=== PATIENT | male | born 1960 | race Caucasian/White ===

== ENCOUNTER → 2020-11-06 14:36 | Outpatient (BNVA) | payer MEDICARE, MEDICAID, SELFPAY | PROVIDERS: PCP Internal Medicine; Visit Provider Internal Medicine | DX: G47.33 Obstructive sleep apnea (adult) (pediatric) (principal); J44.9 Chronic obstructive pulmonary disease, unspecified; E66.9 Obesity, unspecified; I25.10 Atherosclerotic heart disease of native coronary artery without angina pectoris; I21.9 Acute myocardial infarction, unspecified; Z79.899 Other long term (current) drug therapy; Z95.5 Presence of coronary angioplasty implant and graft; Z99.81 Dependence on supplemental oxygen; Z99.89 Dependence on other enabling machines and devices | CPT/HCPCS: 99212 ==

== ENCOUNTER 2020-11-22 10:03 | Outpatient (REF) | payer MEDICARE, MEDICAID, SELFPAY ==
[2020-11-22 10:28] LABS: MANUAL DIFF FLAG NO
[2020-11-22 10:29] LABS: Basophils Percent Auto 0.5 % (0-2); Eosinophils Absolute Auto 0.2 X10*3/uL (0.0-0.4); Eosinophils Percent Auto 3.1 % (0-4); Hematocrit 41.2 % (42-52); Hemoglobin 13.7 g/dl (14.0-18.0); Imm Gran Abs Auto 0.03 X10*3/uL (0.00-0.03); Imm Gran Pct Auto 0.5 % (0.0-0.4); Lymphocytes Absolute Auto 1.6 X10*3/uL (1.2-4.9); Lymphocytes Percent Auto 24.6 % (20-40); Mean Corpuscular HGB Conc 33.3 g/dl (31.0-36.0); Mean Corpuscular Hemoglobin 30.2 pg (27.0-33.0); Mean Corpuscular Volume 90.7 fL (80-98); Monocytes Absolute Auto 0.6 X10*3/uL (0.1-1.2); Monocytes Percent Auto 9.4 % (2-11); Neutrophils Percent Auto 61.9 % (45-73); Platelet Count 181 X10*3/uL (160-400); Red Blood Count 4.54 X10*6/uL (4.60-5.80); Red Cell Distribution Width 12.9 % (11.0-16.0); White Blood Count 6.4 X10*3/uL (4.8-10.8)
[2020-11-22 10:44] LABS: Estimated Average Glucose 114 mg/dL; Hemoglobin A1c % 5.6 %
[2020-11-22 10:51] LABS: Alanine Aminotransferase 30 U/L (0-40); Albumin Level 4.4 g/dL (3.5-5.0); Alkaline Phosphatase 74 U/L (39-117); Anion Gap 11 (12-20); Aspartate Amino Transferase 19 U/L (5-37); Blood Urea Nitrogen 21 mg/dL (9-16); Calcium 9.1 mg/dL (8.4-10.2); Carbon Dioxide 31 mmol/L (22-29); Chloride 100 mmol/L (96-108); Cholesterol 119 mg/dL; Estimated Glomerular Filt Rate 47; Glucose Fasting 117 mg/dL (60-99); HDL Cholesterol 36 mg/dL; LDL Cholesterol Calculated 54 mg/dl; Potassium 4.9 mmol/l (3.3-5.1); Sodium 137 mmol/L (135-145); Total Protein 7.3 g/dL (6.5-8.0); Triglycerides 148 mg/dL
== END 2020-11-22 10:04 | disposition home or self-care (01) ==
LOC: HO.LAB 10:03
PROVIDERS: PCP Internal Medicine; Visit Provider Physician Assistant
DX: I21.4 Non-ST elevation (NSTEMI) myocardial infarction (principal); Z13.1 Encounter for screening for diabetes mellitus
CPT/HCPCS: 36415; 80048; 80053; 80061; 83036; 85025

== ENCOUNTER → 2020-12-05 14:50 | Outpatient (BNVA) | payer MEDICARE, MEDICAID, SELFPAY | PROVIDERS: PCP Internal Medicine; Visit Provider Internal Medicine | DX: E66.01 Morbid (severe) obesity due to excess calories (principal); G47.33 Obstructive sleep apnea (adult) (pediatric); J45.909 Unspecified asthma, uncomplicated; J98.4 Other disorders of lung | CPT/HCPCS: 99212 ==

== ENCOUNTER → 2021-02-06 09:45 | Outpatient (BNVA) | payer MEDICARE, MEDICAID, SELFPAY | PROVIDERS: PCP Internal Medicine; Visit Provider Internal Medicine | DX: J45.909 Unspecified asthma, uncomplicated (principal); G47.33 Obstructive sleep apnea (adult) (pediatric); E66.01 Morbid (severe) obesity due to excess calories; Z68.42 Body mass index [BMI] 45.0-49.9, adult; Z99.89 Dependence on other enabling machines and devices; Z87.891 Personal history of nicotine dependence; Z79.51 Long term (current) use of inhaled steroids | CPT/HCPCS: 99212 ==

== ENCOUNTER 2021-04-25 08:32 | Outpatient (REF) | payer MEDICARE, MEDICAID, SELFPAY ==
--- NOTE | ~2021-04-25 | XR_ITS ---
EXAMINATION: XR KNEE, BILATERAL XR KNEE, AP STANDING, BILATERAL CLINICAL INFORMATION: Bilateral knee pain. COMPARISON: Left knee 06/03/2019. Bilateral knee 12/24/2017. TECHNIQUE: AP bilateral knee standing 1 view. 2 views each knee. FINDINGS: Bilateral AP knee standing: There is severe loss of medial compartment joint space both knees with periarticular spurring. The lateral compartment joint space is preserved. There is no visible acute fracture, dislocation or lytic process seen. There is a moderate enthesophyte in medial supracondylar region likely old avulsion injury of right knee. Right knee: There is moderate loss of patellofemoral compartment joint space with moderate periarticular spurring. There is no abnormal joint effusion seen. There are no loose bodies. Left knee: There is moderate loss of patellofemoral compartment joint space with moderate periarticular spurring. No suprapatellar joint effusion seen. No loose bodies or bony erosive changes. XR/XR knee standing BI IMPRESSION: Severe loss of bilateral tricompartment joint space both knees with periarticular spurring but no bony erosive changes or joint effusion. There is no visible acute fracture or dislocation seen.
--- NOTE | ~2021-04-25 | XR_ITS ---
EXAMINATION: XR KNEE, BILATERAL XR KNEE, AP STANDING, BILATERAL CLINICAL INFORMATION: Bilateral knee pain. COMPARISON: Left knee 06/03/2019. Bilateral knee 12/24/2017. TECHNIQUE: AP bilateral knee standing 1 view. 2 views each knee. FINDINGS: Bilateral AP knee standing: There is severe loss of medial compartment joint space both knees with periarticular spurring. The lateral compartment joint space is preserved. There is no visible acute fracture, dislocation or lytic process seen. There is a moderate enthesophyte in medial supracondylar region likely old avulsion injury of right knee. Right knee: There is moderate loss of patellofemoral compartment joint space with moderate periarticular spurring. There is no abnormal joint effusion seen. There are no loose bodies. Left knee: There is moderate loss of patellofemoral compartment joint space with moderate periarticular spurring. No suprapatellar joint effusion seen. No loose bodies or bony erosive changes. XR/XR knee LT 2V IMPRESSION: Severe loss of bilateral tricompartment joint space both knees with periarticular spurring but no bony erosive changes or joint effusion. There is no visible acute fracture or dislocation seen.
--- NOTE | ~2021-04-25 | XR_ITS ---
EXAMINATION: XR KNEE, BILATERAL XR KNEE, AP STANDING, BILATERAL CLINICAL INFORMATION: Bilateral knee pain. COMPARISON: Left knee 06/03/2019. Bilateral knee 12/24/2017. TECHNIQUE: AP bilateral knee standing 1 view. 2 views each knee. FINDINGS: Bilateral AP knee standing: There is severe loss of medial compartment joint space both knees with periarticular spurring. The lateral compartment joint space is preserved. There is no visible acute fracture, dislocation or lytic process seen. There is a moderate enthesophyte in medial supracondylar region likely old avulsion injury of right knee. Right knee: There is moderate loss of patellofemoral compartment joint space with moderate periarticular spurring. There is no abnormal joint effusion seen. There are no loose bodies. Left knee: There is moderate loss of patellofemoral compartment joint space with moderate periarticular spurring. No suprapatellar joint effusion seen. No loose bodies or bony erosive changes. XR/XR knee RT 2V IMPRESSION: Severe loss of bilateral tricompartment joint space both knees with periarticular spurring but no bony erosive changes or joint effusion. There is no visible acute fracture or dislocation seen.
== END 2021-04-25 08:33 | disposition home or self-care (01) ==
LOC: HO.HOSX 08:32
PROVIDERS: Visit Provider Orthopaedic Surgery
DX: M17.0 Bilateral primary osteoarthritis of knee (principal); E66.01 Morbid (severe) obesity due to excess calories; Z68.42 Body mass index [BMI] 45.0-49.9, adult; I21.4 Non-ST elevation (NSTEMI) myocardial infarction
CPT/HCPCS: 20610; 73560; 73565; 99212; J1100

== ENCOUNTER → 2021-06-24 13:36 | Outpatient (BNVA) | payer MEDICARE, MEDICAID, SELFPAY | PROVIDERS: PCP Internal Medicine; Referring Provider Internal Medicine; Visit Provider Internal Medicine Cardiovascular Disease | DX: I25.110 Atherosclerotic heart disease of native coronary artery with unstable angina pectoris (principal); R07.89 Other chest pain | CPT/HCPCS: 93005; 99202 ==

== ENCOUNTER → 2021-06-26 09:14 | Outpatient (REF) | payer MEDICARE, MEDICAID, SELFPAY ==
--- NOTE | ~2021-06-26 | NM_ITS ---
Lexiscan Myocardial perfusion study Indication: Chest pain, assess for coronary artery disease and ischemia Technique: The patient was brought in for a Lexiscan perfusion study on 06/26/2021 and was injected 0.4 mg of Lexiscan intravenously. Within a minute of this injection 45 mCi of sestamibi was given intravenously. Images were obtained using the SPECT gamma camera interlaced with the gating device. Images were obtained in supine position. Resting perfusion study was performed on 06/27/2021. Patient was administered 45 mCi of sestamibi intravenously at rest. Images were then obtained in supine position. Total DLP 216mGy-cm. Images were processed with the software and compared side to side in short axis, horizontal long axis and vertical long axis views. Findings: Raw acquisition was reviewed. The stress perfusion study showed diminished tracer uptake along the inferior wall. There is improvement with CT attenuation correction and hence suggesting diaphragmatic attenuation artifact. The gated study shows normal LV systolic function with calculated LVEF of 52%. LV cavity is normal in size. The gated study shows normal wall thickening and contraction of segments. Resting study shows no significant perfusion abnormality. Gating at rest reveals normal wall motion with ejection fraction at 61%. The findings are consistent with reversible basal inferior defect suspected to be from diaphragmatic attenuation artifact. NM/NM evelio perf SPECT rest & str Impression: 1. Myocardial perfusion imaging study shows no definitive evidence of any ischemia or infarction. Reversible inferior defect suspected to be from diaphragmatic attenuation artifact. 2. Gated LVEF is 52% during stress and 61% during rest. 3. Transient ischemic dilatation not present. EKG component of the test reported separately
--- NOTE | 2021-06-26 09:19 | CA_ITS ---
Acquisition Time: 2021-06-26 09:26:14 Total Exercise Time: 00:02:00 Test Indications: Chest Pain Medications: ASA ATORVASTATIN CLOPIDOGREL BREO ELLIPTA IRBASARTAN METOPROLOL Protocol: LEXISCAN Max HR: 082 BPM 51% of Pred: 158 BPM Max BP: 136/066 mmHG Max Work Load: 1.0 METS Pharmacological stress test with Lexiscan injection, while sitting and kicking his legs, without anginal symptoms, without arrythmia, with normotensive response to injection, with nondiagnostic EKG for ischemia. In recovery he reported feeling weird and with stomach upset which was treated with Aminophylline 75mg IVP with resolution of symptoms. Nuclear images pending. Test reviewed with Dr Reagan. Referred By: El Reagan Overread By: EL DOBBS
[2021-06-26 11:09] LABS: MANUAL DIFF FLAG NO
[2021-06-26 11:20] LABS: Basophils Percent Auto 0.5 % (0-2); Eosinophils Absolute Auto 0.2 X10*3/uL (0.0-0.4); Eosinophils Percent Auto 4.1 % (0-4); Hematocrit 40.7 % (42-52); Hemoglobin 13.6 g/dl (14.0-18.0); Imm Gran Abs Auto 0.01 X10*3/uL (0.00-0.03); Imm Gran Pct Auto 0.3 % (0.0-0.4); Lymphocytes Absolute Auto 1.2 X10*3/uL (1.2-4.9); Lymphocytes Percent Auto 29.3 % (20-40); Mean Corpuscular HGB Conc 33.4 g/dl (31.0-36.0); Mean Corpuscular Volume 89.8 fL (80-98); Mean Platelet Volume 11.4 fL (9.4-12.4); Monocytes Absolute Auto 0.4 X10*3/uL (0.1-1.2); Monocytes Percent Auto 10.2 % (2-11); Neutrophils Absolute Auto 2.2 X10*3/uL (2.0-8.3); Neutrophils Percent Auto 55.6 % (45-73); Platelet Count 168 X10*3/uL (160-400); Red Blood Count 4.53 X10*6/uL (4.60-5.80); Red Cell Distribution Width 12.8 % (11.0-16.0); White Blood Count 3.9 X10*3/uL (4.8-10.8)
[2021-06-26 12:26] LABS: B Type Natriuretic Peptide 33 pg/mL (<100)
[2021-06-26 12:41] LABS: Estimated Average Glucose 114 mg/dL; Hemoglobin A1C 133.4415 umol/L; Hemoglobin A1c % 5.6 %
[2021-06-26 12:43] LABS: Alanine Aminotransferase 36 U/L (0-40); Albumin Level 4.4 g/dL (3.5-5.0); Alkaline Phosphatase 73 U/L (39-117); Anion Gap 11 (12-20); Aspartate Amino Transferase 24 U/L (5-37); Bilirubin Total 1.2 mg/dL (0.0-1.0); Blood Urea Nitrogen 24 mg/dL (9-16); Calcium 9.6 mg/dL (8.4-10.2); Carbon Dioxide 30 mmol/L (22-29); Chloride 102 mmol/L (96-108); Cholesterol 116 mg/dL; Estimated Glomerular Filt Rate 46; Glucose Random 114 mg/dL (60-115); HDL Cholesterol 36 mg/dL; LDL Cholesterol Calculated 58 mg/dl; Potassium 4.6 mmol/L (3.3-5.1); Sodium 138 mmol/L (135-145); Total Protein 7.3 g/dL (6.5-8.0); Triglycerides 110 mg/dL
[2021-06-26 12:49] LABS: Thyroid Stimulating Hormone 2.54 uIU/mL (0.32-4.0)
[2021-06-29 12:42] LABS: Folate 5.9 ng/mL (> or = 4.0); Vitamin B12 236 pg/mL (200-900)
== END ==
LOC: HO.CARD 09:14
PROVIDERS: PCP Internal Medicine; Visit Provider Internal Medicine Cardiovascular Disease
DX: R07.89 Other chest pain (principal); I25.110 Atherosclerotic heart disease of native coronary artery with unstable angina pectoris; E78.00 Pure hypercholesterolemia, unspecified
CPT/HCPCS: 36415; 78452; 80053; 80061; 82607; 82746; 83036; 83880; 84439; 84443; 85025; 93017; A9500; J0280; J2785

== ENCOUNTER 2021-06-28 09:06 | Outpatient (REF) | payer MEDICARE, MEDICAID, SELFPAY ==
--- NOTE | ~2021-06-28 | XR_ITS ---
EXAMINATION: XR CHEST CLINICAL INFORMATION: Hemoptysis. COMPARISON: Most recent chest radiograph dated 10/07/2019. TECHNIQUE: 2 views of the chest were obtained. FINDINGS: Minimal right basilar atelectasis. No pleural effusion or pneumothorax. Stable cardiomediastinal silhouette. XR/XR chest 2V IMPRESSION: Minimal right basilar atelectasis.
--- NOTE | ~2021-06-28 | FL_ITS ---
EXAMINATION: FL AIR-CONTRAST UPPER GI EXAMINATION CLINICAL INFORMATION: Dysphasia. COMPARISON: None TECHNIQUE: Esophagram with air-contrast upper GI examination. FINDINGS: There is normal apposition of the vocal cords while saying E. There is normal elevation of the soft palate while saying candy. Patient swallowed thin and thick barium without difficulty. There is no evidence of nasopharyngeal reflux or tracheal aspiration. No Zenker's diverticulum is seen. No significant cricopharyngeal hypertrophy is appreciated. The esophagus demonstrated normal distensibility. No mucosal abnormality is appreciated. A half-inch diameter barium tablet passed without difficulty. No hiatal hernia. There was gastroesophageal reflux seen to the level of the thoracic inlet which cleared slowly. The stomach demonstrated normal distensibility without evidence of ulceration or abnormal mass. There was no delay in gastric emptying. The duodenal bulb and sweep appeared unremarkable. FL/FL upper GI w air w Ba Swallow IMPRESSION: Gastroesophageal reflux to the level of the thoracic inlet which cleared slowly.
== END 2021-06-28 09:07 | disposition home or self-care (01) ==
LOC: HO.XRAY 09:06
PROVIDERS: PCP Internal Medicine; Visit Provider Internal Medicine
DX: R13.10 Dysphagia, unspecified (principal); R04.2 Hemoptysis
CPT/HCPCS: 71046; 74246

== ENCOUNTER 2021-07-09 14:14 | Outpatient (REF) | payer MEDICARE, MEDICAID, SELFPAY ==
[2021-07-09 15:42] LABS: COVID-19 Test Positive (Negative)
== END 2021-07-09 14:15 | disposition home or self-care (01) ==
LOC: HO.LAB 14:14
PROVIDERS: PCP Internal Medicine; Visit Provider Internal Medicine
DX: Z20.822 Contact with and (suspected) exposure to COVID-19 (principal)
CPT/HCPCS: 36415; 87635; C9803

== ENCOUNTER → 2021-07-26 10:33 | Outpatient (BNVA) | payer MEDICARE, MEDICAID, SELFPAY | PROVIDERS: PCP Internal Medicine; Visit Provider Orthopaedic Surgery | DX: M17.0 Bilateral primary osteoarthritis of knee (principal); I25.110 Atherosclerotic heart disease of native coronary artery with unstable angina pectoris; E66.09 Other obesity due to excess calories; Z68.37 Body mass index [BMI] 37.0-37.9, adult | CPT/HCPCS: 99212 ==

== ENCOUNTER → 2021-08-13 10:37 | Outpatient (BNVA) | payer MEDICARE, MEDICAID, SELFPAY | PROVIDERS: PCP Internal Medicine; Visit Provider Internal Medicine | DX: G47.33 Obstructive sleep apnea (adult) (pediatric) (principal); E66.09 Other obesity due to excess calories; J98.4 Other disorders of lung; Z68.37 Body mass index [BMI] 37.0-37.9, adult | CPT/HCPCS: 99212 ==

== ENCOUNTER → 2021-08-14 12:55 | Outpatient (BNVA) | payer MEDICARE, MEDICAID, SELFPAY | PROVIDERS: Visit Provider Anesthesiology | DX: M17.0 Bilateral primary osteoarthritis of knee (principal); E66.01 Morbid (severe) obesity due to excess calories | CPT/HCPCS: 99202 ==

== ENCOUNTER 2021-08-30 18:45 | Emergency (ER) | payer MEDICARE, MEDICAID, SELFPAY ==
[2021-08-30 20:53] VITALS: BP 121/54; PULSE 62; RESP 18; TEMP 36.8; O2SAT 94; BMI 48.2
--- NOTE | 2021-08-30 22:33 | ED_ITS ---
HPI - Ear Problem General Chief complaint: Ear Problems Stated complaint: ?FB in ear Time Seen by Provider: 08/30/21 22:33 Source: patient Mode of arrival: ambulatory History of Present Illness HPI Narrative: 61-year-old male who presents with ear pain and bleeding since last night after he was attempting to ?dig out ear wax and poked his year too far and hard?. He states he had some ear bleeding and says that there is a clot inside. Patient is on aspirin and Plavix. Related Data Home Medications Medication Instructions Recorded Confirmed aspirin 81 mg tablet,delayed 81 mg PO DAILY 11/06/20 08/13/21 release atorvastatin 80 mg tablet 80 mg PO DAILY 11/06/20 08/13/21 clopidogrel 75 mg tablet 75 mg PO DAILY 11/06/20 08/13/21 fluticasone propionate 50 INTRANASAL 11/06/20 08/13/21 mcg/actuation nasal spray,suspension hydrochlorothiazide 25 mg tablet 25 mg PO DAILY 11/06/20 08/13/21 metoprolol succinate 50 mg 50 mg PO DAILY 11/06/20 08/13/21 tablet,extended release 24 hr irbesartan 300 mg tablet 300 mg PO QAM 12/05/20 08/13/21 Previous Rx's Medication Instructions Recorded fluticasone furoate 100 1 inh INHALATION DAILY 30 Days #60 11/06/20 mcg-vilanterol 25 mcg/dose ea inhalation powder (Breo Ellipta) Ventolin HFA 90 mcg/actuation 2 puff INHALATION Q4-6H PRN #18 g 11/21/20 aerosol inhaler (albuterol sulfate) NS loratadine 10 mg tablet 10 mg PO DAILY #90 tab 12/11/20 ciprofloxacin HCl 0.2 % ear drops 5 drp OTIC (EARS) Q12H 7 Days #14 08/30/21 in a dropperette (Cetraxal) ea Allergies Allergy/AdvReac Type Severity Reaction Status Date / Time No Known Allergies Allergy Verified 08/30/21 20:53 Review of Systems Review of Systems: Pertinent positives and negatives as stated in HPI 10 point review of systems otherwise negative. PMFSH Past Medical History Source: nursing notes reviewed Medical History Asthma Ferrer's palsy Carpal tunnel syndrome Congestive heart failure Coronary artery disease COVID-19 Degenerative disc disease, cervical Diverticular disease Fatty liver History of Ferrer's palsy History of CVA (cerebrovascular accident) History of substance abuse Hypercholesterolemia Hypertension Lumbar degenerative disc disease Morbid (severe) obesity due to excess calories Nocturnal hypoxemia NSTEMI (non-ST elevated myocardial infarction) Obesity Obstructive sleep apnea Osteoarthritis of knees, bilateral Osteoarthritis, knee Restrictive lung disease Spinal stenosis Surgical History Back pain with history of spinal surgery History of arthroscopy of right knee History of left knee surgery History of umbilical hernia repair Stented coronary artery Family History Family History Father Myocardial infarction Mother Diabetes Hypertension Sister Past heart attack Cancer Brother Afib S/P triple vessel bypass Cancer Social History Social History Alcohol intake: current Patient Tobacco Use Status: Former Tobacco user Tobacco use type: Cigarette Years Smoked: 1989 Advance Directives: No Advance Directives Information Provided: Yes Current occupational status: retired and disabled 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 GENERAL: Well developed, well nourished, in no acute distress. HEAD: Normocephalic/atraumatic, EYES: PERRLA, EOMI intact without pain, no nystagmus/pallor/icterus noted EARS: RIGHT-Ext canals without abnormality, TMs non-bulging and non- erythematous; LEFT-external canal is without abnormality, after clearing clot v isualization of the TM demonstrates perforation NOSE: Nares patent bilateral OROPHARYNX: no oral lesions noted, posterior pharynx clear LUNGS: Normal breath sounds. No adventitious sounds or accessory muscle use. SpO2<94> CARDIOVASCULAR: Regular rate and rhythm without noted murmurs ABDOMEN: Soft, non-tender, non-distended with bowel sounds. NEUROLOGIC: Alert and oriented x 4. Strength and sensation to light touch were grossly intact x 4. Course Course Course Narrative: 61-year-old male with history and clinical presentation consistent with accidental rupture of left TM, there is no active bleeding at this time and patient will be provided with a prescription for otic antibiotics and instructed to follow-up with his primary care provider on Thursday morning. Discharge Plan Discharge Clinical Impression: Ruptured tympanic membrane Patient Disposition: Home, Self-Care Instructions: Ruptured Eardrum (ED) Additional Instructions: 1. Resume all home medications as prescribed. 2. Limit exposure to water in the left ear. 3. Complete the entire course antibiotics for your here. 4. Follow-up with your primary care provider on Thursday morning To the ER for acute worsening of symptoms. Prescriptions: New ciprofloxacin HCl [Cetraxal] 0.2 % dropperette 5 drp otic (ears) Q12H 7 Days Qty: 14 RF: 0 No Action albuterol sulfate [Ventolin HFA] 90 mcg/actuation HFA aerosol inhaler 2 puff inhalation Q4-6H PRN (Reason: shortness of breath or wheezing) Qty: 18 RF: 2 loratadine 10 mg tablet 10 mg PO DAILY Qty: 90 RF: 2 aspirin 81 mg tablet,delayed release (DR/EC) 81 mg PO DAILY RF: 0 metoprolol succinate 50 mg tablet extended release 24 hr 50 mg PO DAILY RF: 0 atorvastatin 80 mg tablet 80 mg PO DAILY RF: 0 hydrochlorothiazide 25 mg tablet 25 mg PO DAILY RF: 0 clopidogrel 75 mg tablet 75 mg PO DAILY RF: 0 fluticasone propionate 50 mcg/actuation spray,suspension intranasal RF: 0 Breo Ellipta 100-25 mcg/dose blister with device 1 inh inhalation DAILY 30 Days Qty: 60 RF: 2 irbesartan 300 mg tablet 300 mg PO QAM RF: 0 Referrals: Po,Catherine Rodriguez MD [Primary Care Provider] - 2 days
--- NOTE | 2021-08-30 23:00 | PC.NURSE ---
EAR CLEANED AND FLUSHED BY DR. SY.
== END 2021-08-30 23:00 | disposition home or self-care (01) ==
PROVIDERS: Emergency Provider Student in an Organized Health Care Education/Training Program; PCP Internal Medicine
DX: H72.92 Unspecified perforation of tympanic membrane, left ear (principal); H92.03 Otalgia, bilateral; F17.210 Nicotine dependence, cigarettes, uncomplicated; Z71.6 Tobacco abuse counseling; Z79.899 Other long term (current) drug therapy; Z79.82 Long term (current) use of aspirin
CPT/HCPCS: 99283

== ENCOUNTER 2021-09-24 06:13 | Outpatient (REF) | payer MEDICARE, MEDICAID, SELFPAY ==
--- NOTE | ~2021-09-24 | FL_ITS ---
EXAMINATION: XR FLUOROSCOPY WITH IMAGES CLINICAL INFORMATION: History of bilateral primary osteoarthritis of knees COMPARISON: Prior radiographs of the knees from 04/25/2021 TECHNIQUE: Fluoroscopy performed by Dr. Cordova. Fluoroscopy time: 0.2 minutes DAP: 2.28 Gycm2 Images: 1 (single lateral view of left knee) FL/FL guidance in treatment room FINDINGS AND IMPRESSION: The patient has known tricompartmental osteoarthritis of the left knee. This lateral view shows a thin metallic, needlelike structures projecting over the region of the distal femur and proximal tibia. Please refer to the procedure report.
== END 2021-09-24 06:14 | disposition home or self-care (01) ==
LOC: HO.RADIR 06:13
PROVIDERS: Visit Provider Anesthesiology
DX: M17.0 Bilateral primary osteoarthritis of knee (principal); E66.01 Morbid (severe) obesity due to excess calories
CPT/HCPCS: 64454; J3300

== ENCOUNTER → 2021-10-21 16:04 | Outpatient (BNVA) | payer MEDICARE, MEDICAID, SELFPAY | PROVIDERS: PCP Internal Medicine; Visit Provider Anesthesiology | DX: M17.0 Bilateral primary osteoarthritis of knee (principal); E66.01 Morbid (severe) obesity due to excess calories; Z68.42 Body mass index [BMI] 45.0-49.9, adult | CPT/HCPCS: 99212 ==

== ENCOUNTER 2021-11-26 05:41 | Outpatient (REF) | payer MEDICARE, MEDICAID, SELFPAY ==
--- NOTE | ~2021-11-26 | FL_ITS ---
EXAMINATION: XR FLUOROSCOPY WITH IMAGES CLINICAL INFORMATION: Bilateral primary osteoarthritis of the knee. COMPARISON: Knee radiographs dated 04/25/2021. TECHNIQUE: Fluoroscopy performed by Dr. Cordova. Fluoroscopy time: 0.6 minutes DAP: 3.75 Gycm2 Images: 3 FL/FL guidance in treatment room FINDINGS/IMPRESSION: 2 intraoperative views of the left knee were obtained with markers overlying the distal femur and proximal tibia. Please refer to the procedure report for more detailed findings.
== END 2021-11-26 05:42 | disposition home or self-care (01) ==
LOC: HO.RADIR 05:41
PROVIDERS: Visit Provider Anesthesiology
DX: M17.0 Bilateral primary osteoarthritis of knee (principal); R20.8 Other disturbances of skin sensation; T40.2X5A Adverse effect of other opioids, initial encounter; E66.01 Morbid (severe) obesity due to excess calories
CPT/HCPCS: 64624; J3300

== ENCOUNTER → 2021-12-25 08:16 | Outpatient (BNVA) | payer MEDICARE, MEDICAID, SELFPAY | PROVIDERS: PCP Internal Medicine; Visit Provider Anesthesiology | DX: M17.0 Bilateral primary osteoarthritis of knee (principal); E66.01 Morbid (severe) obesity due to excess calories; Z68.42 Body mass index [BMI] 45.0-49.9, adult | CPT/HCPCS: 99212 ==

== ENCOUNTER → 2021-12-31 12:32 | Outpatient (BNVA) | payer MEDICARE, MEDICAID, SELFPAY | PROVIDERS: PCP Internal Medicine; Referring Provider Internal Medicine; Visit Provider Internal Medicine Cardiovascular Disease | DX: I25.110 Atherosclerotic heart disease of native coronary artery with unstable angina pectoris (principal); I10 Essential (primary) hypertension | CPT/HCPCS: 99212 ==

== ENCOUNTER → 2022-01-21 09:25 | Outpatient (BNVA) | payer MEDICARE, MEDICAID, SELFPAY | PROVIDERS: PCP Internal Medicine; Visit Provider Physician Assistant | DX: M17.0 Bilateral primary osteoarthritis of knee (principal); R91.1 Solitary pulmonary nodule; I13.0 Hypertensive heart and chronic kidney disease with heart failure and stage 1 through stage 4 chronic kidney disease, or unspecified chronic kidney disease; N18.30 Chronic kidney disease, stage 3 unspecified; I50.9 Heart failure, unspecified; J98.4 Other disorders of lung; E66.01 Morbid (severe) obesity due to excess calories; E78.00 Pure hypercholesterolemia, unspecified; E66.09 Other obesity due to excess calories; I25.110 Atherosclerotic heart disease of native coronary artery with unstable angina pectoris; G47.33 Obstructive sleep apnea (adult) (pediatric); K76.0 Fatty (change of) liver, not elsewhere classified; Z68.42 Body mass index [BMI] 45.0-49.9, adult | CPT/HCPCS: 99212 ==

== ENCOUNTER → 2022-02-10 09:53 | Outpatient (BNVA) | payer MEDICARE, MEDICAID, SELFPAY | PROVIDERS: PCP Internal Medicine; Visit Provider Internal Medicine | DX: J98.4 Other disorders of lung (principal); J45.909 Unspecified asthma, uncomplicated; G47.33 Obstructive sleep apnea (adult) (pediatric); G47.34 Idiopathic sleep related nonobstructive alveolar hypoventilation; E66.01 Morbid (severe) obesity due to excess calories; Z68.42 Body mass index [BMI] 45.0-49.9, adult | CPT/HCPCS: 99212 ==

== ENCOUNTER 2022-03-11 17:22 | Emergency (ER) | payer MEDICARE, MEDICAID, SELFPAY ==
--- NOTE | ~2022-03-11 | XR_ITS ---
EXAMINATION: XR CHEST CLINICAL INFORMATION: Cough, shortness of breath COMPARISON: 06/28/2021 TECHNIQUE: Frontal view of the chest was obtained. FINDINGS: Low lung volumes. Cardiomediastinal silhouette is stable given technique. No dense consolidation, pleural effusion or pneumothorax. XR/XR chest 1V IMPRESSION: Low lung volumes. No acute cardiopulmonary process.
[2022-03-11 17:28] VITALS: BP 170/77; PULSE 82; RESP 17; TEMP 36.8; O2SAT 95; BMI 48.8
--- NOTE | 2022-03-11 19:00 | ECG_ITS ---
Test Reason : general medical Blood Pressure : / mmHG Vent. Rate : 079 BPM Atrial Rate : 079 BPM P-R Int : 156 ms QRS Dur : 140 ms QT Int : 404 ms P-R-T Axes : 019 -05 034 degrees QTc Int : 463 ms Normal sinus rhythm Left ventricular hypertrophy with QRS widening ( R in aVL , Adan product ) Abnormal ECG When compared with ECG of 07-OCT-2019 14:19, QT has lengthened Referred By: Siddhartha Augustin Electronically Signed By:COLLIN JARQUIN
[2022-03-11 19:01] VITALS: BP 140/70; PULSE 77; RESP 16; TEMP 36.9; O2SAT 93
[2022-03-11 19:22] LABS: MANUAL DIFF FLAG NO
[2022-03-11 19:24] LABS: Basophils Percent Auto 0.7 % (0-2); Eosinophils Absolute Auto 0.2 X10*3/uL (0.0-0.4); Eosinophils Percent Auto 3.7 % (0-4); Hematocrit 43.7 % (42.0-52.0); Hemoglobin 14.4 g/dl (14.0-18.0); Imm Gran Abs Auto 0.02 X10*3/uL (0.00-0.03); Imm Gran Pct Auto 0.3 % (0.0-0.4); Lymphocytes Absolute Auto 1.3 X10*3/uL (1.2-4.9); Lymphocytes Percent Auto 21.7 % (20-40); Mean Corpuscular Hemoglobin 29.6 pg (27.0-33.0); Mean Corpuscular Volume 89.9 fL (80.0-98.0); Mean Platelet Volume 10.2 fL (9.4-12.4); Monocytes Absolute Auto 0.6 X10*3/uL (0.1-1.2); Monocytes Percent Auto 9.6 % (2-11); Neutrophils Absolute Auto 3.8 x10*3/uL (2.0-8.3); Platelet Count 199 X10*3/uL (160-400); Red Blood Count 4.86 X10*6/uL (4.60-5.80); Red Cell Distribution Width 12.7 % (11.0-16.0)
[2022-03-11 19:31] LABS: INTERNATIONAL NORM RATIO 1.1 (0.9-1.1); Prothrombin Time 12.1 SEC (9.9-13.0)
[2022-03-11] MEDS: Cyclobenzaprine HCl 10 MG TABLET PO (19:34)
[2022-03-11] MEDS: predniSONE 20 MG TABLET 60 MG PO (19:34)
[2022-03-11] MEDS: oxyCODONE HCl Immed Release 5 MG TABLET PO (19:35)
--- NOTE | 2022-03-11 19:36 | ED_ITS ---
HPI - General Adult General Chief complaint: Back Pain/Injury Stated complaint: difficulty breathing/severe back pain Time Seen by Provider: 03/11/22 18:30 Source: patient Mode of arrival: ambulatory Limitations: no limitations History of Present Illness HPI narrative: 61-year-old male with history of chronic kidney disease, restrictive lung disease, coronary artery disease, hypertension, and stent, presents to the ED for back pain that began since yesterday. Patient states for the past week he has been coughing very hard and yesterday he coughs so hard all the sudden he had back pain from the coughing. Patient states for the past week coughing with chills, subjective fever, and body aches. Patient then states 3 days ago 1 episode of a spec of blood in his mucus after coughing hard. Patient denies any leg swelling, calf pain, recent long travel, recent surgery, or any history of any blood clots in the lung. Patient states he cannot stop coughing. Patient states coughing multiple times per hour. Patient states every time he coughs the back pain is worse. She states due to this back pain his pain is worse on movement and inspiration. Patient denies any urinary/bowel incontinence. Related Data Home Medications Medication Instructions Recorded Confirmed aspirin 81 mg tablet,delayed 81 mg PO DAILY 11/06/20 12/31/21 release atorvastatin 80 mg tablet 80 mg PO DAILY 11/06/20 12/31/21 fluticasone propionate 50 INTRANASAL 11/06/20 12/31/21 mcg/actuation nasal spray,suspension irbesartan 300 mg tablet 300 mg PO QAM 12/05/20 12/31/21 Previous Rx's Medication Instructions Recorded Ventolin HFA 90 mcg/actuation 2 puff INHALATION Q4-6H PRN #18 g 11/21/20 aerosol inhaler (albuterol sulfate) NS loratadine 10 mg tablet 10 mg PO DAILY #90 tab 09/26/21 Breo Ellipta 100 mcg-25 mcg/dose 1 ea PO DAILY #60 ea NS 02/24/22 powder for inhalation (fluticasone furoate-vilanterol) hydrochlorothiazide 25 mg tablet 25 mg PO DAILY 90 Days #90 tab 03/03/22 azithromycin 250 mg tablet See Rx Instructions .ROUTE 03/11/22 .COMPLEX #6 tab hydrocodone-homatropine 5 mg-1.5 5 ml PO Q4-6H PRN 3 Days #473 ml 03/11/22 mg/5 mL oral syrup (Hycodan (with homatropine)) prednisone 20 mg tablet 40 mg PO DAILY 5 Days #10 tab 03/11/22 Allergies Allergy/AdvReac Type Severity Reaction Status Date / Time No Known Allergies Allergy Verified 03/11/22 17:32 Review of Systems Review of Systems: Back pain, coughing, chills, subjective fever, body aches, back pain worse on movement. Yes all other systems are reviewed and are negative [facility] Past Medical History Medical History (Updated 03/11/22 @ 21:59 by MARYJO Tellez) Asthma Ferrer's palsy Carpal tunnel syndrome Congestive heart failure Coronary artery disease COVID-19 Degenerative disc disease, cervical Diverticular disease Fatty liver History of Ferrer's palsy History of CVA (cerebrovascular accident) History of substance abuse Hypercholesterolemia Hypertension Lumbar degenerative disc disease Morbid (severe) obesity due to excess calories Nocturnal hypoxemia Nocturnal hypoxemia NSTEMI (non-ST elevated myocardial infarction) Obesity Obstructive sleep apnea Opioid-induced hyperalgesia Osteoarthritis of knees, bilateral Osteoarthritis of left knee Osteoarthritis, knee Restrictive lung disease Spinal stenosis Surgical History Back pain with history of spinal surgery History of arthroscopy of right knee History of left knee surgery History of umbilical hernia repair Stented coronary artery Family History Family History Father Myocardial infarction Mother Diabetes Hypertension Sister Past heart attack Cancer Brother Afib S/P triple vessel bypass Cancer Social History Social History Housing: Apartment Alcohol intake: current Patient Tobacco Use Status: Former Tobacco user Tobacco use type: Cigarette Years Smoked: 1989 e-Cigarette/Vaping Use: Never Used Second Hand Smoke Exposure: No Advance Directives: No Advance Directives Information Provided: No Current occupational status: retired and disabled 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 Cognitive needs: No Hearing needs: No Vision needs: No Physical Exam ED Vital Signs: Vital Signs - 24 hr 03/11/22 17:28 03/11/22 19:01 03/11/22 19:44 Temperature 98.2 F 98.4 F Pulse Rate 82 77 77 Respiratory Rate 17 16 16 Blood Pressure 170/77 H 140/70 H Pulse Oximetry 95 93 03/11/22 20:30 03/11/22 22:38 Temperature Pulse Rate Respiratory Rate 17 17 Blood Pressure Pulse Oximetry BMI result Body Mass Index 48.8 Const General: cooperative, healthy appearing, comfortable, no acute distress, well developed, alert, awake and Physically active Orientation/consciousness: patient oriented x3 [facility] Head: Yes normal to inspection, Yes No palpable skull fracture present, Yes normocephalic, Yes atraumatic and No abrasion Ears: hearing grossly normal bilaterally, external ears normal and TM's normal bilaterally Mouth: Normal oral and palatal mucosa present, lip normal and tongue normal Throat: Yes posterior oropharynx normal, Yes tonsils normal and Yes uvula midline Eyes General: appearance normal, both eyes and all related structures Neck Neck: Yes normal visual inspection, Yes full ROM, Yes no lymphadenopathy, Yes no meningeal signs, Yes trachea midline, Yes supple, No anterior neck swelling and No tender Chest Chest palpation & inspection: normal inspection of the chest and normal palpation of entire chest wall Resp Effort & Inspection: normal respiratory effort and able to speak in complete sentences Auscultation: wheezes expiratory wheezes (Mild) and throughout Cardio Jugular venous distension: no JVD Heart sounds: S1 normal heart sound present and S2 normal heart sound present GI Inspection: Yes normal to inspection and No abdominal wall ecchymosis Palpation (GI): Soft to palpation, not firm, nontender, no guarding and not rigid General: No CVA tenderness and Yes no CVA tenderness Back/Spine/Pelvis Back: no CVA tenderness, No CVA tenderness and No back tenderness Skin General skin exam: no rashes or lesions noted and elasticity normal Neuro General: patient oriented x3, gait normal, no meningeal signs and CN's II-XI intact bilaterally Cranial nerves: Yes CN's II-XII intact bilaterally Extrem Other: Lower extremities negative for swelling, pittinh edema, or calf tenderness. General: Yes normal to inspection and Yes full ROM Psych Appearance: grossly normal, well kempt and not disheveled Course Course Course Narrative: Patient may have a bad case of URI and bronchitis but due to patient's past medical history with EKG and lab work. Will order albuterol inhaler and steroids. Was sent D-dimer due to 1 episode 3 days ago of speck of blood in mucus when cough. Patient vital signs are stable. Oxycodone and muscle relaxer ordered for back pain worse on movement. Not order NSAIDs due to patient history of CKD Reevaluation(s) Reevaluation #1: EKG negative STEMI. Troponin negative after having symptoms for 3 days. D- dimer negative. Wells score 1. BNP negative. Chest x-ray negative for pneumonia. Patient feeling better after being given albuterol nebulizer treatment. Patient will be discharged with coughing medication, and steroids. Patient already has albuterol inhaler at home. Not suspect any cardiac or PE. Time: 21:58 Medical Decision Making MDM Narrative Medical decision making narrative: Bronchitis Lab Data Result diagrams: 03/11/22 19:16 03/11/22 19:16 Labs: Lab Results 03/11/22 03/11/22 03/11/22 Range/Units 19:16 19:16 19:16 WBC 6.0 (4.8-10.8) X10*3/uL RBC 4.86 (4.60-5.80) X10*6/uL Hgb 14.4 (14.0-18.0) g/dl Hct 43.7 (42.0-52.0) % MCV 89.9 (80.0-98.0) fL MCH 29.6 (27.0-33.0) pg MCHC 33.0 (31.0-36.0) g/dl RDW 12.7 (11.0-16.0) % Plt Count 199 (160-400) X10*3/uL MPV 10.2 (9.4-12.4) fL Immature Gran % (Auto) 0.3 (0.0-0.4) % Neut % (Auto) 64.0 (45-73) % Lymph % (Auto) 21.7 (20-40) % Phillips % (Auto) 9.6 (2-11) % Eos % (Auto) 3.7 (0-4) % Baso % (Auto) 0.7 (0-2) % Lymph # (Auto) 1.3 (1.2-4.9) X10*3/uL Phillips # (Auto) 0.6 (0.1-1.2) X10*3/uL Eos # (Auto) 0.2 (0.0-0.4) X10*3/uL Baso # (Auto) 0.0 (0.0-0.2) X10*3/uL Abs Immat Gran (auto) 0.02 (0.00-0.03) X10*3/uL Absolute Neuts (auto) 3.8 (2.0-8.3) x10*3/uL Absolute Nucleated RBC 0.000 (0.0-0.012) X10*3/uL Nucleated RBC % (auto) 0.0 (0.0-0.2) /100WBC PT (9.9-13.0) SEC INR (0.9-1.1) APTT (24.1-38.0) SEC D-Dimer High Sensitivty NG/ML Sodium (135-145) mmol/L Potassium (3.3-5.1) mmol/L Chloride (96-108) mmol/L Carbon Dioxide (22-29) mmol/L Anion Gap (12-20) BUN (9-16) mg/dL Creatinine (0.5-1.4) mg/dL Estim Creat Clear Calc Estimated GFR Random Glucose (60-115) mg/dL Calcium (8.4-10.2) mg/dL Magnesium (1.6-2.6) mg/dL Total Bilirubin (0.0-1.0) mg/dL AST (5-37) U/L ALT (0-40) U/L Alkaline Phosphatase (39-117) U/L Troponin I High Sens (<3.5-35.0) ng/L B-Natriuretic Peptide (<100) pg/mL Total Protein (6.5-8.0) g/dL Albumin (3.5-5.0) g/dL COVID-19 (LOC) Negative (Negative) COVID-19 Clin Com See Note Influenza Type A (KAYLA) Negative (Negative) Influenza Type B (KAYLA) Negative (Negative) Influenza A & B Note See Note 03/11/22 03/11/22 03/11/22 Range/Units 19:16 19:16 19:16 WBC (4.8-10.8) X10*3/uL RBC (4.60-5.80) X10*6/uL Hgb (14.0-18.0) g/dl Hct (42.0-52.0) % MCV (80.0-98.0) fL MCH (27.0-33.0) pg MCHC (31.0-36.0) g/dl RDW (11.0-16.0) % Plt Count (160-400) X10*3/uL MPV (9.4-12.4) fL Immature Gran % (Auto) (0.0-0.4) % Neut % (Auto) (45-73) % Lymph % (Auto) (20-40) % Phillips % (Auto) (2-11) % Eos % (Auto) (0-4) % Baso % (Auto) (0-2) % Lymph # (Auto) (1.2-4.9) X10*3/uL Phillips # (Auto) (0.1-1.2) X10*3/uL Eos # (Auto) (0.0-0.4) X10*3/uL Baso # (Auto) (0.0-0.2) X10*3/uL Abs Immat Gran (auto) (0.00-0.03) X10*3/uL Absolute Neuts (auto) (2.0-8.3) x10*3/uL Absolute Nucleated RBC (0.0-0.012) X10*3/uL Nucleated RBC % (auto) (0.0-0.2) /100WBC PT 12.1 (9.9-13.0) SEC INR 1.1 (0.9-1.1) APTT 31.0 (24.1-38.0) SEC D-Dimer High Sensitivty < 150 NG/ML Sodium 141 (135-145) mmol/L Potassium 4.2 (3.3-5.1) mmol/L Chloride 99 (96-108) mmol/L Carbon Dioxide 34 H (22-29) mmol/L Anion Gap 12 (12-20) BUN 19 H (9-16) mg/dL Creatinine 1.41 H (0.5-1.4) mg/dL Estim Creat Clear Calc 82.4 Estimated GFR 51 Random Glucose 133 H (60-115) mg/dL Calcium 9.6 (8.4-10.2) mg/dL Magnesium 2.1 (1.6-2.6) mg/dL Total Bilirubin 0.8 (0.0-1.0) mg/dL AST 27 (5-37) U/L ALT 47 H (0-40) U/L Alkaline Phosphatase 85 (39-117) U/L Troponin I High Sens 4.7 (<3.5-35.0) ng/L B-Natriuretic Peptide 16 (<100) pg/mL Total Protein 7.4 (6.5-8.0) g/dL Albumin 4.3 (3.5-5.0) g/dL COVID-19 (LOC) (Negative) COVID-19 Clin Com Influenza Type A (KAYLA) (Negative) Influenza Type B (KAYLA) (Negative) Influenza A & B Note ECG Data Interpretation: Normal sinus rhythm. LVH. Ventricular rate 79. Pr interval 159. QRS 140. QTC 463. Negative STEMI Discharge Plan Discharge Clinical Impression: Bronchitis Patient Disposition: Home, Self-Care Instructions: Acute Bronchitis (ED) Additional Instructions: Your EKG and blood work came back negative for heart attack. Your labs came back negative for risk of pulmonary embolism. X-ray and blood work came back negative for signs of heart failure. Return to the ED for any leg swelling, calf pain, coughing up blood clots, shortness of breath on inspiration, worsening chest pain, weakness, dizziness, intractable fever, or any other concerning symptoms. Continue using albuterol inhaler at home. Prescriptions: New hydrocodone-homatropine [Hycodan (with homatropine)] 5-1.5 mg/5 mL syrup 5 ml PO Q4-6H PRN (Reason: cough) 3 Days Qty: 473 0RF Rx Instructions: side effect is drowsiness. Do not take at work or while driving. azithromycin 250 mg tablet See Rx Instructions .ROUTE .COMPLEX Qty: 6 0RF Rx Instructions: For 250 mg dose pack: take 500 mg today (day 1), then 250 mg for 4 days (days 2-5) prednisone 20 mg tablet 40 mg PO DAILY 5 Days Qty: 10 0RF No Action albuterol sulfate [Ventolin HFA] 90 mcg/actuation HFA aerosol inhaler 2 puff inhalation Q4-6H PRN (Reason: shortness of breath or wheezing) Qty: 18 2RF loratadine 10 mg tablet 10 mg PO DAILY Qty: 90 3RF Breo Ellipta 100-25 mcg/dose blister with device 1 ea PO DAILY Qty: 60 0RF hydrochlorothiazide 25 mg tablet 25 mg PO DAILY 90 Days Qty: 90 0RF aspirin 81 mg tablet,delayed release (DR/EC) 81 mg PO DAILY 0RF atorvastatin 80 mg tablet 80 mg PO DAILY 0RF fluticasone propionate 50 mcg/actuation spray,suspension intranasal 0RF irbesartan 300 mg tablet 300 mg PO QAM 0RF Interventions: ED Discharge Assessment Last Done: 03/11/22 22:38 Discharge Date/Time: 03/11/22 22:39 Print Language: Tajik
[2022-03-11 19:38] LABS: Alanine Aminotransferase 47 U/L (0-40); Albumin Level 4.3 g/dL (3.5-5.0); Alkaline Phosphatase 85 U/L (39-117); Anion Gap 12 (12-20); Aspartate Amino Transferase 27 U/L (5-37); Bilirubin Total 0.8 mg/dL (0.0-1.0); Blood Urea Nitrogen 19 mg/dL (9-16); Calcium 9.6 mg/dL (8.4-10.2); Carbon Dioxide 34 mmol/L (22-29); Chloride 99 mmol/L (96-108); Creatinine Clr Calc Pharmacy 82.4; Estimated Glomerular Filt Rate 51; Glucose Random 133 mg/dL (60-115); Potassium 4.2 mmol/L (3.3-5.1); Sodium 141 mmol/L (135-145); Total Protein 7.4 g/dL (6.5-8.0)
[2022-03-11 19:42] LABS: B Type Natriuretic Peptide 16 pg/mL (<100); Troponin-I High Sensitivity 4.7 ng/L (<3.5-35.0)
[2022-03-11 19:43] LABS: Influenza A Negative (Negative)
[2022-03-11] MEDS: Albuterol/Iprat 2.5/0.5MG 3 ML AMPUL.NEB INHALE (19:43)
[2022-03-11 19:44] VITALS: PULSE 77; RESP 16
[2022-03-11 19:44] LABS: COVID-19 Test Negative (Negative); IDNOW Serial# 16C4AD1C; Influenza B2 Negative (Negative)
[2022-03-11 19:53] LABS: D Dimer High Sensitivity < 150 NG/ML
[2022-03-11 20:30] VITALS: RESP 17
[2022-03-11 21:05] LABS: Magnesium 2.1 mg/dL (1.6-2.6)
[2022-03-11 22:38] VITALS: RESP 17
== END 2022-03-11 22:39 | disposition home or self-care (01) ==
PROVIDERS: Physician Assistant; Emergency Provider Emergency Medicine; PCP Internal Medicine
DX: J40 Bronchitis, not specified as acute or chronic (principal); I12.9 Hypertensive chronic kidney disease with stage 1 through stage 4 chronic kidney disease, or unspecified chronic kidney disease; N18.9 Chronic kidney disease, unspecified; I25.10 Atherosclerotic heart disease of native coronary artery without angina pectoris; J45.909 Unspecified asthma, uncomplicated; I25.2 Old myocardial infarction; Z86.73 Personal history of transient ischemic attack (TIA), and cerebral infarction without residual deficits; Z20.822 Contact with and (suspected) exposure to COVID-19
CPT/HCPCS: 36415; 71045; 80053; 83735; 83880; 84484; 85025; 85379; 85610; 85730; 87502; 87635; 93005; 94640; 99284

== ENCOUNTER 2022-03-13 07:40 | Outpatient (REF) | payer MEDICARE, MEDICAID, SELFPAY ==
--- NOTE | 2022-03-13 13:54 | PFT_ITS ---
INDICATION: COPD. SPIROMETRY: The FEV1 to FVC of 85% with an FEV1 of 1.92 L, which is 52% predicted and FVC of 2.26 L, which is 46% predicted. No significant response to bronchodilators noted. Maximum voluntary ventilation only 46% predicted. LUNG VOLUMES: Total lung capacity 58% predicted with an expiratory reserve volume of 5% predicted. DIFFUSION CAPACITY: DLCO 70% predicted, it does correct to 129% when corrected for the alveolar volume. COMPARISONS: None available. INTERPRETATION: No obstructive ventilatory defect. No significant response to bronchodilators noted. The patient does have a [id number] decrease in the maximum voluntary ventilation secondary to likely deconditioning, although cannot rule out neuromuscular conditions. The patient also has a restrictive ventilatory defect, consistent with moderate restrictive lung disease. Partly due to his elevated BMI, although cannot rule out occult interstitial lung conditions and/or neuromuscular conditions. His expiratory reserve volume was only 5% predicted. The patient also has a mild diffusion impairment, that does correct to normal when correcting for the alveolar volume suggesting some degree that diffusion impairment, is due to hypoexpansion of the lungs and it is unlikely to be related to intrinsic process of the lung parenchyma. Clinical correlation is warranted. MD SHARLENE Azevedo/MODL / [id number]
== END 2022-03-13 07:41 | disposition home or self-care (01) ==
LOC: HO.RESP 07:40
PROVIDERS: PCP Internal Medicine; Visit Provider Internal Medicine
DX: J98.4 Other disorders of lung (principal); J45.909 Unspecified asthma, uncomplicated; E66.01 Morbid (severe) obesity due to excess calories
CPT/HCPCS: 94060; 94727; 94729

== ENCOUNTER → 2022-04-07 09:32 | Outpatient (BNVA) | payer MEDICARE, MEDICAID, SELFPAY | PROVIDERS: PCP Internal Medicine; Visit Provider Internal Medicine | DX: J98.4 Other disorders of lung (principal); G47.33 Obstructive sleep apnea (adult) (pediatric); J45.909 Unspecified asthma, uncomplicated; E66.01 Morbid (severe) obesity due to excess calories; Z68.43 Body mass index [BMI] 50.0-59.9, adult | CPT/HCPCS: 99212 ==

== ENCOUNTER → 2022-04-11 10:42 | Outpatient (BNVA) | payer MEDICARE, MEDICAID, SELFPAY | PROVIDERS: PCP Internal Medicine; Visit Provider Anesthesiology | DX: Z13.89 Encounter for screening for other disorder (principal) | CPT/HCPCS: Q3014 ==

== ENCOUNTER 2022-05-20 05:55 | Outpatient (REF) | payer MEDICARE, MEDICAID, SELFPAY ==
--- NOTE | ~2022-05-20 | FL_ITS ---
EXAMINATION: XR FLUOROSCOPY WITH IMAGES CLINICAL INFORMATION: M17.0 - Bilateral primary osteoarthritis of knee COMPARISON: Radiographs bilateral knees 04/22/2021 TECHNIQUE: Fluoroscopy performed by Dr. Dima Cordova. Fluoroscopy time: 0.5 minutes. DAP: 2.11 Gycm2. Images: 2. FINDINGS: There are 2 spinal needles overlying the distal right femoral shaft mid depth. There is a spinal needle overlying the proximal tibia mid depth. FL/FL guidance in treatment room IMPRESSION: Fluoroscopy for pain management procedures.
== END 2022-05-20 05:56 | disposition home or self-care (01) ==
LOC: HO.RADIR 05:55
PROVIDERS: Visit Provider Anesthesiology
DX: M17.0 Bilateral primary osteoarthritis of knee (principal); E66.01 Morbid (severe) obesity due to excess calories
CPT/HCPCS: 64447; J2795

== ENCOUNTER → 2022-05-26 15:40 | Outpatient (BNVA) | payer MEDICARE, MEDICAID, SELFPAY | PROVIDERS: PCP Internal Medicine; Visit Provider Anesthesiology | DX: M17.0 Bilateral primary osteoarthritis of knee (principal); E66.01 Morbid (severe) obesity due to excess calories; Z98.890 Other specified postprocedural states | CPT/HCPCS: Q3014 ==

== ENCOUNTER 2022-06-04 10:19 | Outpatient (REF) | payer MEDICARE, MEDICAID, SELFPAY ==
--- NOTE | ~2022-06-04 | XR_ITS ---
EXAMINATION: XR lumbar spine 2-3V CLINICAL INFORMATION: Reason for Exam M51.36 - Other intervertebral disc degeneration, lumbar region COMPARISON: None TECHNIQUE: 3 views of the lumbar spine FINDINGS: 5 nonrib-bearing lumbar-type vertebral bodies. Interspinous process spacer is noted at L4-L5. No evidence of hardware fracture. Vertebral body heights are maintained. Grade 1 anterolisthesis of L4 on L5. Mild to moderate multilevel degenerative disc disease with loss of disc space height, facet arthropathy and disc osteophyte complexes. This is worst at L5-S1. Posterior subluxation of the coccyx. Paravertebral soft tissues are unremarkable. XR/XR lumbar spine 2-3V IMPRESSION: * Mild to moderate spondylosis of the lumbar spine, as above detailed. * Grade 1 anterolisthesis of L4 on L5. * Posterior subluxation of the coccyx which may reflect an age-indeterminate sacrococcygeal fracture-dislocation. * Interspinous process spacer is noted at L4-L5. No evidence of hardware fracture.
[2022-06-04 10:36] LABS: MANUAL DIFF FLAG NO
[2022-06-04 12:03] LABS: Basophils Percent Auto 0.7 % (0-2); Eosinophils Absolute Auto 0.1 X10*3/uL (0.0-0.4); Eosinophils Percent Auto 2.1 % (0-4); Hemoglobin 14.5 g/dl (14.0-18.0); Imm Gran Abs Auto 0.02 X10*3/uL (0.00-0.03); Imm Gran Pct Auto 0.4 % (0.0-0.4); Lymphocytes Absolute Auto 1.1 X10*3/uL (1.2-4.9); Lymphocytes Percent Auto 18.8 % (20-40); Mean Corpuscular HGB Conc 33.7 g/dl (31.0-36.0); Mean Corpuscular Hemoglobin 30.3 pg (27.0-33.0); Monocytes Absolute Auto 0.5 X10*3/uL (0.1-1.2); Monocytes Percent Auto 9.5 % (2-11); Neutrophils Absolute Auto 3.9 x10*3/uL (2.0-8.3); Neutrophils Percent Auto 68.5 % (45-73); Platelet Count 189 X10*3/uL (160-400); Red Blood Count 4.78 X10*6/uL (4.60-5.80); Red Cell Distribution Width 13.2 % (11.0-16.0); White Blood Count 5.7 X10*3/uL (4.8-10.8)
[2022-06-04 12:33] LABS: Alanine Aminotransferase 45 U/L (0-40); Albumin Level 4.3 g/dL (3.5-5.0); Alkaline Phosphatase 71 U/L (39-117); Anion Gap 11 (12-20); Aspartate Amino Transferase 25 U/L (5-37); Bilirubin Total 1.4 mg/dL (0.0-1.0); Blood Urea Nitrogen 20 mg/dL (9-16); Calcium 9.3 mg/dL (8.4-10.2); Carbon Dioxide 32 mmol/L (22-29); Chloride 100 mmol/L (96-108); Cholesterol 147 mg/dL; Estimated Glomerular Filt Rate 50; Glucose Random 126 mg/dL (60-115); HDL Cholesterol 46 mg/dL; LDL Cholesterol Calculated 81 mg/dl; Potassium 4.3 mmol/L (3.3-5.1); Sodium 139 mmol/L (135-145); Total Protein 7.3 g/dL (6.5-8.0); Triglycerides 100 mg/dL
[2022-06-04 12:41] LABS: B Type Natriuretic Peptide 11 pg/mL (<100)
[2022-06-04 12:56] LABS: Free T4 (Free Thyroxine) 0.93 ng/dL (0.71-1.85); Prostate Specific Antigen Scr 1.14 ng/mL (<0.05-4.0); Thyroid Stimulating Hormone 1.62 uIU/mL (0.32-4.0)
[2022-06-04 13:07] LABS: Folate 3.4 ng/mL (> or = 4.0); Vitamin B12 226 pg/mL (200-900)
== END 2022-06-04 10:20 | disposition home or self-care (01) ==
LOC: HO.XRAY 10:19
PROVIDERS: PCP Internal Medicine; Visit Provider Internal Medicine
DX: M51.36 Other intervertebral disc degeneration, lumbar region (principal); I50.9 Heart failure, unspecified; E78.00 Pure hypercholesterolemia, unspecified; Z12.5 Encounter for screening for malignant neoplasm of prostate
CPT/HCPCS: 36415; 72100; 80053; 80061; 82607; 82746; 83880; 84153; 84439; 84443; 85025

== ENCOUNTER 2022-07-18 10:24 | Day surgery (SDC) | payer MEDICARE, MEDICAID, SELFPAY ==
[2022-07-15 13:47] VITALS: BMI 50.2
--- NOTE | 2022-07-17 10:33 | P.CONAN_ITS ---
Documented by User: Vaishali Black NP 07/17/22 10:38 HPI - Anesthesia Eval Consult details Narrative: 62yo M for Right Genicular Nerve RFA Stable at 12/2021 cardiac visit with yearly f/u O2 QHS with CPAP PMFSH Active Problems Active Problems: All Active Problems (Updated 06/09/22 @ 20:12 by Catherine Diehl MD) Lumbar spondylosis (Acute) Asthma (Acute) Brittle asthma (Acute) Allergic rhinitis (Acute) Impacted cerumen of both ears (Acute) Generalized anxiety disorder (Acute) Nocturnal hypoxemia (Acute) Opioid-induced hyperalgesia (Acute) Perforation of tympanic membrane in adult (Acute) Pulmonary nodule 1 cm or greater in diameter (Acute) CKD (chronic kidney disease) stage 3, GFR 30-59 ml/min (Acute) Annual physical exam (Acute) Dysphagia (Acute) Hemoptysis (Acute) Osteoarthritis of knees, bilateral (Acute) Morbid (severe) obesity due to excess calories (Acute) Restrictive lung disease (Acute) Hypercholesterolemia (Acute) Obesity (Acute) Congestive heart failure (Acute) Coronary artery disease (Acute) Hypertension (Acute) Obstructive sleep apnea (Acute) Lumbar degenerative disc disease (Acute) Asthma (Acute) Osteoarthritis, knee (Acute) Fatty liver (Acute) Past Medical History Medical History (Updated 06/09/22 @ 20:12 by Catherine Diehl MD) Allergic rhinitis Asthma Asthma Ferrer's palsy Brittle asthma Carpal tunnel syndrome Congestive heart failure Coronary artery disease COVID-19 Degenerative disc disease, cervical Diverticular disease Fatty liver History of Ferrer's palsy History of CVA (cerebrovascular accident) History of substance abuse Hypercholesterolemia Hypertension Lumbar degenerative disc disease Lumbar spondylosis Morbid (severe) obesity due to excess calories Nocturnal hypoxemia NSTEMI (non-ST elevated myocardial infarction) Obesity Obstructive sleep apnea Opioid-induced hyperalgesia Osteoarthritis of knees, bilateral Osteoarthritis, knee Restrictive lung disease Spinal stenosis Family History Family History Father Myocardial infarction Mother Diabetes Hypertension Sister Past heart attack Cancer Brother Afib S/P triple vessel bypass Cancer Surgical History Surgical History Back pain with history of spinal surgery History of arthroscopy of right knee History of left knee surgery History of umbilical hernia repair Stented coronary artery Social History Social History Housing: Apartment Alcohol intake: current Patient Tobacco Use Status: Former Tobacco user Tobacco use type: Cigarette Years Smoked: 1989 e-Cigarette/Vaping Use: Never Used Second Hand Smoke Exposure: No Are you DNR?: No Advance Directives: No Advance Directives Information Provided: Yes Current occupational status: retired and disabled 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 Cognitive needs: No Hearing needs: No Vision needs: No Meds Allergies Allergy/AdvReac Type Severity Reaction Status Date / Time No Known Allergies Allergy Verified 05/30/22 08:38 Home Medications Medication Instructions Recorded Confirmed Last Taken Type fluticasone propionate 50 1 spray intranasal DAILY 11/06/20 07/15/22 Unknown History mcg/actuation nasal spray,suspension Exam Exam Date and Time: July 17, 2022 1033 Height,Weight and Vital Signs: Height 5 ft 11 in Weight 163.293 kg Pertinent Lab Results Pertinent Lab Results: Laboratory Tests 06/04/22 06/04/22 10:35 10:35 WBC 5.7 Hgb 14.5 Hct 43.0 Plt Count 189 Sodium 139 Potassium 4.3 Chloride 100 Carbon Dioxide 32 H BUN 20 H Creatinine 1.42 H Assessment and Plan Assessment Anesthesia Assessment: Chart Reviewed Documented by User: Carter Goldberg MD 07/18/22 11:11 [facility] Past Medical History Medical History (Updated 06/09/22 @ 20:12 by Catherine Diehl MD) Allergic rhinitis Asthma Asthma Ferrer's palsy Brittle asthma Carpal tunnel syndrome Congestive heart failure Coronary artery disease COVID-19 Degenerative disc disease, cervical Diverticular disease Fatty liver History of Ferrer's palsy History of CVA (cerebrovascular accident) History of substance abuse Hypercholesterolemia Hypertension Lumbar degenerative disc disease Lumbar spondylosis Morbid (severe) obesity due to excess calories Nocturnal hypoxemia NSTEMI (non-ST elevated myocardial infarction) Obesity Obstructive sleep apnea Opioid-induced hyperalgesia Osteoarthritis of knees, bilateral Osteoarthritis, knee Restrictive lung disease Spinal stenosis Family History Family History Father Myocardial infarction Mother Diabetes Hypertension Sister Past heart attack Cancer Brother Afib S/P triple vessel bypass Cancer Family history of problems with anesthesia: No Surgical History Surgical History Back pain with history of spinal surgery History of arthroscopy of right knee History of left knee surgery History of umbilical hernia repair Stented coronary artery History of Problems with Anesthesia: No Social History Social History Housing: Apartment Alcohol intake: current Patient Tobacco Use Status: Former Tobacco user Tobacco use type: Cigarette Years Smoked: 1989 e-Cigarette/Vaping Use: Never Used Second Hand Smoke Exposure: No Are you DNR?: No Advance Directives: No Advance Directives Information Provided: Yes Current occupational status: retired and disabled 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 Cognitive needs: No Hearing needs: No Vision needs: No Meds Allergies Allergy/AdvReac Type Severity Reaction Status Date / Time No Known Allergies Allergy Verified 05/30/22 08:38 Home Medications Medication Instructions Recorded Confirmed Last Taken Type fluticasone propionate 50 1 spray intranasal DAILY 11/06/20 07/15/22 Unknown History mcg/actuation nasal spray,suspension Exam Airway Mallampati Class: III TM Dist: >3cm Neck ROM: Full Denture: Upper Loose/Missing/Broken Teeth: Yes (lower missing all but 3 teeth poor dentition, denies any loose teeth) Heart: [id number] Lungs: cta b/l Assessment and Plan Assessment Anesthesia Assessment: Anesthesia Plan Discussed Final Anesthetic Review Family History of Problems with Anesthesia: No History of Problems with Anesthesia: No NPO: Yes ASA Class: III Final Preanesthetic Review: No Changes in Pt Med Stat, Meds/Allgs Chart Reviewed, Consent Obtained/Reviewed and Anes Risks/Benef Reviewed Patient Risk: Intermediate Procedure Risk: Intermediate Assessment/Block/Sedation in SS: Assess/Block/Sedation-SS Anesthetic Plan Anesthetic Plan: MAC: and Agree w/ Assess. and Plan Disposition: Standard PACU
--- NOTE | ~2022-07-18 | FL_ITS ---
EXAMINATION: XR FLUOROSCOPY WITH IMAGES CLINICAL INFORMATION: Right knee RFA. COMPARISON: Fluoroscopic spot views right knee 09/20/2022 TECHNIQUE: Fluoroscopy performed by Dr. Dima Cordova. Fluoroscopy time: 0.5 minutes. Cumulative Dose: 6.55 mGy. DAP: 1.78 Gy-cm2. Images: 3. FINDINGS: There are spinal needles/electrodes adjacent to the distal femoral shaft, medial and lateral sides, mid depth. There is a spinal needle/electrode adjacent to the proximal tibia on medial side mid depth. There are tricompartment osteoarthritic changes again seen, greatest medial knee joint compartment with joint narrowing and osteophytes and mild genu varus. FL/FL guidance in OR IMPRESSION: Fluoroscopy for pain management procedures.
[2022-07-18 10:48] VITALS: BP 187/87; PULSE 58; RESP 20; TEMP 36.1; O2SAT 96
[2022-07-18 10:57] VITALS: BP 168/92
[2022-07-18 11:03] LABS: Amphetamine Screen Urine Not Detected (Not Detect); Barbiturates, Urine Not Detected (Not Detect); Benzodiazepines Screen Urine Not Detected (Not Detect); Cannabinoid Screen Urine POSITIVE (Not Detect); Cocaine Screen Urine Not Detected (Not Detect); Fentanyl, urine Not Detected (Not Detect); Opiate Screen Urine Not Detected (Not Detect); Phencyclidine Screen Urine Not Detected (Not Detect)
[2022-07-18] MEDS: Lactated Ringers 1,000 ML 100 ML IVCONT (11:14)
--- NOTE | 2022-07-18 11:31 | HO.ANESPROP2 ---
[facility] Active Problems Active Problems: All Active Problems (Updated 06/09/22 @ 20:12 by Catherine Diehl MD) Lumbar spondylosis (Acute) Asthma (Acute) Brittle asthma (Acute) Allergic rhinitis (Acute) Impacted cerumen of both ears (Acute) Generalized anxiety disorder (Acute) Nocturnal hypoxemia (Acute) Opioid-induced hyperalgesia (Acute) Perforation of tympanic membrane in adult (Acute) Pulmonary nodule 1 cm or greater in diameter (Acute) CKD (chronic kidney disease) stage 3, GFR 30-59 ml/min (Acute) Annual physical exam (Acute) Dysphagia (Acute) Hemoptysis (Acute) Osteoarthritis of knees, bilateral (Acute) Morbid (severe) obesity due to excess calories (Acute) Restrictive lung disease (Acute) Hypercholesterolemia (Acute) Obesity (Acute) Congestive heart failure (Acute) Coronary artery disease (Acute) Hypertension (Acute) Obstructive sleep apnea (Acute) Lumbar degenerative disc disease (Acute) Asthma (Acute) Osteoarthritis, knee (Acute) Fatty liver (Acute) Past Medical History Medical History Allergic rhinitis Asthma Asthma Ferrer's palsy Brittle asthma Carpal tunnel syndrome Congestive heart failure Coronary artery disease COVID-19 Degenerative disc disease, cervical Diverticular disease Fatty liver History of Ferrer's palsy History of CVA (cerebrovascular accident) History of substance abuse Hypercholesterolemia Hypertension Lumbar degenerative disc disease Lumbar spondylosis Morbid (severe) obesity due to excess calories Nocturnal hypoxemia NSTEMI (non-ST elevated myocardial infarction) Obesity Obstructive sleep apnea Opioid-induced hyperalgesia Osteoarthritis of knees, bilateral Osteoarthritis, knee Restrictive lung disease Spinal stenosis Family History Family History Father Myocardial infarction Mother Diabetes Hypertension Sister Past heart attack Cancer Brother Afib S/P triple vessel bypass Cancer Family history of problems with anesthesia: No Surgical History Surgical History Back pain with history of spinal surgery History of arthroscopy of right knee History of left knee surgery History of umbilical hernia repair Stented coronary artery History of Problems with Anesthesia: No Social History Social History Housing: Apartment Alcohol intake: current Patient Tobacco Use Status: Former Tobacco user Tobacco use type: Cigarette Years Smoked: 1989 e-Cigarette/Vaping Use: Never Used Second Hand Smoke Exposure: No Are you DNR?: No Advance Directives: No Advance Directives Information Provided: Yes Current occupational status: retired and disabled 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 Cognitive needs: No Hearing needs: No Vision needs: No Meds Allergies Allergy/AdvReac Type Severity Reaction Status Date / Time No Known Allergies Allergy Verified 05/30/22 08:38 Active Medications: Current Medications Albuterol Sulfate (Albuterol Sulfate (0.083%) 2.5 Mg/3 Ml Vial.Neb) 2.5 mg INHALE ONCE PRN PRN Reason: Shortness of Breath/Wheezing Fentanyl (Fentanyl Citrate/Pf 100 Mcg/2 Ml Vial) 50 mcg IVPUSH Q5M PRN; Protocol PRN Reason: Pain, Moderate (Pain Scale 4-6 Lactated Ringer's (Lr) 1,000 mls @ 100 mls/hr IVCONT .Q10H HOWIE Last Admin: 07/18/22 11:14 Dose: 100 mls/hr Ondansetron HCl (Ondansetron Hcl 4 Mg/2 Ml Vial) 4 mg IVPUSH ONCE PRN PRN Reason: Nausea and Vomiting Ondansetron HCl (Ondansetron Hcl 4 Mg/2 Ml Vial) 4 mg IVPUSH ONCE PRN PRN Reason: Nausea and Vomiting Home Medications Medication Instructions Recorded Confirmed Last Taken Type fluticasone propionate 50 1 spray intranasal DAILY 11/06/20 07/15/22 Unknown History mcg/actuation nasal spray,suspension Exam Exam Date and Time: July 18, 2022 1131 Height,Weight and Vital Signs: Height 5 ft 11 in Weight 163.293 kg Last Vital Signs Temp 97 F 07/18/22 10:48 Pulse 58 07/18/22 10:48 Resp 20 07/18/22 10:48 BP 168/92 H 07/18/22 10:57 Pulse Ox 96 07/18/22 10:48 O2 Del Method 07/18/22 10:48 Pertinent Lab Results Pertinent Lab Results: Laboratory Tests 07/18/22 10:35 Urine Opiates Screen Not Detected Urine Fentanyl Screen Not Detected Ur Barbiturates Screen Not Detected Ur Phencyclidine Scrn Not Detected Ur Amphetamines Screen Not Detected U Benzodiazepines Scrn Not Detected Urine Cocaine Screen Not Detected U Marijuana (THC) Screen POSITIVE H Airway Mallampati Class: III TM Dist: >3cm Neck ROM: Full Denture: Upper Partial: Lower Heart: rrr Lungs: clear Assessment and Plan Final Anesthetic Review Family History of Problems with Anesthesia: No History of Problems with Anesthesia: No NPO: Yes ASA Class: IV Final Preanesthetic Review: No Changes in Pt Med Stat, Meds/Allgs Chart Reviewed, Consent Obtained/Reviewed and Anes Risks/Benef Reviewed Patient Risk: High Procedure Risk: Low Anesthetic Plan Anesthetic Plan: MAC: Disposition: Standard PACU
[2022-07-18 12:37] VITALS: BP 131/60; PULSE 62; RESP 18; TEMP 36.4; O2SAT 99
[2022-07-18 12:42] VITALS: BP 131/71; PULSE 56; RESP 16; O2SAT 97
--- NOTE | 2022-07-18 12:46 | P.BOP_ITS ---
Brief Operative Note Date of Service: 07/18/22 Pre-op diagnosis: right knee osteoarthritis Post-op diagnosis: same Procedure: Cooler RFA right genicular nerves Surgeon: Dima Cordova MD Was an Net Sql Developer used for this Procedure?: No Estimated blood loss (mL): 5 Pathology: none sent Condition: stable Disposition: PACU
--- NOTE | 2022-07-18 12:47 | W.PM.OPN ---
Operative Note Operative Note Date of Service: 07/18/22 Narrative: GENICULAR NERVES COOLED RADIOFREQUENSY ABLATION. ?Informed consent was explained to the patient. All questions were explained and answered. The patient was taken inside the operating room. The patient was positioned supine on operating table with her right leg elevated on a gel bin. ASA monitors were applied and the patieient was deeply sedated. Time-out was performed delineating correct site, side, the nature of the procedure, patient's allergy, preoperative antibiotic if needed. All operating room staff was participating in OR time-out procedure. C-arm was brought over the operating field and picture of the right knee was demonstrated on the screen. Anterolateral and anteromedial surfaces of the knee were prepped with chloroprep and draped with utility towels. The point of interest were delineated for: superior lateral genicular nerve as the confluence of the metaphysis of the femur with corresponding diaphysis on the lateral silhouette of the femur distal bone, For superior medial genicular nerve (suprapatelar saphenous nerve) the point of interest was delineated as the confluence of the silhouette of metaphysis of the femur with corresponding diaphysis on the medial silhouette on the femoral distal bone. For inferior medial genicular nerve (suprapatellar saphenous nerve) the point of interest was delineated as the confluence of metaphysis of the proximal tibia on the medial side with corresponding diaphysis of the same bone. The projections of the points of interest on anterior surface of the right knee was injected with small amount of lidocaine 2% 1-to 2 ml. After that 3 cooled radiofrequency canulas 75 mm long were driven to the point of interest in tunnel vision fashion. When needles gently contacted the bones the position of the C-arm was switched to the lateral view, care was taken to superimpose the the femoral condiles one over the other. The position of the canulas were adjusted to assure that the tip of the canulas are located at the mid shaft of each of the above described bones. After that small amount of mixture of lidocaine 0.5% mixed with ropivacaine 0.5% and a trace amount of kenalog was injected into each canula position. total amount of local anesthetics was 4.5 cc. The cooled RFA machine was connected to the canulas in usual fashion and energy applied with temperature of the canulas of 60 degrees C, for the 2.5 minutes. When energy application was completed the canulas were removed and sterile dressing was applied. Patient was awaken and went to PACU where recovered uneventfully.
[2022-07-18 12:52] VITALS: BP 139/61; PULSE 56; RESP 20; O2SAT 96
[2022-07-18 13:13] VITALS: BP 163/89; PULSE 57; RESP 21; TEMP 36.4; O2SAT 98
== END 2022-07-18 13:35 | disposition home or self-care (01) ==
PROVIDERS: Nurse Practitioner; PCP Internal Medicine; Visit Provider Anesthesiology
PROC: (CPT 64624; principal; 2022-07-18 11:30)
DX: M17.11 Unilateral primary osteoarthritis, right knee (principal); M25.561 Pain in right knee; J45.20 Mild intermittent asthma, uncomplicated; I25.10 Atherosclerotic heart disease of native coronary artery without angina pectoris; Z98.61 Coronary angioplasty status; I11.0 Hypertensive heart disease with heart failure; I50.9 Heart failure, unspecified; I25.2 Old myocardial infarction; E66.01 Morbid (severe) obesity due to excess calories; G47.33 Obstructive sleep apnea (adult) (pediatric); G51.0 Bell's palsy; Z86.73 Personal history of transient ischemic attack (TIA), and cerebral infarction without residual deficits; Z87.891 Personal history of nicotine dependence
CPT/HCPCS: 64624; 80307; J2250; J2795; J3300

== ENCOUNTER → 2022-08-01 11:58 | Day surgery (SDC) | payer MEDICARE, MEDICAID, SELFPAY ==
--- NOTE | 2022-07-31 12:12 | HO.ANESPROP2 ---
Documented by User: Vaishali Black NP 07/31/22 12:20 HPI - Anesthesia Eval Consult details Narrative: 62yo M for Left Genicular Nerve RFA s/p same (right side) 07/18/22 with MAC Stable at 12/2021 cardiac visit with yearly f/u O2 QHS with CPAP PMFSH Active Problems Active Problems: All Active Problems (Updated 06/09/22 @ 20:12 by Catherine Diehl MD) Lumbar spondylosis (Acute) Asthma (Acute) Brittle asthma (Acute) Allergic rhinitis (Acute) Impacted cerumen of both ears (Acute) Generalized anxiety disorder (Acute) Nocturnal hypoxemia (Acute) Opioid-induced hyperalgesia (Acute) Perforation of tympanic membrane in adult (Acute) Pulmonary nodule 1 cm or greater in diameter (Acute) CKD (chronic kidney disease) stage 3, GFR 30-59 ml/min (Acute) Annual physical exam (Acute) Dysphagia (Acute) Hemoptysis (Acute) Osteoarthritis of knees, bilateral (Acute) Morbid (severe) obesity due to excess calories (Acute) Restrictive lung disease (Acute) Hypercholesterolemia (Acute) Obesity (Acute) Congestive heart failure (Acute) Coronary artery disease (Acute) Hypertension (Acute) Obstructive sleep apnea (Acute) Lumbar degenerative disc disease (Acute) Asthma (Acute) Osteoarthritis, knee (Acute) Fatty liver (Acute) Past Medical History Medical History Allergic rhinitis Asthma Asthma Ferrer's palsy Brittle asthma Carpal tunnel syndrome Congestive heart failure Coronary artery disease COVID-19 Degenerative disc disease, cervical Diverticular disease Fatty liver History of Ferrer's palsy History of CVA (cerebrovascular accident) History of substance abuse Hypercholesterolemia Hypertension Lumbar degenerative disc disease Lumbar spondylosis Morbid (severe) obesity due to excess calories Nocturnal hypoxemia NSTEMI (non-ST elevated myocardial infarction) Obesity Obstructive sleep apnea Opioid-induced hyperalgesia Osteoarthritis of knees, bilateral Osteoarthritis, knee Restrictive lung disease Spinal stenosis Family History Family History Father Myocardial infarction Mother Diabetes Hypertension Sister Past heart attack Cancer Brother Afib S/P triple vessel bypass Cancer Family history of problems with anesthesia: No Surgical History Surgical History Back pain with history of spinal surgery History of arthroscopy of right knee History of left knee surgery History of umbilical hernia repair Stented coronary artery History of Problems with Anesthesia: No Social History Social History Housing: Apartment Alcohol intake: current Patient Tobacco Use Status: Former Tobacco user Quit Date: age 14 Tobacco use type: Cigarette Years Smoked: 1989 e-Cigarette/Vaping Use: Never Used Second Hand Smoke Exposure: No Use of substances other than those prescribed or required for medical reasons: Yes Substance Use Type Other:: vape thc oil Substance Use Frequency: Occasionally Are you DNR?: No Advance Directives: No Advance Directives Information Provided: Yes Current occupational status: retired and disabled 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 Cognitive needs: No Hearing needs: No Vision needs: No Meds Allergies Allergy/AdvReac Type Severity Reaction Status Date / Time No Known Allergies Allergy Verified 08/01/22 13:02 Home Medications Medication Instructions Recorded Confirmed Last Taken Type fluticasone propionate 50 1 spray intranasal DAILY 11/06/20 07/28/22 07/25/22 History mcg/actuation nasal spray,suspension Exam Exam Date and Time: July 31, 2022 1212 Height,Weight and Vital Signs: Height 5 ft 11 in Weight 163.293 kg Pertinent Lab Results Pertinent Lab Results: Laboratory Tests 06/04/22 06/04/22 10:35 10:35 WBC 5.7 Hgb 14.5 Hct 43.0 Plt Count 189 Sodium 139 Potassium 4.3 Chloride 100 Carbon Dioxide 32 H BUN 20 H Creatinine 1.42 H Narrative Narrative: EKG 02/2022 Vent. Rate : 079 BPM ? ? Atrial Rate : 079 BPM ?? P-R Int : 156 ms? QRS Dur : 140 ms ? ? QT Int : 404 ms ? ? ? P-R-T Axes : 019 -05 034 degrees ?? QTc Int : 463 ms ? Normal sinus rhythm Left ventricular hypertrophy with QRS widening ( R in aVL , Adan product ) Abnormal ECG When compared with ECG of 07-OCT-2019 14:19, QT has lengthened NM evelio perf SPECT rest & str 06/2021 Impression: ? 1.? Myocardial perfusion imaging study shows no definitive evidence of any ischemia or infarction. Reversible inferior defect suspected to be from diaphragmatic attenuation artifact. 2.? Gated LVEF is 52% during stress and 61% during rest. 3. Transient ischemic dilatation not present. ? EKG component of the test reported separately Assessment and Plan Assessment Anesthesia Assessment: Chart Reviewed Final Anesthetic Review Family History of Problems with Anesthesia: No History of Problems with Anesthesia: No Documented by User: Lizzy Gonzalez MD 08/01/22 14:24 [facility] Past Medical History Medical History Allergic rhinitis Asthma Asthma Ferrer's palsy Brittle asthma Carpal tunnel syndrome Congestive heart failure Coronary artery disease COVID-19 Degenerative disc disease, cervical Diverticular disease Fatty liver History of Ferrer's palsy History of CVA (cerebrovascular accident) History of substance abuse Hypercholesterolemia Hypertension Lumbar degenerative disc disease Lumbar spondylosis Morbid (severe) obesity due to excess calories Nocturnal hypoxemia NSTEMI (non-ST elevated myocardial infarction) Obesity Obstructive sleep apnea Opioid-induced hyperalgesia Osteoarthritis of knees, bilateral Osteoarthritis, knee Restrictive lung disease Spinal stenosis Family History Family History Father Myocardial infarction Mother Diabetes Hypertension Sister Past heart attack Cancer Brother Afib S/P triple vessel bypass Cancer Surgical History Surgical History Back pain with history of spinal surgery History of arthroscopy of right knee History of left knee surgery History of umbilical hernia repair Stented coronary artery Social History Social History Housing: Apartment Alcohol intake: current Patient Tobacco Use Status: Former Tobacco user Quit Date: age 14 Tobacco use type: Cigarette Years Smoked: 1989 e-Cigarette/Vaping Use: Never Used Second Hand Smoke Exposure: No Use of substances other than those prescribed or required for medical reasons: Yes Substance Use Type Other:: vape thc oil Substance Use Frequency: Occasionally Are you DNR?: No Advance Directives: No Advance Directives Information Provided: Yes Current occupational status: retired and disabled 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 Cognitive needs: No Hearing needs: No Vision needs: No Meds Allergies Allergy/AdvReac Type Severity Reaction Status Date / Time No Known Allergies Allergy Verified 08/01/22 13:02 Home Medications Medication Instructions Recorded Confirmed Last Taken Type fluticasone propionate 50 1 spray intranasal DAILY 11/06/20 07/28/22 07/25/22 History mcg/actuation nasal spray,suspension Exam Airway Mallampati Class: II TM Dist: >3cm Neck ROM: Full Denture: Upper Heart: rrr Lungs: cta Assessment and Plan Assessment Anesthesia Assessment: Anesthesia Plan Discussed and Chart Reviewed Final Anesthetic Review NPO: Yes ASA Class: III Final Preanesthetic Review: No Changes in Pt Med Stat, Meds/Allgs Chart Reviewed and Consent Obtained/Reviewed Patient Risk: Intermediate Procedure Risk: Intermediate Anesthetic Plan Anesthetic Plan: MAC: Disposition: Standard PACU
--- NOTE | ~2022-08-01 | FL_ITS ---
EXAMINATION: Intraoperative fluoroscopy CLINICAL INFORMATION: Genicular nerve RFA COMPARISON: Left knee x-rays April 25, 2021 TECHNIQUE: Intraoperative fluoroscopy was provided for use by Dr. Cordova. A total of 5 images were saved to PACS. A radiologist was not present during imaging. Today's dictation is only for administrative purposes to document intraoperative fluoroscopic usage. TOTAL FLUOROSCOPIC TIME: 0.4 minutes FL/FL guidance in OR FINDINGS~\^^ Intraoperative fluoroscopy provided for use by Dr. Cordova. Please see operative note for detailed findings.
--- NOTE | 2022-08-01 12:06 | MHC.SHP ---
Pre-Procedural Eval Section A Date of Service: 08/01/22 The patient is an INPATIENT: No Changes since office visit: Yes Patient answered all questions The History & Physical has been completed within 30 days and I have reviewed it.: No Section B Chief Complaint: osteoarthritis Details of Present Illness: knee osteoarthritis Relevant Family History (Specify if Yes): No Relevant Social History: None Present Medications: None Medical History: No relevant PMH History of Previous Operations: No relevant previous surgery Allergies: Allergies Allergy/AdvReac Type Severity Reaction Status Date / Time No Known Allergies Allergy Verified 07/28/22 15:16 Review of Systems Sugical H&P ROS: Negative: Cardiovascular, Respiratory, Neurological, Psychiatric, Hem-Onc, Allergic/Immunologic, Gastrointestinal, Genitourinary, Integumentary, Endocrine and Eyes/Ears/Nose/Throat and Yes, Specify: Constitution (morbid obesity) and Musculoskeletal (generalized osteoarthritis) Exam Surgical H&P Exam: Normal: HEENT, Normal: Heart, Normal: Lungs, Normal: Extremities, Normal: Skin and Normal: Neurological and Significant Findings: Abdomen (enlarged 2 to i/a and s/q fat) Plan Diagnosis/Plan: Unchanged I have reviewed the history and physical and performed a pertinent physical examination on my patient. No changes have occurred unless specified.
[2022-08-01 12:47] VITALS: BMI 47.8
[2022-08-01 13:06] VITALS: BP 169/67; PULSE 64; RESP 18; TEMP 36.9; O2SAT 95
[2022-08-01] MEDS: Lactated Ringers 1,000 ML 100 ML IVCONT (13:22)
[2022-08-01 15:24] VITALS: BP 127/66; PULSE 58; RESP 20; TEMP 36.8; O2SAT 93
--- NOTE | 2022-08-01 15:25 | P.BOP_ITS ---
Brief Operative Note Date of Service: 08/01/22 Pre-op diagnosis: Osteoarthritis left knee Post-op diagnosis: same Procedure: cooled radiofrequency ablation left knee Implants: none Surgeon: Dima Cordova MD Anesthesia: MAC Was an Ship'S Electronic Warfare Officer used for this Procedure?: No Estimated blood loss (mL): 2 Pathology: none sent Condition: stable Disposition: PACU
--- NOTE | 2022-08-01 15:26 | W.PM.OPN ---
Operative Note Operative Note Date of Service: 08/01/22 Narrative: Kraig is very pleasant 62 years old morbidly obese gentleman who came to the operating room for performance of left genicular nerves cooled radiofrequency ablation. He received the right knee procedure 1 week ago. After explaining informed consent and marking the patient's knee on the left he was taking inside of the operating room where he was positioned supine on the operating table. [employer] [employer] monitors were applied and patient was moderately sedated. Time-out was performed delineating correct site and side of the procedure. Anterior lateral and anterior medial surfaces of patient's lower thigh knee and upper portion of the lower leg were prepped with ChloraPrep and draped with sterile utility towels. C-arm was brought over the operating field and sq picture of the patient knee was obtained on the screen. The point of interest were in delineated as confluence of medial silhouette of the diaphysis of the left tibial bone with metaphysis of the tibial bone for infrapatellar saphenous nerve, confluence of medial silhouette of the diaphysis of the left femoral bone with metaphysis of the same femoral bone for suprapatellar saphenous nerve , as well as confluence of the lateral silhouette the diaphysis of the femoral bone with the metaphysis of the left femoral bone for the superior genicular lateral nerve. The point of interests projection to the skin were injected with lidocaine to% mixed with ropivacaine 0.5% 1-1, after that 3 cooled radiofrequency cannulas were driven under x-ray guidance to the point of interest. When the needles gently contacted the bone the the position of the C-arm was changed for the lateral and the tips of the needles were adjusted so the would be on sq projection of the lateral knee view with bilateral condyles superimposed to be in the projection of the mid shaft of the bones described. After that injection of the mixture of lidocaine 2% with lead ropivacaine 0.5% and trace amount of Kenalog was performed into each needle location. The energy application was performed for 2 minutes 45 seconds For 60 degree centigrade.. The patient was slightly restless during the procedure and his suprapatellar saphenous nerve needle was slightly dislodged during the procedure. The needle was repositioned. it was reinjected with lidocaine/ ropivacaine and steroids and energy application was performed again for 60 degree centigrade for the next 2 minutes 45 seconds. Upon completion of the energy application the needles were removed and sterile Band-Aids were applied. The patient tolerated procedure well he was transferred to PACU for the recovery.
[2022-08-01 15:40] VITALS: BP 128/68; PULSE 58; RESP 20; TEMP 36.8; O2SAT 96
== END | disposition home or self-care (01) ==
PROVIDERS: PCP Internal Medicine; Visit Provider Anesthesiology
PROC: (CPT 64624; principal; 2022-08-01 13:30)
DX: M17.12 Unilateral primary osteoarthritis, left knee (principal); I11.0 Hypertensive heart disease with heart failure; I50.9 Heart failure, unspecified; I25.10 Atherosclerotic heart disease of native coronary artery without angina pectoris; Z98.61 Coronary angioplasty status; I25.2 Old myocardial infarction; G47.33 Obstructive sleep apnea (adult) (pediatric); J45.909 Unspecified asthma, uncomplicated; G51.0 Bell's palsy; E66.01 Morbid (severe) obesity due to excess calories; Z87.891 Personal history of nicotine dependence; Z79.82 Long term (current) use of aspirin; Z79.51 Long term (current) use of inhaled steroids; Z79.899 Other long term (current) drug therapy; M25.562 Pain in left knee
CPT/HCPCS: 64624; J2250; J2795; J3010; J3300

== ENCOUNTER → 2022-08-28 10:23 | Outpatient (BNVA) | payer MEDICARE, MEDICAID, SELFPAY | PROVIDERS: PCP Internal Medicine; Visit Provider Anesthesiology | DX: M17.0 Bilateral primary osteoarthritis of knee (principal); E66.01 Morbid (severe) obesity due to excess calories; Z68.42 Body mass index [BMI] 45.0-49.9, adult | CPT/HCPCS: 99212 ==

== ENCOUNTER → 2022-09-22 09:55 | Outpatient (BNVA) | payer MEDICARE, MEDICAID, SELFPAY | PROVIDERS: PCP Internal Medicine; Visit Provider Internal Medicine | DX: J45.909 Unspecified asthma, uncomplicated (principal); R91.1 Solitary pulmonary nodule; J98.4 Other disorders of lung; J30.9 Allergic rhinitis, unspecified; E66.09 Other obesity due to excess calories; G47.33 Obstructive sleep apnea (adult) (pediatric); G47.36 Sleep related hypoventilation in conditions classified elsewhere; Z68.37 Body mass index [BMI] 37.0-37.9, adult; Z68.42 Body mass index [BMI] 45.0-49.9, adult | CPT/HCPCS: 99212 ==

== ENCOUNTER 2022-11-26 11:41 | Outpatient (REF) | payer MEDICARE, MEDICAID, SELFPAY ==
[2022-11-26 13:24] LABS: Alanine Aminotransferase 30 U/L (0-40); Albumin Level 4.2 g/dL (3.5-5.0); Alkaline Phosphatase 79 U/L (39-117); Anion Gap 12 (12-20); Aspartate Amino Transferase 19 U/L (5-37); Bilirubin Total 0.9 mg/dL (0.0-1.0); Blood Urea Nitrogen 23 mg/dL (9-16); Calcium 9.2 mg/dL (8.4-10.2); Carbon Dioxide 29 mmol/L (22-29); Chloride 102 mmol/L (96-108); Cholesterol 109 mg/dL; Estimated Glomerular Filt Rate 55; Glucose Random 112 mg/dL (60-115); HDL Cholesterol 40 mg/dL; LDL Cholesterol Calculated 54 mg/dl; Potassium 4.2 mmol/L (3.3-5.1); Sodium 139 mmol/L (135-145); Total Protein 7.2 g/dL (6.5-8.0); Triglycerides 75 mg/dL
[2022-11-26 13:58] LABS: Estimated Average Glucose 114 mg/dL; Hemoglobin A1c % 5.6 %
[2022-11-26 14:28] LABS: Folate 11.1 ng/mL (> or = 4.0); Vitamin B12 247 pg/mL (200-900)
== END 2022-11-26 11:42 | disposition home or self-care (01) ==
LOC: HO.LAB 11:41
PROVIDERS: PCP Internal Medicine; Visit Provider Internal Medicine
DX: R73.01 Impaired fasting glucose (principal); E78.00 Pure hypercholesterolemia, unspecified
CPT/HCPCS: 36415; 80053; 80061; 82607; 82746; 83036

== ENCOUNTER 2023-01-01 12:19 | Outpatient (REF) | payer MEDICARE, MEDICAID, SELFPAY ==
--- NOTE | ~2023-01-01 | XR_ITS ---
EXAMINATION: XR CHEST 2 VIEWS CLINICAL INFORMATION: Hemoptysis. COMPARISON: Radiographs dated 03/11/2022. TECHNIQUE: Frontal and lateral views of the chest were obtained. FINDINGS: The heart, great vessels, pulmonary vasculature and mediastinum are normal. The lungs show no focal infiltrate, effusion or pneumothorax. There is stable mild elevation of the right hemidiaphragm. There is no acute osseous abnormality. XR/XR chest 2V IMPRESSION: No active cardiopulmonary disease.
== END 2023-01-01 12:20 | disposition home or self-care (01) ==
LOC: HO.XRAY 12:19
PROVIDERS: PCP Internal Medicine; Referring Provider Internal Medicine; Visit Provider Internal Medicine Cardiovascular Disease
DX: R04.2 Hemoptysis (principal); I25.110 Atherosclerotic heart disease of native coronary artery with unstable angina pectoris; I10 Essential (primary) hypertension
CPT/HCPCS: 71046; 93005; 99212

== ENCOUNTER → 2023-01-14 07:42 | Outpatient (REF) | payer MEDICARE, MEDICAID, SELFPAY ==
--- NOTE | 2023-01-14 07:44 | CA_ITS ---
Transthoracic Echocardiogram Patient (Last, First, Middle): Kraig Myers R Gender: Male Date of : 1960 Age: 62 Procedure Date: 01/14/2023 Procedure Type: Transthoracic Echocardiogram Location: OP Height: 180.34 cm Weight: 154.68 kg BSA: 2.65 m2 Heart Rate: bpm BP: 20 / 60 mmHg Beauty Sales Advisor: TO Referring MD: El Reagan MD Manager Of Digital: El Reagan MD Symptoms: I10 - Essential (primary) hypertension Study Quality: Adequate ECG Rhythm: Sinus Conclusions: - 1. Technically limited study despite use of contrast agent 2. Normal LV systolic function with mild LVH with impaired relaxation filling pattern 3. Early mild aortic stenosis 4. Normal RV systolic pressure 5. No gross pericardial effusion Findings Left Ventricle Normal left ventricular size and systolic function. There is mildly increased left ventricular wall thickness. The visually estimated ejection fraction is between 60-65%. Spectral Doppler is indicative of an impaired relaxation filling pattern. E/E prime ratio is between 8 and 15 consistent with indeterminate filling pressures. Right Ventricle The right ventricle was not well visualized. Atria The left atrium is normal in size. Interatrial shunt cannot be excluded. The right atrium was not well visualized. Aortic Valve The aortic valve was not well visualized. There is mild calcification of the aortic valve. There is mild aortic valve stenosis. The mean gradient is 7 mmHg. The aortic valve area is 1.73 cm2. There is no aortic valve regurgitation. Mitral Valve Likely normal mitral valve structure and function. There is no mitral valve regurgitation. There is no mitral valve stenosis. Pulmonic Valve The pulmonic valve was not well visualized. Tricuspid Valve Likely normal tricuspid valve structure and function. There is trace tricuspid valve regurgitation. The right ventricular systolic pressure is normal. The right ventricular systolic pressure is 25 mmHg. Normal right atrial pressure. There is no evidence of pulmonary hypertension. Great Vessels All visible segments of the aorta are normal in size. The pulmonary artery was not well visualized. Venous The inferior vena cava is normal in size and collapses greater than 50% with inspiration. Pericardium/Pleural There is no evidence of pericardial effusion. Prior Study Comparison No prior study available for comparison. Measurements 2D Linear Measurements IVSd: 1.35 0.6-0.9/0.6-1.0 cm LVIDd: 4.93 3.9-5.3/4.2-5.9 cm LVIDd Index: 1.86 2.4-3.2/2.2-3.1 cm/m2 LVIDs: 3.26 2.0-3.6 cm LVPWd: 1.11 0.7-1.1 cm LA Diam: 3.20 2.7-3.8/3.0-4.0 cm LAIDs Index: 1.21 1.5-2.3 cm/m2 LV Mass: 295.11 67-162/88-224 g LV Mass Index: 111.36 43-95/49-115 g/m2 LVOT Diam: 2.00 3.0+(-)1.3 cm 2D Systolic Function EF 4C: 56.60 >55% Mitral Valve MV Pk E: 0.60 MV PK A: 0.65 MV Decel Time: 294.00 E/A: 0.90 E'Lateral: 9.36 E'Medial: 10.70 E/E' Med: 5.60 E/E' Lat: 6.40 PHT: 86.00 MVA PHT: 2.56 Decel Vilas: 2.02 Aortic Valve AoV Pk Casey: 1.72 AoV Mn Casey: 1.22 AoV VTI: 0.37 AoV Pk Grad: 12.00 Aov Mn Grad: 7.00 ASTER Cont.VTI: 1.73 LVOT LVOT Pk Casey: 0.98 LVOT Mn Casey: 0.66 LVOT VTI: 0.20 LVOT Pk Grad: 4.00 LVOT Mn Grad: 2.00 LVOT Diam: 2.00 LVOT Area: 3.14 Diastolic Function MV Pk E: 0.60 MV Pk A: 0.65 E/A: 0.90 E'Medial: 10.70 E/E' Med: 5.60 E' Laterial: 9.36 E/E' Lat: 6.40 Right Ventricle TAPSE (mm): 26.00 TVS' Casey: 14.00 Tricuspid Valve TR Pk Casey: 2.33 TR Pk Grad: 22.00 RA Press: 3.00 RVSP: 25.00 Great Vessels Aorta Ao Asc: 3.50 2.1-3.4 cm Updated in Other Vendor System with Status of Final El Reagan MD electronically signed on 01/15/2023 11:29:10 AM with status of Final
== END ==
LOC: HO.CARD 07:42
PROVIDERS: PCP Internal Medicine; Visit Provider Internal Medicine Cardiovascular Disease
DX: I10 Essential (primary) hypertension (principal)
CPT/HCPCS: 93306; Q9957

== ENCOUNTER → 2023-03-16 09:40 | Outpatient (BNVA) | payer MEDICARE, MEDICAID, SELFPAY | PROVIDERS: PCP Internal Medicine; Visit Provider Internal Medicine | DX: J45.909 Unspecified asthma, uncomplicated (principal); J98.4 Other disorders of lung; G47.33 Obstructive sleep apnea (adult) (pediatric); G47.34 Idiopathic sleep related nonobstructive alveolar hypoventilation; E66.01 Morbid (severe) obesity due to excess calories; Z68.42 Body mass index [BMI] 45.0-49.9, adult | CPT/HCPCS: 99212 ==

== ENCOUNTER 2023-07-21 08:35 | Outpatient (REF) | payer MEDICARE, MEDICAID, SELFPAY ==
[2023-07-21 08:58] LABS: MANUAL DIFF FLAG NO
[2023-07-21 10:00] LABS: Basophils Absolute Auto 0.1 X10*3/uL (0.0-0.2); Basophils Percent Auto 0.9 % (0-2); Eosinophils Absolute Auto 0.2 X10*3/uL (0.0-0.4); Eosinophils Percent Auto 3.6 % (0-4); Hematocrit 39.9 % (42.0-52.0); Hemoglobin 13.1 g/dl (14.0-18.0); Imm Gran Abs Auto 0.03 X10*3/uL (0.00-0.03); Imm Gran Pct Auto 0.5 % (0.0-0.4); Lymphocytes Absolute Auto 1.6 X10*3/uL (1.2-4.9); Lymphocytes Percent Auto 29.6 % (20-40); Mean Corpuscular HGB Conc 32.8 g/dl (31.0-36.0); Mean Corpuscular Hemoglobin 30.5 pg (27.0-33.0); Mean Corpuscular Volume 92.8 fL (80.0-98.0); Mean Platelet Volume 11.5 fL (9.4-12.4); Monocytes Absolute Auto 0.6 X10*3/uL (0.1-1.2); Monocytes Percent Auto 10.5 % (2-11); Neutrophils Percent Auto 54.9 % (45-73); Platelet Count 168 X10*3/uL (160-400); Red Cell Distribution Width 12.9 % (11.0-16.0); White Blood Count 5.5 X10*3/uL (4.8-10.8)
[2023-07-21 10:21] LABS: Estimated Average Glucose 117 mg/dL; Hemoglobin A1c % 5.7 % (<6.0)
[2023-07-21 11:47] LABS: Alanine Aminotransferase 35 U/L (0-40); Albumin Level 4.1 g/dL (3.5-5.0); Alkaline Phosphatase 74 U/L (39-117); Anion Gap 15 (12-20); Aspartate Amino Transferase 24 U/L (5-37); Bilirubin Total 0.8 mg/dL (0.0-1.0); Blood Urea Nitrogen 31 mg/dL (9-16); Calcium 9.5 mg/dL (8.4-10.2); Carbon Dioxide 29 mmol/L (22-29); Chloride 101 mmol/L (96-108); Cholesterol 120 mg/dL (<200); Estimated Glomerular Filt Rate 40; Glucose Random 129 mg/dL (60-115); HDL Cholesterol 43 mg/dL (>40); LDL Cholesterol Calculated 58 mg/dL (<100); Potassium 4.6 mmol/L (3.3-5.1); Sodium 140 mmol/L (135-145); Total Protein 7.1 g/dL (6.5-8.0); Triglycerides 98 mg/dL (<150)
[2023-07-21 12:11] LABS: Free T4 (Free Thyroxine) 0.77 ng/dL (0.71-1.85); Thyroid Stimulating Hormone 1.27 uIU/mL (0.32-4.0)
[2023-07-21 12:18] LABS: Folate 14.7 ng/mL (> or = 4.0); Prostate Specific Antigen Scr 1.11 ng/mL (<0.05-4.0); Vitamin B12 1339 pg/mL (200-900)
== END 2023-07-21 08:36 | disposition home or self-care (01) ==
LOC: HO.LAB 08:35
PROVIDERS: PCP Internal Medicine; Visit Provider Internal Medicine
DX: Z12.5 Encounter for screening for malignant neoplasm of prostate (principal); N18.30 Chronic kidney disease, stage 3 unspecified; E78.00 Pure hypercholesterolemia, unspecified; R73.02 Impaired glucose tolerance (oral)
CPT/HCPCS: 36415; 80053; 80061; 82607; 82746; 83036; 84153; 84439; 84443; 85025

== ENCOUNTER 2023-08-12 09:30 | Outpatient (AMB) | payer MEDICARE, SELFPAY ==
[2023-08-12 09:35] VITALS: BP 132/64; PULSE 62; O2SAT 97; BMI 49.1
--- NOTE | 2023-08-12 09:35 | MHC.PC.OV ---
Vital Signs 08/12/23 09:35 Height 5 ft 11 in Weight 352 lb BMI 49.1 BP 132/64 Blood Pressure Location Lt brachial Position Sitting Pulse 62 Pulse Source Pulse Oximeter Pulse Oximetry (%) 97 Oxygen Delivery Method Room Air Intake Visit Reasons: cad, CKD Pain Coordinator: Not Required per policy Accompanied by: Self / Same As Patient Allergies No Known Allergies Allergy (Verified 08/12/23 09:35) Tobacco use date assessed: 04/21/23 Fall risk assessment: No Falls in past year Last assessed Fall Risk: 08/12/23 Dental Screening Dental Screen Date: 08/12/23 Did you have a dental visit in the last 12 months?: No Did you have a dental problem in the last 6 months where you did not have access to dental care?: No Was dental information given to patient?: Patient has dentist HPI cad, CKD HPI Details 63-year-old obese male with asthma obstructive sleep apnea hypertension coronary artery disease hypercholesterolemia chronic kidney disease impaired glucose tolerance coming in for follow-up patient was last seen in April 2023. Colonoscopy is up-to-date. Blood work just done. Patient admits to eating indiscriminately due to problems at home is alleged forgetting stuff history of dementia in the family and patient is been drinking soda. . Discussed about the blood work having dehydration and advised to increase oral fluids as the renal function is increasing severity. Advised to repeat the blood work in 1 week. Meanwhile patient complains of bilateral knee pain and wants to see the Orthopedics for possible injection of the Hyalgan. As for the asthma stable right [facility] Medical History Vapes nicotine containing substance Nocturnal hypoxemia due to obesity Lumbar spondylosis Asthma Brittle asthma Allergic rhinitis Nocturnal hypoxemia Opioid-induced hyperalgesia COVID-19 Osteoarthritis of knees, bilateral Morbid (severe) obesity due to excess calories Spinal stenosis Ferrer's palsy Diverticular disease History of substance abuse Restrictive lung disease NSTEMI (non-ST elevated myocardial infarction) History of CVA (cerebrovascular accident) History of Ferrer's palsy Carpal tunnel syndrome Degenerative disc disease, cervical Hypercholesterolemia Obesity Congestive heart failure Coronary artery disease Hypertension Obstructive sleep apnea Lumbar degenerative disc disease Asthma Fatty liver Surgical History Stented coronary artery Back pain with history of spinal surgery History of umbilical hernia repair History of arthroscopy of right knee History of left knee surgery Family History Father Myocardial infarction Mother Diabetes Hypertension Sister Past heart attack Cancer Brother Afib S/P triple vessel bypass Social History Housing: Apartment Alcohol intake: current Patient Tobacco Use Status: Former Tobacco user Quit Date: quit 50 years Tobacco use type: Cigarette Years Smoked: 1989 e-Cigarette/Vaping Use: Currently Using Second Hand Smoke Exposure: No Current occupational status: retired and disabled 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 1. Little interest or pleasure in doing things: not at all 2. Feeling down, depressed, or hopeless: not at all 3. Trouble falling or staying asleep, or sleeping too much: not at all 4. Feeling tired or having little energy: not at all 5. Poor appetite or overeating: not at all 6. Feeling bad about yourself - or that you are a failure or have let yourself or your family down: not at all 7. Trouble concentrating on things, such as reading the newspaper or watching television: not at all 8. Moving or speaking so slowly that other people could have noticed. Or the opposite - being so fidgety or restless that you have been moving around a lot more than usual: not at all 9. Thoughts that you would be better off or of hurting yourself in some way: not at all Total score: 0 Depression Screening Interpretation: Negative 65391 - PHQ-9 Billing: Yes Source: Developed by Drs. Jacky Sosa, Andria Mandujano, Eric Corey and colleagues, with an educational riley from [employer]. Thrive Questionnaire Date Thrive assessed: 12/05/22 AUDIT C Alcohol Use Questionnaire (AUDIT-C) 1. How often do you have a drink containing alcohol?: Monthly or less 2. How many drinks containing alcohol do you have on a typical day when you are drinking?: 1 or 2 3. How often do you have six or more drinks on one occasion?: Never Total Score: 1 Score Reviewed/Action Taken: No JESSE-7 AMB Questionnaire JESSE-7 Date JESSE - 7 assessed: 12/05/22 Source: Developed by Drs. Jacky Sosa, Andria Mandujano, Eric Corey and colleagues, with an educational riley from [employer]. Physical exam (Primary Care) Vital Signs: Last Vital Signs Pulse 62 08/12/23 09:35 BP 132/64 08/12/23 09:35 Pulse Ox 97 08/12/23 09:35 Oxygen Delivery Method Room Air 08/12/23 09:35 BMI result Body Mass Index 49.1 Tobacco/Smoking Status: Tobacco use Status Tobacco use date assessed 04/21/23 08/12/23 09:41 Patient Tobacco Use Status Former Tobacco user 08/12/23 09:41 Tobacco use type Cigarette 08/12/23 09:41 e-Cigarette/Vaping Use Currently Using 08/12/23 09:41 PHQ-9: PHQ-9 Score PHQ-9: Total score 0 08/12/23 09:41 Depression Screening Interpretation: Negative Thrive Assessment: Date of Thrive Assessment Date Thrive assessed 12/05/22 08/12/23 09:41 Const General: alert; No acute distress Eyes Conjunctivae: conjunctivae normal Resp Auscultation: clear to auscultation bilaterally Cardio Rate: regular rate Rhythm: regular rhythm GI Inspection: Yes normal to inspection Extrem General: Yes normal to inspection and No edema Assessment and Plan Assessment & Plan (1) Impaired fasting blood sugar: Code(s): R73.01 - Impaired fasting glucose Plan: Decrease the amount of carbohydrate intake, pasta, bread, rice and potatoes are all sugar and that is aside from all the sweet stuff, remember that fruits are good but they are Sweet also. Hemoglobin A1c is 5.7 (2) Nocturnal hypoxemia due to obesity: Comment: Has nocturnal hypoxemia along with LISA, secondary to hypoventilation. He is advised to use O2 2 L/minute along with CPAP every night. Code(s): E66.9 - Obesity, unspecified; G47.36 - Sleep related hypoventilation in conditions classified elsewhere Plan: Continue with CPAP with O2 (3) Asthma: Comment: Has mild intermittent bronchial asthma, which is relatively well controlled at present. Tx: Breo 100-25 1 inhalation daily ProAir 2 puffs Q 4-6 hours p.r.n.. Code(s): J45.909 - Unspecified asthma, uncomplicated Plan: Continue with a inhaler (4) Generalized anxiety disorder: Code(s): F41.1 - Generalized anxiety disorder Plan: Stable (5) CKD (chronic kidney disease) stage 3, GFR 30-59 ml/min: Code(s): N18.30 - Chronic kidney disease, stage 3 unspecified Qualifiers: Chronic kidney disease stage 3 subtype: unspecified whether 3a or 3b Qualified Code(s): N18.30 - Chronic kidney disease, stage 3 unspecified Plan: Keep well hydrated avoid NSAIDs (6) Morbid (severe) obesity due to excess calories: Comment: Talked to him about his weight issue. He does not want to join any. weight management program He is well aware of the need to cut down calories and especially carbohydrates. He say is he is going to start walking in summer, and will lose some weight Code(s): E66.01 - Morbid (severe) obesity due to excess calories Plan: Diet and exercise (7) Hypercholesterolemia: Code(s): E78.00 - Pure hypercholesterolemia, unspecified Plan: Avoid fried foods, chicken skin, eggs, butter margarine, pastries and meat. Be it pork or beef they have a lot of cholesterol patient is taking atorvastatin 80 mg once a day (8) Congestive heart failure: Comment: Systolic Code(s): I50.9 - Heart failure, unspecified Plan: With daily and record (9) Coronary artery disease: Comment: NSTEMI October 2019 stent placement, September 2020 catheterization patent stent. Recent , admission for a mild heart attack, Ac NE ruled out . Code(s): I25.10 - Atherosclerotic heart disease of [place] coronary artery without angina pectoris Qualifiers: Coronary Disease-Associated Artery/Lesion type: [place] artery [place] vs. transplanted heart: [place] heart Associated angina: with unstable angina Qualified Code(s): I25.110 - Atherosclerotic heart disease of [place] coronary artery with unstable angina pectoris Plan: Control the cholesterol, weight, blood pressure (10) Hypertension: Code(s): I10 - Essential (primary) hypertension Plan: Continue with blood pressure medication. Decrease salt intake and exercise (11) Obstructive sleep apnea: Comment: He has confirmed diagnosis of obstructive sleep apnea,since June 2017 with hypoxemia. Has been using CPAP regularly. Compliance is good . Patient is encouraged to keep on using it every night. Use for at least 7 hrs per night Code(s): G47.33 - Obstructive sleep apnea (adult) (pediatric) Plan: Continue to use the CPAP regularly more than 4 hours a night and benefits from Orders: Orders Basic Metabolic Panel Today N18.30 - Chronic kidney disease, stage 3 unspecified XR knee standing BI Today M17.0 - Bilateral primary osteoarthritis of knee B Type Natriuretic Peptide Today I50.9 - Heart failure, unspecified Referrals Orthopedics Referral M17.0 - Bilateral primary osteoarthritis of knee Medications: New diclofenac sodium 1% (Voltaren Arthritis Pain) apply to single knee, ankle, foot; for foot includes sole/toes/top of foot 4 grams topical QID 100 grams 4RF M17.0 - Bilateral primary osteoarthritis of knee Coding Level of Care Code Est Pt Level 4 (71712) Diagnoses Impaired fasting blood sugar R73.01 Nocturnal hypoxemia due to obesity E66.9; G47.36 Asthma J45.909 Generalized anxiety disorder F41.1 Stage 3 chronic kidney disease, unspecified whether stage 3a or 3b CKD N18.30 Chronic kidney disease stage 3 subtype: unspecified whether 3a or 3b Morbid (severe) obesity due to excess calories E66.01 Hypercholesterolemia E78.00 Congestive heart failure I50.9 Coronary artery disease involving [place] coronary artery of [place] heart with unstable angina pectoris I25.110 Coronary Disease-Associated Artery/Lesion type: [place] artery [place] vs. transplanted heart: [place] heart Associated angina: with unstable angina Hypertension I10 Obstructive sleep apnea G47.33
== END 2023-08-12 10:32 | disposition home or self-care (01) ==
PROVIDERS: PCP Internal Medicine; Visit Provider Internal Medicine
DX: Z23 Encounter for immunization (principal)
CPT/HCPCS: 90471; 90677; 99214

== ENCOUNTER 2023-09-21 09:39 | Outpatient (AMB) | payer MEDICARE, SELFPAY ==
[2023-09-21 09:48] VITALS: BP 140/72; PULSE 62; O2SAT 95; BMI 48.4
--- NOTE | 2023-09-21 09:48 | MHC.OFFVIS ---
Intake Vital Signs 09/21/23 09:48 Height 5 ft 11 in Weight 347 lb BMI 48.4 BP 140/72 H Blood Pressure Location Lt brachial Position Sitting Pulse 62 Pulse Source Pulse Oximeter Pulse Oximetry (%) 95 Oxygen Delivery Method Room Air Intake Visit Reasons: COPD follow-up Intake Note: pt is here for follow up and states he getting short of breath with walking, he is fighting for air with any walking. Waitress Required: No Allergies No Known Allergies Allergy (Verified 09/21/23 10:12) Medication List - Last Reconciled 09/21/23 by Zaira Figueroa MD aspirin 81 mg PO DAILY atorvastatin 80 mg PO DAILY 90 days Breo Ellipta 100-25 mcg/dose (fluticasone furoate-vilanterol) 1 ea PO DAILY NS cyanocobalamin (vitamin B-12) 1,000 mcg PO DAILY diclofenac sodium 1% (Voltaren Arthritis Pain) 4 grams topical QID fluticasone propionate 50 mcg/actuation 1 spray intranasal DAILY folic acid 1 mg PO DAILY hydrochlorothiazide 25 mg PO DAILY 90 days irbesartan 300 mg PO QAM 90 days loratadine 10 mg PO DAILY PRN multivitamin 1 tab PO DAILY sildenafil (Viagra) 50 mg PO DAILY PRN Ventolin HFA 90 mcg/actuation (albuterol sulfate) 2 puffs inhalation Q4-6H PRN NS Do you need a note to return to daycare/school/sports/work: No HPI COPD follow-up HPI Details 63 years old gentleman with morbid obesity and obstructive sleep apnea, as well as chronic obstructive pulmonary disease is here for his routine follow-up. He has remains morbidly obese has lost only a few lb since last visit. Uses CPAP very regularly and sleeps good for at least 6 hours every night. He has no issues with the CPAP device. Breathing is okay as long as he is not exerting. He has very little cough or wheezing. However he is complaining of dyspnea on walking, After walking 1 or 2 blocks he gets short of breath and has to stop for a few minutes, then he starts again and a few minutes later has to stop again. Denies any chest pain. He denies some wheezing or cough. However he uses albuterol inhaler to alleviate his shortness of breath, and has been using it quite frequently. He has not seen his director of restaurant for more than a year. He does have history of coronary artery disease and has had angioplasty/stenting in the past . [facility] Medical History (Updated 09/21/23 @ 10:26 by Zaira Figueroa MD) Dyspnea on exertion Vapes nicotine containing substance Nocturnal hypoxemia due to obesity Lumbar spondylosis Asthma Brittle asthma Allergic rhinitis Nocturnal hypoxemia Opioid-induced hyperalgesia COVID-19 Osteoarthritis of knees, bilateral Morbid (severe) obesity due to excess calories Spinal stenosis Ferrer's palsy Diverticular disease History of substance abuse Restrictive lung disease NSTEMI (non-ST elevated myocardial infarction) History of CVA (cerebrovascular accident) History of Ferrer's palsy Carpal tunnel syndrome Degenerative disc disease, cervical Hypercholesterolemia Obesity Congestive heart failure Coronary artery disease Hypertension Obstructive sleep apnea Lumbar degenerative disc disease Asthma Fatty liver Surgical History Stented coronary artery Back pain with history of spinal surgery History of umbilical hernia repair History of arthroscopy of right knee History of left knee surgery Family History Father Myocardial infarction Mother Diabetes Hypertension Sister Past heart attack Cancer Brother Afib S/P triple vessel bypass Social History Housing: Apartment Alcohol intake: current Patient Tobacco Use Status: Former Tobacco user Quit Date: quit 50 years Tobacco use type: Cigarette Years Smoked: 1989 e-Cigarette/Vaping Use: Currently Using Second Hand Smoke Exposure: No Current occupational status: retired and disabled 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 Cognitive needs: No Hearing needs: No Vision needs: No Review of Systems Const All systems reviewed & are unremarkable except as noted in HPI and below Eyes Reports no additional complaints ENT Reports no additional complaints Card Denies irregular heart rhythm, Denies leg edema and Reports dyspnea on exertion Resp Reports as per HPI and Reports dyspnea on exertion GI Denies no additional complaints Reports no additional complaints Musc Reports back pain and Reports arthralgias (Knees) Skin/Breast Reports system reviewed and no additional complaints, except as documented Neuro Reports no additional complaints Psych Reports no additional complaints Physical Exam Vital Signs: Last Vital Signs Pulse 62 09/21/23 09:48 BP 140/72 H 09/21/23 09:48 Pulse Ox 95 09/21/23 09:48 Oxygen Delivery Method Room Air 09/21/23 09:48 BMI result Body Mass Index 48.4 Const Other: He is grossly obese. General: comfortable, no acute distress, alert and awake Orientation/consciousness: patient oriented x3 HEENT Head: Yes normal to inspection General nose exam: No nasal polyps present and No nasal discharge present Face and sinus: Yes sinuses nontender Mouth: oropharynx normal Throat: Yes posterior oropharynx normal Eyes General: appearance normal, both eyes and all related structures Neck Neck: Yes normal visual inspection, Yes no lymphadenopathy, Yes trachea midline and Yes no JVD Thyroid: Thyroid normal Chest Chest palpation & inspection: normal inspection of the chest, normal palpation of entire chest wall and no tenderness Resp Other: Breath sounds are diminished over the lower lobe areas. He has no audible wheezes rhonchi or crepitations. Cardio Palpation: PMI not normal (Not palpable) Rate: regular rate Rhythm: regular rhythm Heart sounds: no gallops and no murmurs Peripheral pulses: Peripheral pulses 2+ throughout GI Palpation (GI): Soft to palpation, nontender, No hepatosplenomegaly present, no masses and Other GI palpation findings present (Abdomen is obese and protuberant) Auscultation: normal bowel sounds Back/Spine/Pelvis Thoracic/Lumbar Spine: thoracic and lumbar spine normal to inspection and thoraco-lumbar ROM limited Skin General skin exam: no rashes or lesions noted Neuro General: patient oriented x3 and no focal motor deficits Cranial nerves: Yes CN's II-XII intact bilaterally Extrem General: Yes normal to inspection, Yes no clubbing, cyanosis or edema and Yes no calf tenderness Psych Appearance: grossly normal and well kempt Speech and movement: Normal speech and movement present Results Reviewed Results Reviewed: Compliance report for the last. 30 nights is reviewed He has used 30/30 nights, 100%. Average use per night 5 hours 52 minute. Pressure used mostly 15-16 cm. There is a slight air leak, Residual AHI only 0.8 Assessment & Plan Assessment & Plan (1) Morbid (severe) obesity due to excess calories: Comment: Talked to him about his weight issue. He does not want to join any weight management program He is well aware of the need to cut down calories and especially carbohydrates. Code(s): E66.01 - Morbid (severe) obesity due to excess calories (2) Restrictive lung disease: Comment: Restriction is mainly because of his gross obesity. He is made fully aware of this Has to loose weight ,, and do deep Breathing exercises daily Code(s): J98.4 - Other disorders of lung (3) Obstructive sleep apnea: Comment: He has confirmed diagnosis of obstructive sleep apnea, since June 2017 . with hypoxemia. Has been using CPAP regularly. Compliance is good . Patient is encouraged to keep on using it every night. Use for at least 7 hrs per night Code(s): G47.33 - Obstructive sleep apnea (adult) (pediatric) (4) Asthma: Comment: Patient has mild obstructive airway disorder with good response to bronchodilators. Breathing status remains stable but he claims to get short of breath on minimal exertion. Advised to continue using Breo-100 1 inhalation daily, and use ventolin inh 2 puffs Q 4-6 hours only p.r.n. . Code(s): J45.909 - Unspecified asthma, uncomplicated (5) Dyspnea on exertion: Comment: I THINK DYSPNEA ON EXERTION IS DUE TO COMBINATION OF OBESITY, RESTRICTIVE LUNG DISORDER. AND CORONARY ARTERY DISEASE. HE IS INSTRUCTED TO LOSE SOME WEIGHT. DO DEEP BREATHING EXERCISES. 2 OR 3 TIMES A DAY DO NOT OVER USE ALBUTEROL JUST FOR DYSPNEA ON EXERTION. I.E. STRESS THAT HE MUST MAKE APPOINTMENT FOR CARDIOLOGY FOLLOW-UP. Code(s): R06.09 - Other forms of dyspnea Orders: Orders PFT pulmonary function test Today E66.01 - Morbid (severe) obesity due to excess calories, J45.909 - Unspecified asthma, uncomplicated, J98.4 - Other disorders of lung, R06.09 - Other forms of dyspnea Coding Level of Care Code Est Pt Level 3 (96722) Diagnoses Morbid (severe) obesity due to excess calories E66.01 Restrictive lung disease J98.4 Obstructive sleep apnea G47.33 Asthma J45.909 Dyspnea on exertion R06.09
== END 2023-09-21 10:12 | disposition home or self-care (01) ==
PROVIDERS: PCP Internal Medicine; Visit Provider Internal Medicine
DX: E66.01 Morbid (severe) obesity due to excess calories (principal); J98.4 Other disorders of lung; G47.33 Obstructive sleep apnea (adult) (pediatric); J45.909 Unspecified asthma, uncomplicated; R06.09 Other forms of dyspnea
CPT/HCPCS: 99213

== ENCOUNTER 2023-09-21 09:39 | Outpatient (REF) | payer MEDICARE, SELFPAY ==
--- NOTE | ~2023-09-21 | XR_ITS ---
EXAMINATION: XR KNEE AP STANDING CLINICAL INFORMATION: Primary osteoarthritis of the knee COMPARISON: 04/25/2021 TECHNIQUE: AP bilateral standing view of the knees was obtained. FINDINGS: Interval progression of advanced degenerative changes in the bilateral knees with marked medial cartilage space loss, left greater than right. Moderate medial and lateral marginal osteophytes. The bilateral lateral compartments are preserved. XR/XR knee standing BI IMPRESSION: Progression of degenerative changes, left greater than right.
[2023-09-21 11:24] LABS: Anion Gap 11 (12-20); Blood Urea Nitrogen 18 mg/dL (9-16); Calcium 9.3 mg/dL (8.4-10.2); Carbon Dioxide 31 mmol/L (22-29); Chloride 100 mmol/L (96-108); Estimated Glomerular Filt Rate 53; Glucose Random 125 mg/dL (60-115); Potassium 4.3 mmol/L (3.3-5.1); Sodium 138 mmol/L (135-145)
[2023-09-21 13:20] LABS: B Type Natriuretic Peptide < 10 pg/mL (<100)
== END 2023-09-21 09:40 | disposition home or self-care (01) ==
LOC: HO.XRAY 09:39
PROVIDERS: PCP Internal Medicine; Visit Provider Internal Medicine
DX: M17.0 Bilateral primary osteoarthritis of knee (principal); J45.909 Unspecified asthma, uncomplicated; R06.09 Other forms of dyspnea; E66.01 Morbid (severe) obesity due to excess calories; J98.4 Other disorders of lung; G47.33 Obstructive sleep apnea (adult) (pediatric); I50.9 Heart failure, unspecified; N18.30 Chronic kidney disease, stage 3 unspecified
CPT/HCPCS: 36415; 73565; 80048; 83880; 99212

== ENCOUNTER 2023-12-04 08:42 | Outpatient (REF) | payer MEDICARE, SELFPAY ==
--- NOTE | 2023-12-04 11:30 | PFT_ITS ---
Flows: FEV1: 64 % of predicted at 2.25 L FVC: 59 % of predicted at 2.72 L FEV1/FVC: 83 % Bronchodilator response: Absent Volumes: Total lung capacity: 57 % of predicted at 4.25 L Residual volume: 64 % of predicted at 1.57 L Slow vital capacity: 54 % of predicted at 2.68 L Expiratory reserve volume: 27 % of predicted at 0.37 L Diffusion capacity: Normal Impression: Moderate restrictive ventilatory defect with no bronchodilator response. Decreased expiratory reserve volume suggests extrathoracic restriction likely secondary to abdominal obesity. MTDD
== END 2023-12-04 08:43 | disposition home or self-care (01) ==
LOC: HO.RESP 08:42
PROVIDERS: PCP Internal Medicine; Visit Provider Internal Medicine
DX: J98.4 Other disorders of lung (principal); J45.909 Unspecified asthma, uncomplicated; R06.09 Other forms of dyspnea; E66.01 Morbid (severe) obesity due to excess calories
CPT/HCPCS: 94010; 94727; 94729

== ENCOUNTER → 2023-12-04 11:30 | Outpatient (BNV) | payer MEDICARE, SELFPAY | PROVIDERS: PCP Internal Medicine; Visit Provider Internal Medicine Pulmonary Disease | DX: J45.909 Unspecified asthma, uncomplicated (principal) | CPT/HCPCS: 94060; 94727; 94729 ==

== ENCOUNTER 2023-12-14 10:11 | Outpatient (AMB) | payer MEDICARE, SELFPAY ==
[2023-12-14 10:35] VITALS: BP 130/74; PULSE 69; O2SAT 97; BMI 49.4
--- NOTE | 2023-12-14 10:35 | MHC.OFFVIS ---
Intake Vital Signs 12/14/23 10:35 Height 5 ft 11 in Weight 354 lb BMI 49.4 BP 130/74 Blood Pressure Location Lt brachial Position Sitting Pulse 69 Pulse Source Pulse Oximeter Pulse Oximetry (%) 97 Oxygen Delivery Method Room Air Intake Visit Reasons: copd : 2 month f/u Intake Note: pt is here for follow up of pft and using cpap and oxygen at 2 liters. Please send note to ruben to have concentrator swapped out and he does get short of breath with long distances, stairs are difficult. 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: No Allergies No Known Allergies Allergy (Verified 12/14/23 11:04) Medication List - Last Reconciled 12/14/23 by Zaira Figueroa MD aspirin 81 mg PO DAILY atorvastatin 80 mg PO DAILY 90 days Breo Ellipta 100-25 mcg/dose (fluticasone furoate-vilanterol) 1 ea PO DAILY NS cyanocobalamin (vitamin B-12) 1,000 mcg PO DAILY folic acid 1 mg PO DAILY hydrochlorothiazide 25 mg PO DAILY 90 days irbesartan 300 mg PO QAM 90 days loratadine 10 mg PO DAILY PRN multivitamin 1 tab PO DAILY sildenafil (Viagra) 50 mg PO DAILY PRN Ventolin HFA 90 mcg/actuation (albuterol sulfate) 2 puffs inhalation Q4-6H PRN NS Do you need a note to return to daycare/school/sports/work: No HPI copd : 2 month f/u HPI Details 63 YEARS OLD GENTLEMAN, A CASE OF MORBID OBESITY, OBSTRUCTIVE SLEEP APNEA/NOCTURNAL HYPOXEMIA, COMES FOR HIS ROUTINE FOLLOW-UP. COMPLAINS OF GETTING SHORT OF BREATH ON WALKING ABOUT 2 BLOCKS, DENIES COUGH OR WHEEZING. HE DOES USE BREO-100-25 1 INHALATION DAILY AND HARDLY NEEDS TO USE THE RESCUE INHALER. HE IS USING CPAP VERY REGULARLY AT NIGHT AND O2 2 L/MINUTE AT NIGHT. HAS HAD PULMONARY FUNCTION TEST WHICH SHOWED MODERATELY SEVERE RESTRICTIVE PULMONARY DISORDER, HE NEEDS TO BE TESTED FOR POSSIBLE PORTABLE OXYGEN. HE DRIVES LIMOUSINE. [facility] Medical History Dyspnea on exertion Vapes nicotine containing substance Nocturnal hypoxemia due to obesity Lumbar spondylosis Asthma Brittle asthma Allergic rhinitis Nocturnal hypoxemia Opioid-induced hyperalgesia COVID-19 Osteoarthritis of knees, bilateral Morbid (severe) obesity due to excess calories Spinal stenosis Ferrer's palsy Diverticular disease History of substance abuse Restrictive lung disease NSTEMI (non-ST elevated myocardial infarction) History of CVA (cerebrovascular accident) History of Ferrer's palsy Carpal tunnel syndrome Degenerative disc disease, cervical Hypercholesterolemia Obesity Congestive heart failure Coronary artery disease Hypertension Obstructive sleep apnea Lumbar degenerative disc disease Asthma Fatty liver Surgical History Stented coronary artery Back pain with history of spinal surgery History of umbilical hernia repair History of arthroscopy of right knee History of left knee surgery Family History Father Myocardial infarction Mother Diabetes Hypertension Sister Past heart attack Cancer Brother Afib S/P triple vessel bypass Social History Housing: Apartment Alcohol intake: current Patient Tobacco Use Status: Former Tobacco user Quit Date: quit 50 years Tobacco use type: Cigarette Years Smoked: 1989 e-Cigarette/Vaping Use: Currently Using Second Hand Smoke Exposure: No Current occupational status: retired and disabled 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 Cognitive needs: No Hearing needs: No Vision needs: No Review of Systems Const All systems reviewed & are unremarkable except as noted in HPI and below Eyes Reports no additional complaints ENT Reports no additional complaints Card Denies irregular heart rhythm, Denies leg edema and Reports dyspnea on exertion Resp Reports as per HPI and Reports dyspnea on exertion GI Denies no additional complaints Reports no additional complaints Musc Reports back pain and Reports arthralgias (Knees) Skin/Breast Reports system reviewed and no additional complaints, except as documented Neuro Reports no additional complaints Psych Reports no additional complaints Physical Exam Vital Signs: Last Vital Signs Pulse 69 12/14/23 10:35 BP 130/74 12/14/23 10:35 Pulse Ox 97 12/14/23 10:35 Oxygen Delivery Method Room Air 12/14/23 10:35 BMI result Body Mass Index 49.4 Const Other: He is grossly obese. General: comfortable, no acute distress, alert and awake Orientation/consciousness: patient oriented x3 HEENT Head: Yes normal to inspection General nose exam: No nasal polyps present and No nasal discharge present Face and sinus: Yes sinuses nontender Mouth: oropharynx normal Throat: Yes posterior oropharynx normal Eyes General: appearance normal, both eyes and all related structures Neck Neck: Yes normal visual inspection, Yes no lymphadenopathy, Yes trachea midline and Yes no JVD Thyroid: Thyroid normal Chest Chest palpation & inspection: normal inspection of the chest, normal palpation of entire chest wall and no tenderness Resp Other: Breath sounds are diminished over the lower lobe areas. He has no audible wheezes rhonchi or crepitations. Cardio Palpation: PMI not normal (Not palpable) Rate: regular rate Rhythm: regular rhythm Heart sounds: no gallops and no murmurs Peripheral pulses: Peripheral pulses 2+ throughout GI Palpation (GI): Soft to palpation, nontender, No hepatosplenomegaly present, no masses and Other GI palpation findings present (Abdomen is obese and protuberant) Auscultation: normal bowel sounds Back/Spine/Pelvis Thoracic/Lumbar Spine: thoracic and lumbar spine normal to inspection and thoraco-lumbar ROM limited Skin General skin exam: no rashes or lesions noted Neuro General: patient oriented x3 and no focal motor deficits Cranial nerves: Yes CN's II-XII intact bilaterally Extrem General: Yes normal to inspection, Yes no clubbing, cyanosis or edema and Yes no calf tenderness Psych Appearance: grossly normal and well kempt Speech and movement: Normal speech and movement present Office Procedures 6 Minute Walk Time:: 11:00 SPO2 % at rest: 93 Pulse at rest: 69 SPO2 % during excercise: 91 Pulse during excercise: 112 SPO2 % after excercise: 95 Pulse after excercise: 102 Distance in yards walked: 180 Patrica Score: 3 Performance Observations:: Kraig walked on level ground without assistance, he walked the entire walk on room air. He maintained his SPO2 91-93%, no supplemental O2 needed. 92444 - 6 Minute Walk Results Reviewed Results Reviewed: PULMONARY FUNCTION TEST ON 12/04/2023. MODERATELY SEVERE RESTRICTIVE PULMONARY DISORDER, NO SIGNIFICANT OBSTRUCTIVE DISORDER. COMPLIANCE REPORT FOR THE LAST 30 NIGHTS. USED CPAP 30/30 NIGHTS WITH 100% COMPLIANCE. AVERAGE USE PER NIGHT 6 HOURS 0 MINUTE. THERE IS MILD AIR LEAK, RESIDUAL AHI ONLY 0.7 Assessment & Plan Assessment & Plan (1) Morbid (severe) obesity due to excess calories: Comment: Talked to him about his weight issue. He does not want to join any weight management program He is well aware of the need to cut down calories and especially carbohydrates. Code(s): E66.01 - Morbid (severe) obesity due to excess calories Plan: ABOVE (2) Restrictive lung disease: Comment: Restriction is mainly because of his gross obesity. He is made fully aware of this Has to loose weight ,, and do deep Breathing exercises daily Code(s): J98.4 - Other disorders of lung Plan: ABOVE (3) Obstructive sleep apnea: Comment: He has confirmed diagnosis of obstructive sleep apnea, since June 2017 . with hypoxemia. Has been using CPAP regularly. Compliance is good . Patient is encouraged to keep on using it every night. Use for at least 7 hrs per night Code(s): G47.33 - Obstructive sleep apnea (adult) (pediatric) Plan: as above (4) Asthma: Comment: Patient has mild obstructive airway disorder with good response to bronchodilators. Breathing status remains stable but he claims to get short of breath on minimal exertion. Code(s): J45.909 - Unspecified asthma, uncomplicated Plan: Advised to continue using Breo-100 1 inhalation daily, and use ventolin inh 2 puffs Q 4-6 hours only p.r.n. . (5) Nocturnal hypoxemia: Comment: It is related to his obstructive sleep apnea/hypoventilation syndrome. He is instructed to use O2 2 L/minute along with CPAP every night. Code(s): G47.34 - Idiopathic sleep related nonobstructive alveolar hypoventilation Plan: Use O2 2 L/minute along with the CPAP at night (6) Allergic rhinitis: Comment: Mild chronic mostly seasonal, Code(s): J30.9 - Allergic rhinitis, unspecified Plan: [place] : Use Flonase-52 sprays each nostril daily (7) Dyspnea on exertion: Comment: I THINK DYSPNEA ON EXERTION IS DUE TO COMBINATION OF OBESITY, RESTRICTIVE LUNG DISORDER. AND CORONARY ARTERY DISEASE. 6 MINUTES WALK TEST TODAY, DID NOT SHOW ANY SIGNIFICANT DROP OF O2 SAT. ON WALKING. THE LOWEST O2 SAT WAS 91%. THAT HE MUST MAKE APPOINTMENT FOR CARDIOLOGY FOLLOW-UP. Code(s): R06.09 - Other forms of dyspnea Plan: HE IS INSTRUCTED TO LOSE SOME WEIGHT, WHICH HAS BEEN DIFFICULT FOR HIM. DO DEEP BREATHING EXERCISES. 2 OR 3 TIMES A DAY DO NOT OVER USE ALBUTEROL JUST FOR DYSPNEA ON EXERTION. Orders: Orders AMB 6 minute walk Today R06.09 - Other forms of dyspnea Coding Level of Care Code Est Pt Level 3 (32863) Diagnoses Morbid (severe) obesity due to excess calories E66.01 Restrictive lung disease J98.4 Obstructive sleep apnea G47.33 Asthma J45.909 Nocturnal hypoxemia G47.34 Allergic rhinitis J30.9 Dyspnea on exertion R06.09 CPT Codes Coding ([id number])
[2023-12-14 11:19] VITALS: PULSE 69; O2SAT 93
== END 2023-12-14 11:16 | disposition home or self-care (01) ==
PROVIDERS: PCP Internal Medicine; Visit Provider Internal Medicine
DX: E66.01 Morbid (severe) obesity due to excess calories (principal); J98.4 Other disorders of lung; G47.33 Obstructive sleep apnea (adult) (pediatric); J45.909 Unspecified asthma, uncomplicated; G47.34 Idiopathic sleep related nonobstructive alveolar hypoventilation; J30.9 Allergic rhinitis, unspecified; R06.09 Other forms of dyspnea
CPT/HCPCS: 94618; 99213

== ENCOUNTER → 2023-12-14 10:11 | Outpatient (BNVA) | payer MEDICARE, SELFPAY | PROVIDERS: PCP Internal Medicine; Visit Provider Internal Medicine | DX: G47.33 Obstructive sleep apnea (adult) (pediatric) (principal); G47.34 Idiopathic sleep related nonobstructive alveolar hypoventilation; J45.909 Unspecified asthma, uncomplicated; J98.4 Other disorders of lung; R06.09 Other forms of dyspnea; E66.01 Morbid (severe) obesity due to excess calories; Z68.42 Body mass index [BMI] 45.0-49.9, adult | CPT/HCPCS: 94618; 99212 ==

== ENCOUNTER 2023-12-30 09:35 | Outpatient (AMB) | payer MEDICARE, SELFPAY ==
--- NOTE | 2023-12-30 09:36 | MHC.PC.OV ---
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: No Allergies No Known Allergies Allergy (Verified 12/30/23 09:36) Tobacco use date assessed: 12/30/23 Fall risk assessment: No Falls in past year Last assessed Fall Risk: 12/30/23 Dental Screening Dental Screen Date: 12/30/23 Did you have a dental visit in the last 12 months?: No Did you have a dental problem in the last 6 months where you did not have access to dental care?: No HPI 3 month follow up HPI Details 63-year-old morbidly obese male with impaired glucose tolerance nocturnal hypoxemia due to obesity asthma generalized anxiety disorder chronic kidney disease hypercholesterolemia congestive heart failure coronary artery disease hypertension obstructive sleep apnea coming in for follow-up. Last seen in July 2023. Patient's colonoscopy is up-to-date April 2018 review of the notes Jazmin follows up with Pulmonary good compliance of the CPAP continue to have oxygen at night 6 minute walk test did not show any drop of O2 sat [facility] Medical History Dyspnea on exertion Vapes nicotine containing substance Nocturnal hypoxemia due to obesity Lumbar spondylosis Asthma Brittle asthma Allergic rhinitis Nocturnal hypoxemia Opioid-induced hyperalgesia COVID-19 Osteoarthritis of knees, bilateral Morbid (severe) obesity due to excess calories Spinal stenosis Ferrer's palsy Diverticular disease History of substance abuse Restrictive lung disease NSTEMI (non-ST elevated myocardial infarction) History of CVA (cerebrovascular accident) History of Ferrer's palsy Carpal tunnel syndrome Degenerative disc disease, cervical Hypercholesterolemia Obesity Congestive heart failure Coronary artery disease Hypertension Obstructive sleep apnea Lumbar degenerative disc disease Asthma Fatty liver Surgical History Stented coronary artery Back pain with history of spinal surgery History of umbilical hernia repair History of arthroscopy of right knee History of left knee surgery Family History Father Myocardial infarction Mother Diabetes Hypertension Sister Past heart attack Cancer Brother Afib S/P triple vessel bypass Social History Housing: Apartment Alcohol intake: current Patient Tobacco Use Status: Former Tobacco user Quit Date: quit 50 years Tobacco use type: Cigarette Years Smoked: 1989 e-Cigarette/Vaping Use: Currently Using Second Hand Smoke Exposure: No Current occupational status: retired and disabled 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 Cognitive needs: No Hearing needs: No Vision needs: No Questionnaire Thrive Questionnaire Date Thrive assessed: 12/30/23 I am a: Patient What is your living situation today?: I have a steady place to live Within the past 12 months, did the food you bought not last and you didn't have the money to get more?: Never true Within the past 12 months, did you worry whether your food would run out before you got money to buy more?: Never true Do you have trouble paying for medicines?: No Do you have trouble getting transportation to medical appointments?: No Do you have trouble paying your heating and electricity bill?: No Do you have trouble taking care of your child, family member or friend?: No Do you have trouble with day-to-day activities such as bathing, preparing meals, shopping, managing finances, etc.?: No Are you currently unemployed and looking for a job?: No Are you interested in more education?: No Please select the resources that you would like help with: None THRIVE Score: 0 AUDIT C Alcohol Use Questionnaire (AUDIT-C) 1. How often do you have a drink containing alcohol?: Monthly or less 2. How many drinks containing alcohol do you have on a typical day when you are drinking?: 1 or 2 3. How often do you have six or more drinks on one occasion?: Never Total Score: 1 Score Reviewed/Action Taken: No JESSE-7 AMB Questionnaire JESSE-7 Date JESSE - 7 assessed: 12/30/23 Source: Developed by Drs. Jacky Sosa, Andria Mandujano, Eric Corey and colleagues, with an educational riley from [employer] Physical exam (Primary Care) Vital Signs: Last Vital Signs Pulse 62 12/30/23 09:37 BP 158/74 H 12/30/23 09:37 Pulse Ox 93 12/30/23 09:37 Oxygen Delivery Method Room Air 12/30/23 09:37 BMI result Body Mass Index 49.6 Tobacco/Smoking Status: Tobacco use Status Tobacco use date assessed 12/30/23 12/30/23 09:37 Patient Tobacco Use Status Former Tobacco user 12/30/23 09:37 Tobacco use type Cigarette 12/30/23 09:37 e-Cigarette/Vaping Use Currently Using 12/30/23 09:37 Thrive Assessment: Date of Thrive Assessment Date Thrive assessed 12/30/23 12/30/23 09:37 Const General: alert; No acute distress Eyes Conjunctivae: conjunctivae normal Resp Auscultation: clear to auscultation bilaterally Cardio Rate: regular rate Rhythm: regular rhythm GI Inspection: Yes normal to inspection Extrem General: Yes normal to inspection and No edema Assessment and Plan Assessment & Plan (1) Nocturnal hypoxemia due to obesity: Comment: Has nocturnal hypoxemia along with LISA, secondary to hypoventilation. He is advised to use O2 2 L/minute along with CPAP every night. Code(s): E66.9 - Obesity, unspecified; G47.36 - Sleep related hypoventilation in conditions classified elsewhere Plan: Continue to use the oxygen at night with CPAP (2) Obstructive sleep apnea: Comment: He has confirmed diagnosis of obstructive sleep apnea, since June 2017 . with hypoxemia. Has been using CPAP regularly. Compliance is good . Patient is encouraged to keep on using it every night. Use for at least 7 hrs per night Code(s): G47.33 - Obstructive sleep apnea (adult) (pediatric) Plan: Continue to use the CPAP more than 4 hours a night and benefits from this. (3) Coronary artery disease: Comment: NSTEMI October 2019 stent placement, September 2020 catheterization patent stent. Recent , admission for a mild heart attack, Ac IA ruled out . Code(s): I25.10 - Atherosclerotic heart disease of standing [place] coronary artery without angina pectoris Qualifiers: Coronary Disease-Associated Artery/Lesion type: standing [place] artery [place] vs. transplanted heart: standing [place] heart Associated angina: with unstable angina Qualified Code(s): I25.110 - Atherosclerotic heart disease of [place] coronary artery with unstable angina pectoris Plan: Control the cholesterol, weight, blood pressure continue with baby aspirin once a day (4) Hypertension: Code(s): I10 - Essential (primary) hypertension Plan: Continue with blood pressure medication. Decrease salt intake and exercise patient takes hydrochlorothiazide 25 mg once a day with irbesartan 300 mg once a day (5) Impaired fasting blood sugar: Code(s): R73.01 - Impaired fasting glucose Plan: Decrease the amount of carbohydrate intake, pasta, bread, rice and potatoes are all sugar and that is aside from all the sweet stuff, remember that fruits are good but they are Sweet also. (6) Asthma: Comment: Patient has mild obstructive airway disorder with good response to bronchodilators. Breathing status remains stable but he claims to get short of breath on minimal exertion. Code(s): J45.909 - Unspecified asthma, uncomplicated Plan: Continue with the inhalers (7) Morbid (severe) obesity due to excess calories: Comment: Talked to him about his weight issue. He does not want to join any weight management program He is well aware of the need to cut down calories and especially carbohydrates. Code(s): E66.01 - Morbid (severe) obesity due to excess calories Plan: Diet and exercise (8) Prediabetes: Code(s): R73.03 - Prediabetes (9) Osteoarthritis, knee: Code(s): M17.10 - Unilateral primary osteoarthritis, unspecified knee Plan: NSAID topical prescribed Orders: Referrals Medical Weight Management Referral E66.01 - Morbid (severe) obesity due to excess calories Medications: New tirzepatide (weight loss) (Zepbound) 2.5 mg (0.5 mL) subcut QWEEK 2 mL 0RF 4 weeks E66.01 - Morbid (severe) obesity due to excess calories diclofenac sodium 1% (Voltaren Arthritis Pain) apply to single knee, ankle, foot; for foot includes sole/toes/top of foot 4 grams topical QID 100 grams 3RF M17.0 - Bilateral primary osteoarthritis of knee Coding Level of Care Code Est Pt Level 4 (59306) Diagnoses Nocturnal hypoxemia due to obesity E66.9; G47.36 Obstructive sleep apnea G47.33 Coronary artery disease involving standing [place] coronary artery of [place] heart with unstable angina pectoris I25.110 Coronary Disease-Associated Artery/Lesion type: [place] artery [place] vs. transplanted heart: standing [place] heart Associated angina: with unstable angina Hypertension I10 Impaired fasting blood sugar R73.01 Asthma J45.909 Morbid (severe) obesity due to excess calories E66.01 Prediabetes R73.03 Osteoarthritis, knee M17.10
[2023-12-30 09:37] VITALS: BP 158/74; PULSE 62; O2SAT 93; BMI 49.6
== END 2023-12-30 10:22 | disposition home or self-care (01) ==
PROVIDERS: PCP Internal Medicine; Visit Provider Internal Medicine
DX: I25.110 Atherosclerotic heart disease of native coronary artery with unstable angina pectoris (principal); E66.01 Morbid (severe) obesity due to excess calories; Z68.42 Body mass index [BMI] 45.0-49.9, adult; G47.36 Sleep related hypoventilation in conditions classified elsewhere; G47.33 Obstructive sleep apnea (adult) (pediatric); I10 Essential (primary) hypertension; R73.01 Impaired fasting glucose; J45.909 Unspecified asthma, uncomplicated; R73.03 Prediabetes; M17.10 Unilateral primary osteoarthritis, unspecified knee
CPT/HCPCS: 99214

== ENCOUNTER 2023-12-31 09:31 | Outpatient (AMB) | payer MEDICARE, SELFPAY ==
[2023-12-31 09:32] VITALS: BP 140/76; PULSE 64; BMI 49.8
--- NOTE | 2023-12-31 09:32 | A.OFFVIS_ITS ---
Intake Vital Signs 12/31/23 09:32 Height 5 ft 11 in Weight 357 lb 2.382 oz BMI 49.8 BP 140/76 H Blood Pressure Location Lt brachial Position Sitting Pulse 64 Intake Visit Reasons: 1 yr f/u after echo Intake Note: 1 year follow-up with ekg after echo feeling ok Color Artist Required: No Allergies No Known Allergies Allergy (Verified 12/30/23 09:36) Medication List - Last Reconciled 12/31/23 by El Reagan MD aspirin 81 mg PO DAILY atorvastatin 80 mg PO DAILY 90 days Breo Ellipta 100-25 mcg/dose (fluticasone furoate-vilanterol) 1 ea PO DAILY NS cyanocobalamin (vitamin B-12) 1,000 mcg PO DAILY diclofenac sodium 1% (Voltaren Arthritis Pain) 4 grams topical QID folic acid 1 mg PO DAILY hydrochlorothiazide 25 mg PO DAILY 90 days irbesartan 300 mg PO QAM 90 days loratadine 10 mg PO DAILY PRN multivitamin 1 tab PO DAILY sildenafil (Viagra) 50 mg PO DAILY PRN tirzepatide (weight loss) (Zepbound) 2.5 mg (0.5 mL) subcut QWEEK 4 weeks Ventolin HFA 90 mcg/actuation (albuterol sulfate) 2 puffs inhalation Q4-6H PRN NS HPI HPI Comments History of Present Illness Details Kraig comes for follow-up for 1 year. He is concerned because he has been getting more and more short of breath recently including during performing sexually. He gets concerned and this is affecting his personal life. He denies any associated chest pain with it. Takes all his medications. He has been told that he has underlying pulmonary parenchymal disease as well as problems related to his weight. He is trying to lose weight. He has been referred to bariatric surgery for the same. He denies any other heart failure symptoms of orthopnea, PND, leg edema. No prolonged palpitations, lightheadedness, syncope. [facility] Medical History Dyspnea on exertion Vapes nicotine containing substance Nocturnal hypoxemia due to obesity Lumbar spondylosis Asthma Brittle asthma Allergic rhinitis Nocturnal hypoxemia Opioid-induced hyperalgesia COVID-19 Osteoarthritis of knees, bilateral Morbid (severe) obesity due to excess calories Spinal stenosis Ferrer's palsy Diverticular disease History of substance abuse Restrictive lung disease NSTEMI (non-ST elevated myocardial infarction) History of CVA (cerebrovascular accident) History of Ferrer's palsy Carpal tunnel syndrome Degenerative disc disease, cervical Hypercholesterolemia Obesity Congestive heart failure Coronary artery disease Hypertension Obstructive sleep apnea Lumbar degenerative disc disease Asthma Fatty liver Surgical History Stented coronary artery Back pain with history of spinal surgery History of umbilical hernia repair History of arthroscopy of right knee History of left knee surgery Family History Father Myocardial infarction Mother Diabetes Hypertension Sister Past heart attack Cancer Brother Afib S/P triple vessel bypass Social History Housing: Apartment Alcohol intake: current Patient Tobacco Use Status: Former Tobacco user Quit Date: quit 50 years Tobacco use type: Cigarette Years Smoked: 1989 e-Cigarette/Vaping Use: Currently Using Second Hand Smoke Exposure: No Current occupational status: retired and disabled 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 [employer] Cognitive needs: No Hearing needs: No Vision needs: No Review of Systems Const Denies chills, Denies fatigue, Denies fever(s), Denies frequent falls, Denies weakness, Denies weight gain and Denies weight loss ENT Denies dizziness Card Denies chest pain, Denies leg edema, Denies lightheadedness, Denies palpitations, Denies dyspnea, Denies dyspnea on exertion, Denies orthopnea and Denies other (loss of consciousness) Resp Denies cough, Denies dyspnea and Denies dyspnea on exertion GI Denies hematochezia and Denies change in stool character Musc Denies abnormal gait, Denies muscle weakness, Denies numbness, Denies radiating pain into limb and Denies tingling Neuro Denies Abnormal speech present, Denies abnormal gait, Denies dizziness, Denies frequent falls, Denies numbness, Denies tingling and Denies weakness Endo Denies fatigue and Denies palpitations Physical Exam Vital Signs: Last Vital Signs Pulse 64 12/31/23 09:32 BP 140/76 H 12/31/23 09:32 BMI result Body Mass Index 49.8 Const General: cooperative, comfortable, no acute distress, alert and awake Nutritional Appearance: obese morbidly obese Orientation/consciousness: patient oriented x3 Limitations: no limitations HEENT Head: Yes normocephalic and Yes atraumatic Neck Neck: Yes trachea midline, Yes supple and Yes no JVD Carotids: no bruits Resp Effort & Inspection: normal respiratory effort Auscultation: clear to auscultation bilaterally and diminished lung sounds Cardio Jugular venous distension: no JVD Palpation: normal PMI Rate: regular rate Rhythm: regular rhythm Heart sounds: S1 normal heart sound present, S2 normal heart sound present, no click, no gallops, no murmurs and no rubs GI Inspection: Yes obesity Auscultation: normal bowel sounds Skin General skin exam: no rashes or lesions noted Neuro General: patient oriented x3 and no focal motor deficits Speech: No Abnormal speech present Extrem General: Yes no clubbing, cyanosis or edema Psych Appearance: grossly normal Office Procedures EKG Details: EKG shows normal sinus rhythm with incomplete right bundle-branch block, u nchanged from before [id number], Complete Assessment & Plan Assessment & Plan (1) Coronary artery disease: Comment: NSTEMI October 2019 stent placement, September 2020 catheterization patent stent. Recent , admission for a mild heart attack, Ac [place] ruled out . Code(s): I25.10 - Atherosclerotic heart disease of [place] coronary artery without angina pectoris Qualifiers: Coronary Disease-Associated Artery/Lesion type: [place] artery [place] vs. transplanted heart: [place] heart Associated angina: with unstable angina Qualified Code(s): I25.110 - Atherosclerotic heart disease of [place] coronary artery with unstable angina pectoris Plan: Coronary artery disease with prior LAD stent for acute coronary syndrome. No recurrent chest pain although his worsening shortness of breath need to rule out myocardial ischemia. Will schedule him for vasodilating myocardial perfusion imaging in near future. Continue aggressive risk factor modification. Continue low-dose aspirin therapy for life. Continue high-intensity statin therapy. Advised lipid panel near future with target goal LDL closer to 60 mg/dL. Continue aggressive control blood pressure. Likely shortness of breath related to restrictive ventilatory defect related to obesity as well as underlying COPD. Discussed about aggressive weight loss program. Will suggest an echocardiogram to rule out any other cause of his shortness of breath including pulmonary hypertension, LV systolic and diastolic function. (2) Hypertension: Code(s): I10 - Essential (primary) hypertension Plan: Hypertension which is currently well optimized advised to monitor blood pressure at home maintain a log. Goal blood pressure less than 130/84. We discussed about importance of medical therapy and compliance with it. Low-salt diet was discussed. Continue participate in heart healthy lifestyle with regular physical activity and weight loss program. Will follow up in the clinic in 1 year's time, sooner p.r.n.. Thank you for allowing me to partake in her care Coding Level of Care Code Est Pt Level 4 (76109) Diagnoses Coronary artery disease involving [place] coronary artery of [place] heart with unstable angina pectoris I25.110 Coronary Disease-Associated Artery/Lesion type: [place] artery [place] vs. transplanted heart: [place] heart Associated angina: with unstable angina Hypertension I10 CPT Codes EKG - CPT: [id number]-[id number], Complete ([id number])
== END 2023-12-31 10:04 | disposition home or self-care (01) ==
PROVIDERS: Visit Provider Internal Medicine Cardiovascular Disease
DX: I25.110 Atherosclerotic heart disease of native coronary artery with unstable angina pectoris (principal); I10 Essential (primary) hypertension
CPT/HCPCS: 93010; 99214

== ENCOUNTER → 2023-12-31 09:31 | Outpatient (BNVA) | payer MEDICARE, MEDICAID, SELFPAY | PROVIDERS: Visit Provider Internal Medicine Cardiovascular Disease | DX: I25.110 Atherosclerotic heart disease of native coronary artery with unstable angina pectoris (principal); I10 Essential (primary) hypertension | CPT/HCPCS: 93005; 99212 ==

== ENCOUNTER → 2024-01-06 13:22 | Outpatient (BNVA) | payer MEDICARE, SELFPAY | PROVIDERS: PCP Internal Medicine; Visit Provider Physician Assistant ==

== ENCOUNTER 2024-01-28 08:11 | Outpatient (AMB) | payer MEDICARE, SELFPAY ==
--- NOTE | 2024-01-28 08:18 | MHC.OFFVISWM ---
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 Pt was in our [facility] program before and now chooses [facility] only for weight loss goal of 100 - [address] Diehl ordered an anti obesity injectable medication for him but he is not able to afford the medication. He lives with his , 2 daughters and their male partners. . 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 Pt was in our program in 2019 - never started our meal or exercise program and gained 20 lbs over 4 months. Has gained another 30 lbs since then. He says he knows he is an emtoional eater and He wakes at: 8am - 10:30, bed at 12 MN - 4 am. Averages 5-7 hours per night with CPAP machine. Breakfast: Coke - now 3 per day (was 12 pack per day). May eat at noon or may not until dinner time. Yesterday - 11:30 am - 2 handfuls of pepperoni 4pm - double hamburger with a soda Dinner 6-8 pm - 3 slices pizza and water Full sleeve of Ritz crackers before going to bed. Liquids: soda daily, no fruit juice, no coffee drinks Coke Alcohol intake: tobacco: His smokes in their bedroom, he states he does't use tobacco himself. marijuana: vapes 1-2 times per week for knee pain and relaxation. Exercise: none, no membership or equipment at home. MEENAKSHI: 2 ESS:9 GERD3: QOL:79 PFSH Medical History Dyspnea on exertion Vapes nicotine containing substance Nocturnal hypoxemia due to obesity Lumbar spondylosis Asthma Brittle asthma Allergic rhinitis Nocturnal hypoxemia Opioid-induced hyperalgesia COVID-19 Osteoarthritis of knees, bilateral Morbid (severe) obesity due to excess calories Spinal stenosis Ferrer's palsy Diverticular disease History of substance abuse Restrictive lung disease NSTEMI (non-ST elevated myocardial infarction) History of CVA (cerebrovascular accident) History of Ferrer's palsy Carpal tunnel syndrome Degenerative disc disease, cervical Hypercholesterolemia Obesity Congestive heart failure Coronary artery disease Hypertension Obstructive sleep apnea Lumbar degenerative disc disease Asthma Fatty liver Surgical History (Reviewed 01/28/24 @ 08:27 by Billie Morrissey [facility]) Stented coronary artery Back pain with history of spinal surgery History of umbilical hernia repair History of arthroscopy of right knee History of left knee surgery Family History Father Myocardial infarction Mother Diabetes Hypertension Sister Past heart attack Cancer Brother Afib S/P triple vessel bypass Social History Housing: Apartment Alcohol intake: current Patient Tobacco Use Status: Former Tobacco user Quit Date: quit 50 years Tobacco use type: Cigarette Years Smoked: 1989 e-Cigarette/Vaping Use: Currently Using Second Hand Smoke Exposure: No Current occupational status: retired and disabled 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 He understands that he needs to lose significant amount of weight and he must change all of his eating behaviors and start exercising. He states he is unable to afford anti obesity meds prescribed by Dr Diehl. He will watch HFL classes and have follow up wtih PA in our office. Patient was in our program in 2019 and gained weight over 4 months as he did not start our meal or exercise plans. He has many challenges to overcome for his weight loss. This was discussed with him today along with increased risk for sudden if he does not change his habits. Blood work was done in Jul 2023, not reordered today. Presently vapes marijuana then coughs until he has emesis. Encouraged him to stop any vaping - due to lung restriction - and can use edible marijuana for joint pain. 1. Adequate sleep of 7-8 hours per night discussed, use of nightly CPAP 2. Healthy meal plan - stop skipping meals and stop all sweetened drinks All meals/MR's need to take 20 minutes to complete Coke 0 in am 2 hours later -- 30 gram protein shake with water or UAM 4 hours later - protein shake with water or UAM 4 hours later - dinner meal of 14 forks lean protein and 14 forks vegetable, 1 serving of fruit after dinner - protein bar Exercise - he has significant pulmonary and cardiac disease. States he can not walk outside. Start with LS 1 mile videos - sit or stand to complete daily. Goal for now is to walk in place or sit walking for 15 minutes in morning. . Evening - Sit to be Fit sitting exercise videos for 15 minutes daily. Patient has a reliable digital scale at home and will record his weights weekly. Next appt with PA in 4 weeks. Patient is morbidly obese and is not considered stable at this time.?I spent a total of 60 minutes reviewing/updating records, examining the patient and counseling the patient on weight management as detailed above. (2) Dyspnea on exertion: Code(s): R06.09 - Other forms of dyspnea (3) Brittle asthma: Code(s): J45.998 - Other asthma (4) CKD (chronic kidney disease) stage 3, GFR 30-59 ml/min: Code(s): N18.30 - Chronic kidney disease, stage 3 unspecified Qualifiers: Chronic kidney disease stage 3 subtype: unspecified whether 3a or 3b Qualified Code(s): N18.30 - Chronic kidney disease, stage 3 unspecified Plan: 2022 - BUN/CREA - 18/1.35 and EGFR - 53 (5) Hypercholesterolemia: Code(s): E78.00 - Pure hypercholesterolemia, unspecified (6) Congestive heart failure: Comment: Systolic Code(s): I50.9 - Heart failure, unspecified (7) Coronary artery disease: Comment: NSTEMI October 2019 stent placement, September 2020 catheterization patent stent. Recent , admission for a mild heart attack, Ac [place] ruled out . Code(s): I25.10 - Atherosclerotic heart disease of [place] coronary artery without angina pectoris Qualifiers: Coronary Disease-Associated Artery/Lesion type: [place] artery [place] vs. transplanted heart: [place] heart Associated angina: with unstable angina Qualified Code(s): I25.110 - Atherosclerotic heart disease of [place] coronary artery with unstable angina pectoris Plan see above Coding Level of Care Code New Pt Level 5 (20396) Diagnoses Morbid obesity E66.01 Dyspnea on exertion R06.09 Brittle asthma J45.998 Stage 3 chronic kidney disease, unspecified whether stage 3a or 3b CKD N18.30 Chronic kidney disease stage 3 subtype: unspecified whether 3a or 3b Hypercholesterolemia E78.00 Congestive heart failure I50.9 Coronary artery disease involving [place] coronary artery of [place] heart with unstable angina pectoris I25.110 Coronary Disease-Associated Artery/Lesion type: [place] artery [place] vs. transplanted heart: [place] heart Associated angina: with unstable angina
[2024-01-28 08:30] VITALS: BP 139/65; PULSE 60; TEMP 36.2; O2SAT 93; BMI 53.7
== END 2024-01-28 09:35 | disposition home or self-care (01) ==
PROVIDERS: PCP Internal Medicine; Visit Provider Physician Assistant
DX: E66.01 Morbid (severe) obesity due to excess calories (principal); Z68.43 Body mass index [BMI] 50.0-59.9, adult; J45.998 Other asthma; N18.30 Chronic kidney disease, stage 3 unspecified; E78.00 Pure hypercholesterolemia, unspecified; I50.9 Heart failure, unspecified; I25.110 Atherosclerotic heart disease of native coronary artery with unstable angina pectoris
CPT/HCPCS: 99205; 99215

== ENCOUNTER → 2024-01-28 08:11 | Outpatient (BNVA) | payer MEDICARE, SELFPAY | PROVIDERS: PCP Internal Medicine; Visit Provider Physician Assistant | DX: E66.01 Morbid (severe) obesity due to excess calories (principal); G47.36 Sleep related hypoventilation in conditions classified elsewhere; R06.09 Other forms of dyspnea; J45.998 Other asthma; I50.9 Heart failure, unspecified; I25.110 Atherosclerotic heart disease of native coronary artery with unstable angina pectoris; E78.00 Pure hypercholesterolemia, unspecified; N18.30 Chronic kidney disease, stage 3 unspecified; Z68.43 Body mass index [BMI] 50.0-59.9, adult; Z99.89 Dependence on other enabling machines and devices | CPT/HCPCS: 99202 ==

== ENCOUNTER 2024-02-08 14:49 | Outpatient (AMB) | payer MEDICARE, SELFPAY ==
[2024-02-08 14:53] VITALS: BP 140/66; PULSE 81; O2SAT 94; BMI 52.2
--- NOTE | 2024-02-08 14:53 | A.OFFPC_ITS ---
Vital Signs 02/08/24 14:53 Height 5 ft 8 in Weight 343 lb 0.4 oz BMI 52.2 BP 140/66 H Blood Pressure Location Lt brachial Position Sitting Pulse 81 Pulse Source Pulse Oximeter Pulse Oximetry (%) 94 Oxygen Delivery Method Room Air Intake Visit Reasons: PE Intake Note: Patient is here today for a physical. Grip Required: No Allergies No Known Allergies Allergy (Verified 02/08/24 14:53) Medication List - Last Reconciled 02/08/24 by Catherine Diehl MD aspirin 81 mg PO DAILY atorvastatin 80 mg PO DAILY 90 days azithromycin (Zithromax) For 250 mg dose pack: take 500 mg today (day 1), then 250 mg for 4 days (days 2-5) PO Breo Ellipta 100-25 mcg/dose (fluticasone furoate-vilanterol) 1 ea PO DAILY NS cyanocobalamin (vitamin B-12) 1,000 mcg PO DAILY diclofenac sodium 1% (Voltaren Arthritis Pain) 4 grams topical QID folic acid 1 mg PO DAILY hydrochlorothiazide 25 mg PO DAILY 90 days irbesartan 300 mg PO QAM 90 days loratadine 10 mg PO DAILY PRN multivitamin 1 tab PO DAILY prednisone 4 tabs QD x 2 days then 3 tabs QD x 2 days then 2 tabs Qd x 2 days then 1 tab QD x 2 days PO daily; sildenafil (Viagra) 50 mg PO DAILY PRN Ventolin HFA 90 mcg/actuation (albuterol sulfate) 2 puffs inhalation Q4-6H PRN NS Tobacco use date assessed: 02/08/24 Fall risk assessment: No Falls in past year Last assessed Fall Risk: 02/08/24 Dental Screening Dental Screen Date: 02/08/24 Did you have a dental visit in the last 12 months?: No Did you have a dental problem in the last 6 months where you did not have access to dental care?: No HPI PE HPI Details 63-year-old morbidly obese male with mul tiple medical problems impaired glucose tolerance obstructive sleep apnea nocturnal hypoxemia and oxygen coronary artery disease hypertension asthma coming in for follow-up. Last seen in December 2023. Patient is up-to-date with colonoscopy April 2018. Because of his weight referred to weight management. Review of the notes in December was seen by Cardiology. Patient was advised to get a vasodilating myocardial per fusion imaging. 1 week wheezing - cold, fevers, sob more [facility] Medical History Dyspnea on exertion Vapes nicotine containing substance Nocturnal hypoxemia due to obesity Lumbar spondylosis Asthma Brittle asthma Allergic rhinitis Nocturnal hypoxemia Opioid-induced hyperalgesia COVID-19 Osteoarthritis of knees, bilateral Morbid (severe) obesity due to excess calories Spinal stenosis Ferrer's palsy Diverticular disease History of substance abuse Restrictive lung disease NSTEMI (non-ST elevated myocardial infarction) History of CVA (cerebrovascular accident) History of Ferrer's palsy Carpal tunnel syndrome Degenerative disc disease, cervical Hypercholesterolemia Obesity Congestive heart failure Coronary artery disease Hypertension Obstructive sleep apnea Lumbar degenerative disc disease Asthma Fatty liver Surgical History Stented coronary artery Back pain with history of spinal surgery History of umbilical hernia repair History of arthroscopy of right knee History of left knee surgery Family History Father Myocardial infarction Mother Diabetes Hypertension Sister Past heart attack Cancer Brother Afib S/P triple vessel bypass Social History Housing: Apartment Alcohol intake: current Patient Tobacco Use Status: Former Tobacco user Quit Date: quit 50 years Tobacco use type: Cigarette Years Smoked: 1989 e-Cigarette/Vaping Use: Currently Using Second Hand Smoke Exposure: No Current occupational status: retired and disabled 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 1. Little interest or pleasure in doing things: not at all 2. Feeling down, depressed, or hopeless: not at all 3. Trouble falling or staying asleep, or sleeping too much: not at all 4. Feeling tired or having little energy: not at all 5. Poor appetite or overeating: not at all 6. Feeling bad about yourself - or that you are a failure or have let yourself or your family down: not at all 7. Trouble concentrating on things, such as reading the newspaper or watching television: not at all 8. Moving or speaking so slowly that other people could have noticed. Or the opposite - being so fidgety or restless that you have been moving around a lot more than usual: not at all 9. Thoughts that you would be better off or of hurting yourself in some way: not at all Total score: 0 Source: Developed by Drs. Jacky Sosa, Andria Mandujano, Eric Corey and colleagues, with an educational riley from [employer]. Thrive Questionnaire Date Thrive assessed: 12/30/23 AUDIT C Alcohol Use Questionnaire (AUDIT-C) 1. How often do you have a drink containing alcohol?: Monthly or less 2. How many drinks containing alcohol do you have on a typical day when you are drinking?: 1 or 2 3. How often do you have six or more drinks on one occasion?: Never Total Score: 1 Score Reviewed/Action Taken: No JESSE-7 AMB Questionnaire JESSE-7 Date JESSE - 7 assessed: 12/30/23 Feeling nervous, anxious, or on edge: 2 = More than half the days Not being able to stop or control worryin = More than half the days Worrying too much about different things: 2 = More than half the days Trouble relaxin = More than half the days Being so restless that it is hard to sit still: 2 = More than half the days Becoming easily annoyed or irritable: 2 = More than half the days Feeling afraid as if something awful might happen: 0 = Not at all Total JESSE-7 score (0-4 normal; 5-9 mild; 10-14 moderate; 15-21 severe): 12 Source: Developed by Drs. Jacky Sosa, Andria Mandujano, Eric Corey and colleagues, with an educational riley from [employer]. Physical exam (Primary Care) Vital Signs: Last Vital Signs Pulse 81 02/08/24 14:53 BP 140/66 H 02/08/24 14:53 Pulse Ox 94 02/08/24 14:53 Oxygen Delivery Method Room Air 02/08/24 14:53 BMI result Body Mass Index 52.2 Tobacco/Smoking Status: Tobacco use Status Tobacco use date assessed 02/08/24 02/08/24 14:54 Patient Tobacco Use Status Former Tobacco user 02/08/24 14:54 Tobacco use type Cigarette 02/08/24 14:54 e-Cigarette/Vaping Use Currently Using 02/08/24 14:54 PHQ-9: PHQ-9 Score PHQ-9: Total score 0 02/08/24 15:11 Thrive Assessment: Date of Thrive Assessment Date Thrive assessed 12/30/23 02/08/24 14:54 Const General: alert; No acute distress Eyes Conjunctivae: conjunctivae normal Resp Auscultation: clear to auscultation bilaterally Cardio Rate: regular rate Rhythm: regular rhythm GI Inspection: Yes normal to inspection Extrem General: Yes normal to inspection and No edema Assessment and Plan Assessment & Plan (1) Hypertension: Code(s): I10 - Essential (primary) hypertension Plan: Continue with blood pressure medication. Decrease salt intake and exercise presently on hydrochlorothiazide 25 mg once a day irbesartan 300 mg once a day (2) Morbid (severe) obesity due to excess calories: Comment: Talked to him about his weight issue. He does not want to join any weight management program He is well aware of the need to cut down calories and especially carbohydrates. Code(s): E66.01 - Morbid (severe) obesity due to excess calories Plan: Continue with diet and exercise. Patient has gone to the weight management and has discussed with him that his life depends on him losing the weight. Hopefully patient continues to lose the weight. (3) Coronary artery disease: Comment: NSTEMI October 2019 stent placement, September 2020 catheterization patent stent. Recent , admission for a mild heart attack, Ac CA ruled out . Code(s): I25.10 - Atherosclerotic heart disease of [place] coronary artery without angina pectoris Qualifiers: Coronary Disease-Associated Artery/Lesion type: [place] artery [place] vs. transplanted heart: [place] heart Associated angina: with unstable angina Qualified Code(s): I25.110 - Atherosclerotic heart disease of [place] coronary artery with unstable angina pectoris Plan: Control the cholesterol, weight, blood pressure, diabetes continue with aspirin and aggressive risk reduction. (4) Obstructive sleep apnea: Comment: He has confirmed diagnosis of obstructive sleep apnea, since June 2017 . with hypoxemia. Has been using CPAP regularly. Compliance is good . Patient is encouraged to keep on using it every night. Use for at least 7 hrs per night Code(s): G47.33 - Obstructive sleep apnea (adult) (pediatric) Plan: Continue to use the CPAP more than 4 hours a night and benefits from this. (5) Lumbar degenerative disc disease: Comment: Spinal stenosis Disc herniation with L4 impingement left knee geniculate nerve block Dr. Guerrero January 2018, June 2019 Code(s): M51.36 - Other intervertebral disc degeneration, lumbar region Plan: Keep active continue losing weight (6) Asthma exacerbation: Code(s): J45.901 - Unspecified asthma with (acute) exacerbation Plan: Antibiotic and steroid sent. Medications: New azithromycin (Zithromax) For 250 mg dose pack: take 500 mg today (day 1), then 250 mg for 4 days (days 2-5) PO 6 tabs 0RF J45.901 - Unspecified asthma with (acute) exacerbation prednisone 4 tabs QD x 2 days then 3 tabs QD x 2 days then 2 tabs Qd x 2 days then 1 tab QD x 2 days PO daily; 20 tabs 0RF J45.901 - Unspecified asthma with (acute) exacerbation, J45.909 - Unspecified asthma, uncomplicated Refilled loratadine 10 mg PO DAILY PRN 90 tabs 3RF allergy symptoms Coding Level of Care Code Est Pt Level 4 (65110) Diagnoses Hypertension I10 Morbid (severe) obesity due to excess calories E66.01 Coronary artery disease involving [place] coronary artery of [place] heart with unstable angina pectoris I25.110 Coronary Disease-Associated Artery/Lesion type: [place] artery [place] vs. transplanted heart: [place] heart Associated angina: with unstable angina Obstructive sleep apnea G47.33 Lumbar degenerative disc disease M51.36 Asthma exacerbation J45.901
== END 2024-02-08 15:51 | disposition home or self-care (01) ==
PROVIDERS: PCP Internal Medicine; Visit Provider Internal Medicine
DX: I10 Essential (primary) hypertension (principal); E66.01 Morbid (severe) obesity due to excess calories; I25.110 Atherosclerotic heart disease of native coronary artery with unstable angina pectoris; Z68.43 Body mass index [BMI] 50.0-59.9, adult; G47.33 Obstructive sleep apnea (adult) (pediatric); M51.36 Other intervertebral disc degeneration, lumbar region; J45.901 Unspecified asthma with (acute) exacerbation
CPT/HCPCS: 99214

== ENCOUNTER 2024-02-24 09:09 | Outpatient (AMB) | payer MEDICARE, SELFPAY ==
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
[2024-02-24 09:25] VITALS: BP 187/86; PULSE 63; TEMP 36.2; O2SAT 94; BMI 52.8
== END 2024-02-24 10:14 | disposition home or self-care (01) ==
PROVIDERS: PCP Internal Medicine; Visit Provider Physician Assistant Surgical
DX: E66.01 Morbid (severe) obesity due to excess calories (principal); Z68.43 Body mass index [BMI] 50.0-59.9, adult
CPT/HCPCS: 99213

== ENCOUNTER → 2024-02-24 09:09 | Outpatient (BNVA) | payer MEDICARE, SELFPAY | PROVIDERS: PCP Internal Medicine; Visit Provider Physician Assistant Surgical | DX: E66.01 Morbid (severe) obesity due to excess calories (principal); Z68.43 Body mass index [BMI] 50.0-59.9, adult | CPT/HCPCS: 99212 ==

== ENCOUNTER → 2024-03-07 09:38 | Outpatient (REF) | payer MEDICARE, MEDICAID, SELFPAY ==
--- NOTE | ~2024-03-07 | NM_ITS ---
Lexiscan Myocardial perfusion study Indication: Shortness of breath, assess for coronary disease and ischemia Technique: The patient was brought in for a Lexiscan perfusion study on 03/07/2024 and was injected 0.4 mg of Lexiscan intravenously. Within a minute of this injection 45 mCi of sestamibi was given intravenously. Images were obtained using the SPECT gamma camera interlaced with the gating device. Images were obtained in supine position. Resting perfusion study was performed on 03/09/2024. Patient was administered 45 mCi of sestamibi intravenously at rest. Images were then obtained in supine position. Images were processed with the software and compared side to side in short axis, horizontal long axis and vertical long axis views. Total DLP 237mGy-cm. Findings: Raw acquisition reviewed. The stress perfusion study showed diminished tracer uptake along the inferior wall. There is improvement with CT attenuation correction suggestive of diaphragmatic attenuation artifact. The gated study shows low normal LV systolic function with calculated LVEF of 54%. LV cavity is normal in size. The gated study shows normal wall thickening and contraction of segments. Resting study shows diminished tracer uptake along the inferior wall. There is improvement with CT attenuation correction suggestive of diaphragmatic attenuation artifact. Gating at rest reveals normal wall motion with ejection fraction at 52%. The findings are consistent with mixed defect in the inferior wall, probably from diaphragmatic attenuation artifact. NM/NM evelio perf SPECT rest & str Impression: 1. Myocardial perfusion imaging study shows no clear evidence of any ischemia or infarction. Probably normal myocardial perfusion. 2. Gated LVEF is 54% during stress and 52% during rest. 3. Transient ischemic dilatation not present. EKG component of the test reported separately.
--- NOTE | 2024-03-07 09:41 | CA_ITS ---
Acquisition Time: 2024-03-07 10:21:36 Total Exercise Time: 00:02:00 Test Indications: Dyspnea Medications: ASA ATORVASTATIN BREO ELLIPTA HCTZ IRBESARTAN LORATIDINE VENTOLIN Protocol: LEXISCAN Max HR: 104 BPM 67% of Pred: 155 BPM Max BP: 118/064 mmHG Max Work Load: 1.0 METS Pharmacological stress test with Lexiscan injection while sititing with marching in place, with mild SOB and 6/10 chest heaviness, without arrhythmias, with normotensive resposne to injection, with nondiagnoisitic EKGs. Aminophylline 75mg IVP given to reverse Lexiscan. Chest heaviness resovled post Aminophylline. Nuclear images pending. Test reviewed with Dr. Reagan Referred By: El Reagan Overread By: Jordyn Rivera
== END ==
LOC: HO.CARD 09:38
PROVIDERS: PCP Internal Medicine; Visit Provider Internal Medicine Cardiovascular Disease
DX: R06.09 Other forms of dyspnea (principal)
CPT/HCPCS: 78452; 93017; A9500; J0280; J2785

== ENCOUNTER → 2024-03-07 09:41 | Outpatient (BNV) | payer MEDICARE, MEDICAID, SELFPAY | PROVIDERS: PCP Internal Medicine; Visit Provider Nurse Practitioner | DX: R06.02 Shortness of breath (principal) | CPT/HCPCS: 78452; 93016; 93018 ==

== ENCOUNTER 2024-04-14 09:40 | Outpatient (AMB) | payer MEDICARE, SELFPAY ==
[2024-04-14 09:44] VITALS: BP 120/62; PULSE 68; O2SAT 95; BMI 52.5
--- NOTE | 2024-04-14 09:44 | A.OFFVIS_ITS ---
Vital Signs 04/14/24 09:44 Height 5 ft 8 in Weight 345 lb 0.375 oz BMI 52.5 BP 120/62 Blood Pressure Location Lt brachial Position Sitting Pulse 68 Pulse Source Pulse Oximeter Pulse Oximetry (%) 95 Oxygen Delivery Method Room Air Intake Visit Reasons: COPD Intake Note: pt is here for follow up and states he is feeling good. getting over a cold, still congested in chest. 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 Allergies No Known Allergies Allergy (Verified 04/14/24 10:08) Medication List - Last Reconciled 04/14/24 by Zaira Figueroa MD aspirin 81 mg PO DAILY atorvastatin 80 mg PO DAILY 90 days Breo Ellipta 100-25 mcg/dose (fluticasone furoate-vilanterol) 1 ea PO DAILY NS cyanocobalamin (vitamin B-12) 1,000 mcg PO DAILY diclofenac sodium 1% (Voltaren Arthritis Pain) 4 grams topical QID folic acid 1 mg PO DAILY hydrochlorothiazide 25 mg PO DAILY 90 days irbesartan 300 mg PO QAM 90 days loratadine 10 mg PO DAILY PRN multivitamin 1 tab PO DAILY sildenafil (Viagra) 50 mg PO DAILY PRN Ventolin HFA 90 mcg/actuation (albuterol sulfate) 2 puffs inhalation Q4-6H PRN NS Do you need a note to return to daycare/school/sports/work: No HPI HPI COPD: Details: JESÚS IS NOW 63 YEARS OLD GENTLEMAN WHO REMAINS MORBIDLY OBESE, HE DOESAVE OBSTRUCTIVE SLEEP APNEA WHICH IS WELL TREATED WITH THE USE OF CPAP. HE REMAINS VERY COMPLIANT TO THE USE OF CPAP. BREATHING ANDRE HAS BEEN STABLE, HIS MILD ASTHM/COPD REMAINS CONTROLLED. HAS RECOVERING FROM A MILD COLD IN THE LAST FEW DAYS AND USES LORATADINE 10 MG P.R.N. HE USES VENTOLIN ONLY ONCE IN A WHILE . HE IS NONSMOKER. [facility] Medical History Dyspnea on exertion Vapes nicotine containing substance Nocturnal hypoxemia due to obesity Lumbar spondylosis Asthma Brittle asthma Allergic rhinitis Nocturnal hypoxemia Opioid-induced hyperalgesia COVID-19 Osteoarthritis of knees, bilateral Morbid (severe) obesity due to excess calories Spinal stenosis Ferrer's palsy Diverticular disease History of substance abuse Restrictive lung disease NSTEMI (non-ST elevated myocardial infarction) History of CVA (cerebrovascular accident) History of Ferrer's palsy Carpal tunnel syndrome Degenerative disc disease, cervical Hypercholesterolemia Obesity Congestive heart failure Coronary artery disease Hypertension Obstructive sleep apnea Lumbar degenerative disc disease Asthma Fatty liver Surgical History Stented coronary artery Back pain with history of spinal surgery History of umbilical hernia repair History of arthroscopy of right knee History of left knee surgery Family History Father Myocardial infarction Mother Diabetes Hypertension Sister Past heart attack Cancer Brother Afib S/P triple vessel bypass Social History Housing: Apartment Alcohol intake: current Patient Tobacco Use Status: Former Tobacco user Quit Date: quit 50 years Tobacco use type: Cigarette Years Smoked: 1989 e-Cigarette/Vaping Use: Currently Using Second Hand Smoke Exposure: No Current occupational status: retired and disabled 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 Cognitive needs: No Hearing needs: No Vision needs: No Review of Systems Const All systems reviewed & are unremarkable except as noted in HPI and below Eyes Reports no additional complaints ENT Reports no additional complaints Card Denies irregular heart rhythm, Denies leg edema and Reports dyspnea on exertion Resp Reports as per HPI and Reports dyspnea on exertion GI Denies no additional complaints Reports no additional complaints Musc Reports back pain and Reports arthralgias (Knees) Skin/Breast Reports system reviewed and no additional complaints, except as documented Neuro Reports no additional complaints Psych Reports no additional complaints Physical Exam Vital Signs: Last Vital Signs Pulse 68 04/14/24 09:44 BP 120/62 04/14/24 09:44 Pulse Ox 95 04/14/24 09:44 Oxygen Delivery Method Room Air 04/14/24 09:44 BMI result Body Mass Index 52.5 Const Other: He is grossly obese. General: comfortable, no acute distress, alert and awake Orientation/consciousness: patient oriented x3 HEENT Head: Yes normal to inspection General nose exam: No nasal polyps present and No nasal discharge present Face and sinus: Yes sinuses nontender Mouth: oropharynx normal Throat: Yes posterior oropharynx normal Eyes General: appearance normal, both eyes and all related structures Neck Neck: Yes normal visual inspection, Yes no lymphadenopathy, Yes trachea midline and Yes no JVD Thyroid: Thyroid normal Chest Chest palpation & inspection: normal inspection of the chest, normal palpation of entire chest wall and no tenderness Resp Other: Breath sounds are diminished over the lower lobe areas. He has no audible wheezes rhonchi or crepitations. Cardio Palpation: PMI not normal (Not palpable) Rate: regular rate Rhythm: regular rhythm Heart sounds: no gallops and no murmurs Peripheral pulses: Peripheral pulses 2+ throughout GI Palpation (GI): Soft to palpation, nontender, No hepatosplenomegaly present, no masses and Other GI palpation findings present (Abdomen is obese and protuberant) Auscultation: normal bowel sounds Back/Spine/Pelvis Thoracic/Lumbar Spine: thoracic and lumbar spine normal to inspection and thoraco-lumbar ROM limited Skin General skin exam: no rashes or lesions noted Neuro General: patient oriented x3 and no focal motor deficits Cranial nerves: Yes CN's II-XII intact bilaterally Extrem General: Yes normal to inspection, Yes no clubbing, cyanosis or edema and Yes no calf tenderness Psych Appearance: grossly normal and well kempt Speech and movement: Normal speech and movement present Results Reviewed Results Reviewed: COMPLIANCE REPORT FOR THE LAST 30 NIGHTS IS REVIEWED. HE HAS USED 30/30 NIGHTS,. 100% AVERAGE USE PER NIGHT 6 HOURS 24 MINUTES. SOME AIR LEAK IS NOTED. RESIDUAL AHI ONLY 0.9 Assessment & Plan Assessment & Plan (1) Restrictive lung disease: Comment: Restriction is mainly because of his gross obesity. He is made fully aware of this Has to loose weight ,, and do deep Breathing exercises daily Code(s): J98.4 - Other disorders of lung Category: Medical Plan: CONTINUE DEEP BREATHING EXERCISES AND CONTINUE TO LOSE WEIGHT. (2) Morbid (severe) obesity due to excess calories: Comment: REMAINS MORBIDLY OBESE. TRYING TO LOSE WEIGHT. HE IS ACTIVE IN THE WEIGHT MANAGEMENT PROGRAM. Code(s): E66.01 - Morbid (severe) obesity due to excess calories Category: Medical Plan: ENCOURAGED TO STAY IN THE WEIGHT MANAGEMENT PROGRAM. (3) Obstructive sleep apnea: Comment: He has confirmed diagnosis of obstructive sleep apnea, since June 2017 . Has been using CPAP regularly. Compliance is good . Patient is encouraged to keep on using it every night. Use for at least 7 hrs per night Code(s): G47.33 - Obstructive sleep apnea (adult) (pediatric) Category: Medical Plan: COMMENDED FOR GOOD COMPLIANCE AND CONTINUE TO USE THE CPAP EVERY NIGHT. (4) Asthma: Comment: Patient has mild obstructive airway disorder with good response to bronchodilators. Breathing status remains stable but he claims to get short of breath on minimal exertion. Code(s): J45.909 - Unspecified asthma, uncomplicated Category: Medical Plan: BREO 100-251 INHALATION DAILY VENTOLIN 2 PUFFS Q 4-6 HOURS ONLY P.R.N.. Coding Level of Care Code Est Pt Level 3 (10217) Diagnoses Restrictive lung disease J98.4 Morbid (severe) obesity due to excess calories E66.01 Obstructive sleep apnea G47.33 Asthma J45.909
== END 2024-04-14 10:09 | disposition home or self-care (01) ==
PROVIDERS: PCP Internal Medicine; Visit Provider Internal Medicine
DX: J98.4 Other disorders of lung (principal); E66.01 Morbid (severe) obesity due to excess calories; G47.33 Obstructive sleep apnea (adult) (pediatric); J45.909 Unspecified asthma, uncomplicated
CPT/HCPCS: 99213

== ENCOUNTER → 2024-04-14 09:40 | Outpatient (BNVA) | payer MEDICARE, SELFPAY | PROVIDERS: PCP Internal Medicine; Visit Provider Internal Medicine | DX: J98.4 Other disorders of lung (principal); J45.909 Unspecified asthma, uncomplicated; E66.01 Morbid (severe) obesity due to excess calories; G47.33 Obstructive sleep apnea (adult) (pediatric); Z68.43 Body mass index [BMI] 50.0-59.9, adult; Z99.89 Dependence on other enabling machines and devices | CPT/HCPCS: 99212 ==

== ENCOUNTER 2024-04-15 09:39 | Outpatient (AMB) | payer MEDICARE, SELFPAY ==
[2024-04-15 09:43] VITALS: BP 118/62; PULSE 64; O2SAT 94; BMI 52.1
--- NOTE | 2024-04-15 09:43 | A.OFFPC_ITS ---
Vital Signs 04/15/24 09:43 Height 5 ft 8 in Weight 343 lb BMI 52.1 BP 118/62 Blood Pressure Location Lt brachial Position Sitting Pulse 64 Pulse Source Pulse Oximeter Temp Source Skin Pulse Oximetry (%) 94 Oxygen Delivery Method Room Air Intake Visit Reasons: 3mth f/u Allergies No Known Allergies Allergy (Verified 04/15/24 09:43) Medication List - Last Reconciled 04/15/24 by Catherine Diehl MD aspirin 81 mg PO DAILY atorvastatin 80 mg PO DAILY 90 days Breo Ellipta 100-25 mcg/dose (fluticasone furoate-vilanterol) 1 ea PO DAILY NS cyanocobalamin (vitamin B-12) 1,000 mcg PO DAILY diclofenac sodium 1% (Voltaren Arthritis Pain) 4 grams topical QID folic acid 1 mg PO DAILY hydrochlorothiazide 25 mg PO DAILY 90 days irbesartan 300 mg PO QAM 90 days loratadine 10 mg PO DAILY PRN multivitamin 1 tab PO DAILY sildenafil (Viagra) 50 mg PO DAILY PRN Ventolin HFA 90 mcg/actuation (albuterol sulfate) 2 puffs inhalation Q4-6H PRN NS Tobacco use date assessed: 04/15/24 Fall risk assessment: No Falls in past year Last assessed Fall Risk: 04/15/24 Dental Screening Dental Screen Date: 02/08/24 HPI 3mth f/u HPI Details 63-year-old morbidly obese male with hyp ertension coronary artery disease obstructive sleep apnea asthma and lumbar degenerative disc disease last seen in 02/03/2024. Review of the notes pulmonary seen yesterday for COPD use the CPAP regularly stable COPD asthma control. Patient had a recent myocardial perfusion testing showing no clear evidence of any ischemia or infarction ejection fraction 54%. last week fall R elbow pain fall last week no chest pain , no other bruise [facility] Medical History Dyspnea on exertion Vapes nicotine containing substance Nocturnal hypoxemia due to obesity Lumbar spondylosis Asthma Brittle asthma Allergic rhinitis Nocturnal hypoxemia Opioid-induced hyperalgesia COVID-19 Osteoarthritis of knees, bilateral Morbid (severe) obesity due to excess calories Spinal stenosis Ferrer's palsy Diverticular disease History of substance abuse Restrictive lung disease NSTEMI (non-ST elevated myocardial infarction) History of CVA (cerebrovascular accident) History of Ferrer's palsy Carpal tunnel syndrome Degenerative disc disease, cervical Hypercholesterolemia Obesity Congestive heart failure Coronary artery disease Hypertension Obstructive sleep apnea Lumbar degenerative disc disease Asthma Fatty liver Surgical History Stented coronary artery Back pain with history of spinal surgery History of umbilical hernia repair History of arthroscopy of right knee History of left knee surgery Family History Father Myocardial infarction Mother Diabetes Hypertension Sister Past heart attack Cancer Brother Afib S/P triple vessel bypass Social History Housing: Apartment Alcohol intake: current Patient Tobacco Use Status: Former Tobacco user Tobacco use type: Cigarette Years Smoked: 1989 e-Cigarette/Vaping Use: Currently Using Second Hand Smoke Exposure: No Current occupational status: retired and disabled 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 Cognitive needs: No Hearing needs: No Vision needs: No Questionnaire Thrive Questionnaire Date Thrive assessed: 12/30/23 I am a: Patient What is your living situation today?: I have a steady place to live Within the past 12 months, did the food you bought not last and you didn't have the money to get more?: Never true Within the past 12 months, did you worry whether your food would run out before you got money to buy more?: Never true Do you have trouble paying for medicines?: No Do you have trouble getting transportation to medical appointments?: No Do you have trouble paying your heating and electricity bill?: No Do you have trouble taking care of your child, family member or friend?: No Do you have trouble with day-to-day activities such as bathing, preparing meals, shopping, managing finances, etc.?: No Are you currently unemployed and looking for a job?: No Are you interested in more education?: No Please select the resources that you would like help with: None Currently or been in a relationship where the following occur: no concerns reported THRIVE Score: 0 AUDIT C Alcohol Use Questionnaire (AUDIT-C) 1. How often do you have a drink containing alcohol?: Monthly or less 2. How many drinks containing alcohol do you have on a typical day when you are drinking?: 1 or 2 3. How often do you have six or more drinks on one occasion?: Never Total Score: 1 Score Reviewed/Action Taken: No JESSE-7 AMB Questionnaire JESSE-7 Date JESSE - 7 assessed: 12/30/23 Source: Developed by Drs. Jacky oSsa, Andria Mandujano, Eric Corey and colleagues, with an educational riley from [employer]. Physical exam (Primary Care) Vital Signs: Last Vital Signs Pulse 64 04/15/24 09:43 BP 118/62 04/15/24 09:43 Pulse Ox 94 04/15/24 09:43 Oxygen Delivery Method Room Air 04/15/24 09:43 BMI result Body Mass Index 52.1 Tobacco/Smoking Status: Tobacco use Status Tobacco use date assessed 04/15/24 04/15/24 09:44 Patient Tobacco Use Status Former Tobacco user 04/15/24 09:44 Tobacco use type Cigarette 04/15/24 09:44 e-Cigarette/Vaping Use Currently Using 04/15/24 09:44 Thrive Assessment: Date of Thrive Assessment Date Thrive assessed 12/30/23 04/15/24 09:44 Currently or been in a relationship where the following occur: no concerns reported Const Other: R elbow tender no swelling no redness General: alert; No acute distress Eyes Conjunctivae: conjunctivae normal Resp Auscultation: clear to auscultation bilaterally Cardio Rate: regular rate Rhythm: regular rhythm GI Inspection: Yes normal to inspection Extrem General: Yes normal to inspection and No edema Assessment and Plan Assessment & Plan (1) Asthma: Comment: Patient has mild obstructive airway disorder with good response to bronchodilators. Breathing status remains stable but he claims to get short of breath on minimal exertion. Code(s): J45.909 - Unspecified asthma, uncomplicated Plan: Patient follows up with Pulmonary and controlled on Breo and albuterol (2) Obstructive sleep apnea: Comment: He has confirmed diagnosis of obstructive sleep apnea, since June 2017 . Has been using CPAP regularly. Compliance is good . Patient is encouraged to keep on using it every night. Use for at least 7 hrs per night Code(s): G47.33 - Obstructive sleep apnea (adult) (pediatric) Plan: Continue to use the CPAP more than 4 hours a night and benefits from this (3) Hypertension: Code(s): I10 - Essential (primary) hypertension Plan: Continue with blood pressure medication. Decrease salt intake and exercise on hydrochlorothiazide 25 mg once a day irbesartan 300 mg once a day (4) Coronary artery disease: Comment: NSTEMI October 2019 stent placement, September 2020 catheterization patent stent. Recent , admission for a mild heart attack, Ac [place] ruled out . Code(s): I25.10 - Atherosclerotic heart disease of [place] coronary artery without angina pectoris Qualifiers: Coronary Disease-Associated Artery/Lesion type: [place] artery [place] vs. transplanted heart: [place] heart Associated angina: with unstable angina Qualified Code(s): I25.110 - Atherosclerotic heart disease of [place] coronary artery with unstable angina pectoris Plan: Control the cholesterol, weight, blood pressure, continue with aspirin 81 mg once a day. Myocardial perfusion scan recently no significant ischemia (5) Congestive heart failure: Comment: Systolic Code(s): I50.9 - Heart failure, unspecified Plan: Stable avoid salt (6) Hypercholesterolemia: Code(s): E78.00 - Pure hypercholesterolemia, unspecified Plan: Avoid fried foods, chicken skin, eggs, butter margarine, pastries and meat. Be it pork or beef they have a lot of cholesterol LDL goal of less than 70 and triglyceride of less than 150. (7) Morbid (severe) obesity due to excess calories: Comment: REMAINS MORBIDLY OBESE. TRYING TO LOSE WEIGHT. HE IS ACTIVE IN THE WEIGHT MANAGEMENT PROGRAM. Code(s): E66.01 - Morbid (severe) obesity due to excess calories Plan: Diet and exercise (8) CKD (chronic kidney disease) stage 3, GFR 30-59 ml/min: Code(s): N18.30 - Chronic kidney disease, stage 3 unspecified Qualifiers: Chronic kidney disease stage 3 subtype: unspecified whether 3a or 3b Qualified Code(s): N18.30 - Chronic kidney disease, stage 3 unspecified Plan: Keep well hydrated avoid NSAIDs (9) Generalized anxiety disorder: Code(s): F41.1 - Generalized anxiety disorder Plan: Stable (10) Impaired fasting blood sugar: Code(s): R73.01 - Impaired fasting glucose Plan: Decrease the amount of carbohydrate intake, pasta, bread, rice and potatoes are all sugar and that is aside from all the sweet stuff, remember that fruits are good but they are Sweet also. (11) Fall: Code(s): W19.XXXA - Unspecified fall, initial encounter (12) Right elbow pain: Code(s): M25.521 - Pain in right elbow Orders: Orders XR elbow RT 2V Today M25.521 - Pain in right elbow Comprehensive Met. Panel Today I25.110 - Atherosclerotic heart disease of [place] coronary artery with unstable angina pectoris Free T4 (Free Thyroxine) Today I25.110 - Atherosclerotic heart disease of [place] coronary artery with unstable angina pectoris Lipid Panel Today E78.00 - Pure hypercholesterolemia, unspecified, I25.110 - Atherosclerotic heart disease of [place] coronary artery with unstable angina pectoris Vitamin B12 and Folate Today I25.110 - Atherosclerotic heart disease of [place] coronary artery with unstable angina pectoris Hemoglobin A1c Today R73.01 - Impaired fasting glucose B Type Natriuretic Peptide Today I25.110 - Atherosclerotic heart disease of [place] coronary artery with unstable angina pectoris Complete Blood Count Auto Diff Today I25.110 - Atherosclerotic heart disease of [place] coronary artery with unstable angina pectoris Prostate Specific Antigen Scr Today I25.110 - Atherosclerotic heart disease of [place] coronary artery with unstable angina pectoris Thyroid Stimulating Hormone Today R73.01 - Impaired fasting glucose Coding Level of Care Code Est Pt Level 4 (60558) Diagnoses Asthma J45.909 Obstructive sleep apnea G47.33 Hypertension I10 Coronary artery disease involving [place] coronary artery of [place] heart with unstable angina pectoris I25.110 Coronary Disease-Associated Artery/Lesion type: [place] artery [place] vs. transplanted heart: [place] heart Associated angina: with unstable angina Congestive heart failure I50.9 Hypercholesterolemia E78.00 Morbid (severe) obesity due to excess calories E66.01 Stage 3 chronic kidney disease, unspecified whether stage 3a or 3b CKD N18.30 Chronic kidney disease stage 3 subtype: unspecified whether 3a or 3b Generalized anxiety disorder F41.1 Impaired fasting blood sugar R73.01 Fall W19.XXXA Right elbow pain M25.521
== END 2024-04-15 10:23 | disposition home or self-care (01) ==
PROVIDERS: PCP Internal Medicine; Visit Provider Internal Medicine
DX: I13.0 Hypertensive heart and chronic kidney disease with heart failure and stage 1 through stage 4 chronic kidney disease, or unspecified chronic kidney disease (principal); I50.9 Heart failure, unspecified; N18.30 Chronic kidney disease, stage 3 unspecified; I25.110 Atherosclerotic heart disease of native coronary artery with unstable angina pectoris; E66.01 Morbid (severe) obesity due to excess calories; J45.909 Unspecified asthma, uncomplicated; G47.33 Obstructive sleep apnea (adult) (pediatric); E78.00 Pure hypercholesterolemia, unspecified; F41.1 Generalized anxiety disorder; R73.01 Impaired fasting glucose; W19.XXXA Unspecified fall, initial encounter; M25.521 Pain in right elbow
CPT/HCPCS: 99214

== ENCOUNTER 2024-04-15 10:33 | Outpatient (REF) | payer MEDICARE, SELFPAY ==
--- NOTE | ~2024-04-15 | XR_ITS ---
EXAMINATION: XR ELBOW, RIGHT CLINICAL INFORMATION: Pain in right elbow. COMPARISON: None available. TECHNIQUE: AP, lateral, and oblique views of the right elbow. FINDINGS: Prominent olecranon spur. Degenerative changes with hypertrophic changes at the elbow. Alignment maintained. XR/XR elbow RT 2V IMPRESSION: Prominent olecranon spur. Degenerative changes with hypertrophic changes at the elbow. Alignment maintained. Recommend follow-up imaging in 10-14 days if fracture is suspected.
== END 2024-04-15 10:34 | disposition home or self-care (01) ==
LOC: HO.XRAY 10:33
PROVIDERS: PCP Internal Medicine; Visit Provider Internal Medicine
DX: M25.521 Pain in right elbow (principal)
CPT/HCPCS: 73070

== ENCOUNTER → 2024-05-09 07:26 | Outpatient (BNVA) | payer SELFPAY | PROVIDERS: PCP Internal Medicine; Visit Provider Registered Nurse | DX: Z02.79 Encounter for issue of other medical certificate (principal) ==

== ENCOUNTER 2024-06-09 09:54 | Outpatient (AMB) | payer MEDICARE, SELFPAY ==
--- NOTE | 2024-06-09 10:02 | A.OFFPC_ITS ---
Vital Signs 06/09/24 10:03 Height 5 ft 8 in Weight 357 lb BMI 54.3 BP 148/82 H Blood Pressure Location Lt brachial Position Sitting Pulse 64 Pulse Source Pulse Oximeter Pulse Oximetry (%) 93 Oxygen Delivery Method Room Air Intake Visit Reasons: 3mth f/u Allergies No Known Allergies Allergy (Verified 06/09/24 10:03) Tobacco use date assessed: 04/15/24 Fall risk assessment: No Falls in past year Last assessed Fall Risk: 06/09/24 Dental Screening Dental Screen Date: 02/08/24 HPI 3mth f/u HPI Details 63-year-old morbidly obese male(noted 14 lb weight gain) with a history of asthma hypertension obstructive sleep apnea coronary artery disease congestive heart failure hypercholesterolemia chronic kidney disease generalized anxiety disorder and impaired glucose tolerance last seen in March 2024. Patient's colonoscopy is up-to-date April 2018 10 years. Patient had some right elbow pain and an x-ray was done showing degenerative change. Patient is problematic about family right now and question of getting into cognitive impairment . Patient states that he stress eats. and discussed with the patient on the need for him to take care of himself so that he is able to take care of family. Patient has no history of thyroid cancer. Discussed about Mounjaro. Stress to him it is not insulin. [facility] Medical History (Updated 06/09/24 @ 10:15 by Catherine Diehl MD) Asthma exacerbation Prediabetes Obesity Dyspnea on exertion Vapes nicotine containing substance Nocturnal hypoxemia due to obesity Lumbar spondylosis Asthma Brittle asthma Allergic rhinitis Nocturnal hypoxemia Opioid-induced hyperalgesia COVID-19 Osteoarthritis of knees, bilateral Morbid (severe) obesity due to excess calories Spinal stenosis Ferrer's palsy Diverticular disease History of substance abuse Restrictive lung disease NSTEMI (non-ST elevated myocardial infarction) History of CVA (cerebrovascular accident) History of Ferrer's palsy Carpal tunnel syndrome Degenerative disc disease, cervical Hypercholesterolemia Congestive heart failure Coronary artery disease Hypertension Obstructive sleep apnea Lumbar degenerative disc disease Asthma Fatty liver Surgical History Stented coronary artery Back pain with history of spinal surgery History of umbilical hernia repair History of arthroscopy of right knee History of left knee surgery Family History (Updated 06/09/24 @ 10:04 by Millie M Maitin, BIOINFORMATICS RESEARCH TECHNICIAN) Father Myocardial infarction Mother Diabetes Hypertension Sister Past heart attack Cancer Brother Afib S/P triple vessel bypass Social History Housing: Apartment Alcohol intake: current Patient Tobacco Use Status: Former Tobacco user Tobacco use type: Cigarette Years Smoked: 1989 e-Cigarette/Vaping Use: Currently Using Second Hand Smoke Exposure: No Current occupational status: retired and disabled 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 1. Little interest or pleasure in doing things: more than half the days 2. Feeling down, depressed, or hopeless: more than half the days 3. Trouble falling or staying asleep, or sleeping too much: several days 4. Feeling tired or having little energy: several days 5. Poor appetite or overeating: nearly every day 6. Feeling bad about yourself - or that you are a failure or have let yourself or your family down: not at all 7. Trouble concentrating on things, such as reading the newspaper or watching television: not at all 8. Moving or speaking so slowly that other people could have noticed. Or the opposite - being so fidgety or restless that you have been moving around a lot more than usual: not at all 9. Thoughts that you would be better off or of hurting yourself in some way: not at all Total score: 9 Depression Screening Interpretation: Positive Depression Screening Done: Yes Source: Developed by Drs. Jacky Sosa, Andria Mandujano, Eric Corey and colleagues, with an educational riley from [employer]. Thrive Questionnaire Date Thrive assessed: 12/30/23 AUDIT C Alcohol Use Questionnaire (AUDIT-C) 1. How often do you have a drink containing alcohol?: Monthly or less 2. How many drinks containing alcohol do you have on a typical day when you are drinking?: 1 or 2 3. How often do you have six or more drinks on one occasion?: Never Total Score: 1 Score Reviewed/Action Taken: No JESSE-7 AMB Questionnaire JESSE-7 Date JESSE - 7 assessed: 06/09/24 Feeling nervous, anxious, or on edge: 2 = More than half the days Not being able to stop or control worryin = Several days Worrying too much about different things: 1 = Several days Trouble relaxin = Not at all Being so restless that it is hard to sit still: 0 = Not at all Becoming easily annoyed or irritable: 0 = Not at all Feeling afraid as if something awful might happen: 1 = Several days Total JESSE-7 score (0-4 normal; 5-9 mild; 10-14 moderate; 15-21 severe): 5 Source: Developed by Drs. Jacky Sosa, Andria Mandujano, Eric Corey and colleagues, with an educational riley from [employer]. Physical exam (Primary Care) Vital Signs: Last Vital Signs Pulse 64 06/09/24 10:03 BP 148/82 H 06/09/24 10:03 Pulse Ox 93 06/09/24 10:03 Oxygen Delivery Method Room Air 06/09/24 10:03 BMI result Body Mass Index 54.3 Tobacco/Smoking Status: Tobacco use Status Tobacco use date assessed 04/15/24 06/09/24 10:04 Patient Tobacco Use Status Former Tobacco user 06/09/24 10:04 Tobacco use type Cigarette 06/09/24 10:04 e-Cigarette/Vaping Use Currently Using 06/09/24 10:04 PHQ-9: PHQ-9 Score PHQ-9: Total score 9 06/09/24 10:21 Depression Screening Interpretation: Positive Thrive Assessment: Date of Thrive Assessment Date Thrive assessed 12/30/23 06/09/24 10:04 Const General: alert; No acute distress Eyes Conjunctivae: conjunctivae normal Resp Auscultation: clear to auscultation bilaterally Cardio Rate: regular rate Rhythm: regular rhythm GI Inspection: Yes normal to inspection Extrem General: Yes normal to inspection and No edema Results AMB Hemoglobin A1c AMB Hemoglobin A1c 6.0 % Last Edit by Millie Mcdowell CMA on 06/09/24 10 :21 Results Reviewed Results Reviewed: Laboratory Last Values Hgb A1c (Clinic) 6.0 % (4.0-6.0) 06/09/24 10:02 Assessment and Plan Assessment & Plan (1) Morbid (severe) obesity due to excess calories: Comment: REMAINS MORBIDLY OBESE. TRYING TO LOSE WEIGHT. HE IS ACTIVE IN THE WEIGHT MANAGEMENT PROGRAM. Code(s): E66.01 - Morbid (severe) obesity due to excess calories Plan: Discussed with the patient the concern about weight gain. Did not see the notes from weight management. (2) Obstructive sleep apnea: Comment: He has confirmed diagnosis of obstructive sleep apnea, since June 2017 . Has been using CPAP regularly. Compliance is good . Patient is encouraged to keep on using it every night. Use for at least 7 hrs per night Code(s): G47.33 - Obstructive sleep apnea (adult) (pediatric) Plan: Continue to use the CPAP more than 4 hours a night and benefits from this (3) Coronary artery disease: Comment: NSTEMI October 2019 stent placement, September 2020 catheterization patent stent. Recent , admission for a mild heart attack, Ac IA ruled out . Code(s): I25.10 - Atherosclerotic heart disease of [place] coronary artery without angina pectoris Qualifiers: Associated angina: with unstable angina Coronary Disease-Associated Artery/Lesion type: [place] artery [place] vs. transplanted heart: [place] heart Qualified Code(s): I25.110 - Atherosclerotic heart disease of [place] coronary artery with unstable angina pectoris Plan: Control the cholesterol, weight, blood pressure, continue with aspirin 81 mg once a day (4) Hypercholesterolemia: Code(s): E78.00 - Pure hypercholesterolemia, unspecified Plan: Avoid fried foods, chicken skin, eggs, butter margarine, pastries and meat. Be it pork or beef they have a lot of cholesterol LDL goal of less than 70 and triglyceride of less than 150. July last test will request. (5) Lumbar degenerative disc disease: Comment: Spinal stenosis Disc herniation with L4 impingement left knee geniculate nerve block Dr. Guerrero January 2018, June 2019 Code(s): M51.36 - Other intervertebral disc degeneration, lumbar region Plan: Patient is strongly advised to lose the weight. (6) Asthma: Comment: Patient has mild obstructive airway disorder with good response to bronchodila tors. Breathing status remains stable but he claims to get short of breath on minimal exertion. Code(s): J45.909 - Unspecified asthma, uncomplicated Plan: Patient on Breo and albuterol. Reminded to rinse mouth after using (7) CKD (chronic kidney disease) stage 3, GFR 30-59 ml/min: Code(s): N18.30 - Chronic kidney disease, stage 3 unspecified Qualifiers: Chronic kidney disease stage 3 subtype: unspecified whether 3a or 3b Qualified Code(s): N18.30 - Chronic kidney disease, stage 3 unspecified Plan: Keep well hydrated and avoid NSAIDs (8) Impaired fasting blood sugar: Code(s): R73.01 - Impaired fasting glucose Plan: Decrease the amount of carbohydrate intake, pasta, bread, rice and potatoes are all sugar and that is aside from all the sweet stuff, remember that fruits are good but they are Sweet also. (9) Hypertension: Code(s): I10 - Essential (primary) hypertension Plan: Continue with blood pressure medication. Decrease salt intake and exercise on hydrochlorothiazide, irbesartan. Orders: Orders AMB Hemoglobin A1c Today Z13.9 - Encounter for screening, unspecified Medications: New tirzepatide (Mounjaro) 2.5 mg (0.5 mL) subcut QWEEK 2 mL 2RF 4 weeks E66.01 - Morbid (severe) obesity due to excess calories Refilled atorvastatin 80 mg PO DAILY 90 tabs 2RF 90 days E78.00 - Pure hypercholesterolemia, unspecified Breo Ellipta 100-25 mcg/dose (fluticasone furoate-vilanterol) 1 ea PO DAILY 60 ea 12RF NS J45.909 - Unspecified asthma, uncomplicated hydrochlorothiazide 25 mg PO DAILY 90 tabs 3RF 90 days F41.1 - Generalized a nxiety disorder loratadine 10 mg PO DAILY PRN 90 tabs 3RF allergy symptoms E66.01 - Morbid (severe) obesity due to excess calories folic acid 1 mg PO DAILY 90 tabs 3RF E66.01 - Morbid (severe) obesity due to excess calories irbesartan 300 mg PO QAM 90 tabs 3RF 90 days I10 - Essential (primary) hypertension Coding Level of Care Code Est Pt Level 4 (77317) Diagnoses Morbid (severe) obesity due to excess calories E66.01 Obstructive sleep apnea G47.33 Coronary artery disease involving [place] coronary artery of [place] heart with unstable angina pectoris I25.110 Associated angina: with unstable angina Coronary Disease-Associated Artery/Lesion type: [place] artery [place] vs. transplanted heart: [place] heart Hypercholesterolemia E78.00 Lumbar degenerative disc disease M51.36 Asthma J45.909 Stage 3 chronic kidney disease, unspecified whether stage 3a or 3b CKD N18.30 Chronic kidney disease stage 3 subtype: unspecified whether 3a or 3b Impaired fasting blood sugar R73.01 Hypertension I10
[2024-06-09 10:03] VITALS: BP 148/82; PULSE 64; O2SAT 93; BMI 54.3
== END 2024-06-09 10:36 | disposition home or self-care (01) ==
PROVIDERS: PCP Internal Medicine; Visit Provider Internal Medicine
DX: I12.9 Hypertensive chronic kidney disease with stage 1 through stage 4 chronic kidney disease, or unspecified chronic kidney disease (principal); E66.01 Morbid (severe) obesity due to excess calories; N18.30 Chronic kidney disease, stage 3 unspecified; Z68.43 Body mass index [BMI] 50.0-59.9, adult; I25.110 Atherosclerotic heart disease of native coronary artery with unstable angina pectoris; R73.01 Impaired fasting glucose; G47.33 Obstructive sleep apnea (adult) (pediatric); J45.909 Unspecified asthma, uncomplicated; E78.00 Pure hypercholesterolemia, unspecified; M51.36 Other intervertebral disc degeneration, lumbar region
CPT/HCPCS: 83036; 99214

== ENCOUNTER 2024-06-13 17:51 | Emergency (ER) | payer MEDICARE, SELFPAY ==
--- NOTE | ~2024-06-13 | XR_ITS ---
EXAMINATION: XR CHEST CLINICAL INFORMATION: Chest pain COMPARISON: Chest 01/01/2023 TECHNIQUE: Frontal view of the chest was obtained. FINDINGS: The lungs are hypoexpanded but clear. The heart size is enlarged. Pulmonary vascularity is normal. No gross bony abnormality seen. XR/XR chest 1V IMPRESSION: Mild cardiomegaly. Hypoexpanded lungs without acute process.
--- NOTE | ~2024-06-13 | CT_ITS ---
EXAMINATION: CT ABDOMEN AND PELVIS WITH CONTRAST CLINICAL INFORMATION: Left lower quadrant pain, flank pain and vomiting. COMPARISON: None available. TECHNIQUE: Multidetector volumetric images were obtained from the superior aspect of the liver through the pubic symphysis following administration 85 mL of Omnipaque 350 intravenous contrast. Sagittal and coronal reformatted images were obtained on the technologist's workstation. Oral contrast: No This CT examination was performed using dose optimization techniques as appropriate, variously including the following: *Automated exposure control *Adjustment of mA and/or kV according to patient size (this includes techniques or standardized protocols for targeted exams where dose is matched to indication/reason for exam; i.e. extremities or head) *Use of iterative reconstruction technique DLP: 1792 mGy-cm FINDINGS: LUNG BASES: The lung bases are clear. Heart size is normal. LIVER, GALLBLADDER, AND BILIARY TREE: The liver is normal in size, shape, and attenuation. No focal hepatic lesion or biliary ductal dilatation is present. The gallbladder is unremarkable with no evidence of radiopaque gallstones, gallbladder wall thickening, or obvious pericholecystic inflammatory changes. PANCREAS: Unremarkable. SPLEEN: There is a small accessory splenule. ADRENAL GLANDS: Unremarkable. KIDNEYS AND URETERS: The kidneys are normal in size, shape, and attenuation. No hydronephrosis, hydroureter, or calculi seen. No perinephric stranding. BLADDER: Unremarkable. GASTROINTESTINAL TRACT: There is scattered stool, diverticuli and gas seen throughout the colon without distention. There is mild fat stranding seen in the sigmoid colon axial image 82/3, suggestive of early diverticulitis The small bowel loops are normal caliber. ABDOMINAL WALL: No significant hernia is appreciated. LYMPH NODES: Normal. VASCULAR: Unremarkable. PELVIC VISCERA: Unremarkable. OSSEOUS STRUCTURES: Mild degenerative disc changes L5-S1 disc level with L4-L5 inter spinous processes hardware noted. CT/CT abdomen pelvis w IV con IMPRESSION: 1. No acute intra-abdominal process seen. 2. Scattered colonic diverticulosis with early diverticulitis. There is no free air, abscess or proximal bowel obstruction. Fleischner guidelines were followed.
--- NOTE | 2024-06-13 18:18 | ECG_ITS ---
Test Reason : PBACK PAIN Blood Pressure : / mmHG Vent. Rate : 066 BPM Atrial Rate : 066 BPM P-R Int : 198 ms QRS Dur : 136 ms QT Int : 410 ms P-R-T Axes : 039 003 032 degrees QTc Int : 429 ms Normal sinus rhythm Non-specific intra-ventricular conduction block Abnormal ECG When compared with ECG of 11-MAR-2022 19:22, No significant change was found Referred By: Alisa Oquendo Electronically Signed By:Arsh Dorman
[2024-06-13 18:30] VITALS: BP 115/53; PULSE 69; RESP 18; TEMP 37; O2SAT 99; BMI 49.8
[2024-06-13 18:49] LABS: MANUAL DIFF FLAG NO
--- NOTE | 2024-06-13 18:50 | ED_ITS ---
HPI - Back Pain/Injury General Chief Complaint: Back Pain/Injury Stated Complaint: lower back pain Time Seen by Provider: 06/13/24 18:25 Source: patient, family and old records reviewed Mode of arrival: ambulatory Limitations: no limitations History of Present Illness ED Provider: ESTRELLITA HAMILTON Narrative: 63 yo male with PMH of asthma, obesity, CKD, CAD, CHF, asthma, lumbar back pain with prior surgery, HTN, LISA, HLD here with c/o this afternoon diffuse body pain, left low back and flank pain without saddle anesthesia or b/b incontinence or trauma, chills, fatigue, dyspnea, felt palpitations. He feels really weak and tired as well as sweaty. His daughter brought him in states he looked weak like he was going to pass out. They deny travel or sick contacts. He had normal urination and bowel movements today. He denies abdominal pain. He denies chest pain. MD elicited complaint: back pain Pertinent past history: prior back pain Onset (ago): hour(s) (few) Timing: constant Severity: moderate Similar Symptoms Previously: Yes Quality: dull and aching Location: lumbar spine Radiation: none Exacerbating factors: movement Relieving factors: none Context: unknown Associated symptoms: weakness and other (viral like symptoms - multiple symptoms) Work related injury: No Related Data Home Medications ?Medication ?Instructions ?Recorded ?Confirmed multivitamin 1 tab PO DAILY 01/01/23 04/15/24 Previous Rx's ?Medication ?Instructions ?Recorded Ventolin HFA 90 mcg/actuation 2 puff inhalation Q4-6H PRN 11/21/20 aerosol inhaler (albuterol sulfate) shortness of breath or wheezing #18 grams sildenafil 50 mg tablet (Viagra) 50 mg PO DAILY PRN sexual activity 04/21/23 #10 tabs cyanocobalamin (vitamin B-12) 1,000 mcg PO DAILY #90 tabs 06/30/23 1,000 mcg tablet aspirin 81 mg tablet,delayed 81 mg PO DAILY #90 tabs 10/22/23 release diclofenac sodium 1 % topical gel 4 g topical QID #100 grams 12/30/23 (Voltaren Arthritis Pain) Breo Ellipta 100 mcg-25 mcg/dose 1 ea PO DAILY #60 ea 06/09/24 powder for inhalation (fluticasone furoate-vilanterol) atorvastatin 80 mg tablet 80 mg PO DAILY 90 days #90 tabs 06/09/24 folic acid 1 mg tablet 1 mg PO DAILY #90 tabs 06/09/24 hydrochlorothiazide 25 mg tablet 25 mg PO DAILY 90 days #90 tabs 06/09/24 irbesartan 300 mg tablet 300 mg PO QAM 90 days #90 tabs 06/09/24 loratadine 10 mg tablet 10 mg PO DAILY PRN allergy 06/09/24 symptoms #90 tabs tirzepatide 2.5 mg/0.5 mL 2.5 mg (0.5 mL) subcut QWEEK 4 06/09/24 subcutaneous pen injector weeks #2 mL (Mounjaro) morphine 15 mg immediate release 15 mg PO Q6H PRN pain #8 tabs 06/13/24 tablet Allergies Allergy/AdvReac Type Severity Reaction Status Date / Time No Known Allergies Allergy Verified 06/13/24 18:33 Review of Systems 2 Review of Systems: Constitutional : No Fever, pos Chills, pos sweats ENT/Mouth : No sore throat, No Rhinorrhea, No Swallowing Difficulty Eyes: No Eye Pain, No Swelling, No Redness Cardiovascular : No Chest Pain, positive SOB, No Orthopnea, no Edema Respiratory : No Cough, No Sputum, No Wheezing, positive dyspnea Gastrointestinal : pos Nausea, No Vomiting, No Diarrhea, No abdominal Pain, No Hematochezia, No Melena Genitourinary : No Dysuria, No Urinary Frequency, No Hematuria Musculoskeletal : No joint pain, pos Myalgias, pos back pain Skin : No Skin Lesions, No rash Neuro : pos Weakness, No Numbness, No Dizziness, No Headache All other systems reviewed and are negative [facility] Past Medical History Attestation statement: The following information was validated with the patient. Source: old records reviewed Medical History Asthma exacerbation Prediabetes Obesity Dyspnea on exertion Vapes nicotine containing substance Nocturnal hypoxemia due to obesity Lumbar spondylosis Asthma Brittle asthma Allergic rhinitis Nocturnal hypoxemia Opioid-induced hyperalgesia COVID-19 Osteoarthritis of knees, bilateral Morbid (severe) obesity due to excess calories Spinal stenosis Ferrer's palsy Diverticular disease History of substance abuse Restrictive lung disease NSTEMI (non-ST elevated myocardial infarction) History of CVA (cerebrovascular accident) History of Ferrer's palsy Carpal tunnel syndrome Degenerative disc disease, cervical Hypercholesterolemia Congestive heart failure Coronary artery disease Hypertension Obstructive sleep apnea Lumbar degenerative disc disease Asthma Fatty liver Surgical History Stented coronary artery Back pain with history of spinal surgery History of umbilical hernia repair History of arthroscopy of right knee History of left knee surgery Family History Family History (Updated 06/09/24 @ 10:04 by Millie Mcdowell CMA) Father Myocardial infarction Mother Diabetes Hypertension Sister Past heart attack Cancer Brother Afib S/P triple vessel bypass Social History Social History Housing: Apartment Alcohol intake: current Alcohol intake frequency: holidays/special occasions only Patient Tobacco Use Status: Former Tobacco user Tobacco use type: Cigarette Years Smoked: 1990 Smoked in Last 30 Days: No e-Cigarette/Vaping Use: Currently Using Second Hand Smoke Exposure: No Use of substances other than those prescribed or required for medical reasons: Yes Substance Use Type: Marijuana Advance Directives: No Advance Directives Information Provided: No Do you have a plan to hurt others: No Plan Current occupational status: retired and disabled 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 Oriented X3. No acute distress. Anxious Eyes: Pupils equal, round and reactive to light. ENT: Pharynx normal. Neck: Normal inspection. Neck supple. CVS: Normal heart rate and rhythm. Pulses normal. Respiratory: No respiratory distress. Breath sounds normal. Abdomen: Soft and nontender. Obese Skin: Skin warm and dry. Normal skin color. Normal skin turgor. Extremities: No lower extremity edema. distal NV intact Neuro: Oriented X 3. No motor deficit. No sensory deficit. Course Course Course Narrative: trop flat x 2 given 250ml after contrast Medications Administered Discontinued Medications Generic Name Dose Route Start Last Admin Trade Name Robb PRN Reason Stop Dose Admin Iohexol 100 ml 06/13/24 19:37 06/13/24 19:38 Iohexol 350 Mg/Ml 100 Ml Infus..Btl IV 06/13/24 19:38 100 ml ONCE ONE Administration Morphine Sulfate 4 mg 06/13/24 18:32 06/13/24 19:12 Morphine Sulfate 4 Mg/Ml Cartridge IVPUSH 06/13/24 18:33 4 mg ONCE ONE Administration Protocol Morphine Sulfate 4 mg 06/13/24 20:23 06/13/24 20:30 Morphine Sulfate 4 Mg/Ml Cartridge IVPUSH 06/13/24 20:24 4 mg ONCE ONE Administration Protocol Ondansetron HCl 4 mg 06/13/24 18:32 06/13/24 19:12 Ondansetron Hcl 4 Mg/2 Ml Vial IVPUSH 06/13/24 18:33 4 mg ONCE ONE Administration Medical Decision Making Medical Decision Making [facility] Narrative: 63 yo male with PMH of asthma, obesity, CKD, CAD, CHF, asthma, lumbar back pain, HTN, LISA, HLD here with c/o back pain, dyspnea, elevated HR, nausea, sweats - at this time rapid onset of constellation of symptoms will need labs, UA, EKG, troponin x 2, CT scan of LLQ and L flank for stone/diverticulitis this could also just be his back pain, has no CP to suggest ACS or VTE - IV morphine for pain and IV zofran - viral panel also sent off. He is NV intact with no neuro deficits. Differential Diagnosis Differential Diagnoses: The differential diagnosis associated with the presentation includes viral syndrome, back pain, diverticulitis, renal colic, sciatica Admission/Observation Consideration of admission/observation: Escalation of care including admission/observation considered feels much better pain is really in low back without cauda equina extensive workup stable for DC Lab Data [facility] Lab Attestation statement: I reviewed the patient's lab results. 06/13/24 18:43 06/13/24 18:43 Labs: Lab Results 06/13/24 06/13/24 06/13/24 Range/Units 18:43 18:46 20:20 WBC 8.4 (4.8-10.8) X10*3/uL RBC 4.57 L (4.60-5.80) X10*6/uL Hgb 14.2 (14.0-18.0) g/dl Hct 40.0 L (42.0-52.0) % MCV 87.5 (80.0-98.0) fL MCH 31.1 (27.0-33.0) pg MCHC 35.5 (31.0-36.0) g/dl RDW 13.0 (11.0-16.0) % Plt Count 183 (160-400) X10*3/uL MPV 11.0 (9.4-12.4) fL Immature Gran % (Auto) 0.4 (0.0-0.4) % Neut % (Auto) 77.4 H (45-73) % Lymph % (Auto) 13.3 L (20-40) % [place] % (Auto) 6.9 (2-11) % Eos % (Auto) 1.6 (0-4) % Baso % (Auto) 0.4 (0-2) % Lymph # (Auto) 1.1 L (1.2-4.9) X10*3/uL [place] # (Auto) 0.6 (0.1-1.2) X10*3/uL Eos # (Auto) 0.1 (0.0-0.4) X10*3/uL Baso # (Auto) 0.0 (0.0-0.2) X10*3/uL Abs Immat Gran (auto) 0.03 (0.00-0.03) X10*3/uL Absolute Neuts (auto) 6.5 (2.0-8.3) x10*3/uL Absolute Nucleated RBC 0.000 (0.0-0.012) X10*3/uL Nucleated RBC % (auto) 0.0 (0.0-0.2) /100WBC VBG pH 7.54 H (7.32-7.43) VBG pCO2 30 mmHg VBG pO2 127 mmHg VBG HCO3 26 (22-26) mmol/L VBG O2 Saturation 100.0 % VBG Base Excess 4.9 mmol/L Sodium 136 (135-145) mmol/L Potassium 3.7 (3.3-5.1) mmol/L Chloride 103 (96-108) mmol/L Carbon Dioxide 25 (22-29) mmol/L Anion Gap 12 (12-20) BUN 25 H (9-16) mg/dL Creatinine 1.41 H (0.5-1.4) mg/dL Estim Creat Clear Calc 81.2 Estimated GFR 50 Random Glucose 176 H (60-115) mg/dL Calcium 9.3 (8.4-10.2) mg/dL Magnesium 2.1 (1.6-2.6) mg/dL Total Bilirubin 0.7 (0.0-1.0) mg/dL Direct Bilirubin 0.3 (0.0-0.5) mg/dL AST 25 (5-37) U/L ALT 40 (0-40) U/L Alkaline Phosphatase 72 (39-117) U/L Troponin I High Sens < 2.7 (<3.5-35.0) ng/L B-Natriuretic Peptide < 10 (<100) pg/mL Total Protein 7.1 (6.5-8.0) g/dL Albumin 4.1 (3.5-5.0) g/dL Lipase 22 (8-78) U/L Urine Color Yellow Urine Appearance Clear Urine pH 7.0 (5.0-9.0) Ur Specific [place] >= 1.030 H (1.005-1.025) Urine Protein Trace (Neg-Trace) mg/dL Urine Glucose (UA) Negative (Negative) mg/dL Urine Ketones Negative (Negative) mg/dL Urine Blood Negative (Negative) Urine Nitrite Negative (Negative) Ur Leukocyte Esterase Negative (Negative) Influenza Type A (PCR) NEGATIVE (Negative) Influenza Type B (PCR) NEGATIVE (Negative) RSV RNA Qual (PCR) NEGATIVE (Negative) SARS-CoV-2 RNA (RT-PCR) NEGATIVE (Negative) 06/13/24 Range/Units 20:58 WBC (4.8-10.8) X10*3/uL RBC (4.60-5.80) X10*6/uL Hgb (14.0-18.0) g/dl Hct (42.0-52.0) % MCV (80.0-98.0) fL MCH (27.0-33.0) pg MCHC (31.0-36.0) g/dl RDW (11.0-16.0) % Plt Count (160-400) X10*3/uL MPV (9.4-12.4) fL Immature Gran % (Auto) (0.0-0.4) % Neut % (Auto) (45-73) % Lymph % (Auto) (20-40) % [place] % (Auto) (2-11) % Eos % (Auto) (0-4) % Baso % (Auto) (0-2) % Lymph # (Auto) (1.2-4.9) X10*3/uL [place] # (Auto) (0.1-1.2) X10*3/uL Eos # (Auto) (0.0-0.4) X10*3/uL Baso # (Auto) (0.0-0.2) X10*3/uL Abs Immat Gran (auto) (0.00-0.03) X10*3/uL Absolute Neuts (auto) (2.0-8.3) x10*3/uL Absolute Nucleated RBC (0.0-0.012) X10*3/uL Nucleated RBC % (auto) (0.0-0.2) /100WBC VBG pH (7.32-7.43) VBG pCO2 mmHg VBG pO2 mmHg VBG HCO3 (22-26) mmol/L VBG O2 Saturation % VBG Base Excess mmol/L Sodium (135-145) mmol/L Potassium (3.3-5.1) mmol/L Chloride (96-108) mmol/L Carbon Dioxide (22-29) mmol/L Anion Gap (12-20) BUN (9-16) mg/dL Creatinine (0.5-1.4) mg/dL Estim Creat Clear Calc Estimated GFR Random Glucose (60-115) mg/dL Calcium (8.4-10.2) mg/dL Magnesium (1.6-2.6) mg/dL Total Bilirubin (0.0-1.0) mg/dL Direct Bilirubin (0.0-0.5) mg/dL AST (5-37) U/L ALT (0-40) U/L Alkaline Phosphatase (39-117) U/L Troponin I High Sens < 2.7 (<3.5-35.0) ng/L B-Natriuretic Peptide (<100) pg/mL Total Protein (6.5-8.0) g/dL Albumin (3.5-5.0) g/dL Lipase (8-78) U/L Urine Color Urine Appearance Urine pH (5.0-9.0) Ur Specific [place] (1.005-1.025) Urine Protein (Neg-Trace) mg/dL Urine Glucose (UA) (Negative) mg/dL Urine Ketones (Negative) mg/dL Urine Blood (Negative) Urine Nitrite (Negative) Ur Leukocyte Esterase (Negative) Influenza Type A (PCR) (Negative) Influenza Type B (PCR) (Negative) RSV RNA Qual (PCR) (Negative) SARS-CoV-2 RNA (RT-PCR) (Negative) Independent Interpretation I performed an independent interpretation of an: EKG, Plain X-Ray (normal ) and CT Scan (no acute cause) Interpretation: Rate: 66 Rhythm: NSR [place]: left Normal P waves. Normal JACKIE. NSIVCD ST T wave : normal no REBECCA qTC: 429 prior studies: no acute ischemia The study has been interpreted contemporaneously by me. . Radiology Impression Discussion of test interpretation with radiology: I have reviewed the radiologist's reading. Independent Historian Clinical information obtained from an independent historian. History obtained from or confirmed by: Other (daughter) External Record Review External record reviewed: Inpatient record Prescription Management I considered prescription management with: Pain Medication Critical Care Time Critical Care Time Critical Care Time: Yes Total Critical Care Time: 45 Attestation: review of records, family discussion, repeat IV morphine x 2 with improvement in pain, repeat assessment I attest to this time spent taking care of the patient Discharge Plan Discharge Clinical Impression: Low back pain Qualifiers: Chronicity: acute Back pain laterality: left Sciatica presence: with sciatica S ciatica laterality: sciatica of left side Qualified Code(s): M54.42 - Lumbago with sciatica, left side Patient Disposition: Home, Self-Care Instructions: Acute Low Back Pain (ED) Additional Instructions: repeat tests for heart normal, Cr 1.4, Chest xray normal, no acute findings on EKG, urine normal, CT scan no acute findings. follow up with your doctor return for worsening pain, numbness, weakness, vomiting or any other concerns. Prescriptions: New morphine 15 mg tablet 15 mg PO Q6H PRN (Reason: pain) Qty: 8 0RF Rx Instructions: partial fill okay; Partial Fill upon patient request. No Action albuterol sulfate [Ventolin HFA] 90 mcg/actuation HFA aerosol inhaler 2 puff inhalation Q4-6H PRN (Reason: shortness of breath or wheezing) Qty: 18 2RF cyanocobalamin (vitamin B-12) 1,000 mcg tablet 1,000 mcg PO DAILY Qty: 90 1RF aspirin 81 mg tablet,delayed release (DR/EC) 81 mg PO DAILY Qty: 90 3RF diclofenac sodium [Voltaren Arthritis Pain] 1 % gel 4 g topical QID Qty: 100 3RF Rx Instructions: apply to single knee, ankle, foot; for foot includes sole/toes/top of foot sildenafil [Viagra] 50 mg tablet 50 mg PO DAILY PRN (Reason: sexual activity) Qty: 10 2RF Rx Instructions: administer 30 minutes to 4 hours before activity Mounjaro 2.5 mg/0.5 mL pen injector 2.5 mg subcut QWEEK 28 Days Qty: 2 2RF atorvastatin 80 mg tablet 80 mg PO DAILY 90 Days Qty: 90 2RF fluticasone furoate-vilanterol [Breo Ellipta] 100-25 mcg/dose blister with device 1 ea PO DAILY Qty: 60 12RF folic acid 1 mg tablet 1 mg PO DAILY Qty: 90 3RF hydrochlorothiazide 25 mg tablet 25 mg PO DAILY 90 Days Qty: 90 3RF irbesartan 300 mg tablet 300 mg PO QAM 90 Days Qty: 90 3RF loratadine 10 mg tablet 10 mg PO DAILY PRN (Reason: allergy symptoms) Qty: 90 3RF multivitamin Tablet 1 tab PO DAILY Print Language: Swedish
[2024-06-13 18:57] LABS: VBG Base Excess 4.9 mmol/L; VBG HCO3 26 mmol/L (22-26); VBG pCO2 30 mmHg; VBG pH 7.54 (7.32-7.43); VBG pO2 127 mmHg
[2024-06-13 18:57] LABS: Venous Blood Gas Refer to POC result
[2024-06-13 19:08] LABS: Basophils Percent Auto 0.4 % (0-2); Eosinophils Absolute Auto 0.1 X10*3/uL (0.0-0.4); Eosinophils Percent Auto 1.6 % (0-4); Hemoglobin 14.2 g/dl (14.0-18.0); Imm Gran Abs Auto 0.03 X10*3/uL (0.00-0.03); Imm Gran Pct Auto 0.4 % (0.0-0.4); Lymphocytes Absolute Auto 1.1 X10*3/uL (1.2-4.9); Lymphocytes Percent Auto 13.3 % (20-40); Mean Corpuscular HGB Conc 35.5 g/dl (31.0-36.0); Mean Corpuscular Hemoglobin 31.1 pg (27.0-33.0); Mean Corpuscular Volume 87.5 fL (80.0-98.0); Monocytes Absolute Auto 0.6 X10*3/uL (0.1-1.2); Monocytes Percent Auto 6.9 % (2-11); Neutrophils Absolute Auto 6.5 x10*3/uL (2.0-8.3); Neutrophils Percent Auto 77.4 % (45-73); Platelet Count 183 X10*3/uL (160-400); Red Blood Count 4.57 X10*6/uL (4.60-5.80); White Blood Count 8.4 X10*3/uL (4.8-10.8)
[2024-06-13 19:09] VITALS: BP 130/46; PULSE 59; RESP 16; TEMP 36.6; O2SAT 97
[2024-06-13] MEDS: Morphine Sulfate 4 MG/ML CARTRIDGE IVPUSH ×2 (19:12→20:30)
[2024-06-13] MEDS: ondansetron HCL 4 MG/2 ML VIAL IVPUSH (19:12)
[2024-06-13 19:24] LABS: Alanine Aminotransferase 40 U/L (0-40); Albumin Level 4.1 g/dL (3.5-5.0); Alkaline Phosphatase 72 U/L (39-117); Anion Gap 12 (12-20); Aspartate Amino Transferase 25 U/L (5-37); B Type Natriuretic Peptide < 10 pg/mL (<100); Bilirubin Direct 0.3 mg/dL (0.0-0.5); Bilirubin Total 0.7 mg/dL (0.0-1.0); Blood Urea Nitrogen 25 mg/dL (9-16); Calcium 9.3 mg/dL (8.4-10.2); Carbon Dioxide 25 mmol/L (22-29); Chloride 103 mmol/L (96-108); Creatinine Clr Calc Pharmacy 81.2; Estimated Glomerular Filt Rate 50; Glucose Random 176 mg/dL (60-115); Lipase 22 U/L (8-78); Magnesium 2.1 mg/dL (1.6-2.6); Potassium 3.7 mmol/L (3.3-5.1); Sodium 136 mmol/L (135-145); Total Protein 7.1 g/dL (6.5-8.0)
[2024-06-13 19:28] LABS: Influenza A PCR NEGATIVE (Negative); Influenza B PCR NEGATIVE (Negative); Resp Syncy Virus RNA Qual PCR NEGATIVE (Negative); SARS COV2 PCR INHOUSE NEGATIVE (Negative)
[2024-06-13 19:34] LABS: Troponin-I High Sensitivity < 2.7 ng/L (<3.5-35.0)
[2024-06-13] MEDS: iohexoL 350 MG/ML 100 ML INFUS..BTL IV (19:38)
[2024-06-13 20:42] LABS: Appearance Urine Clear; Color Urine Yellow; Glucose Urine UA Negative (Negative); Leukocyte Esterase Urine Negative (Negative); Nitrite Urine Negative (Negative); Specific Gravity - Urine >= 1.030 (1.005-1.025); Urine Blood Negative (Negative); Urine Ketones Negative (Negative); Urine Protein Trace mg/dL (Neg-Trace)
[2024-06-13 21:24] VITALS: BP 144/75; PULSE 75; RESP 14; TEMP 36.6; O2SAT 98
[2024-06-13 21:26] LABS: Troponin-I High Sensitivity < 2.7 ng/L (<3.5-35.0)
[2024-06-13] MEDS: 0.9 % Sodium Chloride 250 ML IV (22:05)
[2024-06-13 23:03] VITALS: BP 144/75; PULSE 75; RESP 14; TEMP 36.6; O2SAT 98
== END 2024-06-13 23:03 | disposition home or self-care (01) ==
PROVIDERS: Emergency Provider Emergency Medicine; PCP Internal Medicine
DX: M54.42 Lumbago with sciatica, left side (principal); R11.0 Nausea; I25.10 Atherosclerotic heart disease of native coronary artery without angina pectoris; R94.31 Abnormal electrocardiogram [ECG] [EKG]; R10.32 Left lower quadrant pain; M79.10 Myalgia, unspecified site; Z79.899 Other long term (current) drug therapy; Z03.818 Encounter for observation for suspected exposure to other biological agents ruled out; Z87.891 Personal history of nicotine dependence
CPT/HCPCS: 0241U; 36415; 71045; 74177; 80048; 80076; 81003; 82803; 83690; 83735; 83880; 84484; 85025; 93005; 96361; 96374; 96375; 96376; 99285; J2270; J2405; Q9967

== ENCOUNTER → 2024-06-13 18:18 | Outpatient (BNV) | payer MEDICARE, SELFPAY | PROVIDERS: Emergency Provider Emergency Medicine; PCP Internal Medicine; Visit Provider Internal Medicine Cardiovascular Disease | DX: R94.31 Abnormal electrocardiogram [ECG] [EKG] (principal) | CPT/HCPCS: 93010 ==

== ENCOUNTER 2024-06-23 14:59 | Outpatient (AMB) | payer MEDICARE, SELFPAY ==
[2024-06-23 15:10] VITALS: BP 150/74; PULSE 97; O2SAT 94; BMI 48.7
--- NOTE | 2024-06-23 15:10 | MHC.PC.OV ---
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 Allergies No Known Allergies Allergy (Verified 06/23/24 15:19) Medication List - Last Reconciled 06/23/24 by Tara Nieto PA-C aspirin 81 mg PO DAILY atorvastatin 80 mg PO DAILY 90 days Breo Ellipta 100-25 mcg/dose (fluticasone furoate-vilanterol) 1 ea PO DAILY NS cyanocobalamin (vitamin B-12) 1,000 mcg PO DAILY diclofenac sodium 1% (Voltaren Arthritis Pain) 4 grams topical QID folic acid 1 mg PO DAILY hydrochlorothiazide 25 mg PO DAILY 90 days irbesartan 300 mg PO QAM 90 days loratadine 10 mg PO DAILY PRN morphine 15 mg PO Q6H PRN multivitamin 1 tab PO DAILY sildenafil (Viagra) 50 mg PO DAILY PRN tirzepatide (Mounjaro) 2.5 mg (0.5 mL) subcut QWEEK 4 weeks Ventolin HFA 90 mcg/actuation (albuterol sulfate) 2 puffs inhalation Q4-6H PRN NS Tobacco use date assessed: 04/15/24 Fall risk assessment: No Falls in past year Last assessed Fall Risk: 06/23/24 Dental Screening Dental Screen Date: 02/08/24 HPI EDF [facility] – [place] 06/13 Back injury HPI Details 63-year-old morbidly obese male with a history of asthma, hypertension, obstructive sleep apnea, coronary artery disease, congestive heart failure, hypercholesterolemia, chronic kidney disease, generalized anxiety disorder, and impaired glucose tolerance last seen in May 2024 coming in for hospital follow up. Review of the notes, patient was seated [facility] – [place] ED 06/13/2024 for diffuse body pain, left low back pain, and flank pain. EKG, x-ray, urine, and CT scan all within normal limits. Patient diagnosed with low back pain and discharged home with prescription for morphine. Patient states he had a long history of low back pain and eventually had a spacer put in the lumbar spine which improved his back pain. He states the pain has been mild in the last 10 years however the day he went to the ER he had an episode unlike his usual back pain. The pain is primarily in the left lower back and radiates down to the left leg. Pain worsens with movement of the left leg and he is unable to lift it without pain. He was taking morphine which temporarily relieved the pain and has also been using Tylenol and heat with mild relief. He also mentioned a few days ago he was using a power drill when the drill slipped and went through his left hand. Is not actively bleeding however it was very swollen and is painful to the touch. [facility] Medical History Asthma exacerbation Prediabetes Obesity Dyspnea on exertion Vapes nicotine containing substance Nocturnal hypoxemia due to obesity Lumbar spondylosis Asthma Brittle asthma Allergic rhinitis Nocturnal hypoxemia Opioid-induced hyperalgesia COVID-19 Osteoarthritis of knees, bilateral Morbid (severe) obesity due to excess calories Spinal stenosis Ferrer's palsy Diverticular disease History of substance abuse Restrictive lung disease NSTEMI (non-ST elevated myocardial infarction) History of CVA (cerebrovascular accident) History of Ferrer's palsy Carpal tunnel syndrome Degenerative disc disease, cervical Hypercholesterolemia Congestive heart failure Coronary artery disease Hypertension Obstructive sleep apnea Lumbar degenerative disc disease Asthma Fatty liver Surgical History Stented coronary artery Back pain with history of spinal surgery History of umbilical hernia repair History of arthroscopy of right knee History of left knee surgery Family History Father Myocardial infarction Mother Diabetes Hypertension Sister Past heart attack Cancer Brother Afib S/P triple vessel bypass Social History Housing: Apartment Alcohol intake: current Alcohol intake frequency: holidays/special occasions only Patient Tobacco Use Status: Former Tobacco user Tobacco use type: Cigarette Years Smoked: 1989 e-Cigarette/Vaping Use: Currently Using Second Hand Smoke Exposure: No Substance Use Type: Marijuana Current occupational status: retired and disabled 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 How often do you have a drink containing alcohol?: Monthly or less 2. How many drinks containing alcohol do you have on a typical day when you are drinking?: 1 or 2 3. How often do you have six or more drinks on one occasion?: Never Total Score: 1 Score Reviewed/Action Taken: No JESSE-7 AMB Questionnaire JESSE-7 Date JESSE - 7 assessed: 06/09/24 Source: Developed by Drs. Jacky Sosa, Andria Mandujano, Eric Corey and colleagues, with an educational riley from [employer]. Review of Systems Const Denies body aches and Denies chills Eyes Reports no additional complaints ENT Denies dizziness Card Denies chest pain and Denies lightheadedness GI Denies abdominal pain Reports no additional complaints Musc Reports as per HPI and Reports abnormal gait Skin/Breast Reports as per HPI Neuro Reports abnormal gait and Denies dizziness Psych Reports anxiety (Surrounding family stress) Physical exam (Primary Care) Vital Signs: Last Vital Signs Pulse 97 06/23/24 15:10 BP 150/74 H 06/23/24 15:10 Pulse Ox 94 06/23/24 15:10 Oxygen Delivery Method Room Air 06/23/24 15:10 BMI result Body Mass Index 48.7 Tobacco/Smoking Status: Tobacco use Status Tobacco use date assessed 04/15/24 06/23/24 15:10 Patient Tobacco Use Status Former Tobacco user 06/23/24 15:10 Tobacco use type Cigarette 06/23/24 15:10 e-Cigarette/Vaping Use Currently Using 06/23/24 15:10 Thrive Assessment: Date of Thrive Assessment Date Thrive assessed 12/30/23 06/23/24 15:10 Const General: cooperative, healthy appearing, comfortable and no acute distress Orientation/consciousness: patient oriented x3 HENMT Head: Yes normocephalic Ears: hearing grossly normal bilaterally General nose exam: Normal external nose present Eyes General: appearance normal, both eyes and all related structures Conjunctivae: conjunctivae normal Neck Neck: Yes full ROM and Yes no lymphadenopathy Resp Effort & Inspection: normal respiratory effort and able to speak in complete sentences Cardio Rate: regular rate Rhythm: regular rhythm General: Yes no CVA tenderness Back/Spine/Pelvis Other: Pain to palpation over left sided lumbar paraspinous muscles. No pain to palpation over spine. Back: no CVA tenderness Skin Other: Scabbed puncture wound over left ring finger knuckle with surrounding erythema and warmth and swelling. Neuro General: patient oriented x3 Gait exam (Neuro): Normal gait present Extrem Other: Left lower extremity exam limited due to pain. Intact pulses and pain with movement. General: Yes normal to inspection and No edema Psych Affect: normal affect Attitude: cooperative Insight: Good insight present (Psych) Judgement: Good judgement present (Psych) Assessment and Plan Assessment & Plan (1) Generalized anxiety disorder: Code(s): F41.1 - Generalized anxiety disorder Plan: Referred to counseling at patient request. (2) Left hand pain: Code(s): M79.642 - Pain in left hand Plan: Patient has puncture wound from drill injury 2 days ago. The surrounding tissue is consistent with cellulitis and will be treated with cephalexin for 5 days. Also ordered a left hand x-ray to evaluate for possible injury to the bone as he has tenderness over the knuckle and 2nd metacarpal on the left side. (3) Low back pain: Code(s): M54.50 - Low back pain, unspecified Qualifiers: Back pain laterality: left Chronicity: acute Sciatica laterality: sciatica of left side Sciatica presence: with sciatica Qualified Code(s): M54.42 - Lumbago with sciatica, left side Plan: Patient has a history of low back pain which had resolved with surgery. This most recent episode is most consistent with either a strain or a muscle spasm. We will trial a course of muscle relaxers and physical therapy. Advised patient not to drive while taking this medication. He is a patient of pain management and may follow up with them if back pain continues. Patient will follow up if symptoms worsen or do not improve. Plan This note was constructed using voice recognition software. While every effort has been made to ensure accuracy and partner, still areas may have been included sometimes these areas may affect the content or meeting of the given symptoms. Total time spent caring for the patient today was 35 minutes. This includes time spent before the visit reviewing the chart, time spent during the visit, and time spent after the visit and documentation. Orders: Orders PT Evaluation and Treatment Today M54.42 - Lumbago with sciatica, left side XR hand LT 2V Today M79.642 - Pain in left hand Referrals Counseling Referral F41.1 - Generalized anxiety disorder Medications: New tizanidine 2 mg PO Q8H PRN 20 caps 0RF muscle spasticity cephalexin 500 mg PO QID 20 caps 0RF 5 days Coding Level of Care Code Est Pt Level 4 (64243) Diagnoses Generalized anxiety disorder F41.1 Left hand pain M79.642 Low back pain M54.42 Back pain laterality: left Chronicity: acute Sciatica laterality: sciatica of left side Sciatica presence: with sciatica
== END 2024-06-23 16:21 | disposition home or self-care (01) ==
PROVIDERS: PCP Internal Medicine
DX: F41.1 Generalized anxiety disorder (principal); M79.642 Pain in left hand; M54.42 Lumbago with sciatica, left side
CPT/HCPCS: 99214

== ENCOUNTER 2024-08-19 09:53 | Outpatient (REF) | payer MEDICARE, SELFPAY ==
[2024-08-19 10:20] LABS: MANUAL DIFF FLAG NO
[2024-08-19 11:05] LABS: Basophils Absolute Auto 0.1 X10*3/uL (0.0-0.2); Basophils Percent Auto 0.9 % (0-2); Eosinophils Absolute Auto 0.2 X10*3/uL (0.0-0.4); Hemoglobin 13.1 g/dl (14.0-18.0); Imm Gran Abs Auto 0.04 X10*3/uL (0.00-0.03); Imm Gran Pct Auto 0.7 % (0.0-0.4); Lymphocytes Absolute Auto 1.2 X10*3/uL (1.2-4.9); Lymphocytes Percent Auto 22.9 % (20-40); Mean Corpuscular HGB Conc 33.6 g/dl (31.0-36.0); Mean Corpuscular Hemoglobin 30.5 pg (27.0-33.0); Mean Corpuscular Volume 90.7 fL (80.0-98.0); Mean Platelet Volume 11.1 fL (9.4-12.4); Monocytes Absolute Auto 0.5 X10*3/uL (0.1-1.2); Monocytes Percent Auto 8.4 % (2-11); Neutrophils Absolute Auto 3.4 x10*3/uL (2.0-8.3); Neutrophils Percent Auto 64.1 % (45-73); Platelet Count 164 X10*3/uL (160-400); Red Cell Distribution Width 13.3 % (11.0-16.0); White Blood Count 5.4 X10*3/uL (4.8-10.8)
[2024-08-19 11:13] LABS: Estimated Average Glucose 131 mg/dL; Hemoglobin A1C 141.3207 umol/L; Hemoglobin A1c % 6.2 % (<6.0); Total Hemoglobin (HGBA1C) 3192.5833 umol/L
[2024-08-19 11:23] LABS: B Type Natriuretic Peptide < 10 pg/mL (<100)
[2024-08-19 12:07] LABS: Folate 15.1 ng/mL (> or = 4.0); Prostate Specific Antigen Scr 1.58 ng/mL (<0.05-4.0); Vitamin B12 315 pg/mL (200-900)
[2024-08-19 12:41] LABS: Alanine Aminotransferase 36 U/L (0-40); Albumin Level 4.1 g/dL (3.5-5.0); Alkaline Phosphatase 75 U/L (39-117); Anion Gap 12 (12-20); Aspartate Amino Transferase 23 U/L (5-37); Bilirubin Total 0.9 mg/dL (0.0-1.0); Blood Urea Nitrogen 19 mg/dL (9-16); Calcium 9.1 mg/dL (8.4-10.2); Carbon Dioxide 31 mmol/L (22-29); Chloride 100 mmol/L (96-108); Cholesterol 135 mg/dL (<200); Estimated Glomerular Filt Rate 54; Free T4 (Free Thyroxine) 0.69 ng/dL (0.71-1.85); Glucose Random 149 mg/dL (60-115); HDL Cholesterol 52 mg/dL (>40); LDL Cholesterol Calculated 62 mg/dL (<100); Potassium 4.7 mmol/L (3.3-5.1); Sodium 138 mmol/L (135-145); Thyroid Stimulating Hormone 1.73 uIU/mL (0.32-4.0); Total Protein 7.2 g/dL (6.5-8.0); Triglycerides 107 mg/dL (<150)
== END 2024-08-19 09:54 | disposition home or self-care (01) ==
LOC: HO.LAB 09:53
PROVIDERS: PCP Internal Medicine; Visit Provider Internal Medicine
DX: I25.110 Atherosclerotic heart disease of native coronary artery with unstable angina pectoris (principal); R73.01 Impaired fasting glucose; E78.00 Pure hypercholesterolemia, unspecified; Z12.5 Encounter for screening for malignant neoplasm of prostate
CPT/HCPCS: 36415; 80053; 80061; 82607; 82746; 83036; 83880; 84153; 84439; 84443; 85025

== ENCOUNTER 2024-10-17 09:27 | Outpatient (AMB) | payer MEDICARE, SELFPAY ==
--- NOTE | 2024-10-17 09:32 | MHC.OFFVIS ---
Vital Signs 10/17/24 09:33 Height 5 ft 11 in Weight 363 lb BMI 50.6 BP 168/62 H Blood Pressure Location Lt brachial Position Sitting Pulse 71 Pulse Source Pulse Oximeter Pulse Oximetry (%) 99 Oxygen Delivery Method Room Air Intake Visit Reasons: COPD Intake Note: pt is here for follow up and states his breathing is not too good lately, showering is difficult, stairs and fast walking/or just walking period. 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 Allergies No Known Allergies Allergy (Verified 10/17/24 09:56) Medication List - Last Reconciled 10/17/24 by Zaira Figueroa MD aspirin 81 mg PO DAILY atorvastatin 80 mg PO DAILY 90 days Breo Ellipta 100-25 mcg/dose (fluticasone furoate-vilanterol) 1 ea PO DAILY NS cyanocobalamin (vitamin B-12) 1,000 mcg PO DAILY diclofenac sodium 1% (Voltaren Arthritis Pain) 4 grams topical QID folic acid 1 mg PO DAILY hydrochlorothiazide 25 mg PO DAILY 90 days irbesartan 300 mg PO QAM 90 days loratadine 10 mg PO DAILY PRN morphine 15 mg PO Q6H PRN multivitamin 1 tab PO DAILY sildenafil (Viagra) 50 mg PO DAILY PRN tirzepatide (Mounjaro) 2.5 mg (0.5 mL) subcut QWEEK 4 weeks tizanidine 2 mg PO Q8H PRN Ventolin HFA 90 mcg/actuation (albuterol sulfate) 2 puffs inhalation Q4-6H PRN NS Do you need a note to return to daycare/school/sports/work: No HPI HPI COPD: Details: This 64 years old gentleman with morbid obesity and obstructive sleep apnea, is here for follow-up after 4 months. He also has restrictive pulmonary disorder as well as obstructive airway disorder He claims that he uses CPAP very regularly every night and sleeps well, and this is confirmed by his compliance report. His main issue is getting short of breath on minimal walking especially if he has to go up hill or climbs stairs. He does have stationary O2 concentrator at home and uses O2 2 L/minute along with his CPAP at night, to overcome nocturnal hypoxemia. He has been reluctant to use portable oxygen during the daytime. Unfortunately instead of losing weight he has gained about 14 lb since last visit. Now Mounjaro has been added to his medical regimen, and hopefully he will start losing weight. [facility] Medical History Asthma exacerbation Prediabetes Obesity Dyspnea on exertion Vapes nicotine containing substance Nocturnal hypoxemia due to obesity Lumbar spondylosis Asthma Brittle asthma Allergic rhinitis Nocturnal hypoxemia Opioid-induced hyperalgesia COVID-19 Osteoarthritis of knees, bilateral Morbid (severe) obesity due to excess calories Spinal stenosis Ferrer's palsy Diverticular disease History of substance abuse Restrictive lung disease NSTEMI (non-ST elevated myocardial infarction) History of CVA (cerebrovascular accident) History of Ferrer's palsy Carpal tunnel syndrome Degenerative disc disease, cervical Hypercholesterolemia Congestive heart failure Coronary artery disease Hypertension Obstructive sleep apnea Lumbar degenerative disc disease Asthma Fatty liver Surgical History Stented coronary artery Back pain with history of spinal surgery History of umbilical hernia repair History of arthroscopy of right knee History of left knee surgery Family History Father Myocardial infarction Mother Diabetes Hypertension Sister Past heart attack Cancer Brother Afib S/P triple vessel bypass Social History Housing: Apartment Alcohol intake: current Alcohol intake frequency: holidays/special occasions only Patient Tobacco Use Status: Former Tobacco user Tobacco use type: Cigarette Years Smoked: 1989 e-Cigarette/Vaping Use: Currently Using Second Hand Smoke Exposure: No Substance Use Type: Marijuana Current occupational status: retired and disabled 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 Cognitive needs: No Hearing needs: No Vision needs: No Review of Systems Const All systems reviewed & are unremarkable except as noted in HPI and below Eyes Reports no additional complaints ENT Reports no additional complaints Card Denies irregular heart rhythm, Denies leg edema and Reports dyspnea on exertion Resp Reports as per HPI and Reports dyspnea on exertion GI Denies no additional complaints Reports no additional complaints Musc Reports back pain and Reports arthralgias (Knees) Skin/Breast Reports system reviewed and no additional complaints, except as documented Neuro Reports no additional complaints Psych Reports no additional complaints Physical Exam Vital Signs: Last Vital Signs Pulse 71 10/17/24 09:33 BP 168/62 H 10/17/24 09:33 Pulse Ox 99 10/17/24 09:33 Oxygen Delivery Method Room Air 10/17/24 09:33 BMI result Body Mass Index 50.6 Const Other: He is grossly obese. General: comfortable, no acute distress, alert and awake Orientation/consciousness: patient oriented x3 HEENT Head: Yes normal to inspection General nose exam: No nasal polyps present and No nasal discharge present Face and sinus: Yes sinuses nontender Mouth: oropharynx normal Throat: Yes posterior oropharynx normal Eyes General: appearance normal, both eyes and all related structures Neck Neck: Yes normal visual inspection, Yes no lymphadenopathy, Yes trachea midline and Yes no JVD Thyroid: Thyroid normal Chest Chest palpation & inspection: normal inspection of the chest, normal palpation of entire chest wall and no tenderness Resp Other: Breath sounds are diminished over the lower lobe areas. He has no audible wheezes rhonchi or crepitations. Cardio Palpation: PMI not normal (Not palpable) Rate: regular rate Rhythm: regular rhythm Heart sounds: no gallops and no murmurs Peripheral pulses: Peripheral pulses 2+ throughout GI Palpation (GI): Soft to palpation, nontender, No hepatosplenomegaly present, no masses and Other GI palpation findings present (Abdomen is obese and protuberant) Auscultation: normal bowel sounds Back/Spine/Pelvis Thoracic/Lumbar Spine: thoracic and lumbar spine normal to inspection and thoraco-lumbar ROM limited Skin General skin exam: no rashes or lesions noted Neuro General: patient oriented x3 and no focal motor deficits Cranial nerves: Yes CN's II-XII intact bilaterally Extrem General: Yes normal to inspection, Yes no clubbing, cyanosis or edema and Yes no calf tenderness Psych Appearance: grossly normal and well kempt Speech and movement: Normal speech and movement present Results Reviewed Results Reviewed: Compliance report for the last 30 nights is reviewed and he has used to 100% of the nights. Average usage per night 6 hours 27 minutes. There is some air leak. His residual AHI is only 0.8 Assessment & Plan Assessment & Plan (1) Morbid (severe) obesity due to excess calories: Comment: REMAINS MORBIDLY OBESE. HAS ACTUALLY GAINED MORE WEIGHT. TRYING TO LOSE WEIGHT. HE IS ACTIVE IN THE WEIGHT MANAGEMENT PROGRAM. Code(s): E66.01 - Morbid (severe) obesity due to excess calories Category: Medical Plan: DISCUSSED ABOUT HIS WEIGHT. HE ADMITS THAT HE IS A BINGE EATER. ALERTED TO THE FACT THAT. HE HAS TO LOSE WEIGHT JADAUNJARO HAS BEEN ADDED TO HIS MEDICAL REGIMEN IN HOPE THAT HE WILL LOSE WEIGHT. (2) Restrictive lung disease: Comment: Restriction is mainly because of his gross obesity. He is made fully aware of this Has to loose weight ,, and do deep Breathing exercises daily Code(s): J98.4 - Other disorders of lung Category: Medical Plan: IN ADDITION TO LOSING WEIGHT HE IS ALSO ENCOURAGED TO DO DEEP BREATHING EXERCISES EVERY 1 OR 2 HOURS DURING THE DAYTIME. HE HAS TENDENCY TO DESATURATE BELOW 90% ON MINIMAL WALKING BUT HE DOES NOT WANT TO BE TESTED FOR PORTABLE O2, HE WOULD NOT BE USING IT. (3) Asthma: Comment: Patient has mild obstructive airway disorder with good response to bronchodilators. Breathing status remains stable but he claims to get short of breath on minimal exertion. Code(s): J45.909 - Unspecified asthma, uncomplicated Category: Medical Plan: JUST TO BE ON THE SAFE SIDE IT IS OKAY TO USE BREO ELLIPTA 100-25 1 INHALATION DAILY VENTOLIN 2 PUFFS Q 4-6 HOURS P.R.N.. (4) Obstructive sleep apnea: Comment: He has confirmed diagnosis of obstructive sleep apnea, since June 2017 . Has been using CPAP regularly. Compliance is excellent . Code(s): G47.33 - Obstructive sleep apnea (adult) (pediatric) Category: Medical Plan: Commended for good compliance and advised to keep on using the CPAP regularly. (5) Nocturnal hypoxemia: Comment: It is related to his obstructive sleep apnea/hypoventilation syndrome. Code(s): G47.34 - Idiopathic sleep related nonobstructive alveolar hypoventilation Category: Medical Plan: He is instructed to use O2 2 L/minute along with CPAP every night. Coding Level of Care Code Est Pt Level 4 (74991) Diagnoses Morbid (severe) obesity due to excess calories E66.01 Restrictive lung disease J98.4 Asthma J45.909 Obstructive sleep apnea G47.33 Nocturnal hypoxemia G47.34
[2024-10-17 09:33] VITALS: BP 168/62; PULSE 71; O2SAT 99; BMI 50.6
== END 2024-10-17 09:55 | disposition home or self-care (01) ==
PROVIDERS: PCP Internal Medicine; Visit Provider Internal Medicine
DX: E66.01 Morbid (severe) obesity due to excess calories (principal); J98.4 Other disorders of lung; J45.909 Unspecified asthma, uncomplicated; G47.33 Obstructive sleep apnea (adult) (pediatric); G47.34 Idiopathic sleep related nonobstructive alveolar hypoventilation
CPT/HCPCS: 99214

== ENCOUNTER → 2024-10-17 09:27 | Outpatient (BNVA) | payer MEDICARE, SELFPAY | PROVIDERS: PCP Internal Medicine; Visit Provider Internal Medicine | DX: J45.909 Unspecified asthma, uncomplicated (principal); J98.4 Other disorders of lung; G47.33 Obstructive sleep apnea (adult) (pediatric); G47.34 Idiopathic sleep related nonobstructive alveolar hypoventilation; E66.01 Morbid (severe) obesity due to excess calories; Z99.89 Dependence on other enabling machines and devices; Z99.81 Dependence on supplemental oxygen; Z68.43 Body mass index [BMI] 50.0-59.9, adult; Z87.891 Personal history of nicotine dependence | CPT/HCPCS: 99212 ==

== ENCOUNTER → 2024-12-22 15:19 | Outpatient (BNVA) | payer MEDICARE, SELFPAY | PROVIDERS: PCP Internal Medicine; Visit Provider Internal Medicine | DX: I13.0 Hypertensive heart and chronic kidney disease with heart failure and stage 1 through stage 4 chronic kidney disease, or unspecified chronic kidney disease (principal); E11.22 Type 2 diabetes mellitus with diabetic chronic kidney disease; N18.30 Chronic kidney disease, stage 3 unspecified; I50.9 Heart failure, unspecified; E66.01 Morbid (severe) obesity due to excess calories; K76.0 Fatty (change of) liver, not elsewhere classified; J45.909 Unspecified asthma, uncomplicated; G47.33 Obstructive sleep apnea (adult) (pediatric); M51.360 Other intervertebral disc degeneration, lumbar region with discogenic back pain only; I25.110 Atherosclerotic heart disease of native coronary artery with unstable angina pectoris; F41.1 Generalized anxiety disorder; E11.65 Type 2 diabetes mellitus with hyperglycemia | CPT/HCPCS: 99212 ==

== ENCOUNTER → 2024-12-22 15:19 | Outpatient (AMB) | payer MEDICARE, SELFPAY ==
--- NOTE | 2024-12-22 15:22 | A.OFFPC_ITS ---
Vital Signs 12/22/24 15:23 Height 5 ft 11 in Weight 359 lb 8 oz BMI 50.1 BP 126/60 Blood Pressure Location Lt brachial Position Sitting Pulse 88 Pulse Source Pulse Oximeter Pulse Oximetry (%) 95 Oxygen Delivery Method Room Air Intake Visit Reasons: cad Waste Salvager Required: No Accompanied by: Self / Same As Patient Allergies pneumococcal vaccine [From Pneumovax-23] Adverse Reaction (Intermediate, Unverified 12/22/24 15:54) sick Tobacco use date assessed: 12/22/24 Fall risk assessment: No Falls in past year Last assessed Fall Risk: 12/22/24 Dental Screening Dental Screen Date: 12/22/24 Did you have a dental visit in the last 12 months?: No Did you have a dental problem in the last 6 months where you did not have access to dental care?: No Was dental information given to patient?: No HPI cad HPI Details The patient is a 64-year-old male presenting for follow-up regarding his multiple chronic health conditions and suspected diabetes mellitus. The patient was last seen in June 2024 and had an abdominal CT in May 2024 that revealed diverticular disease. He has a history of nonalcoholic fatty liver disease, mild obstructive airway disorder associated with asthma, and uses a CPAP machine regularly, which has been beneficial. The patient also has a history of hypertension, coronary artery disease with congestive heart failure, hypercholesterolemia effectively managed with atorvastatin, and bilateral knee osteoarthritis impacting his mobility. In May, the patient visited the emergency room for back pain and received morphine. Blood work in August revealed mild anemia with normal electrolytes and stable renal function. His blood sugar was elevated at 149 mg/dL, but hemoglobin A1c was 6.2%, suggesting impaired glucose tolerance. Despite these numbers indicating a potential progression toward type 2 diabetes, the criteria are not fully met. The patient has been attempting lifestyle modifications, such as reducing soda intake and avoiding junk food. Additionally, he is experiencing stress and social challenges, potentially impacting his health behaviors. [facility] Medical History Asthma exacerbation Prediabetes Obesity Dyspnea on exertion Vapes nicotine containing substance Nocturnal hypoxemia due to obesity Lumbar spondylosis Asthma Brittle asthma Allergic rhinitis Nocturnal hypoxemia Opioid-induced hyperalgesia COVID-19 Osteoarthritis of knees, bilateral Morbid (severe) obesity due to excess calories Spinal stenosis Ferrer's palsy Diverticular disease History of substance abuse Restrictive lung disease NSTEMI (non-ST elevated myocardial infarction) History of CVA (cerebrovascular accident) History of Ferrer's palsy Carpal tunnel syndrome Degenerative disc disease, cervical Hypercholesterolemia Congestive heart failure Coronary artery disease Hypertension Obstructive sleep apnea Lumbar degenerative disc disease Asthma Fatty liver Surgical History Stented coronary artery Back pain with history of spinal surgery History of umbilical hernia repair History of arthroscopy of right knee History of left knee surgery Family History Father Myocardial infarction Mother Diabetes Hypertension Sister Past heart attack Cancer Brother Afib S/P triple vessel bypass Social History Housing: Apartment Alcohol intake: current Alcohol intake frequency: holidays/special occasions only Patient Tobacco Use Status: Former Tobacco user Tobacco use type: Cigarette Years Smoked: 1989 e-Cigarette/Vaping Use: Currently Using Second Hand Smoke Exposure: No Substance Use Type: Marijuana Current occupational status: retired and disabled 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 1. Little interest or pleasure in doing things: more than half the days 2. Feeling down, depressed, or hopeless: more than half the days 3. Trouble falling or staying asleep, or sleeping too much: several days 4. Feeling tired or having little energy: several days 5. Poor appetite or overeating: nearly every day 6. Feeling bad about yourself - or that you are a failure or have let yourself or your family down: not at all 7. Trouble concentrating on things, such as reading the newspaper or watching television: not at all 8. Moving or speaking so slowly that other people could have noticed. Or the opposite - being so fidgety or restless that you have been moving around a lot more than usual: not at all 9. Thoughts that you would be better off or of hurting yourself in some way: not at all Total score: 9 Depression Screening Interpretation: Positive Depression Screening Done: Yes Source: Developed by Drs. Jacky Sosa, Andria Mandujano, Eric Corey and colleagues, with an educational riley from [employer]. Thrive Questionnaire Date Thrive assessed: 12/22/24 I am a: Patient What is your living situation today?: I have a steady place to live Within the past 12 months, did the food you bought not last and you didn't have the money to get more?: Never true Within the past 12 months, did you worry whether your food would run out before you got money to buy more?: Never true Do you have trouble paying for medicines?: No Do you have trouble getting transportation to medical appointments?: No Do you have trouble paying your heating and electricity bill?: No Do you have trouble taking care of your child, family member or friend?: No Do you have trouble with day-to-day activities such as bathing, preparing meals, shopping, managing finances, etc.?: No Are you currently unemployed and looking for a job?: No Are you interested in more education?: No Please select the resources that you would like help with: None Currently or been in a relationship where the following occur: No concerns reported THRIVE Score: 0 AUDIT C Alcohol Use Questionnaire (AUDIT-C) 1. How often do you have a drink containing alcohol?: Monthly or less 2. How many drinks containing alcohol do you have on a typical day when you are drinking?: 1 or 2 3. How often do you have six or more drinks on one occasion?: Never Total Score: 1 Score Reviewed/Action Taken: No JESSE-7 AMB Questionnaire JESES-7 Date JESSE - 7 assessed: 12/22/24 Feeling nervous, anxious, or on edge: 0 = Not at all Not being able to stop or control worryin = Not at all Worrying too much about different things: 0 = Not at all Trouble relaxin = Not at all Being so restless that it is hard to sit still: 0 = Not at all Becoming easily annoyed or irritable: 0 = Not at all Feeling afraid as if something awful might happen: 0 = Not at all Total JESSE-7 score (0-4 normal; 5-9 mild; 10-14 moderate; 15-21 severe): 0 Source: Developed by Andria Wright, Eric Corey and colleagues, with an educational riley from [employer]. Physical exam (Primary Care) Vital Signs: Oxygen Delivery Method Room Air 12/22/24 15:23 BMI result Body Mass Index 50.1 Tobacco/Smoking Status: Tobacco use Status Tobacco use date assessed 12/22/24 12/22/24 15:28 Patient Tobacco Use Status Former Tobacco user 12/22/24 15:28 Tobacco use type Cigarette 12/22/24 15:28 e-Cigarette/Vaping Use Currently Using 12/22/24 15:28 PHQ-9: PHQ-9 Score PHQ-9: Total score 9 12/22/24 15:28 Depression Screening Interpretation: Positive Thrive Assessment: Date of Thrive Assessment Date Thrive assessed 12/22/24 12/22/24 15:28 Currently or been in a relationship where the following occur: No concerns reported Const General: alert; No acute distress Eyes Conjunctivae: conjunctivae normal Resp Auscultation: clear to auscultation bilaterally Cardio Rate: regular rate Rhythm: regular rhythm GI Inspection: Yes normal to inspection Extrem General: Yes normal to inspection and No edema Coding Level of Care Code Est Pt Level 4 (47887) Complex EM visit Add On G2211 Diagnoses Morbid (severe) obesity due to excess calories E66.01 Fatty liver K76.0 Asthma J45.909 Obstructive sleep apnea G47.33 Hypertension I10 Lumbar degenerative disc disease M51.36 Coronary artery disease involving [place] coronary artery of [place] heart with unstable angina pectoris I25.110 Associated angina: with unstable angina Coronary Disease-Associated Artery/Lesion type: [place] artery [place] vs. transplanted heart: [place] heart Congestive heart failure I50.9 Stage 3 chronic kidney disease, unspecified whether stage 3a or 3b CKD N18.30 Chronic kidney disease stage 3 subtype: unspecified whether 3a or 3b Generalized anxiety disorder F41.1 Impaired fasting blood sugar R73.01 Type 2 diabetes mellitus with hyperglycemia E11.65 Assessment & Plan Assessment & Plan (1) Morbid (severe) obesity due to excess calories: Comment: REMAINS MORBIDLY OBESE. HAS ACTUALLY GAINED MORE WEIGHT. TRYING TO LOSE WEIGHT. HE IS ACTIVE IN THE WEIGHT MANAGEMENT PROGRAM. Code(s): E66.01 - Morbid (severe) obesity due to excess calories Category: Medical (2) Fatty liver: Code(s): K76.0 - Fatty (change of) liver, not elsewhere classified Category: Medical (3) Asthma: Comment: Patient has mild obstructive airway disorder with good response to bronchodilators. Breathing status remains stable but he claims to get short of breath on minimal exertion. Code(s): J45.909 - Unspecified asthma, uncomplicated Category: Medical (4) Obstructive sleep apnea: Comment: He has confirmed diagnosis of obstructive sleep apnea, since June 2017 . Has been using CPAP regularly. Compliance is excellent . 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 Guerrero January 2018, June 2019 Code(s): M51.36 - Other intervertebral disc degeneration, lumbar region Category: Medical (7) Coronary artery disease: Comment: NSTEMI October 2019 stent placement, September 2020 catheterization patent stent. Recent , admission for a mild heart attack, Ac SC ruled out . Code(s): I25.10 - Atherosclerotic heart disease of [place] coronary artery without angina pectoris Category: Medical Qualifiers: Associated angina: with unstable angina Coronary Disease-Associated Artery/Lesion type: [place] artery [place] vs. transplanted heart: [place] heart Qualified Code(s): I25.110 - Atherosclerotic heart disease of [place] coronary artery with unstable angina pectoris (8) Congestive heart failure: Comment: Systolic Code(s): I50.9 - Heart failure, unspecified Category: Medical (9) CKD (chronic kidney disease) stage 3, GFR 30-59 ml/min: Code(s): N18.30 - Chronic kidney disease, stage 3 unspecified Category: Medical Qualifiers: Chronic kidney disease stage 3 subtype: unspecified whether 3a or 3b Qualified Code(s): N18.30 - Chronic kidney disease, stage 3 unspecified (10) Generalized anxiety disorder: Code(s): F41.1 - Generalized anxiety disorder Category: Medical (11) Impaired fasting blood sugar: Code(s): R73.01 - Impaired fasting glucose Category: Medical (12) Type 2 diabetes mellitus with hyperglycemia: Code(s): E11.65 - Type 2 diabetes mellitus with hyperglycemia Category: Medical Plan - Renew referral for weight management and consideration for Mounjaro therapy. - Perform repeat blood tests to reassess fasting blood sugar and hemoglobin A1c levels. - Continue atorvastatin 80 mg daily for hypercholesterolemia. - Advise continued use of CPAP for obstructive sleep apnea, aiming for more than four hours of use per night. - The patient to continue asthma management with ventolin inhaler. - Monitor and encourage dietary modifications and overall weight management. - Discuss and address the patient's stress management and potential implications on overall health. - Refill request for folic acid to be sent to [facility]. Orders: Orders Complete Blood Count Auto Diff Today E11.65 - Type 2 diabetes mellitus with hyperglycemia Comprehensive Met. Panel Today E11.65 - Type 2 diabetes mellitus with hyperglycemia Creatinine Urine Today E11.65 - Type 2 diabetes mellitus with hyperglycemia Lipid Panel Today E11.65 - Type 2 diabetes mellitus with hyperglycemia, E78.00 - Pure hypercholesterolemia, unspecified Microalbumin, Random (w Creat) Today E11.65 - Type 2 diabetes mellitus with hyperglycemia Thyroid Stimulating Hormone Today E11.65 - Type 2 diabetes mellitus with hyperglycemia Prostate Specific Antigen Scr Today E11.65 - Type 2 diabetes mellitus with hyperglycemia Ferritin Today E11.65 - Type 2 diabetes mellitus with hyperglycemia IRON PROFILE Today E11.65 - Type 2 diabetes mellitus with hyperglycemia Reticulocyte Count Today E11.65 - Type 2 diabetes mellitus with hyperglycemia Free T4 (Free Thyroxine) Today E11.65 - Type 2 diabetes mellitus with hyperglycemia Vitamin B12 and Folate Today E11.65 - Type 2 diabetes mellitus with hyperglycemia Referrals Medical Weight Management Referral E66.01 - Morbid (severe) obesity due to excess calories Medications: Refilled tirzepatide (Mounjaro) 2.5 mg (0.5 mL) subcut QWEEK 4 weeks 2 mL 2RF E66.01 - Morbid (severe) obesity due to excess calories tirzepatide (Mounjaro) 2.5 mg (0.5 mL) subcut QWEEK 4 weeks 2 mL 2RF E11.65 - Type 2 diabetes mellitus with hyperglycemia, E66.01 - Morbid (severe) obesity due to excess calories folic acid 1 mg PO DAILY 90 tabs 3RF E66.01 - Morbid (severe) obesity due to excess calories tirzepatide (Mounjaro) 2.5 mg (0.5 mL) subcut QWEEK 4 weeks 2 mL 2RF E11.65 - Type 2 diabetes mellitus with hyperglycemia, E66.01 - Morbid (severe) obesity due to excess calories
== END | disposition home or self-care (01) ==
PROVIDERS: PCP Internal Medicine; Visit Provider Internal Medicine

== ENCOUNTER 2024-12-28 10:08 | Emergency (ER) | payer MEDICARE, SELFPAY ==
--- NOTE | ~2024-12-28 | XR_ITS ---
EXAMINATION: XR FOOT 3 OR MORE VIEWS LEFT, XR ANKLE 1-2 VIEWS LEFT HISTORY: pain COMPARISON: There are no prior studies available for comparison. FINDINGS: Six views of the left foot and ankle are submitted. Osseous mineralization is normal. There is a well-corticated osseous density adjacent to the tip of the medial malleolus which is likely the result of old trauma. There is no acute fracture or dislocation. There is mild to moderate intertarsal osteoarthritis with joint space narrowing, osteophyte formation, and subchondral cyst formation. The ankle mortise is maintained. There is soft tissue swelling over the lateral malleolus. XR/XR foot LT min 3V IMPRESSION: Soft tissue swelling over lateral malleolus. Degenerative changes as described. No evidence of acute fracture of the left ankle. Electronically signed by: Jacky Blanco MD 12/28/2024 11:05 AM [facility]
--- NOTE | ~2024-12-28 | XR_ITS ---
EXAMINATION: XR FOOT 3 OR MORE VIEWS LEFT, XR ANKLE 1-2 VIEWS LEFT HISTORY: pain COMPARISON: There are no prior studies available for comparison. FINDINGS: Six views of the left foot and ankle are submitted. Osseous mineralization is normal. There is a well-corticated osseous density adjacent to the tip of the medial malleolus which is likely the result of old trauma. There is no acute fracture or dislocation. There is mild to moderate intertarsal osteoarthritis with joint space narrowing, osteophyte formation, and subchondral cyst formation. The ankle mortise is maintained. There is soft tissue swelling over the lateral malleolus. XR/XR ankle LT 2V IMPRESSION: Soft tissue swelling over lateral malleolus. Degenerative changes as described. No evidence of acute fracture of the left ankle. Electronically signed by: Jacky Blanco MD 12/28/2024 11:05 AM [facility]
--- NOTE | ~2024-12-28 | XR_ITS ---
EXAMINATION: XR CHEST 1 VIEW HISTORY: sob COMPARISON: Comparison is made with the prior examination dated 06/13/2024. FINDINGS: A single AP portable view of the chest performed at 10:52 AM is submitted. Again seen is elevation of the right hemidiaphragm with adjacent subsegmental atelectasis. The lungs are otherwise clear. There is no pleural effusion, pneumothorax, or pulmonary vascular congestion. The heart is normal in size. There is mild degenerative disc disease of the spine. XR/XR chest 1V IMPRESSION: Elevated right hemidiaphragm with adjacent subsegmental atelectasis. No acute cardiopulmonary abnormality. Electronically signed by: Jacky Blanco MD 12/28/2024 11:06 AM [facility]
--- NOTE | ~2024-12-28 | US_ITS ---
CLINICAL HISTORY: b l le edema, > R Venous duplex ultrasound bilateral lower extremity Comparison: None Findings: The visualized deep veins are fully compressible with normal Doppler color flow and spectral tracings. No popliteal cyst. IMPRESSION: 1. Negative for bilateral lower extremity deep vein thrombosis. This document has been electronically signed by: Ford Chao MD on 12/28/2024 19:39:44
[2024-12-28 10:14] VITALS: BP 150/69; PULSE 80; RESP 20; TEMP 37.1; O2SAT 94; BMI 50.1
[2024-12-28 10:35] LABS: MANUAL DIFF FLAG NO
[2024-12-28 10:46] LABS: Basophils Percent Auto 0.5 % (0-2); Eosinophils Absolute Auto 0.2 X10*3/uL (0.0-0.4); Hematocrit 35.7 % (42.0-52.0); Hemoglobin 12.2 g/dl (14.0-18.0); Imm Gran Abs Auto 0.03 X10*3/uL (0.00-0.03); Imm Gran Pct Auto 0.5 % (0.0-0.4); Lymphocytes Absolute Auto 0.9 X10*3/uL (1.2-4.9); Mean Corpuscular HGB Conc 34.2 g/dl (31.0-36.0); Mean Corpuscular Hemoglobin 31.2 pg (27.0-33.0); Mean Corpuscular Volume 91.3 fL (80.0-98.0); Mean Platelet Volume 11.3 fL (9.4-12.4); Monocytes Absolute Auto 0.6 X10*3/uL (0.1-1.2); Monocytes Percent Auto 9.7 % (2-11); Neutrophils Absolute Auto 4.5 x10*3/uL (2.0-8.3); Neutrophils Percent Auto 71.3 % (45-73); Platelet Count 142 X10*3/uL (160-400); Red Blood Count 3.91 X10*6/uL (4.60-5.80); Red Cell Distribution Width 13.7 % (11.0-16.0); White Blood Count 6.3 X10*3/uL (4.8-10.8)
[2024-12-28 11:02] LABS: Alanine Aminotransferase 39 U/L (0-40); Albumin Level 3.8 g/dL (3.5-5.0); Alkaline Phosphatase 85 U/L (39-117); Anion Gap 12 (12-20); Aspartate Amino Transferase 25 U/L (5-37); Bilirubin Direct 0.1 mg/dL (0.0-0.5); Bilirubin Total 0.5 mg/dL (0.0-1.0); Blood Urea Nitrogen 19 mg/dL (9-16); Calcium 8.8 mg/dL (8.4-10.2); Carbon Dioxide 26 mmol/L (22-29); Chloride 105 mmol/L (96-108); Creatinine Clr Calc Pharmacy 85.8; Estimated Glomerular Filt Rate 54; Glucose Random 123 mg/dL (60-115); Lipase 24 U/L (8-78); Potassium 4.2 mmol/L (3.3-5.1); Sodium 139 mmol/L (135-145); Total Protein 7.2 g/dL (6.5-8.0)
[2024-12-28 11:08] LABS: B Type Natriuretic Peptide 28 pg/mL (<100)
[2024-12-28 18:38] VITALS: BP 151/51; PULSE 68; RESP 20; TEMP 36.6; O2SAT 100
--- NOTE | 2024-12-28 18:41 | ED.GENADULT ---
HPI - General Adult General Chief complaint: General Medical Stated complaint: Diff Breathing Fluid Legs & Ankles Time Seen by Provider: 12/28/24 19:51 Source: patient, RN notes reviewed and old records reviewed Mode of arrival: wheelchair History of Present Illness ED Provider: Meliza Hernadez PA-C HPI narrative: 64-year-old male with a past medical history obesity, asthma, spinal stenosis, NSTEMI, CVA, HLD, CHF, HTN, presenting to ED complaining of atraumatic left ankle pain and swelling x2 days. Also reports chronic exertional dyspnea, unchanged. Denies fever, chills, chest pain, SOB at rest, travel, numbness/tingling/weakness. Takes baby ASA. Denies known history of gout Related Data Home Medications ?Medication ?Instructions ?Recorded ?Confirmed multivitamin 1 tab PO DAILY 01/01/23 10/17/24 Previous Rx's ?Medication ?Instructions ?Recorded Ventolin HFA 90 mcg/actuation 2 puff inhalation Q4-6H PRN 11/21/20 aerosol inhaler (albuterol sulfate) shortness of breath or wheezing #18 grams sildenafil 50 mg tablet (Viagra) 50 mg PO DAILY PRN sexual activity 04/21/23 #10 tabs cyanocobalamin (vitamin B-12) 1,000 mcg PO DAILY #90 tabs 06/30/23 1,000 mcg tablet aspirin 81 mg tablet,delayed 81 mg PO DAILY #90 tabs 10/22/23 release diclofenac sodium 1 % topical gel 4 g topical QID #100 grams 12/30/23 (Voltaren Arthritis Pain) Breo Ellipta 100 mcg-25 mcg/dose 1 ea PO DAILY #60 ea 06/09/24 powder for inhalation (fluticasone furoate-vilanterol) atorvastatin 80 mg tablet 80 mg PO DAILY 90 days #90 tabs 06/09/24 hydrochlorothiazide 25 mg tablet 25 mg PO DAILY 90 days #90 tabs 06/09/24 irbesartan 300 mg tablet 300 mg PO QAM 90 days #90 tabs 06/09/24 loratadine 10 mg tablet 10 mg PO DAILY PRN allergy 06/09/24 symptoms #90 tabs morphine 15 mg immediate release 15 mg PO Q6H PRN pain #8 tabs 06/13/24 tablet tizanidine 2 mg capsule 2 mg PO Q8H PRN muscle spasticity 06/23/24 #20 caps folic acid 1 mg tablet 1 mg PO DAILY #90 tabs 12/22/24 tirzepatide 2.5 mg/0.5 mL 2.5 mg (0.5 mL) subcut QWEEK 4 12/22/24 subcutaneous pen injector weeks #2 mL (Roger) naproxen 500 mg tablet 500 mg PO BID PRN pain 7 days #20 12/28/24 tabs prednisone 20 mg tablet 40 mg (2 x 20 mg) PO DAILY 5 days 12/28/24 #10 tabs Allergies Allergy/AdvReac Type Severity Reaction Status Date / Time pneumococcal vaccine AdvReac Intermediate sick Verified 12/28/24 10:16 [From Pneumovax-23] Review of Systems Review of Systems: Yes all other systems are reviewed and are negative Constitutional: Constitutional: Reports as per [facility] Past Medical History Attestation statement: The following information was validated with the patient. Source: old records reviewed Medical History Asthma exacerbation Prediabetes Obesity Dyspnea on exertion Vapes nicotine containing substance Nocturnal hypoxemia due to obesity Lumbar spondylosis Asthma Brittle asthma Allergic rhinitis Nocturnal hypoxemia Opioid-induced hyperalgesia COVID-19 Osteoarthritis of knees, bilateral Morbid (severe) obesity due to excess calories Spinal stenosis Ferrer's palsy Diverticular disease History of substance abuse Restrictive lung disease NSTEMI (non-ST elevated myocardial infarction) History of CVA (cerebrovascular accident) History of Ferrer's palsy Carpal tunnel syndrome Degenerative disc disease, cervical Hypercholesterolemia Congestive heart failure Coronary artery disease Hypertension Obstructive sleep apnea Lumbar degenerative disc disease Asthma Fatty liver Surgical History Stented coronary artery Back pain with history of spinal surgery History of umbilical hernia repair History of arthroscopy of right knee History of left knee surgery Family History Family History Father Myocardial infarction Mother Diabetes Hypertension Sister Past heart attack Cancer Brother Afib S/P triple vessel bypass Social History Social History Housing: Apartment Alcohol intake: current Alcohol intake frequency: holidays/special occasions only Patient Tobacco Use Status: Former Tobacco user Tobacco use type: Cigarette Years Smoked: 1989 e-Cigarette/Vaping Use: Currently Using Second Hand Smoke Exposure: No Substance Use Type: Marijuana Do you have a plan to hurt others: No Plan Current occupational status: retired and disabled 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 Cognitive needs: No Hearing needs: No Vision needs: No Physical Exam ED Vital Signs: Vital Signs - 24 hr 12/28/24 10:14 12/28/24 18:38 Temperature 98.7 F 97.8 F Pulse Rate 80 68 Respiratory Rate 20 20 Blood Pressure 150/69 H 151/51 H Pulse Oximetry 94 100 Oxygen Delivery Method Room Air Room Air BMI result Body Mass Index 50.1 Const General: cooperative, healthy appearing and no acute distress Orientation/consciousness: patient oriented x3 Limitations: no limitations HENMT Head: Yes normal to inspection and Yes atraumatic Ears: hearing grossly normal bilaterally General nose exam: Normal external nose present Face and sinus: Yes normal facial exam Eyes General: appearance normal, both eyes and all related structures EOM: EOMs intact bilaterally Neck Neck: Yes normal visual inspection and Yes no meningeal signs Resp Effort & Inspection: normal respiratory effort and no respiratory distress Auscultation: clear to auscultation bilaterally, no crackles and no wheezes Cardio Rate: regular rate Heart sounds: S1 normal heart sound present and S2 normal heart sound present General: Yes no CVA tenderness Back/Spine/Pelvis Back: no CVA tenderness Skin Rashes: no rashes Wounds: no wounds Neuro General: patient oriented x3, tone normal and no meningeal signs Cranial nerves: Yes CN's II-XII intact bilaterally Gait exam (Neuro): Normal gait present Extrem Other: Left ankle/foot with appreciable swelling. Faint erythema noted to lateral aspect with slight warmth. Ankle diffusely tender to palpation with limited ROM secondary to pain. Neurovascularly intact. No crepitus + bilateral LE pitting edema. No calf tenderness Course Course Course Narrative: This is a Rapid Medical Exam performed in triage by Meliza Hernadez PA-C. Full HPI, ROS and PE to be performed by primary ED provider. 64 yo M presenting to the ED c/o atraumatic left ankle pain and swelling x2 days. Also reports chronic exertional dyspnea. States dyspnea is unchanged. Denies chest pain. Denies history of gout, fever/chills PE: + left ankle with appreciable swelling and diffuse tenderness. Faint erythema to lateral aspect with slight warmth. Neurovascularly intact. + pitting edema bilaterally. Lungs CTA Plan: EKG, labs, ultrasound, x-ray -1955--no leukocytosis. H/H stable. Labs otherwise reassuring. Troponin negative. BNP WNL. Uric acid mildly elevated XR ankle LT 2V/XR foot LT min 3V IMPRESSION: Soft tissue swelling over lateral malleolus. Degenerative changes as described. No evidence of acute fracture of the left ankle. XR chest 1V IMPRESSION: Elevated right hemidiaphragm with adjacent subsegmental atelectasis. No acute cardiopulmonary abnormality. US venous duplex LE BI IMPRESSION: 1. Negative for bilateral lower extremity deep vein thrombosis. > Terry wrap applied Results discussed with patient including worrisome signs and symptoms and strict return precautions, and when to return to the emergency department. They verbalized understanding and feel safe for discharge at this time. Medical Decision Making Medical Decision Making [facility] Narrative: 64-year-old male with a past medical history obesity, asthma, spinal stenosis, NSTEMI, CVA, HLD, CHF, HTN, presenting to ED complaining of atraumatic left ankle pain and swelling x2 days. Also reports chronic exertional dyspnea, unchanged. On exam vital signs stable, NAD, nontoxic appearing, physical exam as noted above. Bilateral LE pitting edema noted. Left ankle/foot with faint erythema and diffuse tenderness. Concern for gout vs strain vs fracture vs DVT. Rule out CHF. Lower suspicion for acute ACS/PE or dissection at this time. No evidence of septic joint/arthritis Plan: EKG, labs, x-rays, ultrasound Please refer to course for remaining clinical decision making, interpretation of labs/imaging results, and discussions with consultants and/or family members. Differential Diagnosis Differential Diagnoses: The differential diagnosis associated with the presentation includes As above Admission/Observation Consideration of admission/observation: Escalation of care including admission/observation considered Lab Data [facility] Lab Attestation statement: I reviewed the patient's lab results. 12/28/24 10:30 12/28/24 10:30 Labs: Lab Results 12/28/24 Range/Units 10:30 WBC 6.3 (4.8-10.8) X10*3/uL RBC 3.91 L (4.60-5.80) X10*6/uL Hgb 12.2 L (14.0-18.0) g/dl Hct 35.7 L (42.0-52.0) % MCV 91.3 (80.0-98.0) fL MCH 31.2 (27.0-33.0) pg MCHC 34.2 (31.0-36.0) g/dl RDW 13.7 (11.0-16.0) % Plt Count 142 L (160-400) X10*3/uL MPV 11.3 (9.4-12.4) fL Immature Gran % (Auto) 0.5 H (0.0-0.4) % Neut % (Auto) 71.3 (45-73) % Lymph % (Auto) 15.0 L (20-40) % [place] % (Auto) 9.7 (2-11) % Eos % (Auto) 3.0 (0-4) % Baso % (Auto) 0.5 (0-2) % Lymph # (Auto) 0.9 L (1.2-4.9) X10*3/uL [place] # (Auto) 0.6 (0.1-1.2) X10*3/uL Eos # (Auto) 0.2 (0.0-0.4) X10*3/uL Baso # (Auto) 0.0 (0.0-0.2) X10*3/uL Abs Immat Gran (auto) 0.03 (0.00-0.03) X10*3/uL Absolute Neuts (auto) 4.5 (2.0-8.3) x10*3/uL Absolute Nucleated RBC 0.000 (0.0-0.012) X10*3/uL Nucleated RBC % (auto) 0.0 (0.0-0.2) /100WBC Sodium 139 (135-145) mmol/L Potassium 4.2 (3.3-5.1) mmol/L Chloride 105 (96-108) mmol/L Carbon Dioxide 26 (22-29) mmol/L Anion Gap 12 (12-20) BUN 19 H (9-16) mg/dL Creatinine 1.32 (0.5-1.4) mg/dL Estim Creat Clear Calc 85.8 Estimated GFR 54 Random Glucose 123 H (60-115) mg/dL Uric Acid 8.3 H (3.4-7.0) mg/dL Calcium 8.8 (8.4-10.2) mg/dL Total Bilirubin 0.5 (0.0-1.0) mg/dL Direct Bilirubin 0.1 (0.0-0.5) mg/dL AST 25 (5-37) U/L ALT 39 (0-40) U/L Alkaline Phosphatase 85 (39-117) U/L Troponin I High Sens 4.4 D (<3.5-35.0) ng/L B-Natriuretic Peptide 28 (<100) pg/mL Total Protein 7.2 (6.5-8.0) g/dL Albumin 3.8 (3.5-5.0) g/dL Lipase 24 (8-78) U/L Independent Interpretation I performed an independent interpretation of an: EKG (My interpretation EKG normal sinus rhythm rate of 63. QRS 130. No significant change when compared to prior. No STEMI) Radiology Impression Discussion of test interpretation with radiology: I have reviewed the radiologist's reading. External Record Review External record reviewed: Inpatient record, Office record, Outpatient record, Prior outpatient labs, Prior outpatient radiology, Primary care record and Outside ED record Tests considered The following testing was considered but not selected: As above Prescription Management I considered prescription management with: Pain Medication and Antibiotic Chronic Conditions Patient?s care impacted by: Other (CHF, osteoarthritis, HTN) Social Determinants Patient?s care significantly limited by Social Determinants of Health including: Other Social Determinant of Health Discharge Plan Discharge Clinical Impression: Gout, Exertional dyspnea Patient Disposition: Home, Self-Care Instructions: Low Purine Diet (ED), Gout (ED) Additional Instructions: Your blood work is reassuring however shows suspicion for gout Your x-ray shows swelling of her ankle Your ultrasound were negative for blood clot Prednisone as a steroid which will help with treatment of gout In addition take naproxen which is an anti-inflammatory/pain medication, please take with food If area begins more swollen/red, or appears infected return to the ED Please follow-up with your doctor as well as Cardiology and your staff veterinarian Prescriptions: New prednisone 20 mg tablet 40 mg PO DAILY 5 Days Qty: 10 0RF naproxen 500 mg tablet 500 mg PO BID PRN (Reason: pain) 7 Days Qty: 20 0RF No Action albuterol sulfate [Ventolin HFA] 90 mcg/actuation HFA aerosol inhaler 2 puff inhalation Q4-6H PRN (Reason: shortness of breath or wheezing) Qty: 18 2RF cyanocobalamin (vitamin B-12) 1,000 mcg tablet 1,000 mcg PO DAILY Qty: 90 1RF aspirin 81 mg tablet,delayed release (DR/EC) 81 mg PO DAILY Qty: 90 3RF morphine 15 mg tablet 15 mg PO Q6H PRN (Reason: pain) Qty: 8 0RF Rx Instructions: partial fill okay; Partial Fill upon patient request. diclofenac sodium [Voltaren Arthritis Pain] 1 % gel 4 g topical QID Qty: 100 3RF Rx Instructions: apply to single knee, ankle, foot; for foot includes sole/toes/top of foot tizanidine 2 mg capsule 2 mg PO Q8H PRN (Reason: muscle spasticity) Qty: 20 0RF sildenafil [Viagra] 50 mg tablet 50 mg PO DAILY PRN (Reason: sexual activity) Qty: 10 2RF Rx Instructions: administer 30 minutes to 4 hours before activity atorvastatin 80 mg tablet 80 mg PO DAILY 90 Days Qty: 90 2RF fluticasone furoate-vilanterol [Breo Ellipta] 100-25 mcg/dose blister with device 1 ea PO DAILY Qty: 60 12RF hydrochlorothiazide 25 mg tablet 25 mg PO DAILY 90 Days Qty: 90 3RF irbesartan 300 mg tablet 300 mg PO QAM 90 Days Qty: 90 3RF loratadine 10 mg tablet 10 mg PO DAILY PRN (Reason: allergy symptoms) Qty: 90 3RF multivitamin Tablet 1 tab PO DAILY folic acid 1 mg tablet 1 mg PO DAILY Qty: 90 3RF Mounjaro 2.5 mg/0.5 mL pen injector 2.5 mg subcut QWEEK 28 Days Qty: 2 2RF Referrals: [facility] [Provider Group] [facility] [Provider Group] Catherine Diehl MD [Primary Care Provider] - 3 days Print Language: Yoruba
--- NOTE | 2024-12-28 18:55 | ECG_ITS ---
Test Reason : EXERTIONAL DYSPNEA Blood Pressure : */* mmHG Vent. Rate : 63 BPM Atrial Rate : 63 BPM P-R Int : 202 ms QRS Dur : 130 ms QT Int : 404 ms P-R-T Axes : 4 5 12 degrees QTcB Int : 413 ms Normal sinus rhythm Right bundle branch block Abnormal ECG When compared with ECG of 13-Jun-2024 18:18, No significant change was found Referred By: Meliza Hernadez Electronically Signed By: PADILLA STEPHENS MD
[2024-12-28 19:07] LABS: Uric Acid 8.3 mg/dL (3.4-7.0)
[2024-12-28 19:18] LABS: Troponin-I High Sensitivity 4.4 ng/L (<3.5-35.0)
[2024-12-28 20:01] VITALS: BP 166/73; PULSE 67; RESP 18; TEMP 36.9; O2SAT 97
[2024-12-28 20:03] VITALS: BP 166/73; PULSE 67; RESP 18; TEMP 36.9; O2SAT 97
== END 2024-12-28 20:05 | disposition home or self-care (01) ==
PROVIDERS: Physician Assistant; Emergency Provider Emergency Medicine; PCP Internal Medicine
DX: M10.072 Idiopathic gout, left ankle and foot (principal); R06.02 Shortness of breath; R60.0 Localized edema; M25.572 Pain in left ankle and joints of left foot; I45.10 Unspecified right bundle-branch block; R94.31 Abnormal electrocardiogram [ECG] [EKG]; Z87.891 Personal history of nicotine dependence; Z79.899 Other long term (current) drug therapy
CPT/HCPCS: 36415; 71045; 73600; 73630; 80048; 80076; 83690; 83880; 84484; 84550; 85025; 93005; 93970; 99283; 99284

== ENCOUNTER → 2024-12-28 10:20 | Outpatient (BNV) | payer MEDICARE, SELFPAY | PROVIDERS: PCP Internal Medicine; Visit Provider Radiology Diagnostic Radiology | DX: R60.0 Localized edema (principal); J98.11 Atelectasis; M79.89 Other specified soft tissue disorders; J98.6 Disorders of diaphragm | CPT/HCPCS: 71045; 73600; 73630; 93970 ==

== ENCOUNTER → 2024-12-28 18:55 | Outpatient (BNV) | payer MEDICARE, SELFPAY | PROVIDERS: Emergency Provider Emergency Medicine; PCP Internal Medicine; Visit Provider Internal Medicine Cardiovascular Disease | DX: I45.10 Unspecified right bundle-branch block (principal) | CPT/HCPCS: 93010 ==

== ENCOUNTER 2025-01-03 08:47 | Outpatient (AMB) | payer MEDICARE, SELFPAY ==
--- NOTE | 2025-01-03 09:23 | MHC.OFFVIS ---
Vital Signs 01/03/25 09:24 Height 5 ft 11 in Weight 360 lb BMI 50.2 BP 134/70 Blood Pressure Location Lt brachial Position Sitting Pulse 62 Intake Visit Reasons: 1 year fu Intake Note: 1 year follow-up had ekg 12/28 hearts ok was in for gout Integrated Specialist Required: No Allergies pneumococcal vaccine [From Pneumovax-23] Adverse Reaction (Intermediate, Verified 12/28/24 10:16) sick Medication List - Last Reconciled 01/03/25 by El Reagan MD aspirin 81 mg PO DAILY atorvastatin 80 mg PO DAILY 90 days Breo Ellipta 100-25 mcg/dose (fluticasone furoate-vilanterol) 1 ea PO DAILY NS cyanocobalamin (vitamin B-12) 1,000 mcg PO DAILY diclofenac sodium 1% (Voltaren Arthritis Pain) 4 grams topical QID folic acid 1 mg PO DAILY hydrochlorothiazide 25 mg PO DAILY 90 days irbesartan 300 mg PO QAM 90 days loratadine 10 mg PO DAILY PRN morphine 15 mg PO Q6H PRN multivitamin 1 tab PO DAILY naproxen 500 mg PO BID PRN 7 days prednisone 40 mg (2 x 20 mg) PO DAILY 5 days sildenafil (Viagra) 50 mg PO DAILY PRN tirzepatide (Mounjaro) 2.5 mg (0.5 mL) subcut QWEEK 4 weeks tizanidine 2 mg PO Q8H PRN Ventolin HFA 90 mcg/actuation (albuterol sulfate) 2 puffs inhalation Q4-6H PRN NS HPI Comments Details: Kraig comes for follow-up. Said he has been not able to lose weight because he can not exercise because of knee issues and also gets short of breath very quickly. He has gained weight. He has trouble walking 100 yd without getting short of breath. No orthopnea, PND, leg edema. No exertional chest pain. He is trying to get on medical therapy to lose weight. He had a recent attack of gout for which she got steroids. Takes all his medications. Last LDL of 62 mg/dL. [facility] Medical History Asthma exacerbation Prediabetes Obesity Dyspnea on exertion Vapes nicotine containing substance Nocturnal hypoxemia due to obesity Lumbar spondylosis Asthma Brittle asthma Allergic rhinitis Nocturnal hypoxemia Opioid-induced hyperalgesia COVID-19 Osteoarthritis of knees, bilateral Morbid (severe) obesity due to excess calories Spinal stenosis Ferrer's palsy Diverticular disease History of substance abuse Restrictive lung disease NSTEMI (non-ST elevated myocardial infarction) History of CVA (cerebrovascular accident) History of Ferrer's palsy Carpal tunnel syndrome Degenerative disc disease, cervical Hypercholesterolemia Congestive heart failure Coronary artery disease Hypertension Obstructive sleep apnea Lumbar degenerative disc disease Asthma Fatty liver Surgical History Stented coronary artery Back pain with history of spinal surgery History of umbilical hernia repair History of arthroscopy of right knee History of left knee surgery Family History Father Myocardial infarction Mother Diabetes Hypertension Sister Past heart attack Cancer Brother Afib S/P triple vessel bypass Social History (Updated 01/03/25 @ 09:04 by Billie Morrissey CMA) Housing: Apartment Alcohol intake: current Alcohol intake frequency: holidays/special occasions only Patient Tobacco Use Status: Former Tobacco user Tobacco use type: Cigarette Years Smoked: 1989 e-Cigarette/Vaping Use: Currently Using Second Hand Smoke Exposure: No Substance Use Type: Marijuana Advance Directives Date on File: 11/14/20 Current occupational status: retired and disabled 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 Cognitive needs: No Hearing needs: No Vision needs: No Review of Systems Const Denies chills, Denies fatigue, Denies fever(s), Denies frequent falls, Denies weakness, Denies weight gain and Denies weight loss ENT Denies dizziness Card Denies chest pain, Denies leg edema, Denies lightheadedness, Denies palpitations, Denies dyspnea, Denies dyspnea on exertion, Denies orthopnea and Denies other (loss of consciousness) Resp Denies cough, Denies dyspnea and Denies dyspnea on exertion GI Denies hematochezia and Denies change in stool character Musc Denies abnormal gait, Denies muscle weakness, Denies numbness, Denies radiating pain into limb and Denies tingling Neuro Denies Abnormal speech present, Denies abnormal gait, Denies dizziness, Denies frequent falls, Denies numbness, Denies tingling and Denies weakness Endo Denies fatigue and Denies palpitations Physical Exam Vital Signs: Last Vital Signs Pulse 62 01/03/25 09:24 BP 134/70 01/03/25 09:24 BMI result Body Mass Index 50.2 Const General: cooperative, comfortable, no acute distress, alert and awake Nutritional Appearance: obese morbidly obese Orientation/consciousness: patient oriented x3 Limitations: no limitations HEENT Head: Yes normocephalic and Yes atraumatic Neck Neck: Yes trachea midline, Yes supple and Yes no JVD Carotids: no bruits Resp Effort & Inspection: normal respiratory effort Auscultation: clear to auscultation bilaterally and diminished lung sounds Cardio Jugular venous distension: no JVD Palpation: normal PMI Rate: regular rate Rhythm: regular rhythm Heart sounds: S1 normal heart sound present, S2 normal heart sound present, no click, no gallops, Murmur heart sound present systolic early, decrescendo and crescendo and no rubs GI Inspection: Yes obesity Auscultation: normal bowel sounds Skin General skin exam: no rashes or lesions noted Neuro General: patient oriented x3 and no focal motor deficits Speech: No Abnormal speech present Extrem General: Yes no clubbing, cyanosis or edema Psych Appearance: grossly normal Assessment & Plan Assessment & Plan (1) Coronary artery disease: Comment: NSTEMI October 2019 stent placement, September 2020 catheterization patent stent. Recent , admission for a mild heart attack, Ac CA ruled out . Code(s): I25.10 - Atherosclerotic heart disease of [place] coronary artery without angina pectoris Category: Medical Qualifiers: Coronary Disease-Associated Artery/Lesion type: [place] artery [place] vs. transplanted heart: [place] heart Associated angina: with unstable angina Qualified Code(s): I25.110 - Atherosclerotic heart disease of [place] coronary artery with unstable angina pectoris Plan: CAD status post drug-eluting stent to LAD for NSTEMI. No recurrent symptoms suggestive of angina at this point time. Continue lifelong aspirin therapy. Continue aggressive vascular risk factor modification. LDL is well optimized. Blood pressure is currently well optimized on medications. His main issue currently is limitation in exercise capacity related to his pulmonary issue, see below. Also weight is a significant issue. Will benefit from weight reduction therapy with GLP 1 antagonist. He is willing to try the same. (2) Aortic stenosis: Code(s): I35.0 - Nonrheumatic aortic (valve) stenosis Category: Medical Plan: Aortic stenosis which appears to be mild clinically. Continue aggressive vascular risk factor modification as above. Follow-up echocardiogram in 1 year's time. Aggressive management diabetes goal hemoglobin A1c less than 7% being pursue through your office. (3) Dyspnea on exertion: Code(s): R06.09 - Other forms of dyspnea Category: Medical Plan: Shortness of breath exertion in his both related to underlying COPD as well as restrictive pulmonary disease related to his significant abdominal obesity. He will benefit significantly from weight reduction. This was discussed with him. He is trying the same. Various different avenues were discussed. Will benefit from drug such as Wegovy or Mounjaro. Will follow up in the clinic in 1 year's time, sooner p.r.n.. Thank you for allowing me to partake in his Orders: Orders CA echo transthoracic complete 1 Year I25.110 - Atherosclerotic heart disease of [place] coronary artery with unstable angina pectoris Coding Level of Care Code Est Pt Level 4 (82225) Complex EM visit Add On G2211 Diagnoses Coronary artery disease involving [place] coronary artery of [place] heart with unstable angina pectoris I25.110 Coronary Disease-Associated Artery/Lesion type: [place] artery [place] vs. transplanted heart: [place] heart Associated angina: with unstable angina Aortic stenosis I35.0 Dyspnea on exertion R06.09
[2025-01-03 09:24] VITALS: BP 134/70; PULSE 62; BMI 50.2
== END 2025-01-03 09:51 | disposition home or self-care (01) ==
PROVIDERS: PCP Internal Medicine; Visit Provider Internal Medicine Cardiovascular Disease
DX: I25.110 Atherosclerotic heart disease of native coronary artery with unstable angina pectoris (principal); I35.0 Nonrheumatic aortic (valve) stenosis; R06.09 Other forms of dyspnea
CPT/HCPCS: 99214; G2211

== ENCOUNTER → 2025-01-03 08:47 | Outpatient (BNVA) | payer MEDICARE, MEDICAID, SELFPAY | PROVIDERS: PCP Internal Medicine; Visit Provider Internal Medicine Cardiovascular Disease | DX: I25.110 Atherosclerotic heart disease of native coronary artery with unstable angina pectoris (principal); I35.0 Nonrheumatic aortic (valve) stenosis; R06.09 Other forms of dyspnea; Z87.891 Personal history of nicotine dependence | CPT/HCPCS: 99212 ==

== ENCOUNTER 2025-01-13 08:57 | Outpatient (AMB) | payer MEDICARE, SELFPAY ==
--- NOTE | 2025-01-13 09:14 | MHC.OFFVIS ---
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 [facility] *SEE COMMENTS* Allergies pneumococcal vaccine [From Pneumovax-23] Adverse Reaction (Intermediate, Verified 12/28/24 10:16) sick [facility] Medical History Asthma exacerbation Prediabetes Obesity Dyspnea on exertion Vapes nicotine containing substance Nocturnal hypoxemia due to obesity Lumbar spondylosis Asthma Brittle asthma Allergic rhinitis Nocturnal hypoxemia Opioid-induced hyperalgesia COVID-19 Osteoarthritis of knees, bilateral Morbid (severe) obesity due to excess calories Spinal stenosis Ferrer's palsy Diverticular disease History of substance abuse Restrictive lung disease NSTEMI (non-ST elevated myocardial infarction) History of CVA (cerebrovascular accident) History of Ferrer's palsy Carpal tunnel syndrome Degenerative disc disease, cervical Hypercholesterolemia Congestive heart failure Coronary artery disease Hypertension Obstructive sleep apnea Lumbar degenerative disc disease Asthma Fatty liver Surgical History Stented coronary artery Back pain with history of spinal surgery History of umbilical hernia repair History of arthroscopy of right knee History of left knee surgery Family History Father Myocardial infarction Mother Diabetes Hypertension Sister Past heart attack Cancer Brother Afib S/P triple vessel bypass Social History (Updated 01/03/25 @ 09:04 by Billie Morrissey CMA) Housing: Apartment Alcohol intake: current Alcohol intake frequency: holidays/special occasions only Patient Tobacco Use Status: Former Tobacco user Tobacco use type: Cigarette Years Smoked: 1989 e-Cigarette/Vaping Use: Currently Using Second Hand Smoke Exposure: No Substance Use Type: Marijuana Advance Directives Date on File: 11/14/20 Current occupational status: retired and disabled 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
[2025-01-13 09:17] VITALS: BP 131/77; PULSE 74; TEMP 36.5; O2SAT 94; BMI 50.0
--- NOTE | 2025-01-13 09:27 | MHC.OFFVISWM ---
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[facility]WL *SEE COMMENTS* Allergies pneumococcal vaccine [From Pneumovax-23] Adverse Reaction (Intermediate, Verified 01/13/25 09:44) sick Medication List - Last Reconciled 01/13/25 by Wes Ann MD aspirin 81 mg PO DAILY atorvastatin 80 mg PO DAILY 90 days Breo Ellipta 100-25 mcg/dose (fluticasone furoate-vilanterol) 1 ea PO DAILY NS cyanocobalamin (vitamin B-12) 1,000 mcg PO DAILY diclofenac sodium 1% (Voltaren Arthritis Pain) 4 grams topical QID folic acid 1 mg PO DAILY hydrochlorothiazide 25 mg PO DAILY 90 days irbesartan 300 mg PO QAM 90 days loratadine 10 mg PO DAILY PRN multivitamin 1 tab PO DAILY tirzepatide (Mounjaro) 2.5 mg (0.5 mL) subcut QWEEK 4 weeks Ventolin HFA 90 mcg/actuation (albuterol sulfate) 2 puffs inhalation Q4-6H PRN NS PFSH Medical History Asthma exacerbation Prediabetes Obesity Dyspnea on exertion Vapes nicotine containing substance Nocturnal hypoxemia due to obesity Lumbar spondylosis Asthma Brittle asthma Allergic rhinitis Nocturnal hypoxemia Opioid-induced hyperalgesia COVID-19 Osteoarthritis of knees, bilateral Morbid (severe) obesity due to excess calories Spinal stenosis Ferrer's palsy Diverticular disease History of substance abuse Restrictive lung disease NSTEMI (non-ST elevated myocardial infarction) History of CVA (cerebrovascular accident) History of Ferrer's palsy Carpal tunnel syndrome Degenerative disc disease, cervical Hypercholesterolemia Congestive heart failure Coronary artery disease Hypertension Obstructive sleep apnea Lumbar degenerative disc disease Asthma Fatty liver Surgical History Stented coronary artery Back pain with history of spinal surgery History of umbilical hernia repair History of arthroscopy of right knee History of left knee surgery Family History Father Myocardial infarction Mother Diabetes Hypertension Sister Past heart attack Cancer Brother Afib S/P triple vessel bypass Social History (Updated 01/03/25 @ 09:04 by Billie Morrissey CMA) Housing: Apartment Alcohol intake: current Alcohol intake frequency: holidays/special occasions only Patient Tobacco Use Status: Former Tobacco user Tobacco use type: Cigarette Years Smoked: 1989 e-Cigarette/Vaping Use: Currently Using Second Hand Smoke Exposure: No Substance Use Type: Marijuana Advance Directives Date on File: 11/14/20 Current occupational status: retired and disabled 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 Cognitive needs: No Hearing needs: No Vision needs: No Physical Exam Vital Signs: Last Vital Signs Temp 97.7 F 01/13/25 09:17 Pulse 74 01/13/25 09:17 BP 131/77 01/13/25 09:17 Pulse Ox 94 01/13/25 09:17 Oxygen Delivery Method Room Air 01/13/25 09:17 BMI result Body Mass Index 50.0 GI Inspection: Yes normal to inspection, Yes incision (well healed) and Yes obesity Palpation (GI): Firmness to palpation present (GI) Extrem Right lower extremity: edema Left lower extremity: edema Assessment & Plan Assessment & Plan (1) Morbid (severe) obesity due to excess calories: Comment: REMAINS MORBIDLY OBESE. HAS ACTUALLY GAINED MORE WEIGHT. TRYING TO LOSE WEIGHT. HE IS ACTIVE IN THE WEIGHT MANAGEMENT PROGRAM. Code(s): E66.01 - Morbid (severe) obesity due to excess calories Category: Medical Plan: 1. We discussed in detail the available therapeutic options: 1) his insurance requires participation in our lifestyle intervention program for 3 months before use of anti-obesity medications is considered. We discussed about the use of our [employer] software su for the meal and exercise plan. 2) We also discussed about the?? lap sleeve gastrectomy. I emphasized the importance of close follow-up, adherence to instructions and good communication. The surgery does not replace the need to change your lifestlyle which is the cause of the obesity problem. The surgery provides the motivation to try again to change your lifestyle, it reduces the appetite and make the transition to a better lifestyle easier and doubles the amount of weight you would lose compared to doing the lifestyle change without the surgery. You will need to be on a liquid diet with protein shakes for 2 weeks before surgery to maximize weight loss and boost your nutritional status to recover better from surgery and also for the first two weeks after surgery to let the stomach heal before we introduce other foods. After the first 2 weeks we will introduce protein bars and soft foods like scrambled eggs, cottage cheese and yogurt and after the 6th week will introduce meat, fish and cooked vegetables in small amounts. Over time you should be able to eat everything in small amounts. Side effects like nausea, vomiting, heartburn or abdominal pain are not common in the practice unless you are not following in the practice. This operation requires lifetime commitment to following in our practice and communication with me. You will much less weight and experience side effects if you don?t communicate or not following in the practice. Complications are rare and in our practice is about 1/10 of the national average. 2. ?Start the Zepbound when you get your body composition scale once a week. We discussed the potential side effects of Zepbound such as nausea, vomiting, abdominal pain, diarrhea and constipation and you will need to contact me if any of these symptoms occur or for any other new symptom you may experience 3. Please buy a body composition scale and start sharing measurements with me Medications: New tirzepatide (weight loss) (Zepbound) for 4 weeks 2.5 mg (0.5 mL) subcut QWEEK 2 mL 0RF E66.01 - Morbid (severe) obesity due to excess calories
== END 2025-01-13 10:49 | disposition home or self-care (01) ==
PROVIDERS: PCP Internal Medicine; Visit Provider Surgery
DX: E66.813 Obesity, class 3 (principal); Z68.43 Body mass index [BMI] 50.0-59.9, adult
CPT/HCPCS: 99214

== ENCOUNTER → 2025-01-13 08:57 | Outpatient (BNVA) | payer MEDICARE, SELFPAY | PROVIDERS: PCP Internal Medicine; Visit Provider Surgery | DX: E66.01 Morbid (severe) obesity due to excess calories (principal); Z68.43 Body mass index [BMI] 50.0-59.9, adult | CPT/HCPCS: 99212 ==

== ENCOUNTER 2025-01-18 09:26 | Outpatient (REF) | payer MEDICARE, SELFPAY ==
[2025-01-18 09:48] LABS: MANUAL DIFF FLAG NO
[2025-01-18 11:47] LABS: Basophils Absolute Auto 0.1 X10*3/uL (0.0-0.2); Eosinophils Absolute Auto 0.2 X10*3/uL (0.0-0.4); Eosinophils Percent Auto 3.7 % (0-4); Hematocrit 38.9 % (42.0-52.0); Hemoglobin 12.9 g/dl (14.0-18.0); Imm Gran Abs Auto 0.01 X10*3/uL (0.00-0.03); Imm Gran Pct Auto 0.2 % (0.0-0.4); Immature Retic Fraction 9.4 % (2.3-13.4); Lymphocytes Absolute Auto 1.4 X10*3/uL (1.2-4.9); Lymphocytes Percent Auto 27.6 % (20-40); Mean Corpuscular HGB Conc 33.2 g/dl (31.0-36.0); Mean Corpuscular Hemoglobin 30.8 pg (27.0-33.0); Mean Corpuscular Volume 92.8 fL (80.0-98.0); Mean Platelet Volume 11.2 fL (9.4-12.4); Monocytes Absolute Auto 0.5 X10*3/uL (0.1-1.2); Monocytes Percent Auto 9.3 % (2-11); Neutrophils Percent Auto 58.2 % (45-73); Platelet Count 165 X10*3/uL (160-400); Red Blood Count 4.19 X10*6/uL (4.60-5.80); Red Cell Distribution Width 13.3 % (11.0-16.0); Retic HGB Equivalent 35.2 pg (30.0-35.0); Reticulocyte Percent 1.4 % (0.5-1.8); Reticulocytes Absolute 0.059 X10*6/uL (0.026-0.095); White Blood Count 5.1 X10*3/uL (4.8-10.8)
[2025-01-18 12:38] LABS: Alanine Aminotransferase 46 U/L (0-40); Alkaline Phosphatase 79 U/L (39-117); Anion Gap 11 (12-20); Aspartate Amino Transferase 25 U/L (5-37); Bilirubin Total 0.5 mg/dL (0.0-1.0); Blood Urea Nitrogen 24 mg/dL (9-16); Calcium 9.1 mg/dL (8.4-10.2); Carbon Dioxide 31 mmol/L (22-29); Chloride 106 mmol/L (96-108); Cholesterol 127 mg/dL (<200); Estimated Glomerular Filt Rate 57; Glucose Random 129 mg/dL (60-115); HDL Cholesterol 45 mg/dL (>40); Iron 91 mcg/dL (45-160); LDL Cholesterol Calculated 65 mg/dL (<100); Percent Iron Saturation 34 % (15-50); Potassium 4.5 mmol/L (3.3-5.1); Sodium 143 mmol/L (135-145); Total Iron Binding Capacity 268 mcg/dL (228-428); Total Protein 7.5 g/dL (6.5-8.0); Triglycerides 88 mg/dL (<150); Unsaturated Iron Binding 177 ug/dL
[2025-01-18 12:54] LABS: Folate 12.6 ng/mL (> or = 4.0); Prostate Specific Antigen Scr 1.93 ng/mL (<0.05-4.0); Vitamin B12 369 pg/mL (200-900)
[2025-01-18 13:02] LABS: Ferritin 507 ng/mL (20-250); Free T4 (Free Thyroxine) 0.82 ng/dL (0.71-1.85); Thyroid Stimulating Hormone 1.87 uIU/mL (0.32-4.0)
[2025-01-18 14:23] LABS: Creatinine Urine 184.22 mg/dL; Microalbum/Creatinine Ratio Ur 6.5 ug/mg cr (<30)
== END 2025-01-18 09:27 | disposition home or self-care (01) ==
LOC: HO.LAB 09:26
PROVIDERS: PCP Internal Medicine; Visit Provider Internal Medicine
DX: E11.65 Type 2 diabetes mellitus with hyperglycemia (principal); E78.00 Pure hypercholesterolemia, unspecified; Z12.5 Encounter for screening for malignant neoplasm of prostate
CPT/HCPCS: 36415; 80053; 80061; 82043; 82570; 82607; 82728; 82746; 83540; 84153; 84439; 84443; 85025; 85045

== ENCOUNTER → 2025-01-24 09:42 | Outpatient (BNVA) | payer MEDICARE, SELFPAY | PROVIDERS: PCP Internal Medicine; Visit Provider Physician Assistant Surgical ==

== ENCOUNTER 2025-02-10 10:45 | Outpatient (AMB) | payer MEDICARE, SELFPAY ==
[2025-02-10 11:06] VITALS: BP 140/78; PULSE 68; TEMP 36.6; O2SAT 97; BMI 49.7
--- NOTE | 2025-02-10 11:06 | A.OFFPC_ITS ---
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: No Accompanied by: Self / Same As Patient Allergies pneumococcal vaccine [From Pneumovax-23] Adverse Reaction (Intermediate, Verified 02/10/25 11:26) sick Medication List - Last Reconciled 02/10/25 by Catherine Diehl MD aspirin 81 mg PO DAILY atorvastatin 80 mg PO DAILY 90 days Breo Ellipta 100-25 mcg/dose (fluticasone furoate-vilanterol) 1 ea PO DAILY NS cyanocobalamin (vitamin B-12) 1,000 mcg PO DAILY diclofenac sodium 1% (Voltaren Arthritis Pain) 4 grams topical QID folic acid 1 mg PO DAILY hydrochlorothiazide 25 mg PO DAILY 90 days irbesartan 300 mg PO QAM 90 days loratadine 10 mg PO DAILY PRN multivitamin 1 tab PO DAILY tirzepatide (weight loss) (Zepbound) 2.5 mg (0.5 mL) subcut QWEEK Ventolin HFA 90 mcg/actuation (albuterol sulfate) 2 puffs inhalation Q4-6H PRN NS Tobacco use date assessed: 12/22/24 Fall risk assessment: No Falls in past year Last assessed Fall Risk: 02/10/25 Dental Screening Dental Screen Date: 12/22/24 REPLACED BY [facility] Medical History Asthma exacerbation Prediabetes Obesity Dyspnea on exertion Vapes nicotine containing substance Nocturnal hypoxemia due to obesity Lumbar spondylosis Asthma Brittle asthma Allergic rhinitis Nocturnal hypoxemia Opioid-induced hyperalgesia COVID-19 Osteoarthritis of knees, bilateral Morbid (severe) obesity due to excess calories Spinal stenosis Ferrer's palsy Diverticular disease History of substance abuse Restrictive lung disease NSTEMI (non-ST elevated myocardial infarction) History of CVA (cerebrovascular accident) History of Ferrer's palsy Carpal tunnel syndrome Degenerative disc disease, cervical Hypercholesterolemia Congestive heart failure Coronary artery disease Hypertension Obstructive sleep apnea Lumbar degenerative disc disease Asthma Fatty liver Surgical History Stented coronary artery Back pain with history of spinal surgery History of umbilical hernia repair History of arthroscopy of right knee History of left knee surgery Family History Father Myocardial infarction Mother Diabetes Hypertension Sister Past heart attack Cancer Brother Afib S/P triple vessel bypass Social History (Updated 02/10/25 @ 12:04 by Catherine Diehl MD) Housing: Apartment Alcohol intake: current Alcohol intake frequency: holidays/special occasions only Comment: once Q 6 months 2 - 3 drinkls Patient Tobacco Use Status: Former Tobacco user Tobacco use type: Cigarette Years Smoked: 1989, joints smoking e-Cigarette/Vaping Use: Currently Using Second Hand Smoke Exposure: No Substance Use Type: Marijuana Advance Directives Date on File: 11/14/20 service: No Current occupational status: retired and disabled 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 Jacky Sosa, Andria Mandujano, Eric Corey and colleagues, with an educational riley from [employer]. Review of Systems Const Denies poor appetite and Denies weakness Eyes Denies no additional complaints ENT Reports Normal hearing present, Denies dizziness, Denies nasal congestion, Denies tinnitus and Denies sore throat Card Denies chest pain, Denies syncope, Denies rapid heart rate and Denies dyspnea Resp Denies cough and Denies dyspnea GI Denies change in stool character, Reports constipation, Denies diarrhea, Denies nausea and Denies vomiting Denies dysuria and Denies urinary frequency Neuro Reports Normal hearing present, Denies confusion, Denies dizziness, Denies syncope and Denies weakness Psych Denies confusion Physical exam (Primary Care) Vital Signs: Last Vital Signs Temp 97.8 F 02/10/25 11:06 Pulse 68 02/10/25 11:06 BP 126/70 02/10/25 12:01 Pulse Ox 97 02/10/25 11:06 Oxygen Delivery Method Room Air 02/10/25 11:06 BMI result Body Mass Index 49.7 Tobacco/Smoking Status: Tobacco use Status Tobacco use date assessed 12/22/24 02/10/25 11:06 Patient Tobacco Use Status Former Tobacco user 02/10/25 12:04 Tobacco use type Cigarette 02/10/25 12:04 e-Cigarette/Vaping Use Currently Using 02/10/25 12:04 Thrive Assessment: Date of Thrive Assessment Date Thrive assessed 12/22/24 02/10/25 11:06 Const Other: R ear impacted cerumen General: No confusion Orientation/consciousness: No confusion HENMT Head: Yes normocephalic Ears: external ears normal Face and sinus: Yes normal facial exam Mouth: moist mucous membranes Throat: Yes tonsils normal Eyes Conjunctivae: conjunctivae normal Pupils: Equal, round and reactive pupils present and Pupil accommodation reflex normal Direct Ophthalmoscopy: normal light reflex Neck Neck: No lymphadenopathy Thyroid: Thyroid normal Chest Chest palpation & inspection: normal inspection of the chest Resp Effort & Inspection: normal respiratory effort and no audible wheezes Auscultation: clear to auscultation bilaterally, no crackles, no wheezes and lung sounds not diminished Cardio Rate: regular rate Rhythm: regular rhythm Peripheral pulses: radial pulses present and dorsalis pedis present GI Other: guaiac negative Palpation (GI): no masses Auscultation: normal bowel sounds and normoactive bowel sounds Male General Exam: Yes normal external exam Skin General skin exam: no rashes or lesions noted Rashes: no rashes Neuro General: No confusion Cranial nerves: Yes Equal, round and reactive pupils present and Yes Normal hearing present Cognition (Neuro): normal cognition Gait exam (Neuro): Normal gait present Motor exam (neuro): 5/5 motor strength present throughout Deep tendon reflexes (DTR's): Right brachioradialis reflex intensity grade: 2+, Left brachioradialis reflex intensity grade: 2+, Right patellar reflex intensity grade: 2+ and Left patellar reflex intensity grade: 2+ Extrem Other: whitish scalu rash intedigital area General: No edema Results AMB Hemoglobin A1c AMB Hemoglobin A1c 6.2 % Last Edit by MARY Morales on 02/10/25 11:38 Results Reviewed Results Reviewed: Laboratory Last Values Hgb A1c (Clinic) 6.2 % (4.0-6.0) H 02/10/25 11:30 Coding Level of Care Code Est Pt Prev Care >65y(21726) Diagnoses Annual physical exam Z00.00 Type 2 diabetes mellitus with hyperglycemia E11.65 Aortic stenosis I35.0 Impaired fasting blood sugar R73.01 Asthma J45.909 Fatty liver K76.0 Obstructive sleep apnea G47.33 Hypertension I10 Coronary artery disease involving elim ira coronary artery of elim ira heart with unstable angina pectoris I25.110 Associated angina: with unstable angina Coronary Disease-Associated Artery/Lesion type: elim ira artery [place] vs. transplanted heart: elim ira heart Hypercholesterolemia E78.00 Morbid (severe) obesity due to excess calories E66.01 Tinea pedis B35.3 Impacted cerumen of right ear H61.21 Assessment & Plan Assessment & Plan (1) Annual physical exam: Code(s): Z00.00 - Encounter for general adult medical examination without abnormal findings Category: Medical Plan: Patient is advised to eat healthy, keep well hydrated, keep active and have adequate sleep. (2) Type 2 diabetes mellitus with hyperglycemia: Code(s): E11.65 - Type 2 diabetes mellitus with hyperglycemia Category: Medical Plan: Decrease the amount of carbohydrate intake, pasta, bread, rice and potatoes are all sugar and that is aside from all the sweet stuff, remember that fruits are good but they are Sweet also. Hemoglobin A1c goal of less than 6.5 patient has been started on tirzepatide (3) Aortic stenosis: Code(s): I35.0 - Nonrheumatic aortic (valve) stenosis Category: Medical Plan: Continue to monitor, mild (4) Impaired fasting blood sugar: Code(s): R73.01 - Impaired fasting glucose Category: Medical Plan: Decrease the amount of carbohydrate intake, pasta, bread, rice and potatoes are all sugar and that is aside from all the sweet stuff, remember that fruits are good but they are Sweet also. (5) Asthma: Comment: Has mild intermittent bronchial asthma, which is relatively well controlled at present. Tx: Breo 100-25 1 inhalation daily ProAir 2 puffs Q 4-6 hours p.r.n.. Code(s): J45.909 - Unspecified asthma, uncomplicated Category: Medical Plan: Continue with the Breo inhaler and rinse mouth after using. On Ventolin (6) Fatty liver: Code(s): K76.0 - Fatty (change of) liver, not elsewhere classified Category: Medical Plan: Low-fat diet and exercise (7) Obstructive sleep apnea: Comment: He has confirmed diagnosis of obstructive sleep apnea, since June 2017 . Has been using CPAP regularly. Compliance is excellent . Code(s): G47.33 - Obstructive sleep apnea (adult) (pediatric) Category: Medical Plan: Continue to use the CPAP more than 4 hours a night and benefits from the (8) Hypertension: Code(s): I10 - Essential (primary) hypertension Category: Medical Plan: Continue with blood pressure medication. Decrease salt intake and exercise on irbesartan 300 mg once a day hydrochlorothiazide 25 mg once a day (9) Coronary artery disease: Comment: NSTEMI October 2019 stent placement, September 2020 catheterization patent stent. Recent , admission for a mild heart attack, Ac OR ruled out . Code(s): I25.10 - Atherosclerotic heart disease of elim ira coronary artery without angina pectoris Category: Medical Qualifiers: Associated angina: with unstable angina Coronary Disease-Associated Artery/Lesion type: elim ira artery [place] vs. transplanted heart: elim ira heart Qualified Code(s): I25.110 - Atherosclerotic heart disease of elim ira coronary artery with unstable angina pectoris Plan: Control the cholesterol, weight, blood pressure, diabetes on aspirin (10) Hypercholesterolemia: Code(s): E78.00 - Pure hypercholesterolemia, unspecified Category: Medical Plan: Avoid fried foods, chicken skin, eggs, butter margarine, pastries and meat. Be it pork or beef they have a lot of cholesterol takes atorvastatin 80 mg once a day (11) Morbid (severe) obesity due to excess calories: Comment: REMAINS MORBIDLY OBESE. HAS ACTUALLY GAINED MORE WEIGHT. TRYING TO LOSE WEIGHT. HE IS ACTIVE IN THE WEIGHT MANAGEMENT PROGRAM. Code(s): E66.01 - Morbid (severe) obesity due to excess calories Category: Medical Plan: Diet and exercise and weight management (12) Tinea pedis: Code(s): B35.3 - Tinea pedis Category: Medical (13) Impacted cerumen of right ear: Code(s): H61.21 - Impacted cerumen, right ear Category: Medical Plan History of Present Illness The patient is a 64-year-old male presenting for an annual physical examination. He has an extensive medical history including fatty liver disease, managed with lifestyle changes and monitoring of liver function tests, which show mild elevation. His asthma is under control with the use of an inhaler as needed. The patient also reports lumbar degenerative disc disease which impacts his activity levels. He uses a CPAP machine for his obstructive sleep apnea and adheres to his treatment regimen. The patient follows a regular hypertension management plan, and his blood pressure readings show good control. He is also on medications for coronary artery disease and congestive heart failure. His lipid levels are managed on atorvastatin, which has lowered his LDL cholesterol. He is aware of his stage 3 chronic kidney disease and manages it with regular monitoring of renal function. His generalized anxiety disorder is acknowledged but not highlighted as a current concern. The patient presents with mild aortic stenosis which has been stable over time. He reports past episodes of exertional dyspnea and received treatment for gout recently that caused significant swelling in his left foot. Dietary modifications and adherence to treatment have improved his diabetic control, as evidenced by his recent A1c of 6.2. Health Maintenance - Advised regular monitoring of glycemic control with hemoglobin A1c every three months - Regular lipid monitoring with atorvastatin therapy to maintain LDL cholesterol below 70 - Recommends routine eye examinations yearly, especially since the last eye check was several years ago - Encouraged adherence to CPAP usage for obstructive sleep apnea - Advised annual vaccinations such as a tetanus booster, though the patient deferred at this visit - Promotes a low-fat diet and regular exercise as part of weight management program - Suggested adequate hydration to aid in managing gout - Discussed reducing dietary iron intake due to elevated levels found in blood work Social History - Alcohol intake: Rare, approximately once every six months - Tobacco history: Quit smoking, previously smoked for many years - Recreational drug use: Rare and has significantly reduced use after legalization - Nutrition: Following a no-fat diet, details on specific food intake not disclosed - Weight management: Participates in a program to address significant weight issues - Physical activity: Limited by knee and lung issues, affecting overall mobility Review of Systems - Cardiovascular: Denies chest pain - Gastrointestinal: Reports instant heartburn with cold drinks - Musculoskeletal: Denies joint pain except during recent gout episode - Neurological: Denies dizziness or fainting - Respiratory: Denies shortness of breath; uses inhaler as needed Physical Exam General: Cooperative, healthy appearing, comfortable, no acute distress and well developed Orientation: Patient oriented x3 Limitations: Impaired tolerance Head: Normal to inspection Ears: Hearing grossly normal bilaterally, may need cleaning Nose: Normal external nose present Face and sinus: Normal facial exam Eyes: Appearance normal, both eyes and all related structures Neck: Normal visual inspection and Yes full ROM Respiratory: Normal respiratory effort and able to speak in complete sentences. Clear to auscultation bilaterally Cardiovascular: Regular rate and rhythm. Normal S1 and S2 GI: Normal to inspection. Soft to palpation and nontender Skin: No rashes or lesions noted, some fungus in feet Neuro: Patient oriented x3 Extremities: Normal to inspection, some difficulty moving due to weight and lung issues Results - Labs: LDL cholesterol 65, triglycerides 88, stable renal function with creatinine 1.27, mild anemia improving, liver function mildly elevated at ALT 46 - Diabetes screening: Hemoglobin A1c 6.2 - Iron: Elevated at 500 Plan For this visit, I have continued the patient's established treatment regimen for his various chronic conditions. For fatty liver disease, we will continue monitoring liver function tests given the mild elevation of ALT. The hypertensive and cardiac issues will remain managed by irbesartan, hydrochlorothiazide, and aspirin, while atorvastatin will maintain control over lipid levels. Diabetes management continues with a stable A1c noted, but the terzepidide dose may be reevaluated if necessary. The patient's asthma is manageable with an as-needed inhaler and Ventolin, and adherence to CPAP therapy will aid his obstructive sleep apnea. Addressing his recent foot gout, it's crucial to ensure adequate hydration, and for the noted foot fungus, the use of antifungal foot cream is recommended. The referral to ophthalmology is to ensure routine care for diabetes, and we will provide anticipatory guidance on health behaviors related to liver health and weight management. Patient was informed and verbally consented to the use of an ambient scribe for clinic note documentation during this visit. Discussion Notes During today's discussion, I educated the patient on his current health status and the importance of maintaining adherence to his medication and CPAP therapies. We reviewed his labs, which show good control over his blood pressure and cholesterol levels, while identifying areas needing attention, such as elevated liver enzymes due to fatty liver and elevated iron levels. The patient was advised to reduce dietary iron intake and adhere to a no-fat diet to aid his weight management. I emphasized the necessity of sufficient hydration to prevent further gout attacks. We went over the cons and benefits of the planned tetanus vaccination, and since it is not overdue, the patient opted to delay it. I advised the continuation of annual eye examinations, particularly given his diabetes, and informed him about potential dosage adjustments for diabetes medication depending on future A1c levels. Patient Instructions - Continue taking all prescribed medications as discussed. - Adhere to CPAP use nightly for sleep apnea. - Follow a low-fat diet and participate in physical activity as tolerated for weight management. - Reduce dietary iron intake due to elevated levels noted on recent lab tests. - Ensure adequate hydration to manage gout and prevent recurrences. - Schedule an annual eye examination for diabetes monitoring. - Use antifungal cream for foot health, paying special attention between toes. - Discuss the need for a tetanus booster at the next visit. - Monitor blood pressure regularly and seek care if significant changes occur. - Return for follow-up in three months for reevaluation of the current management plan. Orders: Orders AMB Hemoglobin A1c Today E11.65 - Type 2 diabetes mellitus with hyperglycemia Referrals Ophthalmology Referral E11.65 - Type 2 diabetes mellitus with hyperglycemia
[2025-02-10 12:01] VITALS: BP 126/70
== END 2025-02-10 13:32 | disposition home or self-care (01) ==
LOC: HO.HMCH 10:45
PROVIDERS: PCP Internal Medicine; Visit Provider Internal Medicine
DX: Z00.00 Encounter for general adult medical examination without abnormal findings (principal); E11.65 Type 2 diabetes mellitus with hyperglycemia; I25.110 Atherosclerotic heart disease of native coronary artery with unstable angina pectoris; E66.01 Morbid (severe) obesity due to excess calories; Z68.42 Body mass index [BMI] 45.0-49.9, adult; I35.0 Nonrheumatic aortic (valve) stenosis; R73.01 Impaired fasting glucose; J45.909 Unspecified asthma, uncomplicated; K76.0 Fatty (change of) liver, not elsewhere classified; G47.33 Obstructive sleep apnea (adult) (pediatric); I10 Essential (primary) hypertension; E78.00 Pure hypercholesterolemia, unspecified

== ENCOUNTER → 2025-02-10 10:45 | Outpatient (BNVA) | payer MEDICARE, SELFPAY | PROVIDERS: PCP Internal Medicine; Visit Provider Internal Medicine | DX: Z00.00 Encounter for general adult medical examination without abnormal findings (principal); E11.65 Type 2 diabetes mellitus with hyperglycemia; I35.0 Nonrheumatic aortic (valve) stenosis; J45.909 Unspecified asthma, uncomplicated; K76.0 Fatty (change of) liver, not elsewhere classified; G47.33 Obstructive sleep apnea (adult) (pediatric); I10 Essential (primary) hypertension; I25.110 Atherosclerotic heart disease of native coronary artery with unstable angina pectoris; E78.00 Pure hypercholesterolemia, unspecified; B35.3 Tinea pedis; H61.21 Impacted cerumen, right ear; E66.01 Morbid (severe) obesity due to excess calories | CPT/HCPCS: 83036; 99397 ==

== ENCOUNTER 2025-03-08 10:49 | Outpatient (AMB) | payer MEDICARE, SELFPAY ==
[2025-03-08 11:01] VITALS: BP 128/70; PULSE 64; O2SAT 95; BMI 48.7
--- NOTE | 2025-03-08 11:01 | A.OFFVIS_ITS ---
Vital Signs 03/08/25 11:01 Height 5 ft 11 in Weight 349 lb 6.923 oz BMI 48.7 BP 128/70 Blood Pressure Location Rt brachial Position Sitting Pulse 64 Pulse Source Pulse Oximeter Pulse Oximetry (%) 95 Oxygen Delivery Method Room Air Intake Visit Reasons: COPD Allergies pneumococcal vaccine [From Pneumovax-] Adverse Reaction (Intermediate, Verified 03/08/25 11:15) sick Medication List - Last Reconciled 03/08/25 by Zaira Figueroa MD aspirin 81 mg PO DAILY atorvastatin 80 mg PO DAILY 90 days Breo Ellipta 100-25 mcg/dose (fluticasone furoate-vilanterol) 1 ea PO DAILY NS folic acid 1 mg PO DAILY hydrochlorothiazide 25 mg PO DAILY 90 days irbesartan 300 mg PO QAM 90 days loratadine 10 mg PO DAILY PRN multivitamin 1 tab PO DAILY tirzepatide (weight loss) (Zepbound) 5 mg (0.5 mL) subcut QWEEK tirzepatide (weight loss) (Zepbound) 2.5 mg (0.5 mL) subcut QWEEK Ventolin HFA 90 mcg/actuation (albuterol sulfate) 2 puffs inhalation Q4-6H PRN NS Do you need a note to return to daycare/school/sports/work: No HPI HPI COPD: Details: This 64 years old gentleman with morbid obesity and obstructive sleep apnea is here for follow-up after 4 months. He uses CPAP very regularly every night and sleeps good. Lately having some problem in getting the supplies. His strap is worn out and he has difficulty in keeping the mask on his face. Also has mild bronchial asthma which is fairly well controlled with use of Breo Ellipta 100-25 once a day. He does have Ventolin on hand but hardly needs to use it. As far as weight is concerned he has been started on tirzepatide injections and recently has lost about 7 lb of weight. [facility] Medical History Asthma exacerbation Prediabetes Obesity Dyspnea on exertion Vapes nicotine containing substance Nocturnal hypoxemia due to obesity Lumbar spondylosis Asthma Brittle asthma Allergic rhinitis Nocturnal hypoxemia Opioid-induced hyperalgesia COVID-19 Osteoarthritis of knees, bilateral Morbid (severe) obesity due to excess calories Spinal stenosis Ferrer's palsy Diverticular disease History of substance abuse Restrictive lung disease NSTEMI (non-ST elevated myocardial infarction) History of CVA (cerebrovascular accident) History of Ferrer's palsy Carpal tunnel syndrome Degenerative disc disease, cervical Hypercholesterolemia Congestive heart failure Coronary artery disease Hypertension Obstructive sleep apnea Lumbar degenerative disc disease Asthma Fatty liver Surgical History Stented coronary artery Back pain with history of spinal surgery History of umbilical hernia repair History of arthroscopy of right knee History of left knee surgery Family History Father Myocardial infarction Mother Diabetes Hypertension Sister Past heart attack Cancer Brother Afib S/P triple vessel bypass Social History Housing: Apartment Alcohol intake: current Alcohol intake frequency: holidays/special occasions only Comment: once Q 6 months 2 - 3 drinkls Patient Tobacco Use Status: Former Tobacco user Tobacco use type: Cigarette Years Smoked: 1989, joints smoking e-Cigarette/Vaping Use: Currently Using Second Hand Smoke Exposure: No Substance Use Type: Marijuana Advance Directives Date on File: 11/14/20 service: No Current occupational status: retired and disabled 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 Cognitive needs: No Hearing needs: No Vision needs: No Review of Systems Const All systems reviewed & are unremarkable except as noted in HPI and below Eyes Reports no additional complaints ENT Reports no additional complaints Card Denies irregular heart rhythm, Denies leg edema and Reports dyspnea on exertion Resp Reports as per HPI and Reports dyspnea on exertion GI Denies no additional complaints Reports no additional complaints Musc Reports back pain and Reports arthralgias (Knees) Skin/Breast Reports system reviewed and no additional complaints, except as documented Neuro Reports no additional complaints Psych Reports no additional complaints Physical Exam Vital Signs: Last Vital Signs Pulse 64 03/08/25 11:01 BP 128/70 03/08/25 11:01 Pulse Ox 95 03/08/25 11:01 Oxygen Delivery Method Room Air 03/08/25 11:01 BMI result Body Mass Index 48.7 Const Other: He is grossly obese. General: comfortable, no acute distress, alert and awake Orientation/consciousness: patient oriented x3 HEENT Head: Yes normal to inspection General nose exam: No nasal polyps present and No nasal discharge present Face and sinus: Yes sinuses nontender Mouth: oropharynx normal Throat: Yes posterior oropharynx normal Eyes General: appearance normal, both eyes and all related structures Neck Neck: Yes normal visual inspection, Yes no lymphadenopathy, Yes trachea midline and Yes no JVD Thyroid: Thyroid normal Chest Chest palpation & inspection: normal inspection of the chest, normal palpation of entire chest wall and no tenderness Resp Other: Breath sounds are diminished over the lower lobe areas. He has no audible wheezes rhonchi or crepitations. Cardio Palpation: PMI not normal (Not palpable) Rate: regular rate Rhythm: regular rhythm Heart sounds: no gallops and no murmurs Peripheral pulses: Peripheral pulses 2+ throughout GI Palpation (GI): Soft to palpation, nontender, No hepatosplenomegaly present, no masses and Other GI palpation findings present (Abdomen is obese and protuberant) Auscultation: normal bowel sounds Back/Spine/Pelvis Thoracic/Lumbar Spine: thoracic and lumbar spine normal to inspection and thoraco-lumbar ROM limited Skin General skin exam: no rashes or lesions noted Neuro General: patient oriented x3 and no focal motor deficits Cranial nerves: Yes CN's II-XII intact bilaterally Extrem General: Yes normal to inspection, Yes no clubbing, cyanosis or edema and Yes no calf tenderness Psych Appearance: grossly normal and well kempt Speech and movement: Normal speech and movement present Results Reviewed Results Reviewed: Compliance report for the last 30 nights reviewed. He used 30/30 nights., 100% Average use it per night 6 hours 16 minute. There is slight air leak. Residual AHI 1.3 Assessment & Plan Assessment & Plan (1) Asthma: Comment: Patient has mild obstructive airway disorder with good response to bronchodilators. Breathing status remains stable but he claims to get short of breath on minimal exertion. Code(s): J45.909 - Unspecified asthma, uncomplicated Category: Medical Plan: Continue using Breo Ellipta 100-251 inhalation daily. Ventolin HFA 2 puffs Q 6 hours p.r.n.. (2) Morbid (severe) obesity due to excess calories: Comment: REMAINS MORBIDLY OBESE.TRYING TO LOSE WEIGHT. LATELY HAS BEEN STARTED ON TIRZEPATIDE INJECTION, AND HAS LOST ABOUT 7 LB OF WEIGHT. Code(s): E66.01 - Morbid (severe) obesity due to excess calories Category: Medical Plan: ADVISED TO CONTINUE WATCHING THE DIET, TRY TO WALK DAILY, CONTINUE ON TIRZEPATIDE INJECTION (3) Obstructive sleep apnea: Comment: He has confirmed diagnosis of obstructive sleep apnea, since June 2017 . Has been using CPAP regularly. Compliance is excellent . Code(s): G47.33 - Obstructive sleep apnea (adult) (pediatric) Category: Medical Plan: COMMENDED FOR GOOD COMPLIANCE AND ADVISED TO KEEP ON USING THE CPAP REGULARLY EVERY NIGHT. (4) Restrictive lung disease: Comment: Restriction is mainly because of his gross obesity. He is made fully aware of this Has to loose weight ,, and do deep Breathing exercises daily Code(s): J98.4 - Other disorders of lung Category: Medical Plan: CONTINUE TO LOSE WEIGHT. DO DEEP BREATHING EXERCISES AT LEAST 3 TIMES A DAY (5) Nocturnal hypoxemia due to obesity: Comment: Has nocturnal hypoxemia along with LISA, secondary to hypoventilation. He is advised to use O2 2 L/minute along with CPAP every night. Code(s): E66.9 - Obesity, unspecified; G47.36 - Sleep related hypoventilation in conditions classified elsewhere Category: Medical Plan: O2 2 L/MINUTE ALONG WITH CPAP AT NIGHT Coding Level of Care Code Est Pt Level 3 (95494) Diagnoses Asthma J45.909 Morbid (severe) obesity due to excess calories E66.01 Obstructive sleep apnea G47.33 Restrictive lung disease J98.4 Nocturnal hypoxemia due to obesity E66.9; G47.36
== END 2025-03-08 11:23 | disposition home or self-care (01) ==
LOC: HO.HPS 10:50
PROVIDERS: PCP Internal Medicine; Visit Provider Internal Medicine
DX: J45.909 Unspecified asthma, uncomplicated (principal); E66.01 Morbid (severe) obesity due to excess calories; G47.33 Obstructive sleep apnea (adult) (pediatric); J98.4 Other disorders of lung; E66.9 Obesity, unspecified; G47.36 Sleep related hypoventilation in conditions classified elsewhere
CPT/HCPCS: 99213

== ENCOUNTER → 2025-03-08 10:49 | Outpatient (BNVA) | payer MEDICARE, SELFPAY | PROVIDERS: PCP Internal Medicine; Visit Provider Internal Medicine | DX: J45.909 Unspecified asthma, uncomplicated (principal); J98.4 Other disorders of lung; E66.01 Morbid (severe) obesity due to excess calories; G47.33 Obstructive sleep apnea (adult) (pediatric); G47.36 Sleep related hypoventilation in conditions classified elsewhere; Z99.81 Dependence on supplemental oxygen; Z99.89 Dependence on other enabling machines and devices; Z68.42 Body mass index [BMI] 45.0-49.9, adult | CPT/HCPCS: 99212 ==

== ENCOUNTER 2025-07-04 09:51 | Outpatient (AMB) | payer MEDICARE, SELFPAY ==
[2025-07-04 10:01] VITALS: BP 120/70; PULSE 74; O2SAT 96; BMI 45.2
--- NOTE | 2025-07-04 10:01 | MHC.OFFVIS ---
Vital Signs 07/04/25 10:01 Height 5 ft 11 in Weight 324 lb BMI 45.2 BP 120/70 Blood Pressure Location Lt brachial Position Sitting Pulse 74 Pulse Source Pulse Oximeter Pulse Oximetry (%) 96 Oxygen Delivery Method Room Air Intake Visit Reasons: COPD Intake Note: pt is here for follow up and states he is feeling good down from 356, cpap is going well, needs supplies. Order Selector Required: No Allergies pneumococcal vaccine (From Pneumovax-23) Adverse Reaction (Intermediate, Verified 07/04/25 10:19) sick Medication List - Last Reconciled 07/04/25 by Zaira Figueroa MD aspirin 81 mg PO DAILY atorvastatin 80 mg PO DAILY 90 days Breo Ellipta 100-25 mcg/dose (fluticasone furoate-vilanterol) 1 ea PO DAILY NS folic acid 1 mg PO DAILY hydrochlorothiazide 25 mg PO DAILY 90 days irbesartan 300 mg PO QAM 90 days loratadine 10 mg PO DAILY PRN multivitamin 1 tab PO DAILY tirzepatide (weight loss) (Zepbound) 5 mg (0.5 mL) subcut QWEEK tirzepatide (weight loss) (Zepbound) 7.5 mg (0.5 mL) subcut QWEEK tirzepatide (weight loss) (Zepbound) 12.5 mg (0.5 mL) subcut QWEEK tirzepatide (weight loss) (Zepbound) 2.5 mg (0.5 mL) subcut QWEEK tirzepatide (weight loss) (Zepbound) 15 mg (0.5 mL) subcut QWEEK Ventolin HFA 90 mcg/actuation (albuterol sulfate) 2 puffs inhalation Q4-6H PRN NS Do you need a note to return to daycare/school/sports/work: No HPI HPI COPD: Details: 65 YEARS OLD VERY PLEASANT GENTLEMAN WHO IS MORBIDLY OBESE, AND IS BEING FOLLOWED FOR SLEEP APNEA WELL MILD CHRONIC OBSTRUCTIVE PULMONARY DISEASE. HE IS DOING VERY WELL AND IS QUITE EXCITED ABOUT HAVING LOST ABOUT 32 LB SINCE LAST VISIT 6 MONTHS AGO. HE IS ON TIRZEPATIDE INJECTIONS. WATCHES HIS DIET AND REMAINS PHYSICALLY ACTIVE. 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 ALSO PROVIDES TRANSPORT TO [facility] FOR GOING TO THE MEDICAL OFFICE, ESPECIALLY EYE EXAMS. BREATHING HAS REMAINED VERY STABLE WITHOUT ANY ACUTE EXACERBATION. [facility] Medical History Asthma exacerbation Prediabetes Obesity Dyspnea on exertion Vapes nicotine containing substance Nocturnal hypoxemia due to obesity Lumbar spondylosis Asthma Brittle asthma Allergic rhinitis Nocturnal hypoxemia Opioid-induced hyperalgesia COVID-19 Osteoarthritis of knees, bilateral Morbid (severe) obesity due to excess calories Spinal stenosis Ferrer's palsy Diverticular disease History of substance abuse Restrictive lung disease NSTEMI (non-ST elevated myocardial infarction) History of CVA (cerebrovascular accident) History of Ferrer's palsy Carpal tunnel syndrome Degenerative disc disease, cervical Hypercholesterolemia Congestive heart failure Coronary artery disease Hypertension Obstructive sleep apnea Lumbar degenerative disc disease Asthma Fatty liver Surgical History History of colonoscopy (~05/14/18) Stented coronary artery Back pain with history of spinal surgery History of umbilical hernia repair History of arthroscopy of right knee History of left knee surgery Family History Father Myocardial infarction Mother Diabetes Hypertension Sister Past heart attack Cancer Brother Afib S/P triple vessel bypass Social History Housing: Apartment Alcohol intake: current Alcohol intake frequency: holidays/special occasions only Comment: once Q 6 months 2 - 3 drinkls Patient Tobacco Use Status: Former Tobacco user Tobacco use type: Cigarette Years Smoked: 1989, occ joints smoking e-Cigarette/Vaping Use: Currently Using Second Hand Smoke Exposure: No Substance Use Type: Marijuana Advance Directives Date on File: 11/14/20 service: No Current occupational status: retired and disabled 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 Cognitive needs: No Hearing needs: No Vision needs: No Review of Systems Const All systems reviewed & are unremarkable except as noted in HPI and below Eyes Reports no additional complaints ENT Reports no additional complaints Card Denies irregular heart rhythm, Denies leg edema and Reports dyspnea on exertion Resp Reports as per HPI and Reports dyspnea on exertion GI Denies no additional complaints Reports no additional complaints Musc Reports back pain and Reports arthralgias (Knees) Skin/Breast Reports system reviewed and no additional complaints, except as documented Neuro Reports no additional complaints Psych Reports no additional complaints Physical Exam Vital Signs: Last Vital Signs Pulse 74 07/04/25 10:01 BP 120/70 07/04/25 10:01 Pulse Ox 96 07/04/25 10:01 Oxygen Delivery Method Room Air 07/04/25 10:01 BMI result Body Mass Index 45.2 Const Other: He is grossly obese. General: comfortable, no acute distress, alert and awake Orientation/consciousness: patient oriented x3 HEENT Head: Yes normal to inspection General nose exam: No nasal polyps present and No nasal discharge present Face and sinus: Yes sinuses nontender Mouth: oropharynx normal Throat: Yes posterior oropharynx normal Eyes General: appearance normal, both eyes and all related structures Neck Neck: Yes normal visual inspection, Yes no lymphadenopathy, Yes trachea midline and Yes no JVD Thyroid: Thyroid normal Chest Chest palpation & inspection: normal inspection of the chest, normal palpation of entire chest wall and no tenderness Resp Other: Breath sounds are diminished over the lower lobe areas. He has no audible wheezes rhonchi or crepitations. Cardio Palpation: PMI not normal (Not palpable) Rate: regular rate Rhythm: regular rhythm Heart sounds: no gallops and no murmurs Peripheral pulses: Peripheral pulses 2+ throughout GI Palpation (GI): Soft to palpation, nontender, No hepatosplenomegaly present, no masses and Other GI palpation findings present (Abdomen is obese and protuberant) Auscultation: normal bowel sounds Back/Spine/Pelvis Thoracic/Lumbar Spine: thoracic and lumbar spine normal to inspection and thoraco-lumbar ROM limited Skin General skin exam: no rashes or lesions noted Neuro General: patient oriented x3 and no focal motor deficits Cranial nerves: Yes CN's II-XII intact bilaterally Extrem General: Yes normal to inspection, Yes no clubbing, cyanosis or edema and Yes no calf tenderness Psych Appearance: grossly normal and well kempt Speech and movement: Normal speech and movement present Results Reviewed Results Reviewed: COMPLIANCE REPORT FOR THE LAST 30 DAYS REVIEWED AND HE HAS USED 30/30 NIGHTS, 100%, AVERAGE USE IT PER NIGHT 6 HOURS 25 MINUTES. THERE IS A SLIGHT AIR LEAK WHICH HE SAY IS HE CAN NOT STOP COMPLETELY. RESIDUAL AHI ONLY 1.0 Assessment & Plan Assessment & Plan (1) Morbid (severe) obesity due to excess calories: Comment: REMAINS MORBIDLY OBESE.TRYING TO LOSE WEIGHT. CURRENTLY HE IS ON TIRZEPATIDE INJECTIONS, AND HAS LOST SIGNIFICANT WEIGHT. Code(s): E66.01 - Morbid (severe) obesity due to excess calories Category: Medical Plan: COMMENDED FOR LOSING WEIGHT AND ADVISED TO CONTINUE ON TIRZEPATIDE INJECTIONS WELL ON DIET AND EXERCISE PROGRAM. (2) Asthma: Comment: Has mild intermittent bronchial asthma, which is relatively well controlled at present. Code(s): J45.909 - Unspecified asthma, uncomplicated Category: Medical Plan: Tx: Breo 100-25 1 inhalation daily ProAir 2 puffs Q 4-6 hours p.r.n.. (3) Nocturnal hypoxemia due to obesity: Comment: Has nocturnal hypoxemia along with LISA, secondary to hypoventilation. Code(s): E66.9 - Obesity, unspecified; G47.36 - Sleep related hypoventilation in conditions classified elsewhere Category: Medical Plan: He is advised to use O2 2 L/minute along with CPAP every night. (4) Restrictive lung disease: Comment: Restriction is mainly because of his gross obesity. He is made fully aware of this Has to loose weight ,, and do deep Breathing exercises daily Code(s): J98.4 - Other disorders of lung Category: Medical Plan: ENCOURAGED TO KEEP ON DOING DEEP BREATHING EXERCISES 2 OR 3 TIMES A DAY (5) Obstructive sleep apnea: Comment: He has confirmed diagnosis of obstructive sleep apnea, since June 2017 . Has been using CPAP regularly. Compliance is excellent . He continues to benefit from the use of CPAP. He continues to have mild air leak because the mask slips of little bit during the night. However it is not affecting his compliance. Code(s): G47.33 - Obstructive sleep apnea (adult) (pediatric) Category: Medical Plan: Commended for good compliance and advised to continue using the CPAP every night. Coding Level of Care Code Est Pt Level 3 (49926) Diagnoses Morbid (severe) obesity due to excess calories E66.01 Asthma J45.909 Nocturnal hypoxemia due to obesity E66.9; G47.36 Restrictive lung disease J98.4 Obstructive sleep apnea G47.33
--- OUTSIDE RECORDS SUMMARY | 2025-07-04 10:59 | XMS_ITS | Patient Health Record ---
Author Organization [facility] Address [address] [place] [id number] Care Team Providers Care Facility Administrator Name Role Phone Catherine Diehl MD Primary Care Provider Jose Monreal Jr Unavailable [phone] Reason For Referral No Information Medications Medication SIG (Take, Route, Frequency, Duration) Notes Start Date End Date Status Colyte with Flavor Packs 240 GM As direc shelley Orally Over the specified time. for 1 day(s) Active hydroCHLOROthiazide 25 MG Oral for 30 Active Irbesartan 300 MG Oral for 30 Active Vitamin D (Ergocalciferol) 55146 UNIT Oral for 28 Active Social History Tobacco Use: Social History Observation Description Date Details (start date - stop date) Former Smoker NA - NA Tobacco Use/Smoking Question Answer Notes Patient is a former smoker How long has it been since you last smoked? > 10 years Alcohol Screen Question Answer Notes Did you have a drink contain ing alcohol in the past year? Yes How often did you have a dri nk containing alcohol in the past year? Monthly or less (1 point) How many drinks did you have on a typical day when you were drinking in the past year? 1 or 2 drinks (0 point) How often did you have 6 or more drinks on one occasion in the past year? Never (0 point) Points 1 Interpretation Negative Problems Problem Type SNOMED Code ICD Code Onset Dates Problem Status W/U Status Risk Notes Problem 941991304 Colon cancer screening (Z12.11) Active confirmed Problem 685663187 Long-term curren t use of high risk medication other than anticoagulant (Z79.899) Active confirmed Plan Of Treatment Future Test Test Name Order Date COLONOSCOPY 02/10/2018 Insurance Providers Payer Name Payer Address Payer Phone Subscriber Number Group Number Insured Name Patient Relationship to Insured Coverage Start Date Coverage End Date [facility] [address] [address] [place], [place] [id number] JESÚS PETERSON Self - patient is the insured MEDICAID OF [facility] [address] [place] [address] [id number] JESÚS PETERSON Self - patient is the insured Medical (General) History Medical History History ICD Code hypertension arthritis obstructive sleep apnea disc disease diverticular disease colon polyps morbid obesity umbilical hernia Surgical History Surgery Date(Month/Year) back surgery
== END 2025-07-04 10:22 | disposition home or self-care (01) ==
LOC: HO.HPS 09:51
PROVIDERS: PCP Internal Medicine; Visit Provider Internal Medicine
DX: E66.01 Morbid (severe) obesity due to excess calories (principal); J45.909 Unspecified asthma, uncomplicated; E66.9 Obesity, unspecified; G47.36 Sleep related hypoventilation in conditions classified elsewhere; J98.4 Other disorders of lung; G47.33 Obstructive sleep apnea (adult) (pediatric)
CPT/HCPCS: 99213

== ENCOUNTER → 2025-07-04 09:51 | Outpatient (BNVA) | payer MEDICARE, SELFPAY | PROVIDERS: PCP Internal Medicine; Visit Provider Internal Medicine | DX: J45.909 Unspecified asthma, uncomplicated (principal); J98.4 Other disorders of lung; G47.33 Obstructive sleep apnea (adult) (pediatric); G47.36 Sleep related hypoventilation in conditions classified elsewhere; Z99.89 Dependence on other enabling machines and devices; E66.01 Morbid (severe) obesity due to excess calories; Z68.42 Body mass index [BMI] 45.0-49.9, adult; Z87.891 Personal history of nicotine dependence | CPT/HCPCS: 99212 ==

== ENCOUNTER 2025-07-18 07:43 | Outpatient (REF) | payer MEDICARE, SELFPAY ==
--- OUTSIDE RECORDS SUMMARY | 2025-07-18 07:46 | XMS_ITS | Patient Health Record ---
Author Organization [facility] Address [address] [place] [id number] Care Team Providers Care Shake Out Worker Name Role Phone Catherine Diehl MD Primary Care Provider Jose Monreal Jr Unavailable [phone] Reason For Referral No Information Medications Medication SIG (Take, Route, Frequency, Duration) Notes Start Date End Date Status Colyte with Flavor Packs 240 GM As direc shelley Orally Over the specified time. for 1 day(s) Active hydroCHLOROthiazide 25 MG Oral for 30 Active Irbesartan 300 MG Oral for 30 Active Vitamin D (Ergocalciferol) 97634 UNIT Oral for 28 Active Social History [...] Problem Status W/U Status Risk Notes Problem 963093949 Colon cancer screening (Z12.11) Active confirmed Problem 737148240 Long-term curren t use of high risk medication other than anticoagulant (Z79.899) Active confirmed Plan Of Treatment Future Test Test Name Order Date COLONOSCOPY 02/10/2018 Insurance Providers Payer Name Payer Address Payer Phone Subscriber Number Group Number Insured Name Patient Relationship to Insured Coverage Start Date Coverage End Date [facility] [address] [address] [place], [place] [id number] JESÚS PETERSON Self - patient is the insured MEDICAID OF [facility] [address] [place] [address] [id number] JESÚS PETERSON Self - patient is the insured Medical (General) History Medical History History ICD Code hypertension arthritis obstructive sleep apnea disc disease diverticular disease colon polyps morbid obesity umbilical hernia Surgical History Surgery Date(Month/Year) back surgery
[2025-07-18 08:14] LABS: MANUAL DIFF FLAG NO
[2025-07-18 08:46] LABS: Hematocrit 39.8 % (42.0-52.0); Hemoglobin 13.5 g/dl (14.0-18.0); Imm Gran Abs Auto 0.03 X10*3/uL (0.00-0.03); Imm Gran Pct Auto 0.4 % (0.0-0.4); Lymphocytes Absolute Auto 2.1 X10*3/uL (1.2-4.9); Mean Corpuscular HGB Conc 33.9 g/dl (31.0-36.0); Mean Corpuscular Hemoglobin 30.3 pg (27.0-33.0); Mean Corpuscular Volume 89.4 fL (80.0-98.0); NRBC Abs Auto 0.000 X10*3/uL (0.0-0.012); NRBC Pct Auto 0.0 /100WBC (0.0-0.2); Platelet Count 197 X10*3/uL (160-400); Red Blood Count 4.45 X10*6/uL (4.60-5.80); Reticulocytes Absolute 0.047 X10*6/uL (0.026-0.095); White Blood Count 7.0 X10*3/uL (4.8-10.8)
[2025-07-18 08:53] LABS: Total Hemoglobin (HGBA1C) 3483.2078 umol/L
[2025-07-18 09:39] LABS: Alanine Aminotransferase 37 U/L (0-40); Albumin Level 4.3 g/dL (3.5-5.0); Alkaline Phosphatase 86 U/L (39-117); Anion Gap 9 (12-20); Aspartate Amino Transferase 22 U/L (5-37); Blood Urea Nitrogen 21 mg/dL (9-16); Calcium 9.1 mg/dL (8.4-10.2); Carbon Dioxide 30 mmol/L (22-29); Chloride 102 mmol/L (96-108); Cholesterol 136 mg/dL (<200); Estimated Glomerular Filt Rate 44; HDL Cholesterol 30 mg/dL (>40); Iron 63 mcg/dL (45-160); Magnesium 2.0 mg/dL (1.6-2.6); Percent Iron Saturation 25 % (15-50); Potassium 4.3 mmol/L (3.3-5.1); Sodium 137 mmol/L (135-145); Total Iron Binding Capacity 248 mcg/dL (228-428); Total Protein 6.9 g/dL (6.5-8.0); Triglycerides 193 mg/dL (<150); Unsaturated Iron Binding 185 ug/dL
[2025-07-18 09:48] LABS: Ferritin 326 ng/mL (20-250); Free T4 (Free Thyroxine) 0.88 ng/dL (0.71-1.85); Thyroid Stimulating Hormone 2.02 uIU/mL (0.32-4.0)
[2025-07-18 09:52] LABS: Folate 11.0 ng/mL (> or = 4.0); Vitamin B12 303 pg/mL (200-900)
== END 2025-07-18 07:44 | disposition home or self-care (01) ==
LOC: HO.LAB 07:43
PROVIDERS: PCP Internal Medicine; Visit Provider Internal Medicine
DX: Z12.5 Encounter for screening for malignant neoplasm of prostate (principal); Z23 Encounter for immunization; E11.65 Type 2 diabetes mellitus with hyperglycemia; E78.00 Pure hypercholesterolemia, unspecified; R30.0 Dysuria; G47.33 Obstructive sleep apnea (adult) (pediatric); J45.909 Unspecified asthma, uncomplicated; E11.22 Type 2 diabetes mellitus with diabetic chronic kidney disease; I12.9 Hypertensive chronic kidney disease with stage 1 through stage 4 chronic kidney disease, or unspecified chronic kidney disease; N18.30 Chronic kidney disease, stage 3 unspecified; K76.0 Fatty (change of) liver, not elsewhere classified; E66.01 Morbid (severe) obesity due to excess calories; I25.110 Atherosclerotic heart disease of native coronary artery with unstable angina pectoris; F41.1 Generalized anxiety disorder; M17.0 Bilateral primary osteoarthritis of knee; Z79.82 Long term (current) use of aspirin; Z79.899 Other long term (current) drug therapy; Z68.41 Body mass index [BMI] 40.0-44.9, adult
CPT/HCPCS: 36415; 80053; 80061; 82607; 82728; 82746; 83036; 83540; 83735; 84153; 84439; 84443; 85025; 85045; 90471; 90714; 99212

== ENCOUNTER 2025-07-18 12:59 | Outpatient (AMB) | payer MEDICARE, SELFPAY ==
[2025-07-18 13:04] VITALS: BP 130/62; PULSE 68; O2SAT 97; BMI 44.3
--- NOTE | 2025-07-18 13:04 | MHC.PC.OV ---
Vital Signs 07/18/25 13:04 Height 5 ft 11 in Weight 318 lb BMI 44.3 BP 130/62 Blood Pressure Location Lt brachial Position Sitting Pulse 68 Pulse Source Pulse Oximeter Pulse Oximetry (%) 97 Oxygen Delivery Method Room Air Intake Visit Reasons: DM, morbid obesity - see comments Allergies pneumococcal vaccine (From Pneumovax-23) Adverse Reaction (Intermediate, Verified 07/18/25 13:04) sick Medication List - Last Reconciled 07/18/25 by Catherine Diehl MD aspirin 81 mg PO DAILY atorvastatin 80 mg PO DAILY 90 days Breo Ellipta 100-25 mcg/dose (fluticasone furoate-vilanterol) 1 ea PO DAILY NS folic acid 1 mg PO DAILY hydrochlorothiazide 25 mg PO DAILY 90 days irbesartan 300 mg PO QAM 90 days loratadine 10 mg PO DAILY PRN multivitamin 1 tab PO DAILY tirzepatide (weight loss) (Zepbound) 12.5 mg (0.5 mL) subcut QWEEK tirzepatide (weight loss) (Zepbound) 15 mg (0.5 mL) subcut QWEEK Ventolin HFA 90 mcg/actuation (albuterol sulfate) 2 puffs inhalation Q4-6H PRN NS Tobacco use date assessed: 07/18/25 Fall risk assessment: No Falls in past year Last assessed Fall Risk: 07/18/25 Dental Screening Dental Screen Date: 07/18/25 Did you have a dental visit in the last 12 months?: No Did you have a dental problem in the last 6 months where you did not have access to dental care?: No Was dental information given to patient?: Patient has dentist [facility] Medical History (Updated 07/18/25 @ 13:26 by Catherine Diehl MD) Impaired fasting blood sugar Brittle asthma Asthma exacerbation Prediabetes Obesity Dyspnea on exertion Vapes nicotine containing substance Nocturnal hypoxemia due to obesity Lumbar spondylosis Asthma Allergic rhinitis Nocturnal hypoxemia Opioid-induced hyperalgesia COVID-19 Osteoarthritis of knees, bilateral Morbid (severe) obesity due to excess calories Spinal stenosis Ferrer's palsy Diverticular disease History of substance abuse Restrictive lung disease NSTEMI (non-ST elevated myocardial infarction) History of CVA (cerebrovascular accident) History of Ferrer's palsy Carpal tunnel syndrome Degenerative disc disease, cervical Hypercholesterolemia Congestive heart failure Coronary artery disease Hypertension Obstructive sleep apnea Lumbar degenerative disc disease Asthma Fatty liver Surgical History History of colonoscopy (~05/14/18) Stented coronary artery Back pain with history of spinal surgery History of umbilical hernia repair History of arthroscopy of right knee History of left knee surgery Family History Father Myocardial infarction Mother Diabetes Hypertension Sister Past heart attack Cancer Brother Afib S/P triple vessel bypass Social History Housing: Apartment Alcohol intake: current Alcohol intake frequency: holidays/special occasions only Comment: once Q 6 months 2 - 3 drinkls Patient Tobacco Use Status: Former Tobacco user Tobacco use type: Cigarette Years Smoked: 1989, occ joints smoking e-Cigarette/Vaping Use: Currently Using Second Hand Smoke Exposure: No Substance Use Type: Marijuana Advance Directives Date on File: 11/14/20 service: No Current occupational status: retired and disabled 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 1. Little interest or pleasure in doing things: more than half the days 2. Feeling down, depressed, or hopeless: more than half the days 3. Trouble falling or staying asleep, or sleeping too much: several days 4. Feeling tired or having little energy: several days 5. Poor appetite or overeating: nearly every day 6. Feeling bad about yourself - or that you are a failure or have let yourself or your family down: not at all 7. Trouble concentrating on things, such as reading the newspaper or watching television: not at all 8. Moving or speaking so slowly that other people could have noticed. Or the opposite - being so fidgety or restless that you have been moving around a lot more than usual: not at all 9. Thoughts that you would be better off or of hurting yourself in some way: not at all Total score: 9 Depression Screening Interpretation: Positive Depression Screening Done: Yes Source: Developed by Drs. Jacky Sosa, Eric Cabrera and colleagues, with an educational riley from [employer]. Thrive Questionnaire Date Thrive assessed: 12/22/24 AUDIT C Alcohol Use Questionnaire (AUDIT-C) 1. How often do you have a drink containing alcohol?: Monthly or less 2. How many drinks containing alcohol do you have on a typical day when you are drinking?: 1 or 2 3. How often do you have six or more drinks on one occasion?: Never Total Score: 1 Score Reviewed/Action Taken: No JESSE-7 AMB Questionnaire JESSE-7 Date JESSE - 7 assessed: 12/22/24 Source: Developed by Drs. Jacky Sosa, Eric Cabrera and colleagues, with an educational riley from [employer]. Physical exam (Primary Care) Vital Signs: Last Vital Signs Pulse 68 07/18/25 13:04 BP 130/62 07/18/25 13:04 Pulse Ox 97 07/18/25 13:04 Oxygen Delivery Method Room Air 07/18/25 13:04 BMI result Body Mass Index 44.3 Tobacco/Smoking Status: Tobacco use Status Tobacco use date assessed 07/18/25 07/18/25 13:05 Patient Tobacco Use Status Former Tobacco user 07/18/25 13:05 Tobacco use type Cigarette 07/18/25 13:05 e-Cigarette/Vaping Use Currently Using 07/18/25 13:05 PHQ-9: PHQ-9 Score PHQ-9: Total score 9 07/18/25 13:44 Depression Screening Interpretation: Positive Thrive Assessment: Date of Thrive Assessment Date Thrive assessed 12/22/24 07/18/25 13:05 Const General: alert; No acute distress Eyes Conjunctivae: conjunctivae normal Resp Auscultation: clear to auscultation bilaterally Cardio Rate: regular rate Rhythm: regular rhythm GI Inspection: Yes normal to inspection Extrem General: Yes normal to inspection and No edema Immunizations Tenivac (PF) 5 Lf unit-2 Lf unit/0.5 mL intramuscular suspension Performing Provider: Catherine Diehl MD [place] [facility] [place] [facility] Administered by: Millie Mcdowell CMA on 07/18/25 13:44 Dose Route Admin Location Dispensed Lot Number Expiration Date [facility] Composing Room Supervisor 0.5 mL IM Left Deltoid 0.5 mL [id number] 02/14/27 62045-990-63 [employer] Total Dispensed Waste 0.5 mL 0 % VIS Given Date VIS Provided VIS Publication Date 07/18/25 Single Vaccine 21 Eligibility Eligibility Date Funding Source Not [facility] Eligible 07/18/25 Private Coding Level of Care Code Est Pt Level 4 (88097) Complex EM visit Add On G2211 Diagnoses Obstructive sleep apnea G47.33 Asthma J45.909 Stage 3 chronic kidney disease, unspecified whether stage 3a or 3b CKD N18.30 Chronic kidney disease stage 3 subtype: unspecified whether 3a or 3b Fatty liver K76.0 Morbid (severe) obesity due to excess calories E66.01 Type 2 diabetes mellitus with hyperglycemia E11.65 Hypercholesterolemia E78.00 Coronary artery disease involving [place] coronary artery of [place] heart with unstable angina pectoris I25.110 Associated angina: with unstable angina Coronary Disease-Associated Artery/Lesion type: [place] artery [place] vs. transplanted heart: [place] heart Hypertension I10 Generalized anxiety disorder F41.1 Osteoarthritis of knees, bilateral M17.0 Assessment & Plan Assessment & Plan (1) Obstructive sleep apnea: Comment: He has confirmed diagnosis of obstructive sleep apnea, since June 2017 . Has been using CPAP regularly. Compliance is excellent . He continues to benefit from the use of CPAP. He continues to have mild air leak because the mask slips of little bit during the night. However it is not affecting his compliance. Code(s): G47.33 - Obstructive sleep apnea (adult) (pediatric) Category: Medical Plan: Continue to use the CPAP more than 4 hours a night and benefits from this. (2) Asthma: Comment: Has mild intermittent bronchial asthma, which is relatively well controlled at present. Code(s): J45.909 - Unspecified asthma, uncomplicated Category: Medical Plan: Patient on Breo and albuterol inhaler. Advised to rinse mouth after using (3) CKD (chronic kidney disease) stage 3, GFR 30-59 ml/min: Code(s): N18.30 - Chronic kidney disease, stage 3 unspecified Category: Medical Qualifiers: Chronic kidney disease stage 3 subtype: unspecified whether 3a or 3b Qualified Code(s): N18.30 - Chronic kidney disease, stage 3 unspecified Plan: Keep well hydrated avoid NSAIDs will need to follow-up in the blood work (4) Fatty liver: Code(s): K76.0 - Fatty (change of) liver, not elsewhere classified Category: Medical Plan: Low-fat diet and exercise (5) Morbid (severe) obesity due to excess calories: Comment: REMAINS MORBIDLY OBESE.TRYING TO LOSE WEIGHT. CURRENTLY HE IS ON TIRZEPATIDE INJECTIONS, AND HAS LOST SIGNIFICANT WEIGHT. Code(s): E66.01 - Morbid (severe) obesity due to excess calories Category: Medical Plan: Patient has been on Zepbound and weight has been responding (6) Type 2 diabetes mellitus with hyperglycemia: Code(s): E11.65 - Type 2 diabetes mellitus with hyperglycemia Category: Medical Plan: Decrease the amount of carbohydrate intake, pasta, bread, rice and potatoes are all sugar and that is aside from all the sweet stuff, remember that fruits are good but they are Sweet also. Hemoglobin A1c goal of less than 6.5 patient is on tirzepatide (7) Hypercholesterolemia: Code(s): E78.00 - Pure hypercholesterolemia, unspecified Category: Medical Plan: Avoid fried foods, chicken skin, eggs, butter margarine, pastries and meat. Be it pork or beef they have a lot of cholesterol LDL goal of less than 70 and triglyceride of less than 150 (8) Coronary artery disease: Comment: NSTEMI October 2019 stent placement, September 2020 catheterization patent stent. Recent , admission for a mild heart attack, Ac [place] ruled out . Code(s): I25.10 - Atherosclerotic heart disease of [place] coronary artery without angina pectoris Category: Medical Qualifiers: Associated angina: with unstable angina Coronary Disease-Associated Artery/Lesion type: [place] artery [place] vs. transplanted heart: [place] heart Qualified Code(s): I25.110 - Atherosclerotic heart disease of [place] coronary artery with unstable angina pectoris Plan: Control the cholesterol, weight, blood pressure, diabetes continue with aspirin (9) Hypertension: Code(s): I10 - Essential (primary) hypertension Category: Medical Plan: Continue with blood pressure medication. Decrease salt intake and exercise on hydrochlorothiazide 25 mg once a day% on 300 mg once a day (10) Generalized anxiety disorder: Code(s): F41.1 - Generalized anxiety disorder Category: Medical Plan: Continue with present medication (11) Osteoarthritis of knees, bilateral: Code(s): M17.0 - Bilateral primary osteoarthritis of knee Category: Medical Plan History of Present Illness The patient is a 65-year-old male presenting for a follow-up visit. The patient has a history of morbid obesity, with a recent weight loss of 6 pounds noted. He also has a history of fatty liver disease, asthma, lumbar degenerative disc disease, and obstructive sleep apnea. The patient has been diagnosed with hypertension, coronary artery disease, hypercholesterolemia, and congestive heart failure. He also has chronic kidney disease and generalized anxiety disorder. The patient has impaired glucose tolerance and diabetes mellitus, with a history of aortic stenosis. He is currently on CPAP therapy for obstructive sleep apnea and uses Breo and ProAir for asthma management. The patient's last blood work showed mild anemia with a hemoglobin level of 13.5 and a hematocrit of 39.8. Renal function was noted to be mildly elevated with a creatinine level of 1.58 and a GFR of 44. Blood sugar was 105 with a normal hemoglobin A1c, and LDL cholesterol was at 68. The patient follows up with pulmonary specialists and was last seen on July 04. He is on oxygen therapy for nocturnal hypoxemia along with CPAP. The patient reports no significant issues with his current medications, although he experiences occasional itching at the injection site of Zepbound. He has been advised to rinse his mouth after using inhalers and to avoid NSAIDs to protect kidney function. Health Maintenance - Colonoscopy is up to date - Advised to rinse mouth after using inhalers - Avoid NSAIDs to protect kidney function - Tetanus shot due, last received in June 2015 Social History - Reports increased activity and weight loss efforts Review of Systems - Respiratory: Reports dyspnea on exertion. Denies significant breathing problems. - Dermatological: Reports occasional itching at injection site. - Gastrointestinal: Denies constipation, reports occasional bowel movement irregularity. Physical Exam Results - Labs: Mild anemia with hemoglobin 13.5, hematocrit 39.8 - Labs: Creatinine 1.58, GFR 44 indicating mild renal impairment - Labs: Blood sugar 105, normal hemoglobin A1c - Labs: LDL cholesterol 68 - Labs: PSA, B12, folic acid, thyroid within normal limits Plan Patient was informed and verbally consented to the use of an ambient scribe for clinic note documentation during this visit. 1. Morbid Obesity The patient is advised to continue with weight loss efforts, including a low-fat diet and increased physical activity. Follow-up is recommended to monitor progress and adjust the plan as necessary. 2. Hypertension The patient is currently on hydrochlorothiazide 25 mg once daily and ibricitin 300 mg once daily. Continuation of current medication regimen is advised. 3. Diabetes Mellitus The patient's blood sugar and hemoglobin A1c are within normal limits, with a goal of maintaining hemoglobin A1c below 6.5%. The patient is advised to continue with the current diabetes management plan. 4. Chronic Kidney Disease Renal function is mildly impaired with a creatinine level of 1.58 and GFR of 44. The patient is advised to stay well-hydrated and avoid NSAIDs to protect kidney function. Follow-up blood work is recommended in three months to monitor renal function. 5. Asthma The patient is on Breo and ProAir for asthma management and is advised to rinse his mouth after use. Continuation of current asthma management plan is recommended. 6. Obstructive Sleep Apnea The patient is on CPAP therapy and oxygen for nocturnal hypoxemia. The patient is advised to continue using CPAP for more than 4 hours per night. 7. Preventative Care The patient's colonoscopy is up to date. A tetanus shot is due, as the last one was received in June 2015. Discussion Notes During the visit, we discussed the importance of maintaining a low-fat diet and increasing physical activity to manage obesity. We reviewed the patient's current medication regimen for hypertension and diabetes, emphasizing adherence to prescribed treatments. The patient was advised to avoid NSAIDs to protect kidney function and to continue using CPAP for obstructive sleep apnea. We also discussed the need for a tetanus booster, as the last one was administered in June 2015. Patient Instructions - Continue with a low-fat diet and increase physical activity. - Take all medications as prescribed. - Avoid NSAIDs to protect kidney function. - Use CPAP for more than 4 hours each night. - Schedule a tetanus booster shot. Orders: Orders Hemoglobin A1c 3 Months E11.65 - Type 2 diabetes mellitus with hyperglycemia Complete Blood Count Auto Diff 3 Months E11.65 - Type 2 diabetes mellitus with hyperglycemia Comprehensive Met. Panel 3 Months E11.65 - Type 2 diabetes mellitus with hyperglycemia Td Immunization Today Z23 - Encounter for immunization Referrals Orthopedics Referral M17.0 - Bilateral primary osteoarthritis of knee Ophthalmology Referral E11.65 - Type 2 diabetes mellitus with hyperglycemia Podiatry Referral E11.65 - Type 2 diabetes mellitus with hyperglycemia Medications: Refilled atorvastatin 80 mg PO DAILY 90 tabs 3RF 90 days E78.00 - Pure hypercholesterolemia, unspecified loratadine 10 mg PO DAILY PRN 90 tabs 3RF allergy symptoms E66.01 - Morbid (severe) obesity due to excess calories Discontinued tirzepatide (weight loss) (Zepbound) Discontinued Reason: Patient Completed Course 12.5 mg (0.5 mL) subcut QWEEK 2 mL 0RF E66.01 - Morbid (severe) obesity due to excess calories
== END 2025-07-18 13:47 | disposition home or self-care (01) ==
LOC: HO.HMCH 12:59
PROVIDERS: PCP Internal Medicine; Visit Provider Internal Medicine
DX: I12.9 Hypertensive chronic kidney disease with stage 1 through stage 4 chronic kidney disease, or unspecified chronic kidney disease (principal); N18.30 Chronic kidney disease, stage 3 unspecified; E66.01 Morbid (severe) obesity due to excess calories; E11.65 Type 2 diabetes mellitus with hyperglycemia; I25.110 Atherosclerotic heart disease of native coronary artery with unstable angina pectoris; Z68.41 Body mass index [BMI] 40.0-44.9, adult; G47.33 Obstructive sleep apnea (adult) (pediatric); J45.909 Unspecified asthma, uncomplicated; E78.00 Pure hypercholesterolemia, unspecified; F41.1 Generalized anxiety disorder; M17.0 Bilateral primary osteoarthritis of knee; Z23 Encounter for immunization

== ENCOUNTER 2025-07-31 07:49 | Outpatient (AMB) | payer MEDICARE, SELFPAY ==
--- OUTSIDE RECORDS SUMMARY | 2025-07-31 07:52 | XMS_ITS | Patient Health Record ---
Author Organization [facility] Address [address] [place] [id number] Care Team Providers Care Forensic Examiner Name Role Phone Catherine Diehl MD Primary Care Provider Jose Monreal Jr Unavailable Reason For Referral No Information Medications Medication SIG (Take, Route, Frequency, Duration) Notes Start Date End Date Status Colyte with Flavor Packs 240 GM As direc shelley Orally Over the specified time. for 1 day(s) Active hydroCHLOROthiazide 25 MG Oral for 30 Active Irbesartan 300 MG Oral for 30 Active Vitamin D (Ergocalciferol) 19043 UNIT Oral for 28 Active Social History [...] Problem Status W/U Status Risk Notes Problem [id number] Colon cancer screening (Z12.11) Active confirmed Problem [id number] Long-term curren t use of high risk medication other than anticoagulant (Z79.899) Active confirmed Plan Of Treatment Future Test Test Name Order Date COLONOSCOPY 02/10/2018 Insurance Providers Payer Name Payer Address Payer Phone Subscriber Number Group Number Insured Name Patient Relationship to Insured Coverage Start Date Coverage End Date [facility] [address] [address] [place], [place] [id number] JESÚS PETERSON Self - patient is the insured MEDICAID OF [facility] [address] [place] [address] [id number] JESÚS PETERSON Self - patient is the insured Medical (General) History Medical History History ICD Code hypertension arthritis obstructive sleep apnea disc disease diverticular disease colon polyps morbid obesity umbilical hernia Surgical History Surgery Date(Month/Year) back surgery
--- NOTE | 2025-07-31 07:56 | A.OFFVIS_ITS ---
Vital Signs 07/31/25 07:57 Height 5 ft 11 in Weight 315 lb BMI 43.9 Intake Visit Reasons: CONSTRUCTION SITE CROSSING GUARD: Diabetic foot exam, T2DM/hyperglycemia Intake Note: Kraig is a 65 year old male who presents today as a New Patient for a Diabetic Foot Exam, history of Type 2 Diabetes Mellitus. He reports that he feels numbness and tingling in his feet,and a pin and needle sensation. Patient mentions he does not test his sugars at home. Allergies pneumococcal vaccine (From Pneumovax-23) Adverse Reaction (Intermediate, Verified 07/31/25 08:00) sick Medication List - Last Reconciled 07/31/25 by Brennon Moon DPM aspirin 81 mg PO DAILY atorvastatin 80 mg PO DAILY 90 days Breo Ellipta 100-25 mcg/dose (fluticasone furoate-vilanterol) 1 ea PO DAILY NS capsaicin 0.075% 1 appl topical BID efinaconazole 10% 1 appl topical DAILY 48 weeks folic acid 1 mg PO DAILY hydrochlorothiazide 25 mg PO DAILY 90 days irbesartan 300 mg PO QAM 90 days loratadine 10 mg PO DAILY PRN multivitamin 1 tab PO DAILY terbinafine HCl 1% (Lamisil AT) 1 appl topical BID tirzepatide (weight loss) (Zepbound) 15 mg (0.5 mL) subcut QWEEK Ventolin HFA 90 mcg/actuation (albuterol sulfate) 2 puffs inhalation Q4-6H PRN NS HPI HPI CONSTRUCTION SITE CROSSING GUARD: Diabetic foot exam, T2DM/hyperglycemia: Details: The patient is a 65-year-old male past medical history of obesity, prediabetes (on Zepbound), and lumbar radiculopathy status post interbody spacers. The patient has a history of chronic back pain, with a diagnosis of bulging discs in the lumbar region, for which he underwent spinal surgery approximately 10 to 11 years ago. Post-surgery, he experienced significant relief, but symptoms have recurred in the past year. The patient reports experiencing numbness and tingling sensations in his feet, and these symptoms have been present for several years. He denies burning sensations but notes that his feet often feel cold. The symptoms are constant. The patient also reports issues with his toenails, which are thickened and difficult to trim. He has experienced toenail loss in the past, and the nails are painful to clip. Additionally, the patient complains of dry, itchy skin on the feet, which he has experienced intermittently over the years. [facility] Medical History (Updated 07/31/25 @ 13:43 by Brennon Moon DPM) Impaired fasting blood sugar Brittle asthma Asthma exacerbation Prediabetes Obesity Dyspnea on exertion Vapes nicotine containing substance Nocturnal hypoxemia due to obesity Lumbar spondylosis Asthma Allergic rhinitis Nocturnal hypoxemia Opioid-induced hyperalgesia COVID-19 Osteoarthritis of knees, bilateral Morbid (severe) obesity due to excess calories Spinal stenosis Ferrer's palsy Diverticular disease History of substance abuse Restrictive lung disease NSTEMI (non-ST elevated myocardial infarction) History of CVA (cerebrovascular accident) History of Ferrer's palsy Carpal tunnel syndrome Degenerative disc disease, cervical Hypercholesterolemia Congestive heart failure Coronary artery disease Hypertension Obstructive sleep apnea Lumbar degenerative disc disease Asthma Fatty liver Surgical History History of colonoscopy (~05/14/18) Stented coronary artery Back pain with history of spinal surgery History of umbilical hernia repair History of arthroscopy of right knee History of left knee surgery Family History Father Myocardial infarction Mother Diabetes Hypertension Sister Past heart attack Cancer Brother Afib S/P triple vessel bypass Social History Housing: Apartment Alcohol intake: current Alcohol intake frequency: holidays/special occasions only Comment: once Q 6 months 2 - 3 drinkls Patient Tobacco Use Status: Former Tobacco user Tobacco use type: Cigarette Years Smoked: 1989, occ joints smoking e-Cigarette/Vaping Use: Currently Using Second Hand Smoke Exposure: No Substance Use Type: Marijuana Advance Directives Date on File: 11/14/20 service: No Current occupational status: retired and disabled 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 Interdigital spaces: Dry white macerated patch in the 4th interspace bilaterally, no open wounds or drainage. Nails: Thickened discolored elongated toenails times 10 with subungual debris. Neuro: Malden-kalen monofilament (10g) test 10/10 intact to right foot, 10/10 intact to left foot. Msk: Deformities: No evidence of hammertoes, bunions, Charcot changes, or other structural abnormalities. Muscle strength: 5/5 in all muscle groups. Gait: Normal, no antalgic or steppage gait observed. Footwear Assessment: Shoes inspected; appropriate fit, no excessive wear, or foreign objects noted. Office Procedures AMB Debridement/Avulsion Podia 63368-Bmhfoxupoyh of Nail 6+ (debrided elongated thickened toenails x10) Nail Biopsy: 75374 Nail unit biopsy (Right hallux toe nail biopsy) Procedure code (CPT) selection complete Results Reviewed Results Reviewed: Laboratory Tests 02/10/25 11:30 Hgb A1c (Clinic) 6.2 H Laboratory Tests 07/18/25 08:12 Hemoglobin A1c % 5.3 Assessment & Plan Assessment & Plan (1) Type 2 diabetes mellitus with hyperglycemia: Code(s): E11.65 - Type 2 diabetes mellitus with hyperglycemia Category: Medical Qualifiers: Diabetes mellitus orthotics technician insulin use: unspecified orthotics technician insulin use status Qualified Code(s): E11.65 - Type 2 diabetes mellitus with hyperglycemia Plan: Risk Stratification: No current ulceration, infection, or pre-ulcerative lesion. No loss of protective sensation or peripheral arterial disease. No plans for further testing/referrals for non-invasive vascular studies. Patient is at low risk for diabetic foot complications at this time. Recommendations: Continue routine foot care and daily self-inspection. Recommend moisturizing daily. Recommend supportive proper fitting shoe-wear. The patient may require diabetic shoes in the future. Reinforced diabetic foot education and risks from peripheral neuropathy. (2) Tinea unguium: Code(s): B35.1 - Tinea unguium Category: Medical Plan: * The patient presents with thickened, abgqreuyf-ef-mbvq toenails, likely consistent with onychomycosis. A topical antifungal treatment is prescribed, with the option to consider oral antifungal medication if the topical treatment is ineffective. * Nail biopsy right hallux nail performed. * Rx Efinaconazole 10% solution * Debrided elongated toenails x 10. (3) Tinea pedis: Code(s): B35.3 - Tinea pedis Category: Medical Qualifiers: Laterality: bilateral Qualified Code(s): B35.3 - Tinea pedis Plan: * The patient reports dry, itchy skin on the feet, consistent with athlete's foot. A topical antifungal cream is prescribed for treatment, expected to clear symptoms within next few weeks. * Rx Lamisil topical (4) Lumbar radiculopathy, chronic: Code(s): M54.16 - Radiculopathy, lumbar region Category: Medical Plan: * The patient has a history of chronic back pain and previous spinal surgery, with recent recurrence of symptoms. He is advised to consult with his spine surgeon to evaluate current symptoms and consider further interventions. (5) Peripheral neuropathy: Code(s): G62.9 - Polyneuropathy, unspecified Category: Medical Qualifiers: Peripheral neuropathy type: mononeuropathy, other Qualified Code(s): G58.8 - Other specified mononeuropathies Plan: * Discussed the differential diagnosis including lumbar radiculopathy causing peripheral neuropathy versus diabetic neuropathy. * Monofilament test 10/10 * Discussed that management typically includes considering gabapentin for symptom relief, although it may cause sleepiness. Patient states he would like to trial topical medication first. * Rx Capsaicin ointment for treatment of his pins and needle sensation to his toes. * The patient is advised to monitor his feet regularly for injuries due to reduced sensation. Orders: Orders Surgical Today B35.1 - Tinea unguium AMB Debridement/Avulsion Podiatry Today B35.1 - Tinea unguium Medications: New terbinafine HCl 1% (Lamisil AT) 1 appl topical BID 15 grams 3RF B35.3 - Tinea pedis efinaconazole 10% 1 appl topical DAILY 8 mL 3RF 48 weeks B35.1 - Tinea unguium capsaicin 0.075% do not wash area for at least 30 min after application 1 appl topical BID 60 grams 3RF G62.9 - Polyneuropathy, unspecified Coding Level of Care Code New Pt Level 4 (80345) Diagnoses Type 2 diabetes mellitus with hyperglycemia, unspecified whether orthotics technician insulin use E11.65 Diabetes mellitus orthotics technician insulin use: unspecified orthotics technician insulin use status Tinea unguium B35.1 Tinea pedis of both feet B35.3 Laterality: bilateral Lumbar radiculopathy, chronic M54.16 Other mononeuropathy G58.8 Peripheral neuropathy type: mononeuropathy, other CPT Codes Skin Debridement - CPT: 41807-Tpiroltfveg of Nail 6+ ([id number]) Skin Debridement - CPT: 10880 Nail unit biopsy ([id number]) Time Spent (min) 45
[2025-07-31 07:57] VITALS: BMI 43.9
== END 2025-07-31 08:34 | disposition home or self-care (01) ==
LOC: HO.HPODS 07:49
PROVIDERS: PCP Internal Medicine; Visit Provider Student in an Organized Health Care Education/Training Program
DX: E11.65 Type 2 diabetes mellitus with hyperglycemia (principal); B35.1 Tinea unguium; B35.3 Tinea pedis; M54.16 Radiculopathy, lumbar region; G58.8 Other specified mononeuropathies
CPT/HCPCS: 11721; 99204

== ENCOUNTER 2025-07-31 07:49 | Outpatient (REF) | payer MEDICARE, SELFPAY | END 2025-07-31 07:50 | disposition home or self-care (01) | LOC: HO.LNP 07:49 | PROVIDERS: PCP Internal Medicine; Visit Provider Student in an Organized Health Care Education/Training Program | DX: E11.65 Type 2 diabetes mellitus with hyperglycemia (principal); B35.1 Tinea unguium; B35.3 Tinea pedis; M54.16 Radiculopathy, lumbar region; E11.42 Type 2 diabetes mellitus with diabetic polyneuropathy | CPT/HCPCS: 11721; 88304; 88312; 99202 ==

== ENCOUNTER 2025-09-12 08:37 | Outpatient (AMB) | payer MEDICARE, SELFPAY ==
--- NOTE | 2025-09-12 08:49 | A.OFFVIS_ITS ---
Intake Visit Reasons: OV - B/L knee OA Intake Note: Kraig is a 65 year old male who presents today for a follow up of his bilateral knee pain. Patient reports his knees are getting worse. He notices that his pain has been getting worse through out the day. Patient has been adjusting his diet and losing some weight to help with his pain. He states that his left knee is the worse form his right. He notices that his right thigh get very tight. Patient has tried 2 - 3 knee blockers on the both with also cortisone injections, 3 + months of physical therapy with no relief his pain got worse. Allergies pneumococcal vaccine (From Pneumovax-23) Adverse Reaction (Intermediate, Verified 09/12/25 08:51) sick HPI HPI OV - B/L knee OA: Details: Mr. Myers a 65-year-old male who presents to the office today for chronic bilateral knee pain due to osteoarthritis. Patient has a past medical history significant for a BMI of 43.9, CAD, NSTEMI (Oct 2019: stent placement, Sep 2020 cast Argueta stent placed), COPD, LISA- regularly uses a CPAP, restrictive pulmonary disease from obesity, CKD 3, HTN, HLD, fatty liver disease, DM to last A1c 02/10/2025 at 6.2. Patient has had multiple cortisone injections and geniculate nerve blocks with mild improvement. Patient is looking for total knee arthroplasty. [facility] Medical History (Updated 07/31/25 @ 13:43 by Brennon Moon DPM) Impaired fasting blood sugar Brittle asthma Asthma exacerbation Prediabetes Obesity Dyspnea on exertion Vapes nicotine containing substance Nocturnal hypoxemia due to obesity Lumbar spondylosis Asthma Allergic rhinitis Nocturnal hypoxemia Opioid-induced hyperalgesia COVID-19 Osteoarthritis of knees, bilateral Morbid (severe) obesity due to excess calories Spinal stenosis Ferrer's palsy Diverticular disease History of substance abuse Restrictive lung disease NSTEMI (non-ST elevated myocardial infarction) History of CVA (cerebrovascular accident) History of Ferrer's palsy Carpal tunnel syndrome Degenerative disc disease, cervical Hypercholesterolemia Congestive heart failure Coronary artery disease Hypertension Obstructive sleep apnea Lumbar degenerative disc disease Asthma Fatty liver Surgical History History of colonoscopy (~05/14/18) Stented coronary artery Back pain with history of spinal surgery History of umbilical hernia repair History of arthroscopy of right knee History of left knee surgery Family History Father Myocardial infarction Mother Diabetes Hypertension Sister Past heart attack Cancer Brother Afib S/P triple vessel bypass Social History Housing: Apartment Alcohol intake: current Alcohol intake frequency: holidays/special occasions only Comment: once Q 6 months 2 - 3 drinkls Patient Tobacco Use Status: Former Tobacco user Tobacco use type: Cigarette Years Smoked: 1989, occ joints smoking e-Cigarette/Vaping Use: Currently Using Second Hand Smoke Exposure: No Substance Use Type: Marijuana Advance Directives Date on File: 11/14/20 service: No Current occupational status: retired and disabled 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 Patient walks with an antalgic gait. Crepitus felt with knee range of motion. NVI. Psych Appearance: grossly normal Mental Status: mental status grossly normal Attitude: cooperative Assessment & Plan Assessment & Plan (1) Osteoarthritis of knees, bilateral: Code(s): M17.0 - Bilateral primary osteoarthritis of knee Category: Medical Plan Mr. Myers a 65-year-old male who presents to the office today for chronic bilateral knee pain due to osteoarthritis. Patient has a past medical history significant for a BMI of 43.9, CAD, NSTEMI (Oct 2019: stent placement, Sep 2020 cast Argueta stent placed), COPD, LISA- regularly uses a CPAP, restrictive pulmonary disease from obesity, CKD 3, HTN, HLD, fatty liver disease, DM II: last A1c 02/10/2025 at 6.2. Patient has had multiple cortisone injections and geniculate nerve blocks with mild improvement. Patient is looking for total knee arthroplasty. I discussed continued conservative treatment options such as repeat cortisone injections, repeat geniculate nerve blocks and gel injections. Patient is interested in moving forward with petition the insurance [employer] for approval of gel injections. We will start this process. Additionally, I had a long discussion with the patient that with his complex medical history if he is looking for total knee arthroplasty he would likely need a tertiary care center in order to manage his chronic conditions postoperatively. [facility] knee [facility]. Patient will follow up with orthopedics after gel injection authorization has been obtained, sooner if needed. X-rays of bilateral knees which were obtained while in the office today and were reviewed by me, Kaila Josue PA-C, revealed significant osteoarthritis. Orders: Orders XR knee LT 3V Today M25.569 - Pain in unspecified knee XR knee RT 3V Today M25.569 - Pain in unspecified knee Referrals Orthopedics Referral M17.0 - Bilateral primary osteoarthritis of knee Coding Level of Care Code Est Pt Level 4 (99103) Diagnoses Osteoarthritis of knees, bilateral M17.0
--- OUTSIDE RECORDS SUMMARY | 2025-09-12 09:22 | XMS_ITS | Patient Health Record ---
Author Organization [facility] Address [address] [place] [id number] Care Team Providers Care Diamond Finishing Supervisor Name Role Phone Catherine Diehl MD Primary Care Provider Jose Monreal Jr Unavailable Reason For Referral No Information Medications Medication SIG (Take, Route, Frequency, Duration) Notes Start Date End Date Status Colyte with Flavor Packs 240 GM As direc shelley Orally Over the specified time.; Duration: 1 day(s) Active hydroCHLOROthiazide 25 MG Oral; Duration: 30 Active Irbesartan 300 MG Oral; Duration: 30 Active Vitamin D (Ergocalciferol) 74720 UNIT Oral; Duration: 28 Active Social History Tobacco Use: Social [...] Problem Status W/U Status Risk Notes Problem Colon cancer screening (849793107) Colon cancer screening (Z12.11) Active confirmed Problem Long-term current use of drug therapy (869579746) Long-term current use of high risk medication other than anticoagulant (Z79.899) Active confirmed Plan Of Treatment Future Test Test Name Order Date COLONOSCOPY 02/10/2018 Insurance Providers Payer Name Payer Address Payer Phone Subscriber Number Group Number Insured Name Patient Relationship to Insured Coverage Start Date Coverage End Date [facility] [address] [address] [place], [place] [id number] [phone] [id number] JESÚS PETERSON Self - patient is the insured [facility] [address] [place] [address] [phone] [id number] JESÚS PETERSON Self - patient is the insured Medical (General) History Medical History History ICD Code hypertension arthritis obstructive sleep apnea disc disease diverticular disease colon polyps morbid obesity umbilical hernia Surgical History Surgery Date(Month/Year) back surgery
== END 2025-09-12 09:36 | disposition home or self-care (01) ==
LOC: HO.HOS 08:37
PROVIDERS: PCP Internal Medicine; Visit Provider Physician Assistant
DX: M17.0 Bilateral primary osteoarthritis of knee (principal)
CPT/HCPCS: 99214

== ENCOUNTER → 2025-09-12 08:39 | Outpatient (BNV) | payer MEDICARE, SELFPAY | PROVIDERS: Visit Provider Radiology Diagnostic Ultrasound | DX: M17.0 Bilateral primary osteoarthritis of knee (principal) | CPT/HCPCS: 73562 ==

== ENCOUNTER 2025-09-12 08:40 | Outpatient (REF) | payer MEDICARE, SELFPAY ==
--- NOTE | ~2025-09-12 | XR_ITS ---
EXAMINATION: X-ray bilateral knees CLINICAL INFORMATION: Pain COMPARISON: X-ray 11/21/2022 TECHNIQUE: AP bilateral knees one view. Right knee 2 views. Left knee 2 views. FINDINGS: Right knee: Moderate tricompartment arthritis, joint space loss, osteophytes. Findings most prominent in the medial compartment. Interval progression from previous. No acute fracture or dislocation. No significant effusion. No abnormal soft tissue calcification. Left knee: Advanced tricompartment arthritis, joint space loss, osteophytes. More prominent findings of severe arthritis. No acute fracture or dislocation. No significant effusion. No abnormal soft tissue calcification. XR/XR knee LT 3V IMPRESSION: RIGHT KNEE: Moderate tricompartment osteoarthritis. Interval progression from previous. LEFT KNEE: Advanced tricompartment osteoarthritis. Severe medial compartment arthritis. Interval progression from previous. Electronically signed by: Cholo Park MD 09/12/2025 08:58 AM EDT
--- NOTE | ~2025-09-12 | XR_ITS ---
EXAMINATION: X-ray bilateral knees CLINICAL INFORMATION: Pain COMPARISON: X-ray 11/21/2022 TECHNIQUE: AP bilateral knees one view. Right knee 2 views. Left knee 2 views. FINDINGS: Right knee: Moderate tricompartment arthritis, joint space loss, osteophytes. Findings most prominent in the medial compartment. Interval progression from previous. No acute fracture or dislocation. No significant effusion. No abnormal soft tissue calcification. Left knee: Advanced tricompartment arthritis, joint space loss, osteophytes. More prominent findings of severe arthritis. No acute fracture or dislocation. No significant effusion. No abnormal soft tissue calcification. XR/XR knee RT 3V IMPRESSION: RIGHT KNEE: Moderate tricompartment osteoarthritis. Interval progression from previous. LEFT KNEE: Advanced tricompartment osteoarthritis. Severe medial compartment arthritis. Interval progression from previous. Electronically signed by: Cholo Park MD 09/12/2025 08:58 AM EDT
--- OUTSIDE RECORDS SUMMARY | 2025-09-13 09:16 | XMS_ITS | Patient Health Record ---
Author Organization [facility] Address [address] [place] [id number] Care Team Providers Care Glass Maker Name Role Phone Catherine Diehl MD Primary Care Provider Jose Monreal Jr Unavailable [phone] Reason For Referral No Information Medications Medication SIG (Take, Route, Frequency, Duration) Notes Start Date End Date Status Colyte with Flavor Packs 240 GM As direc shelley Orally Over the specified time.; Duration: 1 day(s) Active hydroCHLOROthiazide 25 MG Oral; Duration: 30 Active Irbesartan 300 MG Oral; Duration: 30 Active Vitamin D (Ergocalciferol) 78730 UNIT Oral; Duration: 28 Active Social History [...] Status Risk Notes Problem Colon cancer screening (224082040) Colon cancer screening (Z12.11) Active confirmed Problem Long-term current use of drug therapy (523346977) Long-term current use of high risk medication other than anticoagulant (Z79.899) Active confirmed Plan Of Treatment Future Test Test Name Order Date COLONOSCOPY 02/10/2018 Insurance Providers Payer Name Payer Address Payer Phone Subscriber Number Group Number Insured Name Patient Relationship to Insured Coverage Start Date Coverage End Date [facility] [address] [address] [place], [place] [id number] [phone] [id number] JESÚS PETERSON Self - patient is the insured MEDICAID OF [id number] [facility] [address] [place] [address] [phone] [id number] JESÚS PETERSON Self - patient is the insured Medical (General) History Medical History History ICD Code hypertension arthritis obstructive sleep apnea disc disease diverticular disease colon polyps morbid obesity umbilical hernia Surgical History Surgery Date(Month/Year) back surgery
== END 2025-09-12 08:41 | disposition home or self-care (01) ==
LOC: HO.HOSX 08:40
PROVIDERS: Visit Provider Physician Assistant
DX: M17.0 Bilateral primary osteoarthritis of knee (principal)
CPT/HCPCS: 73562; 99212

== ENCOUNTER 2025-11-07 11:12 | Outpatient (AMB) | payer OTHER, MEDICARE, SELFPAY ==
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
[2025-11-07 11:17] VITALS: BP 106/52; PULSE 70; RESP 20; TEMP 36.6; O2SAT 96; BMI 42.0
--- OUTSIDE RECORDS SUMMARY | 2025-11-07 12:36 | XMS_ITS | Patient Health Record ---
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 Name Role Phone Catherine Diehl MD Primary Care Provider Jose Monreal Jr Unavailable Reason For Referral No Information Medications Medication SIG (Take, Route, Frequency, Duration) Notes Start Date End Date Status Colyte with Flavor Packs 240 GM Solution Reconstituted As directed Orally Over the specified time.; Duration: 1 day(s) Active hydroCHLOROthiazide 25 MG Tablet Oral; Duration: 30 Active Irbesartan 300 MG Tablet Oral; Duration: 30 Active Vitamin D (Ergocalciferol) 27787 UNIT Capsule Oral; Duration: 28 Act otis Social History Tobacco Use: Social History Observation Description Date Details (start date - stop date) Former Smoker NA - NA Social History Drugs/Alcohol: Social Info Question Answer Notes Alcohol Screen Did you have a drink containing alcohol in the past year? Yes How often did you have a drink containing alcohol in the past year? Monthly or less (1 point) How many drinks did you have on a typical day when you were drinking in the past year? 1 or 2 drinks (0 point) How often did you have 6 or more drinks on one occasion in the past year? Never (0 point) Points 1 Interpretation Negative Tobacco Use: Social Info Question Answer Notes Tobacco Use/Smoking Patient is a former smoker How long has it been since you last smoked? > 10 years Additional Details Category Social Info Options Details Miscellaneous: Marital status: Occupation: retired Problems Problem Type SNOMED Code ICD Code Onset Dates Problem Status W/U Status Risk Notes Problem Colon cancer screening (569507919) Colon cancer screening (Z12.11) Active confirmed Problem Long-term current use of drug therapy (906548312) Long-term current use of high risk medication other than anticoagulant (Z79.899) Active confirmed Plan Of Treatment Future Test Test Name Order Date COLONOSCOPY 02/10/2018 Insurance Providers Payer Name Payer Address Payer Phone Subscriber Number Group Number Insured Name Patient Relationship to Insured Coverage Start Date Coverage End Date [facility] [address] [address] [place], [place] [id number] JESÚS PETERSON Self - patient is the insured MEDICAID OF [facility] [address] [place] [address] [id number] JESÚS PETEROSN Self - patient is the insured Medical (General) History Medical History History ICD Code hypertension arthritis obstructive sleep apnea disc disease diverticular disease colon polyps morbid obesity umbilical hernia Surgical History Surgery Date(Month/Year) back surgery
== END 2025-11-07 11:53 | disposition home or self-care (01) ==
LOC: HO.HMCH 11:13
PROVIDERS: PCP Internal Medicine; Visit Provider Student in an Organized Health Care Education/Training Program
DX: R91.1 Solitary pulmonary nodule (principal); V89.2XXD Person injured in unspecified motor-vehicle accident, traffic, subsequent encounter; M25.561 Pain in right knee; M25.562 Pain in left knee

== ENCOUNTER 2025-11-13 08:53 | Outpatient (REF) | payer MEDICARE, SELFPAY ==
--- OUTSIDE RECORDS SUMMARY | 2025-11-13 09:04 | XMS_ITS | Patient Health Record ---
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 Role Phone Catherine Diehl MD Primary Care Provider Jose Monreal Jr Unavailable [phone] Reason For Referral No Information Medications Medication SIG (Take, Route, Frequency, Duration) Notes Start Date End Date Status Colyte with Flavor Packs 240 GM Solution Reconstituted As directed Orally Over the specified time.; Duration: 1 day(s) Active hydroCHLOROthiazide 25 MG Tablet Oral; Duration: 30 Active Irbesartan 300 MG Tablet Oral; Duration: 30 Active Vitamin D (Ergocalciferol) 23019 UNIT Capsule Oral; Duration: 28 Act otis [...] Status Risk Notes Problem Colon cancer screening (502189784) Colon cancer screening (Z12.11) Active confirmed Problem Long-term current use of drug therapy (949186298) Long-term current use of high risk medication other than anticoagulant (Z79.899) Active confirmed Plan Of Treatment Future Test Test Name Order Date COLONOSCOPY 02/10/2018 Insurance Providers Payer Name Payer Address Payer Phone Subscriber Number Group Number Insured Name Patient Relationship to Insured Coverage Start Date Coverage End Date [facility] [address] [address] [place], [place] [id number] JESÚS PETERSON Self - patient is the insured MEDICAID OF [facility] [address] [place] [address] [id number] JESÚS PETERSON Self - patient is the insured Medical (General) History Medical History History ICD Code hypertension arthritis obstructive sleep apnea disc disease diverticular disease colon polyps morbid obesity umbilical hernia Surgical History Surgery Date(Month/Year) back surgery
[2025-11-13 09:07] LABS: MANUAL DIFF FLAG NO
[2025-11-13 09:27] LABS: Hematocrit 37.4 % (42.0-52.0); Hemoglobin 13.0 g/dl (14.0-18.0); Imm Gran Abs Auto 0.02 X10*3/uL (0.00-0.03); Imm Gran Pct Auto 0.4 % (0.0-0.4); Lymphocytes Absolute Auto 1.5 X10*3/uL (1.2-4.9); Mean Corpuscular HGB Conc 34.8 g/dl (31.0-36.0); Mean Corpuscular Hemoglobin 31.0 pg (27.0-33.0); Mean Corpuscular Volume 89.0 fL (80.0-98.0); NRBC Abs Auto 0.000 X10*3/uL (0.0-0.012); NRBC Pct Auto 0.0 /100WBC (0.0-0.2); Platelet Count 177 X10*3/uL (160-400); Red Blood Count 4.20 X10*6/uL (4.60-5.80); White Blood Count 5.7 X10*3/uL (4.8-10.8)
[2025-11-13 10:04] LABS: Alanine Aminotransferase 34 U/L (0-40); Albumin Level 4.2 g/dL (3.5-5.0); Alkaline Phosphatase 81 U/L (39-117); Anion Gap 9 (12-20); Aspartate Amino Transferase 26 U/L (5-37); Blood Urea Nitrogen 20 mg/dL (9-16); Calcium 9.0 mg/dL (8.4-10.2); Carbon Dioxide 26 mmol/L (22-29); Chloride 103 mmol/L (96-108); Estimated Glomerular Filt Rate 47; Potassium 4.0 mmol/L (3.3-5.1); Sodium 134 mmol/L (135-145); Total Protein 6.9 g/dL (6.5-8.0)
[2025-11-13 10:30] LABS: Appearance Urine Clear; Glucose Urine UA Negative (Negative); PH 5.5 (5.0-9.0); Specific Gravity - Urine 1.015 (1.005-1.025)
[2025-11-13 10:58] LABS: Microalbum/Creatinine Ratio Ur 3.8 ug/mg cr (<30)
== END 2025-11-13 08:54 ==
LOC: HO.LAB 08:53
PROVIDERS: PCP Internal Medicine; Visit Provider Internal Medicine
DX: E11.65 Type 2 diabetes mellitus with hyperglycemia (principal); R30.0 Dysuria
CPT/HCPCS: 36415; 80053; 81003; 82043; 82570; 83036; 85025

== ENCOUNTER 2025-11-14 08:33 | Outpatient (AMB) | payer MEDICARE, SELFPAY ==
[2025-11-14 08:39] VITALS: BP 136/70; PULSE 78; O2SAT 98; BMI 41.8
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
--- OUTSIDE RECORDS SUMMARY | 2025-11-14 10:14 | XMS_ITS | Patient Health Record ---
Author Organization [facility] Address [address] [place] [id number] Care Team Providers Care Critical Power Technician Name Role Phone Catherine Diehl MD Primary [...] Oral; Duration: 30 Active Vitamin D (Ergocalciferol) 14605 UNIT Capsule Oral; Duration: 28 Act otis [...] Status Risk Notes Problem Colon cancer screening (546597070) Colon cancer screening (Z12.11) Active confirmed Problem Long-term current use of drug therapy ([id number]) Long-term current use of high risk medication other than anticoagulant (Z79.899) Active confirmed Plan Of Treatment Future Test Test Name Order Date COLONOSCOPY 02/10/2018 Insurance Providers Payer Name Payer Address Payer Phone Subscriber Number Group Number Insured Name Patient Relationship to Insured Coverage Start Date Coverage End Date [facility] [address] [address] [place], [place] [id number] JESÚS PETERSON Self - patient is the insured MEDICAID OF [facility] [address] [place] [address] [id number] JESÚS PETERSON Self - patient is the insured Medical (General) History Medical History History ICD Code hypertension arthritis obstructive sleep apnea disc disease diverticular disease colon polyps morbid obesity umbilical hernia Surgical History Surgery Date(Month/Year) back surgery
== END 2025-11-14 09:15 | disposition home or self-care (01) ==
PROVIDERS: PCP Internal Medicine; Visit Provider Internal Medicine
DX: I25.110 Atherosclerotic heart disease of native coronary artery with unstable angina pectoris (principal); E11.65 Type 2 diabetes mellitus with hyperglycemia; I10 Essential (primary) hypertension; N18.30 Chronic kidney disease, stage 3 unspecified; E78.00 Pure hypercholesterolemia, unspecified; K76.0 Fatty (change of) liver, not elsewhere classified; M17.0 Bilateral primary osteoarthritis of knee; J45.909 Unspecified asthma, uncomplicated; R91.1 Solitary pulmonary nodule

== ENCOUNTER → 2025-11-14 08:33 | Outpatient (BNVA) | payer MEDICARE, SELFPAY | PROVIDERS: PCP Internal Medicine; Visit Provider Internal Medicine | DX: I12.9 Hypertensive chronic kidney disease with stage 1 through stage 4 chronic kidney disease, or unspecified chronic kidney disease (principal); E11.22 Type 2 diabetes mellitus with diabetic chronic kidney disease; N18.30 Chronic kidney disease, stage 3 unspecified; I25.10 Atherosclerotic heart disease of native coronary artery without angina pectoris; E78.00 Pure hypercholesterolemia, unspecified; E11.65 Type 2 diabetes mellitus with hyperglycemia; E66.01 Morbid (severe) obesity due to excess calories; K76.0 Fatty (change of) liver, not elsewhere classified; M17.0 Bilateral primary osteoarthritis of knee; J45.909 Unspecified asthma, uncomplicated; R91.1 Solitary pulmonary nodule; G47.33 Obstructive sleep apnea (adult) (pediatric) | CPT/HCPCS: 99212 ==